=== PATIENT | female | born 1975 | race African-American/Black ===

== ENCOUNTER 2019-08-12 01:36 | Emergency (ER) | payer OTHER ==
[~2019-08-12] VITALS: Ht 180.3 cm; Wt 177.4 kg
--- OUTSIDE RECORDS SUMMARY | 2019-08-12 01:38 | XMS REPORT | Continuity of Care Document ---
Author Author [facility] Organization [facility] Address [address] [place] [address] Phone Unavailable Care Team Providers Care Lumber Tying Machine Operator Name Role Phone PHYSICIAN, NO PCP Unavailable Insurance Providers Guarantor ArturoBarbara Address [address] [place] [address] Email NONE Payer O Policy Number [id number] Subscriber's Name Barbara Morris Relationship Self / Same As Patient Group Number NA Group Name [facility] Advance Directives Directive Response Recorded Date/Time Advance Directive on File No 01/26/18 12:50am Name of Surrogate/Decision Maker N/A 01/26/18 1:03am Patient/Family Given Education Material R/T Directives? Y - SIGNED 01/26/18...AG 01/26/18 1:03am Chief Complaint and Reason for Visit Chief Complaint Abdominal/GI/Nausea/Vomiting Reason for Visit Hemorrhagic cystitis Problems Active ProblemsNo active problem information available. Past Problems Medical Problem Onset Date Status Hemorrhagic cystitis Unknown Acute Medications No medication information available. Social History Social History Problem Response Recorded Date/Time Onset Date Status Hx Physical Abuse No 01/26/2018 12:50am Not Applicable Not Applicable Smoking Status Start Date Stop Date Current every day smoker Hospital Discharge Instructions No hospital discharge instruction information available. Plan of Care Discharge Date 01/26/18 3:41am Instructions/Education Provided Hematuria, Adult Forms Provided Portal Welcome Letter Prescriptions See Medication Section Referrals NO PHYSICIAN Additional Instructions/Education Ciprofloxacin 500mg 1 tab. twice a day Tylenol #3 (generic) 1 tab. every 4 hours as needed for pain OFF FROM DUTY TODAY Functional Status No functional status information available. Allergies, Adverse Reactions, Alerts Allergen Type Severity Reaction Status Last Updated Aspirin ([id number]) Allergy Unknown HIVES Active 01/26/18 Metoclopramide (R9971279994) Allergy Unknown CHEST TIGHTNESS Active 01/26/18 Ceftriaxone ([id number]) Allergy Unknown HIVES Active 01/26/18 Ondansetron (O9390094804) Allergy Unknown HIVES Active 01/26/18 NSAIDs (U2892864093) Allergy Unknown HIVES Active 01/26/18 Ketorolac Tromethamine ([id number]) Allergy Unknown CHEST TIGHTNESS Active 01/26/18 Immunizations No immunization information available. Vital Signs Acute Vital Signs Vital Response Date/Time Blood Pressure 106/73 mm Hg 01/26/2018 3:41am Pulse Pulse Rate (adult) 71 beats per minute (60 - 100) 01/26/2018 3:41am Respiratory Rate 20 breaths per minute (10 - 24) 01/26/2018 3:41am Temperature Source Oral 01/26/2018 3:41am Height 5 ft 10.5 in 01/26/2018 12:50am Weight 386 lb 01/26/2018 12:50am Body Mass Index 54.6 kg/m^2 01/26/2018 12:50am Results Laboratory Results Test Name Result Units Flags Reference Collection Date/Time Result Date/Time Comments White Blood Count 8.8 K/ul 4.0-11.5 01/26/2018 2:01am 01/26/2018 2:14am Red Blood Count 4.73 M/ul 3.80-5.20 01/26/2018 2:01am 01/26/2018 2:14am Hemoglobin 14.0 g/dl 10.5-15.7 01/26/2018 2:01am 01/26/2018 2:14am Hematocrit 42.2 % 34.0-50.0 01/26/2018 2:01am 01/26/2018 2:14am Mean Corpuscular Volume 89.2 fl 78-98 01/26/2018 2:01am 01/26/2018 2:14am Mean Corpuscular Hemoglobin 29.5 pg 26.2-33.4 01/26/2018 2:01am 01/26/2018 2:14am Mean Corpuscular Hemoglobin Concent 33.1 g/dl 31.5-36.2 01/26/2018 2:01/26/2018 2:14am Red Cell Distribution Width 12.6 % 11.5-15.5 01/26/2018 2:0101/26/2018 2:14am Platelet Count 303 K/ul 137-338 01/26/2018 2:01/26/2018 2:14am Mean Platelet Volume 7.1 fl L 8.4-11.8 01/26/2018 2:0101/26/2018 2:14am Neutrophils (%) (Auto) 64.2 % 44.4-80.1 01/26/2018 2:01/26/2018 2:14am Lymphocytes (%) (Auto) 28.4 % 10.0-50.0 01/26/2018 2:01/26/2018 2:14am Monocytes (%) (Auto) 3.9 % 3.6-12.04 01/26/2018 2:01/26/2018 2:14am Eosinophils (%) (Auto) 2.2 % 0.0-5.41 01/26/2018 2:0101/26/2018 2:14am Basophils (%) (Auto) 1.2 % H 0.0-0.79 01/26/2018 2:0101/26/2018 2:14am Urine Color YELLOW 01/26/2018 12:50am 01/26/2018 1:34am Urine Appearance SL CLOUDY A CLEAR 01/26/2018 12:50am 01/26/2018 1:34am Urine Glucose NEGATIVE NEGATIVE 01/26/2018 12:50am 01/26/2018 1:34am Urine Bilirubin NEGATIVE NEGATIVE 01/26/2018 12:50am 01/26/2018 1:34am Urine Ketones NEGATIVE NEGATIVE 01/26/2018 12:50am 01/26/2018 1:34am Urine Specific [place] 1.020 1.003-1.030 01/26/2018 12:50am 01/26/2018 1:34am Urine Blood 3+ (LARGE) H NEGATIVE 01/26/2018 12:50am 01/26/2018 1:34am Urine pH 5.500 5-9 01/26/2018 12:50am 01/26/2018 1:34am Urine Protein TRACE NEGATIVE 01/26/2018 12:50am 01/26/2018 1:34am Urine Urobilinogen NORMAL mg/dL 0.2-1.0 01/26/2018 12:50am 01/26/2018 1:34am Urine Nitrate NEGATIVE NEGATIVE 01/26/2018 12:50am 01/26/2018 1:34am Urine Leukocyte Esterase NEGATIVE NEGATIVE 01/26/2018 12:50am 01/26/2018 1:34am Urine RBC >50 /hpf H 0-5 01/26/2018 12:50am 01/26/2018 1:34am Urine WBC 1-5 /hpf 0-5 01/26/2018 12:50am 01/26/2018 1:34am Urine Epithelial Cells 1-5 /hpf 0-5 01/26/2018 12:50am 01/26/2018 1:34am Urine Bacteria None Detected /hpf None Detect 01/26/2018 12:50am 01/26/2018 1:34am Urine Casts None Detected /lpf None Detect 01/26/2018 12:50am 01/26/2018 1:34am Urine Culture Reflexed NO 01/26/2018 12:50am 01/26/2018 1:34am Random Glucose 97 mg/dL 74-106 01/26/2018 2:01am 01/26/2018 2:30am Blood Urea Nitrogen 10 mg/dL -01/26/2018 2:01am 01/26/2018 2:30am Serum Osmolality 277 L 280-300 01/26/2018 2:01am 01/26/2018 2:30am Creatinine 0.7 mg/dL 0.50-0.90 01/26/2018 2:01am 01/26/2018 2:30am Glomerular Filtration Rate Calc > 60.00 01/26/2018 2:01am 01/26/2018 2:30am GFR RESULTS ARE REPORTED IN mL/min/1.73m2. Normal GFR: >60mL/min Moderately decreased GFR: 30-59 mL/min Severely decreased GFR: 15-29 mL/min Kidney Failure (or Dialysis): <15 mL/min The calculated eGFR is not valid for patients younger than 18 years or older than 75 years. BUN/Creatinine Ratio 14.3 12-01/26/2018 2:0101/26/2018 2:30am Sodium Level 139 mmol/L 135-145 01/26/2018 2:0101/26/2018 2:30am Potassium Level 4.0 mmol/L 3.5-5.2 01/26/2018 2:0101/26/2018 2:30am Chloride Level 104 mmol/L 98-108 01/26/2018 2:01/26/2018 2:30am Carbon Dioxide Level 23 mmol/L 21-32 01/26/2018 2:01/26/2018 2:30am Anion Gap 16.0 mEq/L 12-20 01/26/2018 2:01/26/2018 2:30am Calcium Level 9.4 mg/dL 8.6-10.0 01/26/2018 2:01/26/2018 2:30am Total Protein 7.5 g/dL 6.6-8.7 01/26/2018 2:01/26/2018 2:30am Albumin 3.7 g/dL 3.5-5.2 01/26/2018 2:01/26/2018 2:30am Globulin 3.8 gm/dL 01/26/2018 2:01/26/2018 2:30am Albumin/Globulin Ratio 1.0 >1.0 01/26/2018 2:01/26/2018 2:30am Total Bilirubin < 0.3 mg/dL 0.0-1.2 01/26/2018 2:0101/26/2018 2:30am Aspartate Amino Transf (AST/SGOT) 20 U/L 15-32 01/26/2018 2:01/26/2018 2:30am Alanine Aminotransferase (ALT/SGPT) 16 U/L 0-33 01/26/2018 2:0101/26/2018 2:30am Amylase Level 144 U/L H 28-100 01/26/2018 2:0101/26/2018 2:30am Lipase 21 U/L 13-60 01/26/2018 2:0101/26/2018 2:30am Total Alkaline Phosphatase 157 U/L H 35-105 01/26/2018 2:0101/26/2018 2:30am Procedures Procedure Status Date Provider(s) Computed tomography of abdomen and pelvis without contrast Completed 01/26/18 JAYME LANG MD Encounters Encounter Location Arrival/Admit Date Discharge/Depart Date Attending Provider Departed Emergency Room [facility] 01/26/18 12:43am 01/26/18 3:41am JAYME LANG MD Recent Diagnosis
--- OUTSIDE RECORDS SUMMARY | 2019-08-12 01:38 | XMS REPORT | Continuity of Care Document ---
Author Author [facility] Address [address] [place] [address] ;ext= Care Team Providers Care Mail Teller Name Role Phone JR FUENTES Admphys JR FUENTES Attphys Hospital Admission Diagnosis Code Admission Diagnosis Date Abdominal pain Social History Element Description Code Description Smoking Status Code System Start Date End Date Smoking Status 042238141 Current every day smoker SNOMED-CT Problems Code Code System Problem Name Start Date End Date Status 591978224 SNOMED-CT Viral gastroenteritis 12/17/2017 Active 336631796 SNOMED-CT Right lower quadrant pain 12/17/2017 Active Medications RxNorm Medication Dose Route Instructions Indications Start Date End Date Status 233863 Dicyclomine Hydrochloride 20 MG Oral Tablet 20 milligram Oral orally 4 times per day (7 days) Active 987226 Metoclopramide 5 MG Oral Tablet 5 milligram Oral orally 4 times per day (7 days) (administer 30 minutes before a meal or food) Active Allergies Code Code System Allergy Substance Type Reaction Severity Start Date End Date Status 3674938 RXNorm Cephalosporins Drug allergy Unknown Active 559201 RXNorm NSAIDS (Non-Steroidal Anti-Inflammatory Drug) Drug allergy Unknown Active 01186 RXNorm Toradol Drug allergy Unknown Active 33083 RXNorm Zofran Drug allergy Unknown Active Results Laboratory Results Order: UA URINALYSIS WITH MICROSCOPY LOINC Test Result Flag Range Unit Date 5778-6 1Color:Type:Pt:Urine:Nom YELLOW 12/17/2017 18:35 5767-9 1Appearance:Aper:Pt:Urine:Nom CLEAR 12/17/2017 18:35 2349-9 1Glucose:ACnc:Pt:Urine:Ord NEGATIVE NEGATIVE 12/17/2017 18:35 5770-3 1Bilirubin:ACnc:Pt:Urine:Ord:Test strip NEGATIVE NEGATIVE 12/17/2017 18:35 2514-8 1Ketones:ACnc:Pt:Urine:Ord:Test strip NEGATIVE NEGATIVE 12/17/2017 18:35 5811-5 1Specific gravity:Rden:Pt:Urine:Qn:Test strip 1.020 A 1.005-1.030 12/17/2017 18:35 5794-3 1Hemoglobin:ACnc:Pt:Urine:Ord:Test strip TRACE-LYSED A NEGATIVE 12/17/2017 18:35 5803-2 1pH:LsCnc:Pt:Urine:Qn:Test strip 6.0 A 4.5-8.0 12/17/2017 18:35 65862-8 1Protein:ACnc:Pt:Urine:Ord:Test strip NEGATIVE NEGATIVE 12/17/2017 18:35 5818-0 1Urobilinogen:ACnc:Pt:Urine:Ord:Test strip 4.0 A 0.2 12/17/2017 18:35 5802-4 1Nitrite:ACnc:Pt:Urine:Ord:Test strip NEGATIVE NEGATIVE 12/17/2017 18:35 5799-2 1Leukocyte esterase:ACnc:Pt:Urine:Ord:Test strip NEGATIVE NEGATIVE 12/17/2017 18:35 5821-4 1Leukocytes:Naric:Pt:Urine sed:Qn:Microscopy.light.HPF 0-1 A 0-5 12/17/2017 18:35 60327-6 1Erythrocytes:Naric:Pt:Urine sed:Qn:Microscopy.light.HPF 0-2 A 0-5 12/17/2017 18:35 60891-1 1Epithelial cells.squamous:Naric:Pt:Urine sed:Qn:Microscopy.light.HPF 0-5 A 0-10 12/17/2017 18:35 8247-9 1Mucus:ACnc:Pt:Urine sed:Ord:Microscopy.light Trace A None Seen 12/17/2017 18:35 5769-5 1Bacteria:Naric:Pt:Urine sed:Qn:Microscopy.light.HPF Trace None Seen,Trace 12/17/2017 18:35 * Performing Lab Footnotes:* [address] [place] [address] - [id number] - [address] - MD: DIRECTOR NATE GASPAR Order: CBC PLATELET AUTO DIFF LOINC Test Result Flag Range Unit Date 05326-7 1Leukocytes^^corrected for nucleated erythrocytes:NCnc:Pt:Bld:Qn:Automated count 8.66 4.80-10.80 10^3/ul 12/17/2017 18:04 789-8 1Erythrocytes:NCnc:Pt:Bld:Qn:Automated count 4.5 4.20-5.40 10^6/ul 12/17/2017 18:04 718-7 1Hemoglobin:MCnc:Pt:Bld:Qn 13 12.0-14.0 gm/dl 12/17/2017 18:04 4544-3 1Hematocrit:VFr:Pt:Bld:Qn:Automated count 39.9 37.0-47.0 % 12/17/2017 18:04 787-2 1Erythrocyte mean corpuscular volume:EntVol:Pt:RBC:Qn:Automated count 88.7 81.0-99.0 fL 12/17/2017 18:04 785-6 1Erythrocyte mean corpuscular hemoglobin:EntMass:Pt:RBC:Qn:Automated count 28.9 27.0-31.0 pg 12/17/2017 18:04 786-4 1Erythrocyte mean corpuscular hemoglobin concentration:MCnc:Pt:RBC:Qn:Automated count 32.6 L 33.0-37.0 gm/dl 12/17/2017 18:04 788-0 1Erythrocyte distribution width:Ratio:Pt:RBC:Qn:Automated count 13.2 11.5-14.5 % 12/17/2017 18:04 777-3 1Platelets:NCnc:Pt:Bld:Qn:Automated count 272 130-400 10^3/ul 12/17/2017 18:04 41731-7 1Platelet mean volume:EntVol:Pt:Bld:Qn:Automated count 9.8 A 7.4-10.4 fL 12/17/2017 18:04 770-8 1Neutrophils/100 leukocytes:NFr:Pt:Bld:Qn:Automated count 70.3 42.0-75.0 % 12/17/2017 18:04 736-9 1Lymphocytes/100 leukocytes:NFr:Pt:Bld:Qn:Automated count 21.5 13.0-42.0 % 12/17/2017 18:04 5905-5 1Monocytes/100 leukocytes:NFr:Pt:Bld:Qn:Automated count 5.7 4.0-14.0 % 12/17/2017 18:04 713-8 1Eosinophils/100 leukocytes:NFr:Pt:Bld:Qn:Automated count 1.4 1.0-5.0 % 12/17/2017 18:04 706-2 1Basophils/100 leukocytes:NFr:Pt:Bld:Qn:Automated count 0.6 0.0-3.0 % 12/17/2017 18:04 1IG% 0.5 H 0.0-0.4 % 12/17/2017 18:04 * Performing Lab Footnotes:* [address] [place] [address] - [id number] - [address] [place] [address] BLANCO Joya MD: DIRECTOR NATE GASPAR Order: CMP COMPREHENSIVE METABOLIC PANEL LOINC Test Result Flag Range Unit Date 1Glucose 101 75-110 mg/dl 12/17/2017 18:04 1BUN 8 6.0-17.0 mg/dl 12/17/2017 18:04 1Creatinine 0.9 0.4-1.2 mg/dl 12/17/2017 18:04 1Sodium 144 137-145 mmol/l 12/17/2017 18:04 1Potassium 4 3.5-5.0 mmol/l 12/17/2017 18:04 1Chloride 109 H 98-107 mmol/l 12/17/2017 18:04 1CO2 26 22-30 mmol/l 12/17/2017 18:04 1Calcium 8.6 8.4-10.2 mg/dl 12/17/2017 18:04 1T Protein 7.4 5.1-8.7 gm/dl 12/17/2017 18:04 1Albumin 3 L 3.5-4.6 gm/dl 12/17/2017 18:04 1A/G Ratio 0.7 L 1.1-2.2 % 12/17/2017 18:04 1AST (SGOT) 17 11-36 U/L 12/17/2017 18:04 1ALT (SGPT) 18 11-40 U/L 12/17/2017 18:04 1Alkaline Phos 147 H 47-114 U/L 12/17/2017 18:04 1Total Bilirubin 0.3 0.2-1.2 mg/dl 12/17/2017 18:04 1Globulin 4.4 H 2.3-3.5 gm/dl 12/17/2017 18:04 1Calcium, Corrected 9.4 8.4-10.2 mg/dl 12/17/2017 18:04 Note: Various formulas exist for corrected serum calcium results, each yielding different values. This corrected result was based on the formula: Corrected Calcium=SerumCalcium + [0.8 * ( 4 - SerumAlbumin)] 1EGFR if >60 mL/min/1.73m^2 12/17/2017 18:04 1EGFR if Non- >60 mL/min/1.73m^2 12/17/2017 18:04 Note: Estimated Glomerular Filtration Rate (eGFR) Reference Intervals Decision Points for 18 years and older and average body mass: >=60 Does not exclude kidney disease. 30 - 59 Suggests moderate chronic kidney disease and indicates the need for further investigation including assessment of proteinuria and cardiovascular factors. < 30 Usually indicates a need for referral for assessment and management of chronic kidney failure. * Performing Lab Footnotes:* [address] [place] [address] [id number] [place] [address] BLANCO Joya MD: DIRECTOR NATE GASPAR Order: LIPASE SERUM LOINC Test Result Flag Range Unit Date 1Lipase 90 8-223 U/L 12/17/2017 18:04 * Performing Lab Footnotes:* [address] [place] [address] [id number] [place] [address] BLANCO Joya MD: DIRECTOR NATE GASAPR Radiology Results Order: [id number] CT ABDOMEN/PELVIS W/O CONTRAST* Exam Completion Date:12/17/2017 18:08 EXAM: CT Abdomen and Pelvis WITHOUT contrast Ordering Provider: MARGARET GALVNI Clinical Indication: rlq painCOMPARISON: None.TECHNIQUE: Abdomen and pelvis wer e scanned utilizing a multidetector helicalscanner from the lung base to the pub ic symphysis without administration of IVcontrast. Absence of intravenous contra st decreases sensitivity for detection offocal lesions and vascular pathology. C oronal and sagittal reformations wereobtained. Routine protocol was performed. IV CONTRAST: None. ORAL CONTRAST: Water RADIATI ON DOSE: Total DLP: 1403 mGy*cm Estimated effective dose: (DLP x 0.0 15 x size factor) mSv COMPLICATIONS: NoneFINDINGS:LINES and TUBES: No ne.LOWER THORAX: Minimal ground glass nodular densities in the right middle lob eposterolaterally on image one series 3 is nonspecific, possibly inflammatory or infectious in etiology. No pleural effusion.HEPATOBILIARY: Heterogeneous fatty i nfiltration. No focal hepatic lesions. Nobiliary ductal dilation. GALLBLADDER: Surgically absent.SPLEEN: No splenomegaly. PANCREAS: No focal masses or ductal d ilatation. ADRENALS: No adrenal nodules KIDNEYS/URETERS: No hydronephrosis. No cystic or solid mass lesions. Nostones.GI TRACT: No abnormal distention, wa ll thickening, or evidence of bowelobstruction. Appendix is normal.PELVIC ORGANS/BLADDER: Status post hysterectomy.LYMPH NODES: No lymphadenopathy.VESSELS : Unremarkable.PERITONEUM / RETROPERITONEUM: No free air or fluid.BONES: Unremar kable.SOFT TISSUES: Unremarkable. IMPRESSION: 1. No acute abdominal pelvic abnormality.This final report was electronically signed by Dr Hermila Ramires i, MD 12/17/20176:34 PMDictated By: HERMILA SIMENTALDate: 12/17/2017 18:41 Vital Signs Vitals Value Date Body Temperature 98.4 F 12/17/2017 Respiratory Rate 20 12/17/2017 O2% BldC Oximetry 100 12/17/2017 BP Systolic 117 mmHg 12/17/2017 BP Diastolic 89 mmHg 12/17/2017 Height 70 in 12/17/2017 Weight Measured 392.42 lbs 12/17/2017 BSA (Body Surface Area) 2.32140 12/17/2017 BMI (Body Mass Index) 56.8 12/17/2017 Plan of Care * No data in the system Procedures Code Code System Procedure Name Target Site Date of Procedure CT ABDOMEN/PELVIS W/O CONTRAST 12/17/2017 18:41 Encounters Date Code Diagnosis Status (ICD10) - A084 VIRAL INTESTINAL INFECTION UNSPEC Active Immunizations * No data in the system Functional Status * No data in the system Hospital Discharge Instructions * Discharge Instructions 2* Discharge Diagnosis* Gastroenteritis; N/V * Important Information* Consult your physician or return to the Emergency Department immediately if worse, if not better as expected, or if any problems arise. * Please understand that you have received care only on an emergency basis. If your condition does not improve, you should call your personal physician for follow-up care. If you do not have a physician, you may call the referred physician listed. * If you have questions about your care or these discharge instructions, you may call the Emergency Department. Please take your discharge paperwork with you to any follow-up appointments. * Follow Up Care* Patient To Schedule * Follow-Up With:* Primary Care Physician * Activity Level* As tolerated, unrestricted * Diet* Regular * Prescriptions Given Via:* Printed and given to patient/caregiver. * Patient Teaching* Patient education provided
--- OUTSIDE RECORDS SUMMARY | 2019-08-12 01:38 | XMS REPORT | Continuity of Care Document ---
Author Author [facility] Address [address] [place] [address] ;ext= Care Team Providers Care Storage Center Manager Name Role Phone JR FUENTES Admphys JR FUENTES Attphys Hospital Admission Diagnosis * No data in the System Social History Element Description Code Description Smoking Status Code System Start Date End Date Smoking Status 148363553 Current every day smoker SNOMED-CT Problems Code Code System Problem Name Start Date End Date Status 695810023 SNOMED-CT Viral gastroenteritis 12/17/2017 Active 423559108 SNOMED-CT Right lower quadrant pain 12/17/2017 Active Medications RxNorm Medication Dose Route Instructions Indications Start Date End Date Status 301347 Dicyclomine Hydrochloride 20 MG Oral Tablet 20 milligram Oral orally 4 times per day (7 days) Active 285123 Metoclopramide 5 MG Oral Tablet 5 milligram Oral orally 4 times per day (7 days) (administer 30 minutes before a meal or food) Active Allergies Code Code System Allergy Substance Type Reaction Severity Start Date End Date Status 2536118 RXNorm Cephalosporins Drug allergy Unknown Active 083162 RXNorm NSAIDS (Non-Steroidal Anti-Inflammatory Drug) Drug allergy Unknown Active 81620 RXNorm Toradol Drug allergy Unknown Active 93794 RXNorm Zofran Drug allergy Unknown Active Results Laboratory Results Order: UA URINALYSIS WITH MICROSCOPY LOINC Test Result Flag Range Unit Date 5777-10 1Color:Type:Pt:Urine:Nom YELLOW 12/17/2017 18:35 5767-9 1Appearance:Aper:Pt:Urine:Nom CLEAR 12/17/2017 18:35 2349-9 1Glucose:ACnc:Pt:Urine:Ord NEGATIVE NEGATIVE 12/17/2017 18:35 5770-3 1Bilirubin:ACnc:Pt:Urine:Ord:Test strip NEGATIVE NEGATIVE 12/17/2017 18:35 2514-8 1Ketones:ACnc:Pt:Urine:Ord:Test strip NEGATIVE NEGATIVE 12/17/2017 18:35 5811-5 1Specific gravity:Rden:Pt:Urine:Qn:Test strip 1.020 A 1.005-1.030 12/17/2017 18:35 5794-3 1Hemoglobin:ACnc:Pt:Urine:Ord:Test strip TRACE-LYSED A NEGATIVE 12/17/2017 18:35 5803-2 1pH:LsCnc:Pt:Urine:Qn:Test strip 6.0 A 4.5-8.0 12/17/2017 18:35 95432-7 1Protein:ACnc:Pt:Urine:Ord:Test strip NEGATIVE NEGATIVE 12/17/2017 18:35 5818-0 1Urobilinogen:ACnc:Pt:Urine:Ord:Test strip 4.0 A 0.2 12/17/2017 18:35 5802-4 1Nitrite:ACnc:Pt:Urine:Ord:Test strip NEGATIVE NEGATIVE 12/17/2017 18:35 5799-2 1Leukocyte esterase:ACnc:Pt:Urine:Ord:Test strip NEGATIVE NEGATIVE 12/17/2017 18:35 5821-4 1Leukocytes:Naric:Pt:Urine sed:Qn:Microscopy.light.HPF 0-1 A 0-5 12/17/2017 18:35 40390-6 1Erythrocytes:Naric:Pt:Urine sed:Qn:Microscopy.light.HPF 0-2 A 0-5 12/17/2017 18:35 57472-5 1Epithelial cells.squamous:Naric:Pt:Urine sed:Qn:Microscopy.light.HPF 0-5 A 0-10 12/17/2017 18:35 8247-9 1Mucus:ACnc:Pt:Urine sed:Ord:Microscopy.light Trace A None Seen 12/17/2017 18:35 5769-5 1Bacteria:Naric:Pt:Urine sed:Qn:Microscopy.light.HPF Trace None Seen,Trace 12/17/2017 18:35 * Performing Lab Footnotes:* [address] [place] [address] - [id number] - [address] - MD: DIRECTOR NATE GASPAR Order: CBC PLATELET AUTO DIFF LOINC Test Result Flag Range Unit Date 41297-4 1Leukocytes^^corrected for nucleated erythrocytes:NCnc:Pt:Bld:Qn:Automated count 8.66 4.80-10.80 [...] 1Platelets:NCnc:Pt:Bld:Qn:Automated count 272 130-400 10^3/ul 12/17/2017 18:04 27424-2 1Platelet mean volume:EntVol:Pt:Bld:Qn:Automated count 9.8 A 7.4-10.4 [...] % 12/17/2017 18:04 * Performing Lab Footnotes:* [address] [place] [address] - [id number] [place] [address] BLANCO Joya MD: DIRECTOR NATE GASPAR Order: [...] chronic kidney failure. * Performing Lab Footnotes:* [address] [place] [address] [id number] [place] [address] BLANCO Joya MD: DIRECTOR NATE GASPAR Order: LIPASE SERUM LOINC Test Result Flag Range Unit Date 1Lipase 90 8-223 U/L 12/17/2017 18:04 * Performing Lab Footnotes:* [address] [place] [address] [id number] [place] [address] BLANCO Joya MD: DIRECTOR NATE GASPAR Radiology Results Order: [id number] CT ABDOMEN/PELVIS W/O CONTRAST* Exam Completion Date:12/17/2017 18:08 EXAM: CT Abdomen and Pelvis WITHOUT contrast Ordering Provider: MARGARET GALVIN Clinical Indication: rlq painCOMPARISON: None.TECHNIQUE: Abdomen and [...] 392.42 lbs 12/17/2017 BSA (Body Surface Area) 2.78543 12/17/2017 BMI (Body Mass Index) 56.8 12/17/2017 Plan of Care * No data in the system Procedures Code Code System Procedure Name Target Site Date of Procedure CT ABDOMEN/PELVIS W/O CONTRAST 12/17/2017 18:41 Encounters * No data in the system Immunizations * No data in the system [...]
--- OUTSIDE RECORDS SUMMARY | 2019-08-12 01:41 | XMS REPORT ---
[facility] Address Unknown Phone Unavailable Care Team Providers Care Sorter Operator Name Role Phone UNKNOWN, REFFERING PP Unavailable PROVIDER, TEMP ED Unavailable Unavailable LINK CHAVEZ Unavailable Unavailable DR Verna BARRIENTOS Unavailable Unavailable EDUARD ABREU Unavailable Unavailable Edward FUENTES Unavailable Unavailable DR ANIVAL MONTGOMERY Unavailable Unavailable BASIL LEGGETT Unavailable Unavailable JOEL CRAVEN Unavailable Unavailable PEPITO ESCAMILLA Unavailable Unavailable WENDIE BLANTON Unavailable Unavailable ABIGAIL POTTS Unavailable Unavailable SONALI ELLER Unavailable Unavailable KRUPA GORDON Unavailable Unavailable RON FULTON Unavailable Unavailable Payers Payer Name Policy Type Policy Number Effective Date Expiration Date Problems This patient has no known problems. Allergies, Adverse Reactions, Alerts Allergy Name Allergy Type Status Severity Reaction(s) Onset Date Inactive Date Treating Clinician Comments NSAIDS (Non-Steroidal Anti-Inflamma DA Active U 2018-09-18 00:00:00 prochlorperazine DA Active U 2018-09-18 00:00:00 aspirin DA Active U 2018-09-18 00:00:00 metoclopramide DA Active 2018-09-18 00:00:00 ondansetron DA Active U 2018-09-18 00:00:00 ketorolac DA Active U 2018-09-18 00:00:00 ceftriaxone DA Active U 2018-09-18 00:00:00 Cephalosporins DA Active U 2018-09-13 00:00:00 NSAIDS (Non-Steroidal Anti-Inflamma DA Active 2018-09-13 00:00:00 aspirin DA Active 2018-09-13 00:00:00 metoclopramide DA Active 2018-09-13 00:00:00 ondansetron DA Active 2018-09-13 00:00:00 NSAIDS (Non-Steroidal Anti-Inflamma DA Active U 2018-05-29 00:00:00 prochlorperazine DA Active U 2018-05-29 00:00:00 aspirin DA Active U 2018-05-29 00:00:00 metoclopramide DA Active 2018-05-29 00:00:00 ondansetron DA Active U 2018-05-29 00:00:00 ketorolac DA Active U 2018-05-29 00:00:00 ceftriaxone DA Active U 2018-05-29 00:00:00 NSAIDS (Non-Steroidal Anti-Inflamma DA Active AR 2018-03-06 00:00:00 aspirin DA Active AR 2018-03-06 00:00:00 metoclopramide DA Active U 2018-03-06 00:00:00 ondansetron DA Active AR 2018-03-06 00:00:00 ceftriaxone DA Active AR 2018-03-06 00:00:00 metoclopramide DA Active U 2017-12-16 00:00:00 NSAIDS (Non-Steroidal Anti-Inflamma DA Active AR 2016-12-28 00:00:00 prochlorperazine DA Active MO 2016-12-28 00:00:00 aspirin DA Active MO 2016-12-28 00:00:00 metoclopramide DA Active MO 2016-12-28 00:00:00 ondansetron DA Active MO 2016-12-28 00:00:00 ketorolac DA Active MO 2016-12-28 00:00:00 ceftriaxone DA Active MO 2016-12-28 00:00:00 NSAIDS (Non-Steroidal Anti-Inflamma DA Active U 2016-12-18 00:00:00 prochlorperazine DA Active U 2016-12-18 00:00:00 aspirin DA Active U 2016-12-18 00:00:00 metoclopramide DA Active SV 2016-12-18 00:00:00 ondansetron DA Active U 2016-12-18 00:00:00 ketorolac DA Active U 2016-12-18 00:00:00 ceftriaxone DA Active U 2016-12-18 00:00:00 morphine DA Active PR 2016-09-15 00:00:00 NSAIDS (Non-Steroidal Anti-Inflamma DA Active PR 2016-09-14 00:00:00 prochlorperazine DA Active SV 2016-09-14 00:00:00 aspirin DA Active PR 2016-09-14 00:00:00 ondansetron DA Active U 2016-09-14 00:00:00 ketorolac DA Active SV 2016-09-14 00:00:00 ceftriaxone DA Active PR 2016-09-14 00:00:00 Medications This patient has no known medications. Encounters Start Date/Time End Date/Time Encounter Type Admission Type Attending [facility] Care Department Encounter ID 2019-03-14 12:44:30 Outpatient MHSE SHASTA [id number] 2019-07-04 22:32:00 2019-07-04 22:32:00 Outpatient E MHNE MED [id number] 2019-02-14 22:42:00 2019-02-14 22:42:00 Emergency E MHKM MHKM [id number] 2019-01-03 15:43:00 2019-01-03 15:43:00 Emergency E MHCY MHCY [id number] 2018-12-28 05:16:00 2018-12-28 08:30:00 Emergency E ADEEL BARRIENTOS [facility] [id number] 2018-12-19 02:51:00 2018-12-19 02:51:00 Emergency E MHFB MHFB [id number] 2018-11-30 03:58:00 2018-11-30 03:58:00 Emergency E MHNW MHNW [id number] 2018-11-22 05:39:00 2018-11-22 05:39:00 Emergency E MHNE MHNE [id number] 2018-11-15 04:53:00 2018-11-15 04:53:00 Emergency E MHNE MHNE [id number] 2018-11-04 01:16:00 2018-11-04 01:16:00 Emergency E MHTW MHTW [id number] 2018-10-15 22:04:00 2018-10-15 22:04:00 Emergency E MHTW MHTW [id number] 2018-10-05 23:24:00 2018-10-05 23:24:00 [id number] 2018-09-15 21:47:00 2018-09-15 21:47:00 Emergency E MHNE MHNE 7545 2018-09-04 23:41:00 2018-09-04 23:41:00 Emergency E MHNE MHNE 7544 2018-08-27 03:08:00 2018-08-27 03:08:00 Emergency E MHNE MHNE 7543 2018-08-06 02:42:00 2018-08-06 02:42:00 Emergency E MHNE MHNE 7542 2018-08-01 03:34:00 2018-08-01 03:34:00 Outpatient MHNE MHNE [id number] 2018-07-07 23:03:00 2018-07-07 23:03:00 Emergency E MHNE MHNE 7540 2018-04-17 23:27:00 2018-04-17 23:27:00 Emergency E MHNE MHNE 7530 2018-03-27 21:49:00 2018-03-27 [facility]:49:00 [id number] 2018-03-22 00:55:00 2018-03-22 00:55:00 Emergency [facility] [id number] 2018-02-27 07:05:50 2018-02-27 07:05:50 Emergency [facility] [id number] 2018-02-27 02:28:34 2018-02-27 02:28:34 Emergency [facility] [id number] 2018-02-27 00:00:00 2018-02-27 00:00:00 Emergency [facility] [id number] 2018-02-27 00:00:00 2018-02-27 00:00:00 Emergency [facility] [id number] 2018-02-05 22:41:00 2018-02-05 22:41:00 Emergency E MHNW MHNW [id number] 2018-02-05 02:09:00 2018-02-05 02:09:00 Emergency E [facility] 7525 2017-11-15 05:04:00 2017-11-15 07:39:00 Emergency E JONAH MONTGOMERY [facility] [id number] 2017-08-22 22:46:37 2017-08-22 22:46:37 Emergency [facility] [id number] 2017-08-22 21:38:09 2017-08-22 21:38:09 Emergency [facility] [id number] 2017-08-15 22:43:00 2017-08-15 22:43:00 Emergency E STANLEY LEGGETTFara [facility] [id number] 2017-07-24 19:20:00 2017-07-24 19:20:00 Emergency E [facility] [id number] 2017-01-14 07:28:14 2017-01-14 07:28:14 Emergency [facility] [id number] 2017-01-14 00:45:08 2017-01-14 00:45:08 Emergency [facility] [id number] 2016-11-18 03:34:26 2016-11-18 03:34:26 Emergency [facility] [id number] 2016-11-16 22:14:00 2016-11-16 22:14:00 Emergency [facility] [id number] 2016-11-12 01:40:00 2016-11-12 01:40:00 Emergency E [facility] [id number] Results Test Description Test Time Test Comments Text Results Atomic Results Result Comments UA RFLX MICR CULT IF INDICATED 2019-05-10 03:37:00 UA COLOR (test code=COLU) YELLOW YEL/STRAW UA APPEARANCE (test code=APPU) SL CLOUDY CLEAR UA GLUCOSE DIPSTICK (test code=DGLUU) NEGATIVE NEGATIVE UA BILIRUBIN DIPSTICK (test code=BILU) NEGATIVE NEGATIVE UA KETONE DIPSTICK (test code=KETU) NEGATIVE NEGATIVE UA SPECIFIC GRAVITY (test code=SGU) 1.031 1.005-1.030 UA BLOOD DIPSTICK (test code=OSMEL) NEGATIVE NEGATIVE UA PH DIPSTICK (test code=LUPE) 5.0 5.0-7.0 UA PROTEIN DIPSTICK (test code=PROU) NEGATIVE NEGATIVE UA UROBILINIOGEN DIPSTICK (test code=URO) 2.0 mg/dL 0.2-1.0 UA NITRITE DIPSTICK (test code=PATRICIA) NEGATIVE NEGATIVE UA LEUKOCYTE ESTERASE DIPSTICK (test code=LEUU) NEGATIVE NEGATIVE UA WBC (test code=WBCU) 0-3 WBC/HPF 0-3 UA RBC (test code=RBCU) 0-3 RBC/HPF 0-3 UA WBC NO REFLEX (test code=WBCUCL) 0-3 WBC/HPF 0-3 UA BACTERIA (test code=BACU) TRACE /HPF NONE SEEN UA SQUAMOUS CELLS (test code=SQU) 11-25 /HPF NONE SEEN UA MUCUS (test code=MUCU) TRACE /LPF NONE SEEN Indication for culture: Dysuria/FrequencySpecimen Description: CLEAN CATCH- CT ABD PELVIS [id number] 23:33:00 FAX: Anibal Linares MD [place]: St: REG Name: LILIAN BOO [facility] : 5 Age/S: 43/F [address] [facility] Unit: [id number] Loc: E[facility] [place], [place]: [place] [id number] Acct: [id number] Dis Date: Status: REG ER PHONE #: [phone] Exam Date: 05/03/2019 2332 FAX #: [phone] Reason: RLQ PAIN hx of ovarian torsion EXAMS: CPT CODE: [id number] CT ABD PELVIS W/CONT 81440 LOCATION: T18 EXAM: CT ABDOMEN AND PELVIS WITH CONTRAST INDICATION: RLQ PAIN hx of ova jett torsion COMPARISON: Pelvic ultrasound May 03, [address] abdomen and pelvis April 16, 2019 TECHNIQUE: Multiple C T images of the abdomen and pelvis were obtained with reconstructions in t he coronal and sagittal planes. 100 ml of Isovue 300 was given intravenous ly. Up-to-date CT equipment and radiation dose reduction techniques were utilized. Automatic exposure control was utilized. FINDINGS : Lung bases are clear. Liver and spleen are normal in appearance. Adrenal glands and pancreas normal. Gallbladder removed. No biliary di stention. Portal vasculature is patent. Kidneys enhance sym metrically. No focal abnormality-doses. There is no hydroureter. Urinar y bladder is normal in appearance. Uterus is not seen. Appe ndix is normal. There is no evidence for acute appendicitis. No free air or free fluid is present. No bowel obstruction is seen. Abdominal aorta is normal in caliber. IVC is normal. Bones are intact. Peripheral soft tissues are intact as well. IMPRESSION: Normal appendix. No bowel obstruction. No acute abnormality. Gallbladder removed. Ut erus is absent. Electronically Signed by Ronna Bull on 2018 at 2333 Reported and signed by: Thiago Bull M.D. CC: Anibal Linares MD Technologist: TRAE POMPA Trnscrd Dt/Tm: 05/03/2019 ( 1713) [email or web address] Orig Print D/T: S: 05/03/2019 (2683 PAGE 1 Signed Report - US PELVIS [id number] 23:20:00 FAX: Anibal Linares MD [place]: EM St: REG Name: LILIAN GARCIA [facility] : [birth year] Age/S: 43/F [address] [facility] [address] Unit #: [id number] Loc: E.ERS2 [place], [place]: [place] [id number] Acct: [id number] Dis Date: Status: REG ER PHONE #: [phone] Exam Date: 05/03/2019 2255 FAX #: [phone] Reason: Pelvic pain EXAMS: CPT CODE: [id number] US PELVIS COMPLETE 61780 Pelvic ultrasound with limited Dop pler. History: Pain. Technique: Transabdominal and t ransvaginal ultrasound of pelvic region was performed with lemon scale, col or, and limited pulsed Doppler interrogation. Findings: Exam findings are limited secondary to patient habitus, specifically the bilateral ovaries could not be seen Comparison made to pr ior CT of April 16, 2019. The patient is status post partial hys terectomy. The bilateral ovaries are not visualized There is no free fluid in the pelvis. Impression: Exam findings are extremely limited secondary to patient habitus, s pecifically the bilateral ovaries could not be seen Electron ically Signed by Ronna Esteban on 019 at 2320 Reported and signed by: Charlene Martinez M.D. CC: Anibal Linares MD Technologist: DEJA GUADARRAMA Trniard Date/Time/By: 05/03/2019 (5920) : By: [email or web address] PAGE 1 Signed Report FAX: Anibal Sommer MD [place]: St: REG Name: LILIAN DEL ROSARIO [facility] : 1975 Age/S: 43/F [address] Unit #: [id number] Loc: E.ERS2 [place], [place]: [place] [address] Acct: [id number] Dis Date: Status: REG ER PHONE #: [phone] Exam Date: 05/03/20192254 FAX #: [phone] Reason: Pelvic p ain EXAMS: CPT CODE: [id number] US PELVIS COMPLETE 87104 <Continued> Orig Print D/T: S: 05/03/2019 (5155) PAGE 2 Signed Report - US TRANSVAGINAL NON OB 2019-05-03 23:20:00 FAX: Anibal Linares MD [place]: St: REG Name: LILIAN GARCIA [facility] : [birth year] 74 Age/S: 43/F [address] [facility] Unit #: [id number] Loc: [address] Phys: [place] [address] Acct: [id number] Dis Date: Status: REG ER PHONE #: [phone] Exam Date: 05/03/20192255 FAX #: [phone] Reason: Pelvic pain EXAMS: CPT CODE: [id number] [place] [address] Pelvic ultrasound with limited Dop pler. History: Pain. Technique: Transabdominal and t ransvaginal ultrasound of pelvic region was performed with lemon scale, col or, and limited pulsed Doppler interrogation. Findings: Exam findings are limited secondary to patient habitus, specifically the bilateral ovaries could not be seen Comparison made to pr ior CT of April 16, 2019. The patient is status post partial hys terectomy. The bilateral ovaries are not visualized There is no free fluid in the pelvis. Impression: Exam findings are extremely limited secondary to patient habitus, s pecifically the bilateral ovaries could not be seen Electron ically Signed by Ronna Esteban on 019 at 2320 Reported and signed by: Charlene Martinez M.D. CC: Anibal Linares MD Technologist: [id number] Rm 1; DEJA GUADARRAMA Trnscrd Date/Time/By: 05/03/2019 (4355) : By: [email or web address] PAGE 1 Signed Report FAX: Anibal Sommer MD [place]: St: REG Name: LILIAN DEL ROSARIO [facility] : 1975 Age/S: 43/F [address] [facility] #: [id number] Loc: [address] [place]: [place] [address] Acct: [id number] Dis Date: Status: REG ER PHONE #: [phone] Exam Date: 05/03/2019 2256 FAX #: [phone] Reason: Pelvic p ain EXAMS: CPT CODE: [id number] [place] [address] <Continued> Orig Print D/T: S: 05/03/2019 (0506) PAGE 2 Signed Report BASIC METABOLIC [id number] 22:31:00* Test Item Value Reference Range Comments SODIUM (test code=NA) 132 mmol/l 134.0-147.0 POTASSIUM (test code=K) 4.9 mmol/L 3.6-5.2 1+ HEMOLYSIS CHLORIDE (test code=CL) 104 mmol/l 98.0-107.0 CARBON DIOXIDE (test code=CO2) 26.9 mmol/l 21.0-33.0 ANION GAP (test code=GAP) 6.0 0-20 GLUCOSE (test code=GLU) 102 mg/dl 70.0-110.0 BLOOD UREA NITROGEN (test code=BUN) 13 mg/dl 7.0-18.0 CREATININE (test code=CREAT) 0.71 mg/dL 0.60-1.30 GFR NON BLACK (test code=GFRNONBLACK) 95 mL/min 95-105 GFR BLACK (test code=GFRBLACK) 114 mL/min 115-127 CALCIUM (test code=CA) 8.5 mg/dl 8.0-10.5 HEPATIC FUNCTION PANEL [id number] 22:31:00* Test Item Value Reference Range Comments TOTAL PROTEIN (test code=PROT) 7.1 gm/dL 6.4-8.2 ALBUMIN (test code=ALB) 3.0 gm/dl 3.2-4.7 BILIRUBIN TOTAL (test code=BILT) 0.3 mg/dl 0.0-1.0 BILIRUBIN DIRECT (test code=BILD) <0.1 mg/dl 0.0-0.3 SGOT/AST (test code=AST) 33 Units/L 15.0-37.0 SGPT/ALT (test code=ALT) 24 Units/L 12.0-78.0 ALKALINE PHOSPHATASE TOTAL (test code=ALKP) 142 Units/L 50.0-136.0 [id number] 22:31:00* Test Item Value Reference Range Comments LIPASE (test code=LIP) 97 Units/L 65.0-230.0 DRUGS OF ABUSE SCREEN [id number] 22:31:00* Test Item Value Reference Range Comments URN COCAINE (test code=COCAURN) NEGATIVE NEGATIVE Cocaine cut-off concentration: 300 ng/mL URN CANNABINOIDS (test code=CANNABURN) NEGATIVE NEGATIVE Cannabinoids cut-off concentration: 50 ng/mL URN AMPHETAMINE (test code=AMPHETURN) NEGATIVE NEGATIVE Amphetamine cut-off concentration: 1000 ng/mL URN BARBITURATE (test code=BARBITURN) NEGATIVE NEGATIVE Barbiturate cut-off concentration: 200 ng/mL URN BENZODIAZEPINE (test code=BENZOURN) NEGATIVE NEGATIVE Benzodiazepine cut- off concentration: 200 ng/mL URN OPIATES (test code=OPIATURN) NEGATIVE NEGATIVE Opiates cut-off concentration: 200 ng/mL URN PHENCYCLIDINE (PCP) (test code=PHENCURN) NEGATIVE NEGATIVE Phencyclidine(PCP) cut-off concentration: 25 ng/ml URN METHADONE (test code=METHAURN) NEGATIVE NEGATIVE Methadone cut-off concentration: 300 ng/mL ADD ONBASIC METABOLIC [id number] 22:24:00* Test Item Value Reference Range Comments SODIUM (test code=NA) 132 mmol/l 134.0-147.0 POTASSIUM (test code=K) 4.9 mmol/L 3.6-5.2 1+ HEMOLYSIS CHLORIDE (test code=CL) 104 mmol/l 98.0-107.0 CARBON DIOXIDE (test code=CO2) 26.9 mmol/l 21.0-33.0 ANION GAP (test code=GAP) 6.0 0-20 GLUCOSE (test code=GLU) mg/dl 70.0-110.0 BLOOD UREA NITROGEN (test code=BUN) mg/dl 7.0-18.0 CREATININE (test code=CREAT) mg/dL 0.60-1.30 GFR NON BLACK (test code=GFRNONBLACK) mL/min 95-105 GFR BLACK (test code=GFRBLACK) mL/min 115-127 CALCIUM (test code=CA) mg/dl 8.0-10.5 HEPATIC FUNCTION PANEL [id number] 22:24:00* Test Item Value Reference Range Comments TOTAL PROTEIN (test code=PROT) gm/dL 6.4-8.2 ALBUMIN (test code=ALB) gm/dl 3.2-4.7 BILIRUBIN TOTAL (test code=BILT) mg/dl 0.0-1.0 BILIRUBIN DIRECT (test code=BILD) mg/dl 0.0-0.3 SGOT/AST (test code=AST) Units/L 15.0-37.0 SGPT/ALT (test code=ALT) Units/L 12.0-78.0 ALKALINE PHOSPHATASE TOTAL (test code=ALKP) Units/L 50.0-136.0 [id number] 22:24:00* Test Item Value Reference Range Comments LIPASE (test code=LIP) Units/L 65.0-230.0 CBC W/AUTO [id number] 22:16:00* Test Item Value Reference Range Comments WHITE BLOOD CELL (test code=WBC) 8.2 K/mm3 4.5-11.0 RED BLOOD CELL (test code=RBC) 4.41 M/mm3 3.80-5.20 HEMOGLOBIN (test code=HGB) 13.0 gm/dL 12.0-16.0 HEMATOCRIT (test code=HCT) 40.7 % 36.0-48.0 MEAN CELL VOLUME (test code=MCV) 92.3 UM3 82.0-99.0 MEAN CELL HGB (test code=MCH) 29.5 UUG 25.5-32.5 MEAN CELL HGB CONCETRATION (test code=MCHC) 31.9 gm/dL 29.0-35.5 RED CELL DISTRIBUTION WIDTH (test code=RDW) 13.8 % 11.5-15.0 RED CELL DISTRIBUTION WIDTH SD (test code=RDW-SD) 46.4 fL 34.8-50.2 PLATELET COUNT (test code=PLT) 278 K/mm3 150-400 MEAN PLATELET VOLUME (test code=MPV) 10.0 fl 7.4-10.4 NEUTROPHIL % (test code=NT%) 66.9 % 49.0-76.0 IMMATURE GRANULOCYTE % (test code=IG%) 0.5 % 0.0-0.4 LYMPHOCYTE % (test code=LY%) 23.4 % 23.0-38.0 MONOCYTE % (test code=MO%) 5.0 % 1.0-10.0 EOSINOPHIL % (test code=EO%) 3.3 % 1.0-5.0 BASOPHIL % (test code=BA%) 0.9 % 0.0-1.0 NEUTROPHIL # (test code=NT#) 5.5 K/mm3 2.4-6.3 IMMATURE GRANULOCYTE # (test code=IG#) 0.04 x10 3/uL 0.00-0.07 LYMPHOCYTE # (test code=LY#) 1.9 K/mm3 1.2-4.0 MONOCYTE # (test code=MO#) 0.4 K/mm3 0.0-0.6 EOSINOPHIL # (test code=EO#) 0.3 K/MM3 0.0-0.7 BASOPHIL # (test code=BA#) 0.1 K/mm3 0.0-0.2 URINALYSIS [id number] 21:44:00* Test Item Value Reference Range Comments UA COLOR (test code=COLU) YELLOW UA APPEARANCE (test code=APPU) CLDY UA GLUCOSE DIPSTICK (test code=DGLUU) NORMAL mg/dl NORMAL UA BILIRUBIN DIPSTICK (test code=BILU) NEGATIVE mg/dL NEGATIVE UA KETONE DIPSTICK (test code=KETU) 5 mg/dl mg/dl NEGATIVE UA SPECIFIC GRAVITY (test code=SGU) 1.025 1.000-1.030 UA BLOOD DIPSTICK (test code=OSMEL) 250 Sunny/micL Sunny/micL NEGATIVE UA PH DIPSTICK (test code=LUPE) 5.0 5.0-9.0 UA PROTEIN DIPSTICK (test code=PROU) 30 mg/dl NEGATIVE UA UROBILINIOGEN DIPSTICK (test code=URO) 4.0 mg/dl mg/dl NORMAL UA NITRITE DIPSTICK (test code=PATRICIA) NEGATIVE NEGATIVE UA LEUKOCYTE ESTERASE DIPSTICK (test code=LEUU) 25 Olamide/micL Olamide/micL NEGATIVE UA WBC (test code=WBCU) 10-20 WBC/HPF NONE UA RBC (test code=RBCU) TNTC RBC/HPF 0-3 UA EPITHELIAL CELLS (test code=EPIU) 5-10 EPI/HPF 0-3 UA BACTERIA (test code=BACU) MANY NONE Specimen comments: Clean CatchUR HCG [id number] 21:44:00* Test Item Value Reference Range Comments UR HCG QUAL (test code=HCGQLU) NEGATIVE NEGATIVE Specimen comments: Clean CatchURINALYSIS [id number] 21:40:00* Test Item Value Reference Range Comments UA COLOR (test code=COLU) YELLOW UA APPEARANCE (test code=APPU) CLDY UA GLUCOSE DIPSTICK (test code=DGLUU) NORMAL mg/dl NORMAL UA BILIRUBIN DIPSTICK (test code=BILU) NEGATIVE mg/dL NEGATIVE UA KETONE DIPSTICK (test code=KETU) 5 mg/dl mg/dl NEGATIVE UA SPECIFIC GRAVITY (test code=SGU) 1.025 1.000-1.030 UA BLOOD DIPSTICK (test code=OSMEL) 250 Sunny/micL Sunny/micL NEGATIVE UA PH DIPSTICK (test code=LUPE) 5.0 5.0-9.0 UA PROTEIN DIPSTICK (test code=PROU) 30 mg/dl NEGATIVE UA UROBILINIOGEN DIPSTICK (test code=URO) 4.0 mg/dl mg/dl NORMAL UA NITRITE DIPSTICK (test code=PATRICIA) NEGATIVE NEGATIVE UA LEUKOCYTE ESTERASE DIPSTICK (test code=LEUU) 25 Olamide/micL Olamide/micL NEGATIVE UA WBC (test code=WBCU) WBC/HPF NONE UA RBC (test code=RBCU) RBC/HPF 0-3 UA EPITHELIAL CELLS (test code=EPIU) EPI/HPF 0-3 UA BACTERIA (test code=BACU) NONE Specimen comments: Clean CatchUR HCG [id number] 21:40:00* Test Item Value Reference Range Comments UR HCG QUAL (test code=HCGQLU) NEGATIVE NEGATIVE Specimen comments: Clean CatchURINALYSIS [id number] 21:39:00* Test Item Value Reference Range Comments UA COLOR (test code=COLU) YELLOW UA APPEARANCE (test code=APPU) CLDY UA GLUCOSE DIPSTICK (test code=DGLUU) NORMAL mg/dl NORMAL UA BILIRUBIN DIPSTICK (test code=BILU) NEGATIVE mg/dL NEGATIVE UA KETONE DIPSTICK (test code=KETU) 5 mg/dl mg/dl NEGATIVE UA SPECIFIC GRAVITY (test code=SGU) 1.025 1.000-1.030 UA BLOOD DIPSTICK (test code=OSMEL) 250 Sunny/micL Sunny/micL NEGATIVE UA PH DIPSTICK (test code=LUPE) 5.0 5.0-9.0 UA PROTEIN DIPSTICK (test code=PROU) 30 mg/dl NEGATIVE UA UROBILINIOGEN DIPSTICK (test code=URO) 4.0 mg/dl mg/dl NORMAL UA NITRITE DIPSTICK (test code=PATRICIA) NEGATIVE NEGATIVE UA LEUKOCYTE ESTERASE DIPSTICK (test code=LEUU) 25 Olamide/micL Olamide/micL NEGATIVE UA WBC (test code=WBCU) WBC/HPF NONE UA RBC (test code=RBCU) RBC/HPF 0-3 UA EPITHELIAL CELLS (test code=EPIU) EPI/HPF 0-3 UA BACTERIA (test code=BACU) NONE Specimen comments: Clean CatchUR HCG [id number] 21:39:00* Test Item Value Reference Range Comments UR HCG QUAL (test code=HCGQLU) NEGATIVE Specimen comments: Clean CatchBASIC METABOLIC [id number] 04:46:00* Test Item Value Reference Range Comments SODIUM (test code=NA) 142 mmol/L 136-145 POTASSIUM (test code=K) 4.4 mmol/L 3.5-5.1 CHLORIDE (test code=CL) 110.0 mmol/L 98-107 CARBON DIOXIDE (test code=CO2) 23.0 mmol/L 21-32 ANION GAP (test code=GAP) 13.4 10-20 GLUCOSE (test code=GLU) 96 mg/dL 74-106 BLOOD UREA NITROGEN (test code=BUN) 12 mg/dL 7-18 GLOMERULAR FILTRATION RATE (test code=GFR) > 60 mL/min >=60 Estimated GFR by using Modified MDRD formula.Chronic kidney disease is defined as either kidney damageor GFR <60 mL/min/1.73 m2 for >3 months. CREATININE (test code=CREAT) 0.90 mg/dL 0.55-1.02 Note change in reference range due to change in reagent. BUN/CREATININE RATIO (test code=BUN/CREA) 14.0 10-20 CALCIUM (test code=CA) 8.9 mg/dL 8.5-10.1 HEPATIC FUNCTION [id number] 04:46:00* Test Item Value Reference Range Comments TOTAL PROTEIN (test code=PROT) 7.3 gram/dL 6.4-8.2 ALBUMIN (test code=ALB) 3.2 g/dL 3.4-5.0 GLOBULIN (test code=GLOB) 4.1 gram/dL 2.7-4.2 ALBUMIN/GLOBULIN RATIO (test code=A/G) 0.8 0.75-1.50 BILIRUBIN TOTAL (test code=BILT) 0.20 mg/dL 0.0-1.0 BILIRUBIN DIRECT (test code=BILD) 0.07 mg/dL 0.0-0.20 SGOT/AST (test code=AST) 20 IUnit/L 15-37 SGPT/ALT (test code=ALT) 24 IUnit/L 12-78 ALKALINE PHOSPHATASE TOTAL (test code=ALKP) 159 IUnit/L 45-117 Note change in reference range due to change in reagent. [id number] 04:46:00* Test Item Value Reference Range Comments LIPASE (test code=LIP) 109 U/L 73.0-393.0 URINALYSIS [id number] 04:34:00* Test Item Value Reference Range Comments UA COLOR (test code=COLU) YELLOW YELLOW UA APPEARANCE (test code=APPU) Cloudy CLEAR UA GLUCOSE DIPSTICK (test code=DGLUU) NEGATIVE mg/dL NEGATIVE UA BILIRUBIN DIPSTICK (test code=BILU) NEGATIVE mg/dL NEGATIVE UA KETONE DIPSTICK (test code=KETU) NEGATIVE mg/dL NEGATIVE UA SPECIFIC GRAVITY (test code=SGU) 1.017 1.001-1.035 UA BLOOD DIPSTICK (test code=OSMEL) >1.0 mg/dL NEGATIVE UA PH DIPSTICK (test code=LUPE) 5.5 5.0-8.0 UA PROTEIN DIPSTICK (test code=PROU) 10 (Trace) mg/dL NEGATIVE UA UROBILINIOGEN DIPSTICK (test code=URO) 2.0 (1+) mg/dL NEGATIVE UA NITRITE DIPSTICK (test code=PATRICIA) NEGATIVE NEGATIVE UA LEUKOCYTE ESTERASE W REFLEX (test code=LEUUR) NEGATIVE Olamide/uL NEGATIVE UA WBC (test code=WBCU) 0-5 per HPF 0-5 UA RBC (test code=RBCU) >200 #/HPF 0-5 UA EPITHELIAL CELLS (test code=EPIU) FEW per HPF FEW UA BACTERIA (test code=BACU) FEW #/HPF NONE UA MUCUS (test code=MUCU) FEW #/LPF FEW Urine Source? Clean CatchURINALYSIS [id number] 04:32:00* Test Item Value Reference Range Comments UA COLOR (test code=COLU) YELLOW YELLOW UA APPEARANCE (test code=APPU) Cloudy CLEAR UA GLUCOSE DIPSTICK (test code=DGLUU) NEGATIVE mg/dL NEGATIVE UA BILIRUBIN DIPSTICK (test code=BILU) NEGATIVE mg/dL NEGATIVE UA KETONE DIPSTICK (test code=KETU) NEGATIVE mg/dL NEGATIVE UA SPECIFIC GRAVITY (test code=SGU) 1.017 1.001-1.035 UA BLOOD DIPSTICK (test code=OSMEL) >1.0 mg/dL NEGATIVE UA PH DIPSTICK (test code=LUPE) 5.5 5.0-8.0 UA PROTEIN DIPSTICK (test code=PROU) 10 (Trace) mg/dL NEGATIVE UA UROBILINIOGEN DIPSTICK (test code=URO) 2.0 (1+) mg/dL NEGATIVE UA NITRITE DIPSTICK (test code=PATRICIA) NEGATIVE NEGATIVE UA LEUKOCYTE ESTERASE W REFLEX (test code=LEUUR) NEGATIVE Olamide/uL NEGATIVE UA WBC (test code=WBCU) per HPF 0-5 UA RBC (test code=RBCU) per HPF 0-5 UA EPITHELIAL CELLS (test code=EPIU) per HPF Few UA BACTERIA (test code=BACU) per HPF NONE Urine Source? Clean CatchCBC W/O [id number] 04:24:00* Test Item Value Reference Range Comments WHITE BLOOD CELL (test code=WBC) K/mm3 4.5-12.5 RED BLOOD CELL (test code=RBC) mill/mm3 3.7-5.2 HEMOGLOBIN (test code=HGB) 13.4 gram/dL 11.5-15.5 HEMATOCRIT (test code=HCT) 42.4 % 36.0-46.0 MEAN CELL VOLUME (test code=MCV) fL 80-98 MEAN CELL HGB (test code=MCH) picogram 27.0-33.0 MEAN CELL HGB CONCETRATION (test code=MCHC) gram/dL 33.0-36.0 RED CELL DISTRIBUTION WIDTH (test code=RDW) % 11.6-16.2 PLATELET COUNT (test code=PLT) K/mm3 150-450 MEAN PLATELET VOLUME (test code=MPV) fL 6.7-11.0 CBC W/O [id number] 04:24:00* Test Item Value Reference Range Comments WHITE BLOOD CELL (test code=WBC) 8.8 K/mm3 4.5-12.5 RED BLOOD CELL (test code=RBC) 4.61 mill/mm3 3.7-5.2 HEMOGLOBIN (test code=HGB) 13.4 gram/dL 11.5-15.5 HEMATOCRIT (test code=HCT) 42.4 % 36.0-46.0 MEAN CELL VOLUME (test code=MCV) 92.0 fL 80-98 MEAN CELL HGB (test code=MCH) 29.1 picogram 27.0-33.0 MEAN CELL HGB CONCETRATION (test code=MCHC) 31.6 gram/dL 33.0-36.0 RED CELL DISTRIBUTION WIDTH (test code=RDW) 13.3 % 11.6-16.2 PLATELET COUNT (test code=PLT) 355 K/mm3 150-450 MEAN PLATELET VOLUME (test code=MPV) 9.9 fL 6.7-11.0 - CT ABD PELVIS W/O [id number] 03:40:00 Name[facility] 1975 Age/S: 43 / F [address] Unit #: [id number] Loc: VALARIE Jeter [address] Phys: Delvis Murillon [employer]ILD[employer] Acct: [id number] Dis Date: Status: REG ER PHONE #: [phone] Exam Date: 04/16/2019 0320 FAX #: [phone] Reason: KIDNEY STONE EXAMS: CPT CODE: [id number] CT ABD PELVIS W/O CONT 09628 EXAM: - CT ABD PELVIS W/O CONT HISTORY: KIDNEY STONE Location code:C3 TECHNIQUE: Contrast - No IV contrast was given. No oral contrast was given Noncontrast phase - abdomen and pelvis including all of kidneys Reconstructions - coronal and sagittal planes Automated exposure reduction (Auto mA/Smart mA) was utilized in compliance with ACR [employer] with DLP of 641 mGy-cm. COMPARISON: 11/27/2018 FINDINGS: Statements: Exam is limited due to patient's body habitus. Lack of intravenous contrast compromises evaluation of abdominopelvic organs and vasculature. Lack of oral contrast compromises evaluation of bowel. Thoracic: Included images of the lower chest demonstrate no abnormalities. Hepatobiliary: The liver is normal without focal lesion. Gallbladder is absent. No biliary dilation. Edward creas: Normal. Spleen: Normal. Adrenals: Normal. Genitourinary: The kidneys are normal. There is no evidence of hydronephrosis of either kidney. There is no evidence of renal calculus. Evaluation of the bladder is limited, but no obvious bladder abnormality is present. Gastrointestinal: Bowel is poorly assessed due to yovanny mistry's body habitus no bowel obstruction is seen. Noise artifact limits the evaluation for perienteric inflammation. The appendix is normal. Vascular: The aorta is grossly normal in appearance. PAGE 1 Signed Report (CONTINUED) Name: [facility] : [birth year] Age/S: 43 / F [address] Unit #: [id number] Loc: VALARIE Jeter [address] Phys: MurilloDelvisn [employer]ILD[employer]TER Acct: [id number] Dis Date: Status: REG ER PHONE #: [phone] Exam Date: 04/16/2019 0320 FAX #: [phone] R jose: KIDNEY STONE EXAMS: CPT CODE: [id number] CT ABD PELVIS W/O CONT 00362 <Continued> Lymphatics: No enlarged lymph nodes by CT size criteria. Bones/Soft Tissues: No acute osseous findings. No ventral hernias. Peritoneum/Other: No extraluminal air. No extraluminal fluid. IMPRESSION: 1. No acute abnormality is seen however exam is limited due to patient's body habitus. at 0340 Reported and signed by: Dedrick Reeder M.D. CC: Arline Murillo NP Technologist:JABIER COLLADO CTDI: DLP: Trnscb Date/Time: 04/16/2019 (0340) Yvette.CB5 PAGE 2 Signed Report Chemistry 2019-03-14 03:11:00* Test Item Value Reference Range Comments Chemistry (test code=NA-T) 137 mmol/L 136-145 Chemistry (test code=K-T) 4.3 mmol/L 3.5-5.1 Chemistry (test code=CL) 104 mmol/L 98-107 Chemistry (test code=CO2) 21 mmol/L 22-29 Chemistry (test code=ANGP) 16 mmol/L 10-20 Chemistry (test code=BUN) 12 mg/dL 7.0-18.7 Chemistry (test code=CREATT) 0.91 mg/dL 0.6-1.1 Chemistry (test code=EGFRMDRD) 67 Reference Range for Estimated GFR: Greater than 90 mL/min/1.73 m2NOTE:The MDRD equation has not been validated for use with theelderly (over 70 years of age), women, patien tswith serious comorbid condition or persons with extremes ofbody size, muscle mass, or nutritional status. Chemistry (test code=GLU-T) 96 mg/dL 70-105 Chemistry (test code=CA) 9.4 mg/dL 7.8-10.44 Chemistry (test code=TBILI-T) 0.3 mg/dL 0.2-1.2 Chemistry (test code=TP) 7.8 g/dL 6.0-8.3 Chemistry (test code=ALB) 3.8 g/dL 3.5-5.0 Chemistry (test code=GLOB) 4.0 g/dL 2.4-3.5 Chemistry (test code=AG) 1.0 g/dL 1.2-2.2 Chemistry (test code=ALP) 150 U/L 40-110 NEW REFERENCE RANGES ESTABLISHED Effective January 30, 2019, new reference ranges have beenestablished based on age and sex. Chemistry (test code=AST) 24 U/L 5-34 Chemistry (test code=ALT) 14 U/L 8-55 [id number] 02:56:00* Test Item Value Reference Range Comments Hematology (test code=WBCT) 10.0 thou/uL 4.8-10.8 Hematology (test code=RBCT) 4.59 mill/uL 4.20-5.40 Hematology (test code=HGBT) 14.4 g/dL 12.0-16.0 Hematology (test code=HCTT) 41.7 % 36.0-47.0 Hematology (test code=MCV) 90.8 fL 78.0-98.0 Hematology (test code=MCH) 31.3 pg 27.0-31.0 Hematology (test code=MCHC) 34.5 g/dL 32.0-36.0 Hematology (test code=RDW) 12.6 % 11.5-14.5 Hematology (test code=PLTT) 295 thou/uL 130-400 Hematology (test code=MPV) 8.0 fL 7.4-10.4 Hematology (test code=NE) 61 % 42-75 Hematology (test code=LY) 28 % 21-51 Hematology (test code=MO) 7 % 0-10 Hematology (test code=EO) 4 % 0-10 Hematology (test code=PCOMMENT) Appears Adequate - US TRANSVAGINAL NON [id number] 01:24:00Patient Name: LILIAN DEL ROSARIO Unit No: [id number] EXAMS: CPT: [id number] [place] [address] Pelvic sonogram, 03/12/2019. Clinical: Pain. Comment: Endovaginal examination was performed. By history, the uterus has been removed. The ovaries are not profiled. No pelvic masses or fluid collections are detected. IMPRESSION: Limited examination. No abnormalities detected. at 0124 Reported and signed by: Kevin Moreland MD CC: Gisela Hernandez Technologist: Stanley Green Probe: [id number] Trscr Dt/Tm: 03/12/2019 (0124) by:[email or web address] Orig Print D/T: S: 03/12/2019 (0127) BATCH NO: N/A Name: LILIAN DEL ROSARIO [facility] Phys: BAILEE EllisMack Ankit [address] [place] [address] : 1975 Age: 43 Sex: F An Paul Loc: T.ERS Exam Date: 03/12/2019 Status: REG ER PH: FAX: PAGE 1 Signed Report UR HCG QUAL 2019-03-12 01:21:00* Test Item Value Reference Range Comments UR HCG QUAL (test code=HCGQLU) NEGATIVE NEGATIVE URINALYSIS [id number] 01:21:00* Test Item Value Reference Range Comments UA COLOR (test code=COLU) YELLOW YELLOW UA APPEARANCE (test code=APPU) CLEAR CLEAR UA GLUCOSE DIPSTICK (test code=DGLUU) NEGATIVE MG/AL NEGATIVE UA BILIRUBIN DIPSTICK (test code=BILU) NEGATIVE NEGATIVE UA KETONE DIPSTICK (test code=KETU) NEGATIVE MG/DL NEGATIVE UA SPECIFIC GRAVITY (test code=SGU) 1.020 1.000-1.030 UA BLOOD DIPSTICK (test code=OSMEL) NEGATIVE NEGATIVE UA PH DIPSTICK (test code=LUPE) 5.5 4.5-8.5 UA PROTEIN DIPSTICK (test code=PROU) NEGATIVE NEGATIVE UA UROBILINOGEN DIPSTICK (test code=URO) 1.0 EU/dL <=1.0 UA NITRITE DIPSTICK (test code=PATRICIA) NEGATIVE NEGATIVE UA LEUKOCYTE ESTERASE DIPSTICK (test code=LEUU) NEGATIVE NEGATIVE UA WBC (test code=WBCU) 0-3 /HPF 0-3 [id number] UA RBC (test code=RBCU) 3.4 /HPF 0-3 UA EPITHELIAL CELLS (test code=EPIU) FEW /LPF NONE-FEW UA BACTERIA (test code=BACU) NEGATIVE /HPF NEGATIVE URINALYSIS [id number] 01:20:00* Test Item Value Reference Range Comments UA COLOR (test code=COLU) YELLOW YELLOW UA APPEARANCE (test code=APPU) CLEAR CLEAR UA GLUCOSE DIPSTICK (test code=DGLUU) NEGATIVE MG/AL NEGATIVE UA BILIRUBIN DIPSTICK (test code=BILU) NEGATIVE NEGATIVE UA KETONE DIPSTICK (test code=KETU) NEGATIVE MG/DL NEGATIVE UA SPECIFIC GRAVITY (test code=SGU) 1.020 1.000-1.030 UA BLOOD DIPSTICK (test code=OSMEL) NEGATIVE NEGATIVE UA PH DIPSTICK (test code=LUPE) 5.5 4.5-8.5 UA PROTEIN DIPSTICK (test code=PROU) NEGATIVE NEGATIVE UA UROBILINOGEN DIPSTICK (test code=URO) 1.0 EU/dL <=1.0 UA NITRITE DIPSTICK (test code=PATRICIA) NEGATIVE NEGATIVE UA LEUKOCYTE ESTERASE DIPSTICK (test code=LEUU) NEGATIVE NEGATIVE UA WBC (test code=WBCU) /HPF 0-3 UA RBC (test code=RBCU) /HPF 0-3 UA EPITHELIAL CELLS (test code=EPIU) /LPF NONE-FEW UA BACTERIA (test code=BACU) /HPF NEGATIVE LIVER FUNCTION [id number] 00:43:00* Test Item Value Reference Range Comments TOTAL PROTEIN (test code=PROT) 7.1 g/dL 6.0-8.3 ALBUMIN (test code=ALB) 3.5 g/dL 3.2-5.5 BILIRUBIN TOTAL (test code=BILT) 0.3 mg/dL 0.2-1.0 F-lumdie-d-benzoquinone imine (NAPQI), a metabolite ofacetaminophen (paracetamol), may generate erroneously lowresults in samples for patients that have taken toxic dosesof acetaminophen (paracetamol). BILIRUBIN DIRECT (test code=BILD) 0.1 mg/dL 0.0-0.2 M-plpsgx-w-benzoquinone imine (NAPQI), a metabolite ofacetaminophen (paracetamol), may generate erroneously lowresults in samples for patients that have taken toxic dosesof acetaminophen (paracetamol). BILIRUBIN INDIRECT (test code=BILIND) 0.2 mg/dL SGOT/AST (test code=AST) 21 UNITS/L 10-42 SGPT/ALT (test code=ALT) 15 UNITS/L 10-40 ALKALINE PHOSPHATASE (test code=ALKP) 124 UNITS/L 34-104 [id number] 00:43:00* Test Item Value Reference Range Comments LIPASE (test code=LIP) 23 UNITS/L 22-151 CBC W/AUTO [id number] 00:34:00* Test Item Value Reference Range Comments WHITE BLOOD CELL (test code=WBC) 8.84 K/mm3 5.0-12.0 RED BLOOD CELL (test code=RBC) 4.45 M/mm3 4.20-5.40 HEMOGLOBIN (test code=HGB) 12.9 G/DL 12.0-16.0 HEMATOCRIT (test code=HCT) 40.2 % 36.0-46.0 MEAN CELL VOLUME (test code=MCV) 90 fL 81-99 MEAN CELL HGB (test code=MCH) 29.0 PGM 27-31 MEAN CELL HGB CONCENTRATION (test code=MCHC) 32.1 G/DL 33-37 RED CELL DISTRIBUTION WIDTH (test code=RDW) 13.2 % 11.6-16.2 PLATELET COUNT (test code=PLT) 275 K/mm3 130-400 MEAN PLATELET VOLUME (test code=MPV) 10.1 fl 7.4-10.4 NEUTROPHIL % (test code=NT%) 63.0 % 43-65 IMMATURE GRANULOCYTE % (test code=IG%) 0.7 % 0.0-2.0 LYMPHOCYTE % (test code=LY%) 28.2 % 20.5-45.5 MONOCYTE % (test code=MO%) 4.8 % 5.5-11.7 EOSINOPHIL % (test code=EO%) 2.6 % 0.9-2.9 BASOPHIL % (test code=BA%) 0.7 % 0.2-1.0 NUCLEATED RBC % (test code=NRBC%) 0.0 % 0-1.0 NEUTROPHIL # (test code=NT#) 5.58 K/mm3 2.2-4.8 LYMPHOCYTE # (test code=LY#) 2.49 K/mm3 1.3-2.9 MONOCYTE # (test code=MO#) 0.42 K/mm3 0.3-0.8 EOSINOPHIL # (test code=EO#) 0.23 K/MM3 0.0-0.2 BASOPHIL # (test code=BA#) 0.06 K/mm3 0.0-0.1 CHEMISTRY 8 [id number] 00:16:00* Test Item Value Reference Range Comments SODIUM POC (test code=NAP) mmol/L 138-146 POTASSIUM POC (test code=KP) mmol/L 3.5-4.9 CHLORIDE POC (test code=CLP) mmol/L 98-109 CO2 POC (test code=CO2P) mmol/L 24-29 IONIZED CALCIUM POC (test code=CAIP) mmol/L 1.10-1.32 GLUCOSE POC (test code=GLUP) MG/DL 70-105 BUN POC (test code=BUNP) mg/dL 8-26 CREATININE POC (test code=CREATP) mg/dL 0.6-1.3 GLOMERULAR FILTRATION RATE POC (test code=GFRP) 82 58-135 CHEMISTRY 8 [id number] 00:16:00* Test Item Value Reference Range Comments SODIUM POC (test code=NAP) 139 mmol/L 138-146 POTASSIUM POC (test code=KP) 3.9 mmol/L 3.5-4.9 CHLORIDE POC (test code=CLP) 109 mmol/L 98-109 CO2 POC (test code=CO2P) 25 mmol/L 24-29 IONIZED CALCIUM POC (test code=CAIP) 1.12 mmol/L 1.10-1.32 GLUCOSE POC (test code=GLUP) 99 MG/DL 70-105 BUN POC (test code=BUNP) 10 mg/dL 8-26 CREATININE POC (test code=CREATP) 0.9 mg/dL 0.6-1.3 GLOMERULAR FILTRATION RATE POC (test code=GFRP) 82 58-135 URINALYSIS W/ REFLEX URINE [id number] 03:49:00* Test Item Value Reference Range Comments COLOR (BEAKER) (test scgm=275) Yellow CLARITY (BEAKER) (test suzh=801) Cloudy SPECIFIC GRAVITY UA (BEAKER) (test glpo=501) >= 1.001-1.035 PH UA (BEAKER) (test aisw=312) 5.0 5.0-8.0 PROTEIN UA (BEAKER) (test mwjh=617) Negative Negative GLUCOSE UA (BEAKER) (test zzit=579) Negative Negative KETONES UA (BEAKER) (test dhia=127) Negative Negative BILIRUBIN UA (BEAKER) (test occe=655) Positive Negative BLOOD UA (BEAKER) (test abaa=749) Negative Negative NITRITE UA (BEAKER) (test jjej=304) Negative Negative LEUKOCYTE ESTERASE UA (BEAKER) (test teri=569) Negative Negative UROBILINOGEN UA (BEAKER) (test icur=977) 0.2 mg/dL 0.2-1.0 BACTERIA (BEAKER) (test ahxs=073) None Seen AMORPHOUS CRYSTALS (BEAKER) (test itpu=1833) Many RBC UA-MANUAL (BEAKER) (test qvoi=5068) <5 /HPF WBC UA-MANUAL (BEAKER) (test vjvg=4813) <5 /HPF SQUAMOUS EPITHELIAL MANUAL (BEAKER) (test twwc=4431) <5 /HPF SOURCE(BEAKER) (test ycxd=8908) SCREEN, [id number] 03:45:00* Test Item Value Reference Range Comments TEST URINE (BEAKER) (test aamq=089) Negative BASIC METABOLIC [id number] 03:32:00* Test Item Value Reference Range Comments SODIUM (BEAKER) (test yymr=083) 139 meq/L 135-148 POTASSIUM (BEAKER) (test binf=947) 4.4 meq/L 3.6-5.5 Specimen slightly hemolyzed CHLORIDE (BEAKER) (test zomp=007) 106 meq/L 98-106 CO2 (BEAKER) (test jybl=333) 22 meq/L 20-29 BLOOD UREA NITROGEN (BEAKER) (test rnkk=407) 12 mg/dL 10-26 CREATININE (BEAKER) (test fiif=353) 0.81 mg/dL 0.50-1.20 Specimen slightly hemolyzed GLUCOSE RANDOM (BEAKER) (test pgoj=396) 104 mg/dL 70-110 CALCIUM (BEAKER) (test cpni=618) 9.6 mg/dL 8.5-10.5 EGFR (BEAKER) (test wgdz=7059) 93 mL/min/1.73 sq m ESTIMATED GFR IS NOT ACCURATE CREATININE CLEARANCE IN PREDICTING GLOMERULAR FILTRATION RATE. ESTIMATED GFR IS NOT APPLICABLE FOR DIALYSIS PATIENTS. [id number] 03:19:00* Test Item Value Reference Range Comments LIPASE (BEAKER) (test ixig=546) 20 U/L 6-51 HEPATIC FUNCTION [id number] 03:18:00* Test Item Value Reference Range Comments TOTAL PROTEIN (BEAKER) (test sksa=646) 7.7 gm/dL 6.0-8.5 Specimen slightly hemolyzed ALBUMIN (BEAKER) (test numh=3268) 3.9 g/dL 3.5-5.0 Specimen slightly hemolyzed BILIRUBIN TOTAL (BEAKER) (test uslc=130) 0.4 mg/dL 0.1-1.2 Specimen slightly hemolyzed BILIRUBIN DIRECT (BEAKER) (test tjzz=236) 0.2 mg/dL 0.0-0.4 Specimen slightly hemolyzed ALKALINE PHOSPHATASE (BEAKER) (test ilws=440) 133 U/L 30-115 AST (SGOT) (BEAKER) (test vzbd=507) 20 U/L 5-40 Specimen slightly hemolyzed ALT (SGPT) (BEAKER) (test mjaj=816) 19 U/L 5-50 Specimen slightly hemolyzed [id number] 03:18:00* Test Item Value Reference Range Comments MAGNESIUM (BEAKER) (test blhs=502) 2.0 mg/dL 1.5-3.0 Specimen slightly hemolyzed LACTIC ACID, [id number] 03:11:00* Test Item Value Reference Range Comments LACTATE BLOOD VENOUS (2) (BEAKER) (test orpj=9009) 1.2 mmol/L 0.5-2.0 Specimen slightly hemolyzed CBC W/PLT COUNT & AUTO [id number] 02:57:00* Test Item Value Reference Range Comments WHITE BLOOD CELL COUNT (BEAKER) (test ttkf=252) 9.1 K/ L 4.0-10.0 RED BLOOD CELL COUNT (BEAKER) (test mokx=766) 4.75 M/ L 4.00-5.00 HEMOGLOBIN (BEAKER) (test yabf=675) 14.0 GM/DL 12.0-15.5 HEMATOCRIT (BEAKER) (test nspk=844) 43.9 % 36.0-46.0 MEAN CORPUSCULAR VOLUME (BEAKER) (test fvqx=653) 92.4 fL 82.0-99.0 MEAN CORPUSCULAR HEMOGLOBIN (BEAKER) (test ewcd=618) 29.5 pg 27.0-33.0 MEAN CORPUSCULAR HEMOGLOBIN CONC (BEAKER) (test kazn=645) 31.9 GM/DL 32.0-36.0 RED CELL DISTRIBUTION WIDTH (BEAKER) (test ikqy=219) 13.5 % 12.0-15.0 PLATELET COUNT (BEAKER) (test dexd=864) 329 K/CU MM 150-430 MEAN PLATELET VOLUME (BEAKER) (test ereb=334) 10.2 fL 6.0-11.5 NUCLEATED RED BLOOD CELLS (BEAKER) (test reyv=819) 0 /100 WBC 0-0 NEUTROPHILS RELATIVE PERCENT (BEAKER) (test hzgv=002) 61 % LYMPHOCYTES RELATIVE PERCENT (BEAKER) (test yirv=662) 30 % MONOCYTES RELATIVE PERCENT (BEAKER) (test ceqz=669) 5 % EOSINOPHILS RELATIVE PERCENT (BEAKER) (test chdq=341) 3 % BASOPHILS RELATIVE PERCENT (BEAKER) (test wjsk=010) 1 % NEUTROPHILS ABSOLUTE COUNT (BEAKER) (test axei=249) 5.54 K/ L 1.80-8.00 LYMPHOCYTES ABSOLUTE COUNT (BEAKER) (test umdq=339) 2.74 K/ L 1.48-4.50 MONOCYTES ABSOLUTE COUNT (BEAKER) (test ynfp=928) 0.41 K/ L 0.00-1.30 EOSINOPHILS ABSOLUTE COUNT (BEAKER) (test wxut=097) 0.27 K/ L 0.00-0.50 BASOPHILS ABSOLUTE COUNT (BEAKER) (test cega=488) 0.08 K/ L 0.00-0.20 IMMATURE GRANULOCYTES-RELATIVE PERCENT (BEAKER) (test abur=1040) 1 % 0-0 RAD, ABDOMEN/KUB 1 VIEW [id number] 02:42:00Evaluate stool burdenReason for exam:->ABDOMINAL PAINReason for exam:->BACK PAINFINAL REPORT CLINICAL HISTORY: Abdominal pain COMPARISON: None. FINDINGS: 3 upright views of the abdomen are submitted. The examination is limited by patient body habitus. The abdominal bowel gas pattern is unobstructed. There is no focus of dilated large or small bowel. There is no free air under the diaphragm. There is no evidence of organomegaly or significant ascites. No abnormal calcification is noted. Surgical clips overlie the right upper quadrant. There is no acute bony abnormality. Signed: Bernardo De Oliveira MDReport Verified Date/Time: 02/24/2019 02:42:59 - CT ABD PELVIS W/O [id number] 03:45:00Patient Name: LILIAN DEL ROSARIO Unit No: [id number] EXAMS: CPT: [id number] CT ABD PELVIS W/O CONT 83518 CT ABDOMEN AND PELVIS WITHOUT CONTRAST/STONE SURVEY: CLINICAL HISTORY: Hematuria and flank pain COMPARISON: 12/21/2018. TECHNIQUE: Axial imaging of the abdomen and pelvis was performed without IV or oral contrast. This study is tailored for evaluation of urinary tract stones only. COMMENT: Given absence of oral, rectal, and IV contrast, evaluation of the abdominal viscera, vascular structures, and gastrointestinal tract is limited. If there is any concern for clinical pathology in these locations and/or if patient has persistent unexplained symptoms, contrast CT is recommended for further evaluation. FINDINGS: No renal or ure teral calculi are seen. There is no hydronephrosis or perinephric strandin g. The liver, spleen, pancreas, and adrenal glands appear normal . Bowel loops are normal in caliber. The gallbladder is surgical ly absent. No free fluid or inflammatory process is seen. Th e appendix appears normal. The abdominal aorta is normal in caliber. The lung bases are clear. No osseous abnor malities are seen. IMPRESSION: No renal or ureteral calculi. N o acute abnormality. DLP: 7.31 mGy-cm CT dose optimization is achieved for this examination by the use of a CT pr otocol in accordance with ACR practice standards and adherence to [facility] cturer's recommendations with automated exposure control. Electronic ally Signed by Tommie Porter MD on 02/05/2019 at 0345 Re ported and signed by: Tommie Porter MD CC: Gisela Hernandez; Serjio moody MD Technologist: Jeffrey Delgadillo CTDI: 33.72 DLP: 2036.31Trscr Dt/Tm: 02/05/2019 (0345) by :[email or web address] Orig Print D/T: S: 02/05/2019 (0348) BATCH NO: N/A Name: LILIAN DEL ROSARIO [facility] Phys: Serjio Bray MD [address] : 1975 Ag e: 43 Sex: [place] [address] Lo c: N.ERS Exam Date: 02/05/2019 Status: REG ER PH: FAX: PAGE 1 Signed Report COMPREHENSIVE METABOLIC [id number] 02:41:00* Test Item Value Reference Range Comments SODIUM (test code=NA) 138 mmol/L 135-145 POTASSIUM (test code=K) 4.0 mmol/L 3.6-5.0 CHLORIDE (test code=CL) 108 mmol/L 101-111 CARBON DIOXIDE (test code=CO2) 24 mmol/L 21-31 GLUCOSE (test code=GLU) 102 mg/dl 70-100 BLOOD UREA NITROGEN (test code=BUN) 13 mg/dl 6-20 GLOMERULAR FILTRATION RATE (test code=GFR) >=60 max estimate >60 The estimated glomerular filtration rate is computed usingpatient race, age (>18), sex, and serum creatinine. If anyof the needed data elements are missing the Laboratory cannot compute an estimation of the glomerular filtration rate. CREATININE (test code=CREAT) 0.89 mg/dL 0.44-1.03 TOTAL PROTEIN (test code=PROT) 7.2 g/dL 6.7-8.2 ALBUMIN (test code=ALB) 3.6 g/dL 3.2-5.5 CALCIUM (test code=CA) 8.8 mg/dL 8.5-10.5 BILIRUBIN TOTAL (test code=BILT) 0.60 mg/dL 0.2-1.3 SGOT/AST (test code=AST) 21 U/L 10-42 SGPT/ALT (test code=ALT) 20 U/L 10-60 ALKALINE PHOSPHATASE (test code=ALKP) 110 U/L 42-121 COMPREHENSIVE METABOLIC [id number] 02:36:00* Test Item Value Reference Range Comments SODIUM (test code=NA) 138 mmol/L 135-145 POTASSIUM (test code=K) 4.0 mmol/L 3.6-5.0 CHLORIDE (test code=CL) 108 mmol/L 101-111 CARBON DIOXIDE (test code=CO2) 24 mmol/L 21-31 GLUCOSE (test code=GLU) 102 mg/dl 70-100 BLOOD UREA NITROGEN (test code=BUN) 13 mg/dl 6-20 GLOMERULAR FILTRATION RATE (test code=GFR) >=60 max estimate >60 The estimated glomerular filtration rate is computed usingpatient race, age (>18), sex, and serum creatinine. If anyof the needed data elements are missing the Laboratory cannot compute an estimation of the glomerular filtration rate. CREATININE (test code=CREAT) 0.89 mg/dL 0.44-1.03 TOTAL PROTEIN (test code=PROT) 7.2 g/dL 6.7-8.2 ALBUMIN (test code=ALB) 3.6 g/dL 3.2-5.5 CALCIUM (test code=CA) 8.8 mg/dL 8.5-10.5 BILIRUBIN TOTAL (test code=BILT) mg/dL 0.2-1.3 SGOT/AST (test code=AST) U/L 10-42 SGPT/ALT (test code=ALT) U/L 10-60 ALKALINE PHOSPHATASE (test code=ALKP) U/L 42-121 CBC W/AUTO [id number] 02:25:00* Test Item Value Reference Range Comments WHITE BLOOD CELL (test code=WBC) 8.5 x10 3/uL 3.2-11.5 RED BLOOD CELL (test code=RBC) 4.61 x10(6)/m 3.70-5.10 HEMOGLOBIN (test code=HGB) 14.1 g/dL 12.0-15.0 HEMATOCRIT (test code=HCT) 41.5 % 35.7-44.8 MEAN CELL VOLUME (test code=MCV) 90 fL 80-100 MEAN CELL HGB (test code=MCH) 30.5 pg 26.2-33.8 MEAN CELL HGB CONCENTRATION (test code=MCHC) 33.9 g/dL 30.0-34.0 RED CELL DISTRIBUTION WIDTH (test code=RDW) 14.2 % 11.3-14.5 PLATELET COUNT (test code=PLT) 270 x10 3/uL 130-408 MEAN PLATELET VOLUME (test code=MPV) 8.3 fl 6.4-10.5 NEUTROPHIL % (test code=NT%) 63.2 % 40.0-70.0 LYMPHOCYTE % (test code=LY%) 28.4 % 20-40 MONOCYTE % (test code=MO%) 4.5 % 1-10 EOSINOPHIL % (test code=EO%) 2.5 % 1.0-5.0 BASOPHIL % (test code=BA%) 1.4 % 0.0-1.0 NEUTROPHIL # (test code=NT#) 5.4 x10 3/uL 1.6-7.2 LYMPHOCYTE # (test code=LY#) 2.40 x10 3/uL 1.1-2.7 MONOCYTE # (test code=MO#) 0.4 x10 3/uL 0.3-0.8 EOSINOPHIL # (test code=EO#) 0.2 x10 3/uL 0.0-0.5 BASOPHIL # (test code=BA#) 0.1 x10 3/uL 0.0-0.1 URINALYSIS [id number] 01:35:00* Test Item Value Reference Range Comments UA COLOR (test code=COLU) YELLOW YELLOW UA APPEARANCE (test code=APPU) Cloudy CLEAR UA GLUCOSE DIPSTICK (test code=DGLUU) NEGATIVE NEGATIVE UA BILIRUBIN DIPSTICK (test code=BILU) NEGATIVE NEGATIVE UA KETONE DIPSTICK (test code=KETU) NEGATIVE NEGATIVE UA SPECIFIC GRAVITY (test code=SGU) 1.028 1.001-1.030 UA BLOOD DIPSTICK (test code=OSMEL) 3+ NEGATIVE UA PH DIPSTICK (test code=LUPE) 5.0 5.0-9.0 UA PROTEIN DIPSTICK (test code=PROU) 1+ NEGATIVE UA UROBILINOGEN DIPSTICK (test code=URO) 4.0 <=1.0 UA NITRITE DIPSTICK (test code=PATRICIA) NEGATIVE NEGATIVE UA ASCORBIC ACID DIPSTICK (test code=AAU) NEGATIVE UA LEUKOCYTE ESTERASE DIPSTICK (test code=LEUU) NEGATIVE NEGATIVE UA WBC (test code=WBCU) 0-5 /HPF 0-5 UA RBC (test code=RBCU) TNTC /HPF 0-5 UA EPITHELIAL CELLS (test code=EPIU) OCC /LPF NONE-FEW UA BACTERIA (test code=BACU) 1+ /HPF NONE SEEN UA MUCUS (test code=MUCU) 1+ /LPF NONE SEEN UR HCG [id number] 01:17:00* Test Item Value Reference Range Comments UR HCG QUAL (test code=HCGQLU) NEGATIVE NEGATIVE CT STONE PROTOCOL [id number] 07:43:13EXAM: CT abdomen and pelvis without contrastDictation location: L12 INDICATION: Right flank painCOMPARISON: CT abdomen and pelvis on 11/15/17TECHNIQUE: Axial images of the abdomen and pelvis were obtained withoutcontrast. Coronal and sagittal reformatted images were performed. DISCUSSION:Lower thorax: A small hiatal hernia is noted.Hepatobiliary: Unremarkable. No biliary ductal dilatation.Gallbladder: Surgically absent.Spleen: Unremarkable.Pancreas: Unremarkable.Kidneys: Minimal right renal pelviectasis is noted, without hydronephrosis orevidence of urinary tract calculus. No gross evidence of solid renal mass isseen.Adrenals: Unremarkable.Lymph nodes: No lymphadenopathy.Peritoneum/retroperitoneum: No intr aabdominal free air or free fluid.Vessels: No atherosclerotic calcification or a bdominal aortic aneurysm.Pelvic organs/bladder: The uterus is surgically absent . No adnexalabnormalities are seen. The bladder is unremarkable.Bowel: The appen blanca is normal. No abnormal bowel wall thickening or bowelobstruction is seen.Bon es/soft tissues: No fracture or evidence of bony neoplastic process.IMPRESSION:1 . Nonspecific mild right renal pelviectasis. No hydronephrosis, urinary tractcal culus, or evidence of urinary tract mass is seen.2. Additional findings includin g normal appendix, a small hiatal hernia, andprior cholecystectomy and hysterect anthony.One or more of the following dose reduction techniques were used: Automatede xposure control, adjustment of the mA and/or kV according to patient size,and/or utilization of iterative reconstruction technique.DLP: 1739 mGy-cm CTDI 49 mGy LIVER PROFILE WW2018-12-28 06:51:00* Test Item Value Reference Range Comments BILI TOTAL (test code=11A) 0.2 mg/dL 0.2-1.0 BILI DIRCT (test code=12A) <0.1 mg/dL 0.0-0.2 PROTEIN (test code=07D) 7.4 g/dL 6.4-8.2 ALBUMIN (test code=08D) 3.2 g/dL 3.5-4.8 GLOBULIN (test code=GLB) 4.2 g/dL 1.5-3.8 ALB/GLOB (test code=AGRR) 0.8 1.0-2.6 ALK PHOS (test code=35A) 144 IU/L 42-121 AST (test code=30A) 14 IU/L <=42 ALT (test code=31A) 14 IU/L <=78 AMYLASE AND LIPASE *WW*2018-12-28 06:41:00* Test Item Value Reference Range Comments AMYLASE (test code=10A) 92 U/L 28-100 LIPASE (test code=60A) 86 IU/L 73-393 BASIC METABOLIC PANEL *WW*2018-12-28 06:30:00* Test Item Value Reference Range Comments GLUCOSE (test code=06D) 95 mg/dL 75-100 SODIUM (test code=01A) 142 mmol/L 136-145 POTASSIUM (test code=01B) 3.8 mmol/L 3.6-5.1 CHLORIDE (test code=04A) 109 mmol/L 98-107 CO2 (test code=02A) 25 mmol/L 22-32 ANION GAP (test code=ANG) 11.8 mmol/L BUN (test code=05D) 10 mg/dL 7-18 CREATININE (test code=03E) 0.8 mg/dL 0.4-1.1 BUN/CREA (test code=BCR) 12 12-20 CALCIUM (test code=09D) 8.9 mg/dL 8.3-9.5 SERUM MONOCLONAL *WW*2018-12-28 06:27:00* Test Item Value Reference Range Comments PREG SRM (test code=PGS) NEGATIVE NEGATIVE URINALYSIS WITH MICRO *WW*2018-12-28 06:27:00* Test Item Value Reference Range Comments COLOR (test code=COLU) YELLOW YELLOW CLARITY (test code=CLA) SLT HAZY CLEAR GLUCOSE UR (test code=UA GLUCOSE) NEGATIVE NEGATIVE BILI UR (test code=BILE) NEGATIVE NEGATIVE KETONES UR (test code=FREDO) NEGATIVE NEGATIVE SP GRAVITY (test code=SPGR) >=1.030 1.005-1.030 PH UR (test code=PH) 5.5 4.5-8.0 PROTEIN UR (test code=PU) NEGATIVE NEGATIVE UROBIL UR (test code=UROQ) 0.2 EU/dL 0.2-1.0 NITRITE UR (test code=NITRITE) NEGATIVE NEGATIVE BLOOD UR (test code=UA BLOOD) 3+ NEGATIVE LEUK ES UR (test code=LEUK) NEGATIVE NEGATIVE WBC UR (test code=UWBC) 2 /HPF 0-5 RBC UR (test code=URBC) 100 /HPF 0-2 EPITH UR (test code=UEPC) NONE /LPF FEW BACTERIA UR (test code=UBACT) NONE /HPF NONE CAST UR (test code=CAST) /LPF NONE CRYSTAL UR (test code=CRYU) / LPF NONE MUCUS UR (test code=MUC) / HPF NONE AMORPH UR (test code=RUBY) / HPF NONE TRICH UR (test code=UTRICH) /HPF NONE YEAST UR (test code=UY) /HPF NONE SPERM UR (test code=USPERM) /HPF NONE CBC (INCLUDES AUTOMATED DIFFERENTIAL)*[id number] 06:21:00* Test Item Value Reference Range Comments WBC (test code=WBC) 8.9 10\S\3/uL 4.5-11.0 RBC (test code=RBC) 4.27 10\S\6/uL 4.30-5.70 HGB (test code=HBG) 12.8 g/dL 12.0-15.5 HCT (test code=HCT) 38.8 % 35.0-44.0 MCV (test code=MCV) 90.9 fL 81.0-99.0 MCH (test code=MCH) 30.0 pg 27.0-31.0 MCHC (test code=MCHC) 33.0 g/dL 32.0-36.0 RDW (test code=RDW) 13.5 % 11.5-14.5 PLT (test code=PLT) 300 10\S\3/uL 130-400 MPV (test code=MPV) 9.9 fL 9.4-12.4 NEUTROP # (test code=NE#) 5.6 10\S\3/uL 1.6-8.0 LYMPH # (test code=LY#) 2.5 10\S\3/uL 1.1-3.5 MONOCYTE # (test code=MO#) 0.5 10\S\3/uL 0.0-1.1 EOSINOPH # (test code=EO#) 0.2 10\S\3/uL 0.0-0.7 BASOPHIL # (test code=BA#) 0.1 10\S\3/uL 0.0-0.3 IG # (test code=IG#) 0.03 10\S\3/uL 0.00-0.06 NRBC # (test code=NRBC#) 0.00 10\S\3/uL 0.00-0.01 NEUTROPH % (test code=NE%) 63.3 % 35.0-73.0 LYMPH % (test code=LY%) 28.6 % 20.0-55.0 MONO % (test code=MO%) 5.2 % 2.5-10.0 EOSINOPH % (test code=EO%) 1.8 % 0.0-5.0 BASOPHIL % (test code=BA%) 0.8 % 0.0-2.0 IG % (test code=IG%) 0.3 % 0.0-0.8 NRBC% (test code=NRBC%) 0.0 % 0.0-0.2 MANDIFF (test code=WMDIFF) NO NO RBC MORPH (test code=WRBCMOR) NORMAL CBC W/AUTO [id number] 11:48:00* Test Item Value Reference Range Comments WHITE BLOOD CELL (test code=WBC) 6.44 K/mm3 5.0-12.0 RED BLOOD CELL (test code=RBC) 4.34 M/mm3 4.20-5.40 HEMOGLOBIN (test code=HGB) 13.0 G/DL 12.0-16.0 HEMATOCRIT (test code=HCT) 40.7 % 36.0-46.0 MEAN CELL VOLUME (test code=MCV) 94 fL 81-99 MEAN CELL HGB (test code=MCH) 30.0 PGM 27-31 MEAN CELL HGB CONCENTRATION (test code=MCHC) 31.9 G/DL 33-37 RED CELL DISTRIBUTION WIDTH (test code=RDW) 13.3 % 11.6-16.2 PLATELET COUNT (test code=PLT) 223 K/mm3 130-400 NO PLATELET CLUMPS SEEN. MEAN PLATELET VOLUME (test code=MPV) 10.1 fl 7.4-10.4 NEUTROPHIL % (test code=NT%) 61.0 % 43-65 IMMATURE GRANULOCYTE % (test code=IG%) 0.5 % 0.0-2.0 LYMPHOCYTE % (test code=LY%) 30.4 % 20.5-45.5 MONOCYTE % (test code=MO%) 5.3 % 5.5-11.7 EOSINOPHIL % (test code=EO%) 2.0 % 0.9-2.9 BASOPHIL % (test code=BA%) 0.8 % 0.2-1.0 NUCLEATED RBC % (test code=NRBC%) 0.0 % 0-1.0 NEUTROPHIL # (test code=NT#) 3.93 K/mm3 2.2-4.8 LYMPHOCYTE # (test code=LY#) 1.96 K/mm3 1.3-2.9 MONOCYTE # (test code=MO#) 0.34 K/mm3 0.3-0.8 EOSINOPHIL # (test code=EO#) 0.13 K/MM3 0.0-0.2 BASOPHIL # (test code=BA#) 0.05 K/mm3 0.0-0.1 CHEMISTRY 8 [id number] 08:30:00* Test Item Value Reference Range Comments SODIUM POC (test code=NAP) mmol/L 138-146 POTASSIUM POC (test code=KP) mmol/L 3.5-4.9 CHLORIDE POC (test code=CLP) mmol/L 98-109 CO2 POC (test code=CO2P) mmol/L 24-29 IONIZED CALCIUM POC (test code=CAIP) mmol/L 1.10-1.32 GLUCOSE POC (test code=GLUP) MG/DL 70-105 BUN POC (test code=BUNP) mg/dL 8-26 CREATININE POC (test code=CREATP) mg/dL 0.6-1.3 GLOMERULAR FILTRATION RATE POC (test code=GFRP) 94 58-135 CHEMISTRY 8 [id number] 08:30:00* Test Item Value Reference Range Comments SODIUM POC (test code=NAP) 141 mmol/L 138-146 POTASSIUM POC (test code=KP) 4.0 mmol/L 3.5-4.9 CHLORIDE POC (test code=CLP) 105 mmol/L 98-109 CO2 POC (test code=CO2P) 24 mmol/L 24-29 IONIZED CALCIUM POC (test code=CAIP) 1.23 mmol/L 1.10-1.32 GLUCOSE POC (test code=GLUP) 99 MG/DL 70-105 BUN POC (test code=BUNP) 11 mg/dL 8-26 CREATININE POC (test code=CREATP) 0.8 mg/dL 0.6-1.3 GLOMERULAR FILTRATION RATE POC (test code=GFRP) 94 58-135 BASIC METABOLIC [id number] 07:11:00* Test Item Value Reference Range Comments SODIUM (test code=NA) 138 mmol/L 136-145 POTASSIUM (test code=K) 3.4 MMOL/L 3.6-5.2 CHLORIDE (test code=CL) 102 MMOL/L 98-110 CARBON DIOXIDE (test code=CO2) 25 mEq/L 24-32 GLUCOSE (test code=GLU) 94 mg/dL 70-110 BLOOD UREA NITROGEN (test code=BUN) 13 mg/dL 7-18 GLOMERULAR FILTRATION RATE (test code=GFR) >=60 max estimate >60 The estimated glomerular filtration rate is computed usingpatient race, age (>18), sex, and serum creatinine. If anyof the needed data elements are missing the Laboratory cannot compute an estimation of the glomerular filtration rate. CREATININE (test code=CREAT) 0.90 mg/dL 0.60-1.30 CALCIUM (test code=CA) 9.1 mg/dL 8.6-10.4 BASIC METABOLIC [id number] 07:08:00* Test Item Value Reference Range Comments SODIUM (test code=NA) 138 mmol/L 136-145 POTASSIUM (test code=K) 3.4 MMOL/L 3.6-5.2 CHLORIDE (test code=CL) 102 MMOL/L 98-110 CARBON DIOXIDE (test code=CO2) 25 mEq/L 24-32 GLUCOSE (test code=GLU) 94 mg/dL 70-110 BLOOD UREA NITROGEN (test code=BUN) mg/dL 7-18 GLOMERULAR FILTRATION RATE (test code=GFR) >60 CREATININE (test code=CREAT) mg/dL 0.60-1.30 CALCIUM (test code=CA) 9.1 mg/dL 8.6-10.4 - CT ABD PELVIS W/O [id number] 06:41:00Patient Name: LILIAN DEL ROSARIO Unit No: [id number] EXAMS: CPT: [id number] CT ABD PELVIS W/O CONT 05544 CT abdomen and pelvis without contrast, 12/21/2018. Clinical: Possible mass. Comment: Noncontrast transaxial plus sagittal/coronal reformatted images were obtained. Image quality is limited secondary to body habitus. The lung bases are free of active disease. The liver, spleen, adrenal glands, kidneys, aorta and IVC are grossly normal. The gallbladder has been removed. There is no biliary duct dilatation, ascites or significant retroperitoneal lymphadenopathy. There is no gastric distention, small bowel obstruction or right lower quadrant inflammatory changes. There are no gross abnormalities involving the urinary bladder. The regional skeleton is intact. All CT scans at this facility are performed using dose optimization techniques including the following: Automated exposure control. IMPRESSION: Limited examination. No gross abnormalities detected. at 0641 Reported and signed by: Kevin Moreland MD CC: Gisela Hernandez; Robin Mckeon MD Technologist: Bing Kruse CTDI: 17 DLP: 959 Trscr Dt/Tm: 12/21/2018 (0641) by:[email or web address] Orig Print D/T: S: 12/21/2018 (0644) BATCH NO: N/A Name: LILIAN DEL ROSARIO [facility] [place] Phys: Robin Willis MD [address] [facility] : 1975 Age: 43 [place] Loc: T.ERS Exam Date: 12/21/2018 Status: REG ER PH: FAX: PAGE 1 Signed Report CBC W/AUTO [id number] 06:33:00 * Test Item Value Reference Range Comments WHITE BLOOD CELL (test code=WBC) 6.44 K/mm3 5.0-12.0 RED BLOOD CELL (test code=RBC) 4.34 M/mm3 4.20-5.40 HEMOGLOBIN (test code=HGB) 13.0 G/DL 12.0-16.0 HEMATOCRIT (test code=HCT) 40.7 % 36.0-46.0 MEAN CELL VOLUME (test code=MCV) 94 fL 81-99 MEAN CELL HGB (test code=MCH) 30.0 PGM 27-31 MEAN CELL HGB CONCENTRATION (test code=MCHC) 31.9 G/DL 33-37 RED CELL DISTRIBUTION WIDTH (test code=RDW) 13.3 % 11.6-16.2 PLATELET COUNT (test code=PLT) K/mm3 130-400 MEAN PLATELET VOLUME (test code=MPV) 10.1 fl 7.4-10.4 NEUTROPHIL % (test code=NT%) 61.0 % 43-65 IMMATURE GRANULOCYTE % (test code=IG%) 0.5 % 0.0-2.0 LYMPHOCYTE % (test code=LY%) 30.4 % 20.5-45.5 MONOCYTE % (test code=MO%) 5.3 % 5.5-11.7 EOSINOPHIL % (test code=EO%) 2.0 % 0.9-2.9 BASOPHIL % (test code=BA%) 0.8 % 0.2-1.0 NUCLEATED RBC % (test code=NRBC%) 0.0 % 0-1.0 NEUTROPHIL # (test code=NT#) 3.93 K/mm3 2.2-4.8 LYMPHOCYTE # (test code=LY#) 1.96 K/mm3 1.3-2.9 MONOCYTE # (test code=MO#) 0.34 K/mm3 0.3-0.8 EOSINOPHIL # (test code=EO#) 0.13 K/MM3 0.0-0.2 BASOPHIL # (test code=BA#) 0.05 K/mm3 0.0-0.1 PROTHROMBIN [id number] 06:31:00* Test Item Value Reference Range Comments PROTHROMBIN TIME PATIENT (test code=PTP) 11.7 SECONDS 9.5-12.9 INTERNATIONAL NORMAL RATIO (test code=INR) 1.1 0.85-1.15 The INR is to be used only for monitoring ORAL ANTICOAGULANTTHERAPY. Indication INR Value1. Prophylaxis/treatment of: Venous Thrombosis, Pulmonary Embolism 2.0 - 3.02. Prevention of systemic embolism from: Tissue heart valves 2.0 - 3.0 Acute myocardial infarction (to present systemic embolism)* 2.0 - 3.0 Valvular heart disease 2.0 - 3.0 Atrial fibrillation 2.0 - 3.03. Mechanical prosthetic valves (high risk) 2.5 - 3.5 * If oral anticoagulant therapy is elected to preventrecurrent myocardial infarction, an INR of 2.5-3.5 isrecommended, consistent with Food and Drug Administrationrecommendations. THROMBOPLASTIN TIME [id number] 06:31:00* Test Item Value Reference Range Comments THROMBOPLASTIN TIME PARTIAL (test code=PTT) 24 SECONDS 25.1-36.5 CHEMISTRY 8 [id number] 06:23:00* Test Item Value Reference Range Comments SODIUM POC (test code=NAP) mmol/L 138-146 POTASSIUM POC (test code=KP) mmol/L 3.5-4.9 CHLORIDE POC (test code=CLP) mmol/L 98-109 CO2 POC (test code=CO2P) mmol/L 24-29 IONIZED CALCIUM POC (test code=CAIP) mmol/L 1.10-1.32 GLUCOSE POC (test code=GLUP) MG/DL 70-105 BUN POC (test code=BUNP) mg/dL 8-26 CREATININE POC (test code=CREATP) mg/dL 0.6-1.3 GLOMERULAR FILTRATION RATE POC (test code=GFRP) 94 58-135 CHEMISTRY 8 [id number] 06:23:00* Test Item Value Reference Range Comments SODIUM POC (test code=NAP) 141 mmol/L 138-146 POTASSIUM POC (test code=KP) 4.0 mmol/L 3.5-4.9 CHLORIDE POC (test code=CLP) 105 mmol/L 98-109 CO2 POC (test code=CO2P) 24 mmol/L 24-29 IONIZED CALCIUM POC (test code=CAIP) 1.23 mmol/L 1.10-1.32 GLUCOSE POC (test code=GLUP) 99 MG/DL 70-105 BUN POC (test code=BUNP) 11 mg/dL 8-26 CREATININE POC (test code=CREATP) 0.8 mg/dL 0.6-1.3 GLOMERULAR FILTRATION RATE POC (test code=GFRP) 94 58-135 URINALYSIS [id number] 05:56:00* Test Item Value Reference Range Comments UA COLOR (test code=COLU) DARK YELLOW YELLOW UA APPEARANCE (test code=APPU) HAZY CLEAR UA GLUCOSE DIPSTICK (test code=DGLUU) NEGATIVE MG/AL NEGATIVE UA BILIRUBIN DIPSTICK (test code=BILU) 1+ NEGATIVE UA KETONE DIPSTICK (test code=KETU) NEGATIVE MG/DL NEGATIVE UA SPECIFIC GRAVITY (test code=SGU) >=1.030 1.000-1.030 UA BLOOD DIPSTICK (test code=OSMEL) NEGATIVE NEGATIVE UA PH DIPSTICK (test code=LUPE) 5.5 4.5-8.5 UA PROTEIN DIPSTICK (test code=PROU) NEGATIVE NEGATIVE UA UROBILINOGEN DIPSTICK (test code=URO) 2.0 EU/dL <=1.0 UA NITRITE DIPSTICK (test code=PATRICIA) NEGATIVE NEGATIVE UA LEUKOCYTE ESTERASE DIPSTICK (test code=LEUU) NEGATIVE NEGATIVE UA WBC (test code=WBCU) /HPF 0-3 UA RBC (test code=RBCU) /HPF 0-3 UA EPITHELIAL CELLS (test code=EPIU) /LPF NONE-FEW UA BACTERIA (test code=BACU) /HPF NEGATIVE URINALYSIS [id number] 05:56:00* Test Item Value Reference Range Comments UA COLOR (test code=COLU) DARK YELLOW YELLOW UA APPEARANCE (test code=APPU) HAZY CLEAR UA GLUCOSE DIPSTICK (test code=DGLUU) NEGATIVE MG/AL NEGATIVE UA BILIRUBIN DIPSTICK (test code=BILU) 1+ NEGATIVE UA KETONE DIPSTICK (test code=KETU) NEGATIVE MG/DL NEGATIVE UA SPECIFIC GRAVITY (test code=SGU) >=1.030 1.000-1.030 UA BLOOD DIPSTICK (test code=OSMEL) NEGATIVE NEGATIVE UA PH DIPSTICK (test code=LUPE) 5.5 4.5-8.5 UA PROTEIN DIPSTICK (test code=PROU) NEGATIVE NEGATIVE UA UROBILINOGEN DIPSTICK (test code=URO) 2.0 EU/dL <=1.0 UA NITRITE DIPSTICK (test code=PATRICIA) NEGATIVE NEGATIVE UA LEUKOCYTE ESTERASE DIPSTICK (test code=LEUU) NEGATIVE NEGATIVE UA WBC (test code=WBCU) 5-10 /HPF 0-3 UA RBC (test code=RBCU) 3-5 /HPF 0-3 UA EPITHELIAL CELLS (test code=EPIU) 3+ /LPF NONE-FEW UA BACTERIA (test code=BACU) 4+ /HPF NEGATIVE - CT ABD PELVIS W/O [id number] 02:27:00Patient Name: LILIAN DEL ROSARIO Unit No: [id number] EXAMS: CPT: [id number] CT ABD PELVIS W/O CONT [id number] CT ABDOMEN AND PELVIS WITHOUT CONTRAST/STONE SURVEY: CLINICAL HISTORY: Left flank pain COMPARISON: None. TECHNIQUE: Axial imaging of the abdomen and pelvis was performed without IV or oral contrast. This study is tailored for evaluation of urinary tract stones only. COMMENT: Given absence of oral, rectal, and IV contrast, evaluation of the abdominal viscera, vascular structures, and gastrointestinal tract is limited. If there is any concern for clinical pathology in these locations and/or if patient has persistent unexplained symptoms, contrast CT is recommended for further evaluation. FINDINGS: There is mottle artifact due to large patient size degrading image quality. No renal or ureteral calculi are seen. There is no hydronephrosis or perinephric stranding. The liver, spleen, pancreas, and adrenal glands appear normal. The gallbladder is surgically absent. Bowel loops are normal in caliber. No free fluid or inflammatory process is seen. The appendix appears normal. The abdominal aorta is normal in caliber. The lung bases are clear. No osseous ab normalities are seen. IMPRESSION: No renal or ureteral calculi. No acute abnormality. DLP: 1688.26 mGy-cm CT dose optimization is achieved for this examination by the use of a CT protocol in accordance with ACR practice standards and adherence to man ufacturer's recommendations with automated exposure control. Electro nically Signed by Tommie Porter MD on 12/13/2018 at 0227 Reported and signed by: Tommie Porter MD Name: [facility] [place] Phys: Mack Godinez [address] [place] [address] : 1975 Age: 43 Sex: F [place] Loc: T.ERS Exam Date: 12/13/2018 Status: DEP ER PH: FAX: PAGE 1 Signed Report (CONTINUED) Patient Name: LILIAN DEL ROSARIO Unit No: [id number] EXAMS: CPT: [id number] CT ABD PELVIS W/O CONT 22657 < Continued> CC: Doc No Technologist: Nate Burt CTDI: 26.56 DLP: 1688.26Trscr Dt/Tm: 12/13/2018 (0227) by:[email or web address] Orig Print D/T: S: 12/13/2018 (0230) BATCH NO: N/A Name: LILIAN DEL ROSARIO [facility] [place] Phys: Mack Godinez [address] [facility] : 1975 Age: 43 Sex: F [place] Loc: T.ERS Exam Date: 12/13/2018 Status: DEP ER PH: FAX: PAGE 2 Signed Report - CT ABD PELVIS W/O [id number] 02:27:00Patient Name: LILIAN DEL ROSARIO Unit No: [id number] EXAMS: CPT: [id number] CT ABD PELVIS W/O CONT 48974 CT ABDOMEN AND PELVIS WITHOUT CONTRAST/STONE SURVEY: CLINICAL HISTORY: Left flank pain COMPARISON: None. TECHNIQUE: Axial imaging of the abdomen and pelvis was performed without IV or oral contrast. This study is tailored for evaluation of urinary tract stones only. COMMENT: Given absence of oral, rectal, and IV contrast, evaluation of the abdominal viscera, vascular structures, and gastrointestinal tract is limited. If there is any concern for clinical pathology in these locations and/or if patient has persistent unexplained symptoms, contrast CT is recommended for further evaluation. FINDINGS: There is mottle artifact due to large patient size degrading image quality. No renal or ureteral calculi are seen. There is no hydronephrosis or perinephric stranding. The liver, spleen, pancreas, and adrenal glands appear normal. The gallbladder is surgically absent. Bowel loops are normal in caliber. No free fluid or inflammatory process is seen. The appendix appears normal. The abdominal aorta is normal in caliber. The lung bases are clear. No osseous abnormalities are seen. IMPRESSION: No renal or ureteral calculi. No acute abnormality. DLP: 1688.26 mGy-cm CT dose optimization is achieved for this examination by the use of a CT protocol in accordance with ACR practice standards and adherence to press clipper's recommendations with automated exposure control. at 0227 Reported and signed by: Tommie Porter MD Name: LILIAN DEL ROSARIO [facility] [place] Phys: Mack Godinez [address] [facility] : 1975 Age: 43 [facility]: F [facility] [place] [id number] Loc: T.ERS Exam Date: 12/13/2018 Status: REG ER PH: FAX: PAGE 1 Signed Report (CONTINUED) Patient Name: LILIAN DEL ROSARIO Unit No: [id number] EXAMS: CPT: [id number] CT ABD PELVIS W/O CONT [id number] < Continued> CC: Doc No Technologist: Nate Burt CTDI: 26.56 DLP: 1688.26Trscr Dt/Tm: 12/13/2018 (0227) by:[email or web address] Orig Print D/T: S: 12/13/2018 (0230) BATCH NO: N/A Name: LILIAN DEL ROSARIO [facility] [place] Phys: Mack Godinez [address] [facility] : 1975 Age: 43 Sex: F [place] Loc: T.ERS Exam Date: 12/13/2018 Status: REG ER PH: FAX: PAGE 2 Signed Report LIVER FUNCTION PANEL 2018-12-13 02:22:00* Test Item Value Reference Range Comments TOTAL PROTEIN (test code=PROT) 7.5 g/dL 6.0-8.3 ALBUMIN (test code=ALB) 3.5 g/dL 3.2-5.5 BILIRUBIN TOTAL (test code=BILT) 0.6 mg/dL 0.2-1.0 BILIRUBIN DIRECT (test code=BILD) 0.1 mg/dL 0.0-0.2 BILIRUBIN INDIRECT (test code=BILIND) 0.5 mg/dL SGOT/AST (test code=AST) 25 UNITS/L 10-42 SGPT/ALT (test code=ALT) 20 UNITS/L 10-40 ALKALINE PHOSPHATASE (test code=ALKP) 126 UNITS/L 34-104 [id number] 02:22:00* Test Item Value Reference Range Comments LIPASE (test code=LIP) 28 UNITS/L 22-151 UR HCG [id number] 01:54:00* Test Item Value Reference Range Comments UR HCG QUAL (test code=HCGQLU) NEGATIVE NEGATIVE URINALYSIS [id number] 01:53:00* Test Item Value Reference Range Comments UA COLOR (test code=COLU) DARK YELLOW YELLOW UA APPEARANCE (test code=APPU) CLOUDY CLEAR UA GLUCOSE DIPSTICK (test code=DGLUU) NEGATIVE MG/AL NEGATIVE UA BILIRUBIN DIPSTICK (test code=BILU) 1+ NEGATIVE UA KETONE DIPSTICK (test code=KETU) TRACE MG/DL NEGATIVE UA SPECIFIC GRAVITY (test code=SGU) 1.033 1.000-1.030 UA BLOOD DIPSTICK (test code=OSMEL) 3+ NEGATIVE UA PH DIPSTICK (test code=LUPE) 5.5 4.5-8.5 UA PROTEIN DIPSTICK (test code=PROU) NEGATIVE NEGATIVE UA UROBILINOGEN DIPSTICK (test code=URO) 1.0 EU/dL <=1.0 UA NITRITE DIPSTICK (test code=PATRICIA) NEGATIVE NEGATIVE UA LEUKOCYTE ESTERASE DIPSTICK (test code=LEUU) NEGATIVE NEGATIVE UA WBC (test code=WBCU) 3-5 /HPF 0-3 UA RBC (test code=RBCU) TNTC /HPF 0-3 UA EPITHELIAL CELLS (test code=EPIU) MODERATE /LPF NONE-FEW UA BACTERIA (test code=BACU) NEGATIVE /HPF NEGATIVE CBC W/AUTO [id number] 01:51:00* Test Item Value Reference Range Comments WHITE BLOOD CELL (test code=WBC) 8.15 K/mm3 5.0-12.0 RED BLOOD CELL (test code=RBC) 4.48 M/mm3 4.20-5.40 HEMOGLOBIN (test code=HGB) 13.4 G/DL 12.0-16.0 HEMATOCRIT (test code=HCT) 40.9 % 36.0-46.0 MEAN CELL VOLUME (test code=MCV) 91 fL 81-99 MEAN CELL HGB (test code=MCH) 29.9 PGM 27-31 MEAN CELL HGB CONCENTRATION (test code=MCHC) 32.8 G/DL 33-37 RED CELL DISTRIBUTION WIDTH (test code=RDW) 13.6 % 11.6-16.2 PLATELET COUNT (test code=PLT) 291 K/mm3 130-400 MEAN PLATELET VOLUME (test code=MPV) 9.9 fl 7.4-10.4 NEUTROPHIL % (test code=NT%) 61.8 % 43-65 IMMATURE GRANULOCYTE % (test code=IG%) 0.2 % 0.0-2.0 LYMPHOCYTE % (test code=LY%) 30.1 % 20.5-45.5 MONOCYTE % (test code=MO%) 5.3 % 5.5-11.7 EOSINOPHIL % (test code=EO%) 2.1 % 0.9-2.9 BASOPHIL % (test code=BA%) 0.5 % 0.2-1.0 NUCLEATED RBC % (test code=NRBC%) 0.0 % 0-1.0 NEUTROPHIL # (test code=NT#) 5.04 K/mm3 2.2-4.8 LYMPHOCYTE # (test code=LY#) 2.45 K/mm3 1.3-2.9 MONOCYTE # (test code=MO#) 0.43 K/mm3 0.3-0.8 EOSINOPHIL # (test code=EO#) 0.17 K/MM3 0.0-0.2 BASOPHIL # (test code=BA#) 0.04 K/mm3 0.0-0.1 CHEMISTRY 8 [id number] 01:50:00* Test Item Value Reference Range Comments SODIUM POC (test code=NAP) mmol/L 138-146 POTASSIUM POC (test code=KP) mmol/L 3.5-4.9 CHLORIDE POC (test code=CLP) mmol/L 98-109 CO2 POC (test code=CO2P) mmol/L 24-29 IONIZED CALCIUM POC (test code=CAIP) mmol/L 1.10-1.32 GLUCOSE POC (test code=GLUP) MG/DL 70-105 BUN POC (test code=BUNP) mg/dL 8-26 CREATININE POC (test code=CREATP) mg/dL 0.6-1.3 GLOMERULAR FILTRATION RATE POC (test code=GFRP) 78 58-135 CHEMISTRY 8 [id number] 01:50:00* Test Item Value Reference Range Comments SODIUM POC (test code=NAP) 140 mmol/L 138-146 POTASSIUM POC (test code=KP) 3.8 mmol/L 3.5-4.9 CHLORIDE POC (test code=CLP) 104 mmol/L 98-109 CO2 POC (test code=CO2P) 23 mmol/L 24-29 IONIZED CALCIUM POC (test code=CAIP) 1.16 mmol/L 1.10-1.32 GLUCOSE POC (test code=GLUP) 106 MG/DL 70-105 BUN POC (test code=BUNP) 11 mg/dL 8-26 CREATININE POC (test code=CREATP) 0.8 mg/dL 0.6-1.3 GLOMERULAR FILTRATION RATE POC (test code=GFRP) 78 58-135 URINALYSIS [id number] 01:40:00* Test Item Value Reference Range Comments UA COLOR (test code=COLU) DARK YELLOW YELLOW UA APPEARANCE (test code=APPU) CLOUDY CLEAR UA GLUCOSE DIPSTICK (test code=DGLUU) NEGATIVE MG/AL NEGATIVE UA BILIRUBIN DIPSTICK (test code=BILU) 1+ NEGATIVE UA KETONE DIPSTICK (test code=KETU) TRACE MG/DL NEGATIVE UA SPECIFIC GRAVITY (test code=SGU) 1.033 1.000-1.030 UA BLOOD DIPSTICK (test code=OSMEL) 3+ NEGATIVE UA PH DIPSTICK (test code=LUPE) 5.5 4.5-8.5 UA PROTEIN DIPSTICK (test code=PROU) NEGATIVE NEGATIVE UA UROBILINOGEN DIPSTICK (test code=URO) 1.0 EU/dL <=1.0 UA NITRITE DIPSTICK (test code=PATRICIA) NEGATIVE NEGATIVE UA LEUKOCYTE ESTERASE DIPSTICK (test code=LEUU) NEGATIVE NEGATIVE UA WBC (test code=WBCU) /HPF 0-3 UA RBC (test code=RBCU) /HPF 0-3 UA EPITHELIAL CELLS (test code=EPIU) /LPF NONE-FEW UA BACTERIA (test code=BACU) /HPF NEGATIVE DRUGS OF ABUSE [id number] 08:52:00* Test Item Value Reference Range Comments UR COCAINE (test code=COCAU) NEGATIVE NEGATIVE DETECTION CUT OFF: 150 ng/mL UR CANNABINOIDS (test code=CANU) NEGATIVE NEGATIVE DETECTION CUT OFF: 50 ng/mL UR AMPHETAMINE (test code=AMPHU) NEGATIVE NEGATIVE DETECTION CUT OFF: 500 ng/mL UR BARBITURATE QUAL (test code=BARBQLU) NEGATIVE NEGATIVE DETECTION CUT OFF: 200 ng/mL UR BENZODIAZEPINE (test code=BENZU) NEGATIVE NEGATIVE DETECTION CUT OFF: 150 ng/mL UR OPIATES QUAL (test code=OPIAQLU) POSITIVE NEGATIVE RESULTS CALLED TO NIKOLAI BACK & CONFIRMED? YES.BY ROBYNTTT 11/27/18 0851. DETECTION CUT OFF: 100 ng/mL UR PHENCYCLIDINE (PCP) (test code=PHENCU) NEGATIVE NEGATIVE DETECTION CUT OFF: 25 ng/mL UA RFLX MICR CULT IF [id number] 08:51:00* Test Item Value Reference Range Comments UA COLOR (test code=COLU) BLOODY YELLOW UA APPEARANCE (test code=APPU) HAZY CLEAR UA GLUCOSE DIPSTICK (test code=DGLUU) NEGATIVE NEGATIVE UA BILIRUBIN DIPSTICK (test code=BILU) 1+ NEGATIVE UA KETONE DIPSTICK (test code=KETU) TRACE NEGATIVE UA SPECIFIC GRAVITY (test code=SGU) >=1.030 1.001-1.035 UA BLOOD DIPSTICK (test code=OSMEL) 3+ NEGATIVE UA PH DIPSTICK (test code=LUPE) 5.5 5-9 UA PROTEIN DIPSTICK (test code=PROU) 1+ NEGATIVE UA UROBILINIOGEN DIPSTICK (test code=URO) 1.0 EU/dL <=1.0 UA NITRITE DIPSTICK (test code=PATRICIA) POSITIVE NEGATIVE UA LEUKOCYTE ESTERASE DIPSTICK (test code=LEUU) NEG NEGATIVE UA WBC (test code=WBCU) 3-5 #/hpf NONE SEEN UA RBC (test code=RBCU) TOO NUMEROUS TO CNT #/hpf NONE SEEN UA EPITHELIAL CELLS (test code=EPIU) FEW #/HPF RARE-FEW UA BACTERIA (test code=BACU) FEW #/hpf NONE SEEN Indication for culture: Suprapubic PainUA RFLX MICR CULT IF INDICATED 2018-11-27 08:42:00* Test Item Value Reference Range Comments UA COLOR (test code=COLU) BLOODY YELLOW UA APPEARANCE (test code=APPU) HAZY CLEAR UA GLUCOSE DIPSTICK (test code=DGLUU) NEGATIVE NEGATIVE UA BILIRUBIN DIPSTICK (test code=BILU) 1+ NEGATIVE UA KETONE DIPSTICK (test code=KETU) TRACE NEGATIVE UA SPECIFIC GRAVITY (test code=SGU) >=1.030 1.001-1.035 UA BLOOD DIPSTICK (test code=OSMEL) 3+ NEGATIVE UA PH DIPSTICK (test code=LUPE) 5.5 5-9 UA PROTEIN DIPSTICK (test code=PROU) 1+ NEGATIVE UA UROBILINIOGEN DIPSTICK (test code=URO) 1.0 EU/dL <=1.0 UA NITRITE DIPSTICK (test code=PATRICIA) POSITIVE NEGATIVE UA LEUKOCYTE ESTERASE DIPSTICK (test code=LEUU) NEG NEGATIVE UA WBC (test code=WBCU) #/hpf NONE SEEN UA EPITHELIAL CELLS (test code=EPIU) #/HPF RARE-FEW Indication for culture: Suprapubic PainCOMPREHENSIVE METABOLIC PANEL 2018-11-27 08:26:00* Test Item Value Reference Range Comments SODIUM (test code=NA) 140 mEq/L 135-145 POTASSIUM (test code=K) 4.2 mEq/L 3.5-5.0 CHLORIDE (test code=CL) 105 mEq/L 100-115 CARBON DIOXIDE (test code=CO2) 26 mEq/L 22-31 ANION GAP (test code=GAP) 12.90 10-20 GLUCOSE (test code=GLU) 100 mg/dL 65-110 BLOOD UREA NITROGEN (test code=BUN) 12 mg/dL 7-18 GLOMERULAR FILTRATION RATE (test code=GFR) 76 ml/min >60 CREATININE (test code=CREAT) 0.9 mg/dL 0.5-1.0 TOTAL PROTEIN (test code=PROT) 7.2 gm/dL 6.3-8.2 ALBUMIN (test code=ALB) 3.1 gm/dL 3.4-4.8 CALCIUM (test code=CA) 8.6 mg/dL 8.4-10.2 BILIRUBIN TOTAL (test code=BILT) 0.3 mg/dL 0.2-1.0 SGOT/AST (test code=AST) 17 units/L 15-37 SGPT/ALT (test code=ALT) 18 units/L 12-78 ALKALINE PHOSPHATASE TOTAL (test code=ALKP) 142 units/L 46-116 - CT ABD PELVIS W/O [id number] 08:23:00 Patient Name: LILIAN DEL ROSARIO Unit No: [id number] EXAMS: CPT CODE: [id number] CT ABD PELVIS W/O CONT 47087 CLINICAL HISTORY: Possible kidney stone. Flank pain. Stone protocol. Computed tomography of abdomen and pelvis was performed without any contrast administration. Comparison was made to previous examination performed on August 01, 2016 and December 28, 2016. One or more of the following dose techniques were utilized; automated exposure control, adjustment of the mA and/or kV according to patient size, and/or utilization of iterative reconstruction technique. DLP: 1414.84 mGy-cm. Higher images demonstrate the lung bases to be normal. Gallbladder has been surgically removed. No biliary ductal dilatation is noted. Liver, spleen, adrenal glands, pancreas, and both kidneys have normal CT appearance. No evidence of nephrolithiasis is seen. There is no evidence of hydronephrosis on either side . No perinephric fluid or stranding of perinephric fat is noted. There is no evidence of retroperitoneal adenopathy or abnormal fluid collection in upper abdomen. There are several calcific foci anterior to psoas muscle on the right side as well as a small calcific focus in the pelvis on the left side. These are seen on previous examination and most likely represent phleboliths. Appen blanca is visualized and appears normal. There is no evidence of appendicitis or diverticulitis. Fecal residue is seen in the colon. Uterus has been surgic ally removed. There is no evidence of adnexal mass, pelvic adenopathy or other significant abnormality in the pelvis. IMPRESSION: 1. Status post hy sterectomy and cholecystectomy. 2. No evidence of nephrolithiasis or obstruc tive uropathy. 3. Phleboliths present in lower abdomen and pelvis. 4. No abnormal mass, abscess or other significant abnormality. Electronic ally Signed by Dread Montejo MD on 11/27/2018 at 0823 Reported and signed by: Dread Montejo MD [facility] NA ME: LILIAN DEL ROSARIO Radiology Department PHYS: Saman Grant [address] : 9[birth year] AGE: 43 SEX: F [place], [place] [address] LOC: EDSON PHONE #: [phone] EXAM DATE: 11/27/2018 STATUS: DEP ER FAX #: [phone] RAD NO: Page 1 Signed Report 1 Patient Name: LILIAN DEL ROSARIO Unit No: [id number] EXAMS: CPT CODE: [id number] CT ABD PELVIS W/O CONT 29063 <Continued> CC: Saman Lockett MD Technologist: José Zamora, RT, CT CTDI: 24.73 DLP: 1414.84 Trnscrbd D/ (0823) [facility] NAME: LILIAN DEL ROSARIO Radiology Department PHYS: Saman Boo [address] : 1975 AGE: 43 SEX: F [place] [address] LOC: UshaERS PHONE #: [phone] EXAM DATE: 11/27/2018 STATUS: [facility] ER FAX #: [phone] RAD NO: Page 2 Signed Report 1 Patient Name: LILIAN DEL ROSARIO Unit No: [id number] EXAMS: CPT CODE: [id number] CT ABD PELVIS W/O CONT 83043 <Continued> Orig Print D/T: S: 11/27/2018 (0826) [facility] NAME: LILIAN DEL ROSARIO Radiology Department PHYS: Saman Boo [address] : 1975 AGE: 43 SEX: F [place] [address] [facility] #: [phone] EXAM DATE: 11/27/2018 STATUS: DEP ER FAX #: [phone] RAD NO: Page 3 Signed Report 1 - CT ABD PELVIS W/O [id number] 08:23:00 Patient Name: LILIAN DEL ROSARIO Unit No: [id number] EXAMS: CPT CODE: [id number] CT ABD PELVIS W/O CONT 07220 CLINICAL HISTORY: Possible kidney stone. Flank pain. Stone protocol. Computed tomography of abdomen and pelvis was performed without any contrast administration. Comparison was made to previous examination performed on August 01, 2016 and December 28, 2016. One or more of the following dose techniques were utilized; automated exposure control, adjustment of the mA and/or kV according to patient size, and/or utilization of iterative reconstruction technique. DLP: 1414.84 mGy-cm. Higher images demonstrate the lung bases to be normal. Gallbladder has been surgically removed. No biliary ductal dilatation is noted. Liver, spleen, adrenal glands, pancreas, and both kidneys have normal CT appearance. No evidence of nephrolithiasis is seen. There is no evidence of hydronephrosis on either side . No perinephric fluid or stranding of perinephric fat is noted. There is no evidence of retroperitoneal adenopathy or abnormal fluid collection in upper abdomen. There are several calcific foci anterior to psoas muscle on the right side as well as a small calcific focus in the pelvis on the left side. These are seen on previous examination and most likely represent phleboliths. Appen blanca is visualized and appears normal. There is no evidence of appendicitis or diverticulitis. Fecal residue is seen in the colon. Uterus has been surgic ally removed. There is no evidence of adnexal mass, pelvic adenopathy or other significant abnormality in the pelvis. IMPRESSION: 1. Status post hy sterectomy and cholecystectomy. 2. No evidence of nephrolithiasis or obstruc tive uropathy. 3. Phleboliths present in lower abdomen and pelvis. 4. No abnormal mass, abscess or other significant abnormality. Electronic ally Signed by Dread Montejo MD on 11/27/2018 at 0823 Reported and signed by: Dread Montejo MD [facility] NA ME: LILIAN DEL ROSARIO Radiology Department PHYS: Saman Grant [address] : 9[birth year] AGE: 43 SEX: F [place], [place] [address] 434 LOC: Sakshi.ERS PHONE #: [phone] EXAM DATE: 11/27/2018 STATUS: [facility] ER FAX #: [phone] RAD NO: Page 1 Signed Report 1 Patient Name: LILIAN DEL ROSARIO Unit No: [id number] EXAMS: CPT CODE: [id number] CT ABD PELVIS W/O CONT 16781 <Continued> CC: Saman Lockett MD Technologist: José Zamora, RT, CT CTDI: 24.73 DLP: 1414.84 Trnscrbd D/ (822) [facility] NAME: LILIAN DEL ROSARIO Radiology Department PHYS: Saman Boo [address] : 1975 AGE: 43 SEX: F [place] [address] LOC: UshaERS PHONE #: [phone] EXAM DATE: 11/27/2018 STATUS: [facility] ER FAX #: [phone] RAD NO: Page 2 Signed Report 1 Patient Name: LILIAN DEL ROSARIO Unit No: [id number] EXAMS: CPT CODE: [id number] CT ABD PELVIS W/O CONT 66391 <Continued> Orig Print D/T: S: 11/27/2018 (825) [facility] NAME: LILIAN DEL ROSARIO Radiology Department PHYS: Saman Boo [address] : 1975 AGE: 43 SEX: F [place] [address] [facility] PHONE #: [phone] EXAM DATE: 11/27/2018 STATUS: [facility] ER FAX #: [phone] RAD NO: Page 3 Signed Report 1 - CT ABD PELVIS W/O [id number] 08:23:00 Patient Name: LILIAN DEL ROSARIO Unit No: [id number] EXAMS: CPT CODE: [id number] CT ABD PELVIS W/O CONT 61479 CLINICAL HISTORY: Possible kidney stone. Flank pain. Stone protocol. Computed tomography of abdomen and pelvis was performed without any contrast administration. Comparison was made to previous examination performed on August 01, 2016 and December 28, 2016. One or more of the following dose techniques were utilized; automated exposure control, adjustment of the mA and/or kV according to patient size, and/or utilization of iterative reconstruction technique. DLP: 1414.84 mGy-cm. Higher images demonstrate the lung bases to be normal. Gallbladder has been surgically removed. No biliary ductal dilatation is noted. Liver, spleen, adrenal glands, pancreas, and both kidneys have normal CT appearance. No evidence of nephrolithiasis is seen. There is no evidence of hydronephrosis on either side . No perinephric fluid or stranding of perinephric fat is noted. There is no evidence of retroperitoneal adenopathy or abnormal fluid collection in upper abdomen. There are several calcific foci anterior to psoas muscle on the right side as well as a small calcific focus in the pelvis on the left side. These are seen on previous examination and most likely represent phleboliths. Appen blanca is visualized and appears normal. There is no evidence of appendicitis or diverticulitis. Fecal residue is seen in the colon. Uterus has been surgic ally removed. There is no evidence of adnexal mass, pelvic adenopathy or other significant abnormality in the pelvis. IMPRESSION: 1. Status post hy sterectomy and cholecystectomy. 2. No evidence of nephrolithiasis or obstruc tive uropathy. 3. Phleboliths present in lower abdomen and pelvis. 4. No abnormal mass, abscess or other significant abnormality. Electronic ally Signed by Dread Montejo MD on 11/27/2018 at 0823 Reported and signed by: Dread Montejo MD [facility] NA ME: LILIAN DEL ROSARIO Radiology Department PHYS: Saman Grant [address] : [birth year] AGE: 43 SEX: F [place] [address] 434 LOC: EDSON PHONE #: [phone] EXAM DATE: 11/27/2018 STATUS: REG ER FAX #: [phone] RAD NO: Page 1 Signed Report 1 Patient Name: MIGUEL ÁNGELLILIAN Unit No: [id number] EXAMS: CPT CODE: [id number] CT ABD PELVIS W/O CONT 11381 <Continued> CC: Saman Lockett MD Technologist: José Zamora, RT, CT CTDI: 24.73 DLP: 1414.84 Trnscrbd D/ (0823) [facility] NAME: LILIAN DEL ROSARIO Radiology Department PHYS: Saman Boo [address] : 1975 AGE: 43 SEX: F [place] [address] LOC: EDSON PHONE #: [phone] EXAM DATE: 11/27/2018 STATUS: REG ER FAX #: [phone] RAD NO: Page 2 Signed Report 1 Patient Name: LILIAN DEL ROSARIO Unit No: [id number] EXAMS: CPT CODE: [id number] CT ABD PELVIS W/O CONT 33754 <Continued> Orig Print D/T: S: 11/27/2018 (0826) [facility] NAME: LILIAN DEL ROSARIO Radiology Department PHYS: ANNE Saman Lockett [address] : 1975 AGE: 43 SEX: F [place], [place] [address] LOC: EDSON PHONE #: [phone] EXAM DATE: 11/27/2018 STATUS: REG ER FAX #: [phone] RAD NO: Page 3 Signed Report 1 CBC W/AUTO [id number] 08:06:00* Test Item Value Reference Range Comments WHITE BLOOD CELL (test code=WBC) 8.9 K/mm3 6.6-12.1 RED BLOOD CELL (test code=RBC) 4.42 M/mm3 3.45-5.01 HEMOGLOBIN (test code=HGB) 13.1 g/dL 10.7-13.9 HEMATOCRIT (test code=HCT) 41.2 % 32.1-42.1 MEAN CELL VOLUME (test code=MCV) 93 fL 84.1-94.8 MEAN CELL HGB (test code=MCH) 29.6 pg 27-35 MEAN CELL HGB CONCETRATION (test code=MCHC) 31.8 gm/dL 32.2-34.1 RED CELL DISTRIBUTION WIDTH (test code=RDW) 13.9 % 12.4-16.5 PLATELET COUNT (test code=PLT) 291 K/mm3 133-385 IMMATURE PLATELET FRACTION (test code=IPF) 0.0 % 0.0-10.8 MEAN PLATELET VOLUME (test code=MPV) 10.3 fl 9.1-12.7 NEUTROPHIL % (test code=NT%) 63.7 % 56.5-79.4 LYMPHOCYTE % (test code=LY%) 27.5 % 14.3-34.3 MONOCYTE % (test code=MO%) 5.2 % 5.1-10.4 EOSINOPHIL % (test code=EO%) 2.0 % 0.1-3.0 BASOPHIL % (test code=BA%) 1.0 % 0.1-1.0 NEUTROPHIL # (test code=NT#) 5.7 K/mm3 LYMPHOCYTE # (test code=LY#) 2.5 K/mm3 MONOCYTE # (test code=MO#) 0.5 K/mm3 EOSINOPHIL # (test code=EO#) 0.18 K/mm3 BASOPHIL # (test code=BA#) 0.1 K/mm3 RBC MORPHOLOGY REQUIRED (test code=RBCM) NORMAL NORMAL PLATELET MORPHOLOGY REQUIRED (test code=PLTMR) NORMAL NORMAL UA RFLX MICR CULT IF [id number] 06:06:00* Test Item Value Reference Range Comments UA COLOR (test code=COLU) YELLOW discript YEL/STRAW UA APPEARANCE (test code=APPU) HAZY discript CLEAR UA GLUCOSE DIPSTICK (test code=DGLUU) NEGATIVE mg/dL NEG UA BILIRUBIN DIPSTICK (test code=BILU) 1+ mg/dL NEG UA KETONE DIPSTICK (test code=KETU) TRACE mg/dL NEG UA SPECIFIC GRAVITY (test code=SGU) 1.025 SG 1.005-1.030 UA BLOOD DIPSTICK (test code=OSMEL) 3+ mg/DL NEG UA PH DIPSTICK (test code=LUPE) 6.0 pH UNITS 5.0-7.0 UA PROTEIN DIPSTICK (test code=PROU) TRACE mg/dL NEG UA UROBILINIOGEN DIPSTICK (test code=URO) >=8.0 mg/dL <2.0 UA NITRITE DIPSTICK (test code=PATRICIA) NEGATIVE SCREEN NEG UA LEUKOCYTE ESTERASE DIPSTICK (test code=LEUU) NEGATIVE Leuk/mcL NEGATIVE UA WBC (test code=WBCU) 0-1 #WBC/HPF 0-3 UA RBC (test code=RBCU) 10-20 #RBC/HPF 0-3 UA BACTERIA (test code=BACU) TRACE /HPF NONE-TRACE UA CULTURE NEEDED? (test code=UACULT) NO, WBC<10 Criteria Culture CHK SOURCE OF URINE: CLEAN CATCHIndication for culture: Dysuria/FrequencyUA RFLX MICR CULT IF [id number] 05:59:00* Test Item Value Reference Range Comments UA COLOR (test code=COLU) YELLOW discript YEL/STRAW UA APPEARANCE (test code=APPU) HAZY discript CLEAR UA GLUCOSE DIPSTICK (test code=DGLUU) NEGATIVE mg/dL NEG UA BILIRUBIN DIPSTICK (test code=BILU) 1+ mg/dL NEG UA KETONE DIPSTICK (test code=KETU) TRACE mg/dL NEG UA SPECIFIC GRAVITY (test code=SGU) 1.025 SG 1.005-1.030 UA BLOOD DIPSTICK (test code=OSMEL) 3+ mg/DL NEG UA PH DIPSTICK (test code=LUPE) 6.0 pH UNITS 5.0-7.0 UA PROTEIN DIPSTICK (test code=PROU) TRACE mg/dL NEG UA UROBILINIOGEN DIPSTICK (test code=URO) >=8.0 mg/dL <2.0 UA NITRITE DIPSTICK (test code=PATRICIA) NEGATIVE SCREEN NEG UA LEUKOCYTE ESTERASE DIPSTICK (test code=LEUU) NEGATIVE Leuk/mcL NEGATIVE UA CULTURE NEEDED? (test code=UACULT) Criteria Culture CHK SOURCE OF URINE: CLEAN CATCHIndication for culture: Dysuria/Frequency URINALYSIS [id number] 23:50:00* Test Item Value Reference Range Comments UA COLOR (test code=COLU) YELLOW DESCRIPT YELLOW UA APPEARANCE (test code=APPU) HAZY DESCRIPT CLEAR UA GLUCOSE DIPSTICK (test code=DGLUU) NEGATIVE (0) mg/dL (NEG) 0 UA BILIRUBIN DIPSTICK (test code=BILU) NEGATIVE (0) mg/dL (NEG) 0 UA KETONE DIPSTICK (test code=KETU) 0 (NEG) mg/dL (NEG) 0 UA SPECIFIC GRAVITY (test code=SGU) 1.025 SG 1.001-1.035 UA BLOOD DIPSTICK (test code=OSMEL) 3+ mg/DL (NEG) 0 UA PH DIPSTICK (test code=LUPE) 5.0 pH UNITS 4.6-8.0 UA PROTEIN DIPSTICK (test code=PROU) NEGATIVE (0) mg/dL <30 (1+) UA UROBILINIOGEN DIPSTICK (test code=URO) 4 mg/dL <2.0 (1+) UA NITRITE DIPSTICK (test code=PATRICIA) NEGATIVE (0) SCREEN NEG UA LEUKOCYTE ESTERASE DIPSTICK (test code=LEUU) NEGATIVE (0) Leuk/mcL (NEG) 0 UA WBC (test code=WBCU) 0-3 #WBC/HPF 0-3 UA RBC (test code=RBCU) >100 #RBC/HPF 0-3 UA BACTERIA (test code=BACU) FEW >1 /HPF NONE-FEW UA MUCUS (test code=MUCU) RARE /LPF NONE - CT ABD PELVIS [id number] 23:50:00 Patient Name: LILIAN DEL ROSARIO Unit No: [id number] EXAMS: CPT CODE: [id number] CT ABD PELVIS W/CONT 80303 EXAM: - CT ABD PELVIS W/CONT HISTORY: Lower abdominal pain. TECHNIQUE: Axial tomograms through the abdomen and pelvis were obtained after intravenous contrast. Coronal and sagittal reformatted images are provided. This exam was performed according to our departmental dose-optimization program, which includes automated exposure control, adjustment of the mA and/or kV according to patient size and/or use of iterative reconstruction technique. COMPARISON: October 04, 2018. FINDINGS: The visualized lung bases are clear. Large body habitus. Status post cholecystectomy. Mild fatty infiltration of the liver. The spleen, pancreas, adrenal glands and kidneys demonstrate no significant abnormalities. There is no free air or free fluid. The bowel is unremarkable. Status post hysterectomy. There is no definite acute osseous abnormality. Excessive artifacts and pelvis limiting evaluation. IMPRESSION: No significant abnormalities demonstrated. at 2350 Reported and signed by: Redd Mcleod MD CC: Baljeet Lemus MD Dictated Date/Time: 10/29/2018 (2350) Technologist: Radha Thurman - Eduin CTDI: 12.51 DLP: 773.80 Trnscrpt: 10/29/2018 (2350) [facility] NAME: LILIAN DEL ROSARIO [address] [place] [address] Blvd PHYS: Baljeet Auguste MD [place], [place] [address] : 1975 AGE: 43 SEX: F LOC: AnneERS PHONE #: [phone] EXAM DATE: 10/29/2018 STATUS: DEP ER FAX #: [phone] RAD #: D/C DT PAGE 1 Si gned Report Patient Name: LILIAN DEL ROSARIO Unit No: [id number] EXAMS: CPT CODE: [id number] CT ABD PELVIS W/CONT 7 4177 <Continued> Orig Print D/T: S: 10/29/2018 (1435) [facility] NAME: LILIAN DEL ROSARIO [address] [place] [address] PHYS: Baljeet [place], [place] [address] : 1975 AGE: 43 SEX: F LOC: AnneERS PHONE #: [phone] EXAM DATE: 10/29/2018 STATUS: [facility] ER FAX #: [phone] RAD #: D/C DT PAGE 2 Signed Report - CT ABD PELVIS [id number] 23:50:00 Patient Name: LILIAN DEL ROSARIO Unit No: [id number] EXAMS: CPT CODE: [id number] CT ABD PELVIS W/CONT 54767 EXAM: - CT ABD PELVIS W/CONT HISTORY: Lower abdominal pain. TECHNIQUE: Axial tomograms through the abdomen and pelvis were obtained after intravenous contrast. Coronal and sagittal reformatted images are provided. This exam was performed according to our departmental dose-optimization program, which includes automated exposure control, adjustment of the mA and/or kV according to patient size and/or use of iterative reconstruction technique. COMPARISON: October 04, 2018. FINDINGS: The visualized lung bases are clear. Large body habitus. Status post cholecystectomy. Mild fatty infiltration of the liver. The spleen, pancreas, adrenal glands and kidneys demonstrate no significant abnormalities. There is no free air or free fluid. The bowel is unremarkable. Status post hysterectomy. There is no definite acute osseous abnormality. Excessive artifacts and pelvis limiting evaluation. IMPRESSION: No significant abnormalities demonstrated. at 2350 Reported and signed by: Redd Mcleod MD CC: Baljeet Lemus MD Dictated Date/Time: 10/29/2018 (2349) Technologist: Radha Thurman - Eduin CTDI: 12.51 DLP: 773.80 Trnscrpt: 10/29/2018 (2349) [facility] [place] NAME: LILIAN DEL ROSARIO [facility] [place]: [place] [address] : 1975 AGE: 43 SEX: F LOC: Fabiola.ERS PHONE #: [phone] EXAM DATE: 10/29/2018 STATUS: DEP ER FAX #: [phone] RAD #: D/C DT PAGE 1 Si gned Report Patient Name: LILIAN DEL ROSARIO Unit No: [id number] EXAMS: CPT CODE: [id number] CT ABD PELVIS W/CONT 7 4177 <Continued> Orig Print D/T: S: 10/29/2018 (8236) [facility] [place] NAME: LILIAN DEL ROSARIO [address] [place] [address] PHYS: [place] [address] : 1975 AGE: 43 SEX: F LOC: B.ERS PHONE #: [phone] EXAM DATE: 10/29/2018 STATUS: [facility] ER FAX #: [phone] RAD #: D/C DT PAGE 2 Signed Report - CT ABD PELVIS [id number] 23:50:00 Patient Name: LILIAN DEL ROSARIO Unit No: [id number] EXAMS: CPT CODE: [id number] CT ABD PELVIS W/CONT 34623 EXAM: - CT ABD PELVIS W/CONT HISTORY: Lower abdominal pain. TECHNIQUE: Axial tomograms through the abdomen and pelvis were obtained after intravenous contrast. Coronal and sagittal reformatted images are provided. This exam was performed according to our departmental dose-optimization program, which includes automated exposure control, adjustment of the mA and/or kV according to patient size and/or use of iterative reconstruction technique. COMPARISON: October 04, 2018. FINDINGS: The visualized lung bases are clear. Large body habitus. Status post cholecystectomy. Mild fatty infiltration of the liver. The spleen, pancreas, adrenal glands and kidneys demonstrate no significant abnormalities. There is no free air or free fluid. The bowel is unremarkable. Status post hysterectomy. There is no definite acute osseous abnormality. Excessive artifacts and pelvis limiting evaluation. IMPRESSION: No significant abnormalities demonstrated. at 2350 Reported and signed by: Redd cMleod MD CC: Baljeet Lemus MD Dictated Date/Time: 10/29/2018 (012) Technologist: Radha Thurman - Eduin CTDI: 12.51 DLP: 773.80 Trnscrpt: 10/29/2018 (9180) [email or web address] NAME: LILIAN DEL ROSARIO [address] [place] [address] PHYS: Bal[place] [address] : 1975 AGE: 43 SEX: F LOC: SMS [employer] PHONE #: [phone] EXAM DATE: 10/29/2018 STATUS: [facility] ER FAX #: [phone] RAD #: D/C DT PAGE 1 Si gned Report Patient Name: LILIAN DEL ROSARIO Unit No: [id number] EXAMS: CPT CODE: [id number] CT ABD PELVIS W/CONT 7 4177 <Continued> Orig Print D/T: S: 10/29/2018 (1315) [facility]: LILIAN DEL ROSARIO [address] [place] [address] PHYS: Baljeet [place] [address] : 1975 AGE: 43 SEX: F LOC: B.[place] PHONE #: [phone] EXAM DATE: 10/29/2018 STATUS: [facility] ER FAX #: [phone] RAD #: D/C DT PAGE 2 Signed Report - CT ABD PELVIS [id number] 23:50:00 Patient Name: LILIAN DEL ROSARIO Unit No: [id number] EXAMS: CPT CODE: [id number] CT ABD PELVIS W/CONT 92807 EXAM: - CT ABD PELVIS W/CONT HISTORY: Lower abdominal pain. TECHNIQUE: Axial tomograms through the abdomen and pelvis were obtained after intravenous contrast. Coronal and sagittal reformatted images are provided. This exam was performed according to our departmental dose-optimization program, which includes automated exposure control, adjustment of the mA and/or kV according to patient size and/or use of iterative reconstruction technique. COMPARISON: October 04, 2018. FINDINGS: The visualized lung bases are clear. Large body habitus. Status post cholecystectomy. Mild fatty infiltration of the liver. The spleen, pancreas, adrenal glands and kidneys demonstrate no significant abnormalities. There is no free air or free fluid. The bowel is unremarkable. Status post hysterectomy. There is no definite acute osseous abnormality. Excessive artifacts and pelvis limiting evaluation. IMPRESSION: No significant abnormalities demonstrated. at 2350 Reported and signed by: Redd Mcleod MD CC: Baljeet Lemus MD Dictated Date/Time: 10/29/2018 (6749) Technologist: Radha Thurman - Eduin CTDI: 12.51 DLP: 773.80 Trnscrpt: 10/29/2018 (1023) [email or web address] ATIF [place] NAME: LILIAN DEL ROSARIO [address] [place] [address] Bl PHYS: Baljeet Auguste MD [place] [address] : 1975 AGE: 43 SEX: F LOC: B.[place] PHONE #: [phone] EXAM DATE: 10/29/2018 STATUS: REG ER FAX #: [phone] RAD #: D/C DT PAGE 1 Si gned Report Patient Name: LILIAN DEL ROSARIO Unit No: [id number] EXAMS: CPT CODE: [id number] CT ABD PELVIS W/CONT 7 4177 <Continued> Orig Print D/T: S: 10/29/2018 (9590) ATIF [place] NAME: LILIAN DEL ROSARIO [address] [place] [address] Blvd PHYS: Baljeet Auguste MD [place] [address] : 1975 AGE: 43 SEX: F LOC: B.ERS PHONE #: [phone] EXAM DATE: 10/29/2018 STATUS: REG ER FAX #: [phone] RAD #: D/C DT PAGE 2 Signed Report COMPREHENSIVE METABOLIC [id number] 23:24:00* Test Item Value Reference Range Comments SODIUM (test code=NA) 138.0 mmol/L 133-144 POTASSIUM (test code=K) 3.7 mmol/L 3.5-5.1 CHLORIDE (test code=CL) 107 mmol/L 95-105 CARBON DIOXIDE (test code=CO2) 27 mmol/L 21-32 ANION GAP (test code=GAP) 4.0 GAP calc 4.0-15.0 GLUCOSE (test code=GLU) 93 MG/DL 70-110 BLOOD UREA NITROGEN (test code=BUN) 12 MG/DL 7-18 GLOMERULAR FILTRATION RATE (test code=GFR) 77 estGFR >60 The estimated glomerular filtration rate is computed usingpatient race, age, sex, and serum creatinine. If any of theneeded data elements are missing the Laboratory can notcompute an estimation of the glomerular filtration rate.The GFR value units=ml/min/1.73 meter squared. EstimatedGFR values above 60 should be interpreted as >60, not anexact number.--- DRUG DOSAGE ALERT --- Drug dosage adjustments utilize different calculationparameters. CREATININE (test code=CREAT) 0.96 MG/DL 0.55-1.30 Results may be depressed if patient is takingN-Acetylcysteine (NAC) and Metamizole (Dipyrone). TOTAL PROTEIN (test code=PROT) 8.0 G/DL 6.4-8.2 ALBUMIN (test code=ALB) 3.4 G/DL 3.4-5.0 ALBUMIN/GLOBULIN RATIO (test code=A/G) 0.7 RATIO 1.2-2.2 CALCIUM (test code=CA) 9.0 MG/DL 8.5-10.1 BILIRUBIN TOTAL (test code=BILT) 0.30 MG/DL 0.00-1.00 BILIRUBIN DIRECT (test code=BILD) < 0.10 MG/DL 0.00-0.30 BILIRUBIN INDIRECT (test code=BILIND) 0.30 MG/DL 0.2-1.3 SGOT/AST (test code=AST) 19 Unit/L 15-37 SGPT/ALT (test code=ALT) 27 Unit/L 12-78 ALKALINE PHOSPHATASE TOTAL (test code=ALKP) 153 Unit/L 45-117 INDEX HEMOLYSIS (test code=HEMINDEX) 2 TRACE 10-25 MG Index/DL 1 NORMAL INDEX ICTERIC (test code=ICTINDEX) 1 NORMAL <2 MG Index/DL 1 NORMAL INDEX LIPEMIA (test code=LIPINDEX) 1 NORMAL <50 MG Index/DL 1 NORMAL COMPREHENSIVE METABOLIC [id number] 23:22:00* Test Item Value Reference Range Comments SODIUM (test code=NA) 138.0 mmol/L 133-144 POTASSIUM (test code=K) 3.7 mmol/L 3.5-5.1 CHLORIDE (test code=CL) 107 mmol/L 95-105 CARBON DIOXIDE (test code=CO2) 27 mmol/L 21-32 ANION GAP (test code=GAP) 4.0 GAP calc 4.0-15.0 GLUCOSE (test code=GLU) 93 MG/DL 70-110 BLOOD UREA NITROGEN (test code=BUN) 12 MG/DL 7-18 GLOMERULAR FILTRATION RATE (test code=GFR) 77 estGFR >60 The estimated glomerular filtration rate is computed usingpatient race, age, sex, and serum creatinine. If any of theneeded data elements are missing the Laboratory can notcompute an estimation of the glomerular filtration rate.The GFR value units=ml/min/1.73 meter squared. EstimatedGFR values above 60 should be interpreted as >60, not anexact number.--- DRUG DOSAGE ALERT --- Drug dosage adjustments utilize different calculationparameters. CREATININE (test code=CREAT) 0.96 MG/DL 0.55-1.30 Results may be depressed if patient is takingN-Acetylcysteine (NAC) and Metamizole (Dipyrone). TOTAL PROTEIN (test code=PROT) G/DL 6.4-8.2 ALBUMIN (test code=ALB) 3.4 G/DL 3.4-5.0 ALBUMIN/GLOBULIN RATIO (test code=A/G) RATIO 1.2-2.2 CALCIUM (test code=CA) 9.0 MG/DL 8.5-10.1 BILIRUBIN TOTAL (test code=BILT) MG/DL 0.00-1.00 BILIRUBIN DIRECT (test code=BILD) < 0.10 MG/DL 0.00-0.30 BILIRUBIN INDIRECT (test code=BILIND) MG/DL 0.2-1.3 SGOT/AST (test code=AST) 19 Unit/L 15-37 SGPT/ALT (test code=ALT) 27 Unit/L 12-78 ALKALINE PHOSPHATASE TOTAL (test code=ALKP) Unit/L 45-117 INDEX HEMOLYSIS (test code=HEMINDEX) 2 TRACE 10-25 MG Index/DL 1 NORMAL INDEX ICTERIC (test code=ICTINDEX) 1 NORMAL <2 MG Index/DL 1 NORMAL INDEX LIPEMIA (test code=LIPINDEX) 1 NORMAL <50 MG Index/DL 1 NORMAL HCG SERUM [id number] 23:21:00* Test Item Value Reference Range Comments HCG SERUM QUAL (test code=HCGQL) NEG SCREEN NEG - US TRANSVAGINAL NON [id number] 23:20:00 Patient Name: LILIAN DEL ROSARIO Unit No: [id number] EXAMS: CPT CODE: [id number] [place] [address] EXAM: - US TRANSVAGINAL NON OB HISTORY: Pain. COMPARISON: None TECHNIQUE: Transvaginal scan was performed. FINDINGS: The uterus is surgically absent. There is no fluid collection. The ovaries are not visualized. Limited exam. IMPRESSION: Status post hysterectomy. at 2320 Reported and signed by: Redd Mcleod MD CC: Baljeet Lemus MD Technologist: Roya Barrios RDMS Trnscrbd D/ (2320) [email or web address] Probe: [id number] Orig Print D/T: S: 10/29/2018 (2323) Probe: ATIF [place] NAME: LILIAN DEL ROSARIO [address] [place] [address] PHYS: Baljeet Auguste MD, [place] [address] : 1975 AGE: 43 SEX: F LOC: B.ERS PHONE #: [phone] EXAM DATE: 10/29/2018 STATUS: DEP ER FAX #: [phone] RAD NO: Page 1 Signed Report - US TRANSVAGINAL NON [id number] 23:20:00 Patient Name: LILIAN DEL ROSARIO Unit No: [id number] EXAMS: CPT CODE: [id number] [place] [address] EXAM: - US TRANSVAGINAL NON OB HISTORY: Pain. COMPARISON: None TECHNIQUE: Transvaginal scan was performed. FINDINGS: The uterus is surgically absent. There is no fluid collection. The ovaries are not visualized. Limited exam. IMPRESSION: Status post hysterectomy. at 2320 Reported and signed by: Redd Mcleod MD CC: Baljeet Lemus MD Technologist: Roya Barrios RDMS Trnscrbd D/ (2320) [email or web address] Probe: [id number] Orig Print D/T: S: 10/29/2018 (9103) Probe: ATIF [place] NAME: LILIAN DEL ROSARIO [address] [place] [address] PHYS: Baljeet Auguste [place] [address] : 1975 AGE: 43 SEX: F LOC: PATIENCE PHONE #: [phone] EXAM DATE: 10/29/2018 STATUS: DEP ER FAX #: [phone] RAD NO: Page 1 Signed Report - US TRANSVAGINAL NON [id number] 23:20:00 Patient Name: LILIAN DEL ROSARIO Unit No: [id number] EXAMS: CPT CODE: [id number] [place] [address] EXAM: - US TRANSVAGINAL NON OB HISTORY: Pain. COMPARISON: None TECHNIQUE: Transvaginal scan was performed. FINDINGS: The uterus is surgically absent. There is no fluid collection. The ovaries are not visualized. Limited exam. IMPRESSION: Status post hysterectomy. at 2320 Reported and signed by: Redd Mcleod MD CC: Baljeet Lemus MD Technologist: Roya Barrios RDMS Trnscrbd D/ (2320) [email or web address] Probe: [id number] Orig Print D/T: S: 10/29/2018 (232) Probe: ATIF [place] NAME: LILIAN DEL ROSARIO [address] [place] [address] PHYS: Baljeet [place]e [place] [id number] : 1975 AGE: 43 SEX: F LOC: B.ERS PHONE #: [phone] EXAM DATE: 10/29/2018 STATUS: DEP ER FAX #: [phone] RAD NO: Page 1 Signed Report - US TRANSVAGINAL NON [id number] 23:20:00 Patient Name: LILIAN DEL ROSARIO Unit No: [id number] EXAMS: CPT CODE: [id number] [place] [address] EXAM: - US TRANSV AGINAL NON OB HISTORY: Pain. COMPARISON: None TECHNIQUE: Transvaginal scan was performed. FINDINGS: The uterus is surgically absent. There is no fluid collection. The ovar ies are not visualized. Limited exam. IMPRESSION: Status post hysterectomy. at 2320 Reported and signed by: Redd Mcleod MD CC: Baljeet Lemus MD Technologist: Roya Barrios RDMS Trnscrbd D/ (2320) [email or web address] Probe: [id number] Orig Print D/T: S: 10/29/2018 (2323) Probe: ATIF [place] NAME: LILIAN DEL ROSARIO [address] [place] [address] PHYS: [place] [address] : 1975 AGE: 43 SEX: F LOC: B.ERS PHONE #: [phone] EXAM DATE: 10/29/2018 STATUS: REG ER FAX #: [phone] RAD NO: Page 1 Signed Report CBC W/AUTO [id number] 23:01:00* Test Item Value Reference Range Comments WHITE BLOOD CELL (test code=WBC) 9.2 K/mm3 4.1-12.1 RED BLOOD CELL (test code=RBC) 4.86 M/mm3 3.8-5.5 HEMOGLOBIN (test code=HGB) 14.4 G/DL 10.6-15.8 HEMATOCRIT (test code=HCT) 43.6 % 31.8-47.4 MEAN CELL VOLUME (test code=MCV) 89.7 fL 80.1-101.1 MEAN CELL HGB (test code=MCH) 29.6 pg 25.3-35.3 MEAN CELL HGB CONCETRATION (test code=MCHC) 33.0 G/DL 32.7-35.1 RED CELL DISTRIBUTION WIDTH (test code=RDW) 13.2 % 12.2-16.4 RED CELL DISTRIBUTION WIDTH (test code=RDW-SD) 43.0 fL 36.4-46.3 PLATELET COUNT (test code=PLT) 367 K/mm3 155-337 MEAN PLATELET VOLUME (test code=MPV) 9.8 fL 6.8-11.2 GRANULOCYTE % (test code=GR%) 61.5 % 37.8-82.6 IMMATURE GRANULOCYTE % (test code=IG%) 0.2 % 0.0-2.0 LYMPHOCYTE % (test code=LY%) 29.3 % 14.1-45.4 MONOCYTE % (test code=MO%) 6.4 % 2.5-11.7 EOSINOPHIL % (test code=EO%) 1.7 % 0.0-6.2 BASOPHIL % (test code=BA%) 0.9 % 0.0-2.1 NUCLEATED RBC % (test code=NRBC%) 0.0 /100WBC% 0.0-1.0 GRANULOCYTE # (test code=GR#) 5.63 k/mm3 2.0-13.7 IMMATURE GRANULOCYTE # (test code=IG#) 0.02 K/mm3 0.00-0.03 LYMPHOCYTE # (test code=LY#) 2.68 K/mm3 0.6-3.8 MONOCYTE # (test code=MO#) 0.59 K/mm3 0.11-0.59 EOSINOPHIL # (test code=EO#) 0.16 K/mm3 0.0-0.4 BASOPHIL # (test code=BA#) 0.08 K/mm3 0.0-0.1 NUCLEATED RBC # (test code=NRBC#) 0.00 K/mm3 0.0-0.05 COMPREHENSIVE METABOLIC [id number] 01:58:00* Test Item Value Reference Range Comments SODIUM (test code=NA) 139 mmol/L 137-145 POTASSIUM (test code=K) 3.8 mmol/L 3.4-5.0 CHLORIDE (test code=CL) 106 mmol/L 98-107 CARBON DIOXIDE (test code=CO2) 28 mmol/L 22-30 GLUCOSE (test code=GLU) 100 mg/dL 74-106 BLOOD UREA NITROGEN (test code=BUN) 13 mg/dL 7-17 GLOMERULAR FILTRATION RATE (test code=GFR) 100 >60 The estimated glomerular filtration rate is computed usingpatient race, age (>18), sex, and serum creatinine. If anyof the needed data elements are missing the Laboratory cannot compute an estimation of the glomerular filtration rate. CREATININE (test code=CREAT) 0.8 mg/dL 0.5-1.0 TOTAL PROTEIN (test code=PROT) 7.4 g/dL 6.3-8.2 ALBUMIN (test code=ALB) 3.8 g/dL 3.5-5.0 CALCIUM (test code=CA) 9.4 mg/dL 8.4-10.2 BILIRUBIN TOTAL (test code=BILT) 0.3 mg/dL 0.2-1.3 BILIRUBIN CONJUGATED (test code=BILCON) 0 mg/dL 0-0.3 ~~~~~~~~~~~~~~~~~~~~~~~~~~~~~~~~~~~~~~~~~~~~~~~~~~~~~~~~~~~~CONJUGATED BILIRUBIN IS THE REPLACEMENT ASSAY FOR DIRECTBILIRUBIN.~~~~~~~~~~~~~~~~~~~~~~~~~~~~~~~~~~~~~~~~~~~~~~~~~~~~~~~~~~~~ BILIRUBIN UNCONJUGATED (test code=BILUNC) 0 mg/dL 0-1.1 SGOT/AST (test code=AST) 20 U/L 15-46 SGPT/ALT (test code=ALT) 17 U/L 13-69 ALKALINE PHOSPHATASE (test code=ALKP) 127 U/L 38-126 [id number] 01:58:00* Test Item Value Reference Range Comments LIPASE (test code=LIP) 64 U/L 23-300 [id number] 01:58:00* Test Item Value Reference Range Comments MAGNESIUM (test code=MAG) 1.9 mg/dL 1.6-2.3 PROTHROMBIN [id number] 01:55:00* Test Item Value Reference Range Comments PROTHROMBIN TIME PATIENT (test code=PTP) 14.3 SECONDS 9.2-12.1 INTERNATIONAL NORMAL RATIO (test code=INR) 1.3 The INR is to be used only for monitoring ORAL ANTICOAGULANTTHERAPY. Indication INR Value1. Prophylaxis/treatment of: Venous Thrombosis, Pulmonary Embolism 2.0 - 3.02. Prevention of systemic embolism from: Tissue heart valves 2.0 - 3.0 Acute myocardial infarction (to present systemic embolism)* 2.0 - 3.0 Valvular heart disease 2.0 - 3.0 Atrial fibrillation 2.0 - 3.03. Mechanical prosthetic valves (high risk) 2.5 - 3.5 * If oral anticoagulant therapy is elected to preventrecurrent myocardial infarction, an INR of 2.5-3.5 isrecommended, consistent with Food and Drug Administrationrecommendations. UA RFLX MICR CULT IF [id number] 01:52:00* Test Item Value Reference Range Comments UA COLOR (test code=COLU) Yellow Yellow UA APPEARANCE (test code=APPU) Cloudy Clear UA GLUCOSE DIPSTICK (test code=DGLUU) Negative Negative UA BILIRUBIN DIPSTICK (test code=BILU) Negative Negative UA KETONE DIPSTICK (test code=KETU) Negative mg/dL Negative UA SPECIFIC GRAVITY (test code=SGU) 1.026 <1.030 UA BLOOD DIPSTICK (test code=OSMEL) 3+ Negative UA PH DIPSTICK (test code=LUPE) 5.0 5.0-8.0 UA PROTEIN DIPSTICK (test code=PROU) NEGATIVE mg/dL Negative UA UROBILINOGEN DIPSTICK (test code=URO) 2.0 mg/dL Negative UA NITRITE DIPSTICK (test code=PATRICIA) Negative Negative UA LEUKOCYTE ESTERASE DIPSTICK (test code=LEUU) NEGATIVE Negative UA WBC (test code=WBCUR) 0-3 /HPF <4-5 <10 WBC/HPF=PYURIA ABSENT URINE CULTURE NOT INDICATED UA RBC (test code=RBCU) >100 /HPF <4-5 UA SQUAMOUS CELLS (test code=SQU) 0-5 (RARE) /HPF 0-5 (RARE) UA MUCUS (test code=MUCU) 1+ /LPF <Rare SOURCE OF URINE: CLEAN CATCHless than 18 yrs old, neutropenic, or urological shasta bela? NOPrimary Indication for Culture: OtherOther Indication: painUR HCG QUAL 2018-10-04 01:52:00* Test Item Value Reference Range Comments UR HCG QUAL (test code=HCGQLU) NEGATIVE NEGATIVE SOURCE OF URINE: CLEAN CATCHless than 18 yrs old, neutropenic, or urological shasta bela? NOPrimary Indication for Culture: OtherOther Indication: painUA RFLX MICR CULT IF [id number] 01:49:00* Test Item Value Reference Range Comments UA COLOR (test code=COLU) YELLOW UA APPEARANCE (test code=APPU) CLEAR UA GLUCOSE DIPSTICK (test code=DGLUU) MG/DL NEGATIVE UA BILIRUBIN DIPSTICK (test code=BILU) NEGATIVE UA KETONE DIPSTICK (test code=KETU) MG/DL NEGATIVE UA SPECIFIC GRAVITY (test code=SGU) 1.000-1.030 UA BLOOD DIPSTICK (test code=OSMEL) NEGATIVE UA PH DIPSTICK (test code=LUPE) 4.5-8.5 UA PROTEIN DIPSTICK (test code=PROU) MG/DL NEGATIVE UA UROBILINOGEN DIPSTICK (test code=URO) EU/dL <=1.0 UA NITRITE DIPSTICK (test code=PATRICIA) NEGATIVE UA LEUKOCYTE ESTERASE DIPSTICK (test code=LEUU) NEGATIVE UA WBC (test code=WBCUR) /HPF 0-3 UA RBC (test code=RBCU) /HPF 0-3 UA BACTERIA (test code=BACU) /HPF NEGATIVE SOURCE OF URINE: CLEAN CATCHless than 18 yrs old, neutropenic, or urological shasta bela? NOPrimary Indication for Culture: OtherOther Indication: painUR HCG QUAL 2018-10-04 01:49:00* Test Item Value Reference Range Comments UR HCG QUAL (test code=HCGQLU) NEGATIVE NEGATIVE SOURCE OF URINE: CLEAN CATCHless than 18 yrs old, neutropenic, or urological shasta bela? NOPrimary Indication for Culture: OtherOther Indication: painCBC W/AUTO [id number] 01:47:00* Test Item Value Reference Range Comments WHITE BLOOD CELL (test code=WBC) 10.5 x10 3/uL 5.0-12.0 RED BLOOD CELL (test code=RBC) 4.50 x10 6/uL 4.20-5.40 HEMOGLOBIN (test code=HGB) 13.1 g/dL 12.0-16.0 HEMATOCRIT (test code=HCT) 40.1 % 36.0-46.0 MEAN CELL VOLUME (test code=MCV) 89 fL 81-99 MEAN CELL HGB (test code=MCH) 29.1 pg 27-31 MEAN CELL HGB CONCENTRATION (test code=MCHC) 32.7 g/dL 33-37 RED CELL DISTRIBUTION WIDTH (test code=RDW) 13.5 % 11.5-15.5 PLATELET COUNT (test code=PLT) 303 x10 3/uL 130-400 MEAN PLATELET VOLUME (test code=MPV) 10.1 fL 9.4-16.4 NEUTROPHIL % (test code=NT%) 68.3 % 43-65 IMMATURE GRANULOCYTE % (test code=IG%) 0.5 % 0.0-2.0 LYMPHOCYTE % (test code=LY%) 25.0 % 20.5-45.5 MONOCYTE % (test code=MO%) 4.5 % 5.5-11.7 EOSINOPHIL % (test code=EO%) 1.2 % 0.9-2.9 BASOPHIL % (test code=BA%) 0.5 % 0.2-1.0 NUCLEATED RBC % (test code=NRBC%) 0.0 % 0-1.0 NEUTROPHIL # (test code=NT#) 7.18 x10 3/uL 2.2-4.8 IMMATURE GRANULOCYTE # (test code=IG#) 0.05 x10 3/uL 0-0.03 LYMPHOCYTE # (test code=LY#) 2.62 x10 3/uL 1.3-2.9 MONOCYTE # (test code=MO#) 0.47 x10 3/uL 0.3-0.8 EOSINOPHIL # (test code=EO#) 0.13 x10 3/uL 0.0-0.2 BASOPHIL # (test code=BA#) 0.05 x10 3/uL 0.0-0.1 - CT ABD PELVIS W/O [id number] 00:30:00 [place]: St: DEP Name: LILIAN BOO [facility] : 5 Age/S: 43/F [address] Unit: [id number] Loc: [place] [address] Phys: Raymon Hay Acct: [id number] Dis Date: Status: [facility] ER PHONE #: [phone] Exam Date: 10/04/2018 0020 FAX #: [phone] Reason: right flank pain, h/o stones EXAMS: CPT CODE: [id number] CT ABD PELVIS W/O CONT 81019 EXAM: - CT ABD PELVIS W/O CONT HISTORY: Pain, evaluate for calculus. TECHNIQUE: Axial tomograms through the abdomen and pelvis were obtained without intravenous or enteric contrast. Coronal and sagittal reformatted images are provid ed. This exam was performed according to our departmental dose-optim ization program, which includes automated exposure control, adjustment of the mA and/or kV according to patient size and/or use of iterative reconst ruction technique. COMPARISON: September 19, 2018. FINDING S: The visualized lung bases are clear. The kidneys are symm etric in size and appearance bilaterally. No renal or ureteral calculi are demonstrated. There is no obstructive change. The unenhanced visu alized liver, spleen, pancreas, and bilateral adrenals demonstrate no sign ificant abnormalities. The gallbladder is surgically absent. There is no fluid collection or pelvic adenopathy. The uterus is surgical ly absent. The unopacified bowel is unremarkable. Limited exam for detailed evaluation due to lack of contrast and body habi tus causing artifacts. There is no significant change compared to previous exam. IMPRESSION: No acute ab normality with other findings as above. at 0030 Reported and signed by: Redd Mcleod MD PAGE 1 Signed Report (CONTINUED) [place]: St: DEP Name: LILIAN DEL ROSARIO [facility] : 1975 Age/S: 43/F [address] Unit: [id number] Loc: [place] [address] P hys: Raymon Hay Acct: [id number] Dis Date: Status: DEP ER PHONE #: [phone] Exam Date: 10/04/2018 0020 FAX #: [phone] Reason: right flank pain, h/o stones EXAMS: CPT CODE: [id number] CT ABD PELVIS W/O CONT 86630 <Continued> CC: Technologist: Lalitha Lakerd Dt/Tm: 10/04/2018 (0030) [email or web address] Orig Print D/T: S: 10/04/2018 (0033 PAGE 2 Signed Report - CT ABD PELVIS W/O CONT 2018-10-04 00:30:00 [place]: St: DEP Name: LILIAN OBO [facility] : 5 Age/S: 43/F [address] Unit: [id number] Loc: [place] [address] Phys: Raymon Hay Acct: [id number] Dis Date: Status: DEP ER PHONE #: [phone] Exam Date: 10/04/2018 0020 FAX #: [phone] Reason: right flank pain, h/o stones EXAMS: CPT CODE: [id number] CT ABD PELVIS W/O CONT 36525 EXAM: - CT ABD PELVIS W/O CONT HISTORY: Pain, evaluate for calculus. TECHNIQUE: Axial tomograms through the abdomen and pelvis were obtained without intravenous or enteric contrast. Coronal and sagittal reformatted images are provid ed. This exam was performed according to our departmental dose-optim ization program, which includes automated exposure control, adjustment of the mA and/or kV according to patient size and/or use of iterative reconst ruction technique. COMPARISON: September 19, 2018. FINDING S: The visualized lung bases are clear. The kidneys are symm etric in size and appearance bilaterally. No renal or ureteral calculi are demonstrated. There is no obstructive change. The unenhanced visu alized liver, spleen, pancreas, and bilateral adrenals demonstrate no sign ificant abnormalities. The gallbladder is surgically absent. There is no fluid collection or pelvic adenopathy. The uterus is surgical ly absent. The unopacified bowel is unremarkable. Limited exam for detailed evaluation due to lack of contrast and body habi tus causing artifacts. There is no significant change compared to previous exam. IMPRESSION: No acute ab normality with other findings as above. at 0030 Reported and signed by: Redd Mcleod MD PAGE 1 Signed Report (CONTINUED) [place] : [place] St: DEP Name: [facility] [place] : 1975 Age/S: 43/F [address] Unit: [id number] Loc: [place] [address] P hys: Raymon Hay Acct: [id number] Dis Date: Status: [facility] ER PHONE #: [phone] Exam Date: 10/04/20180 FAX #: [phone] Reason: right flank pain, h/o stones EXAMS: CPT CODE: [id number] CT ABD PELVIS W/O CONT 17345 <Continued> CC: Technologist: Lalitha Cano Trnbaironrd Dt/Tm: 10/04/2018 (0030) [email or web address] Orig Print D/T: S: 10/04/2018 (0033 PAGE 2 Signed Report - CT ABD PELVIS W/O CONT 2018-10-04 00:30:00 [place]: St: DEP Name: LILIAN BOO [facility] : 5 Age/S: 43/F [address] Unit: [id number] Loc: [place] [address] Phys: Raymon Hay Acct: [id number] Dis Date: Status: [facility] ER PHONE #: [phone] Exam Date: 10/04/201819 FAX #: [phone] Reason: right flank pain, h/o stones EXAMS: CPT CODE: [id number] CT ABD PELVIS W/O CONT 00939 EXAM: - CT ABD PELVIS W/O CONT HISTORY: Pain, evaluate for calculus. TECHNIQUE: Axial tomograms through the abdomen and pelvis were obtained without intravenous or enteric contrast. Coronal and sagittal reformatted images are provid ed. This exam was performed according to our departmental dose-optim ization program, which includes automated exposure control, adjustment of the mA and/or kV according to patient size and/or use of iterative reconst ruction technique. COMPARISON: September 19, 2018. FINDING S: The visualized lung bases are clear. The kidneys are symm etric in size and appearance bilaterally. No renal or ureteral calculi are demonstrated. There is no obstructive change. The unenhanced visu alized liver, spleen, pancreas, and bilateral adrenals demonstrate no sign ificant abnormalities. The gallbladder is surgically absent. There is no fluid collection or pelvic adenopathy. The uterus is surgical ly absent. The unopacified bowel is unremarkable. Limited exam for detailed evaluation due to lack of contrast and body habi tus causing artifacts. There is no significant change compared to previous exam. IMPRESSION: No acute ab normality with other findings as above. at 0030 Reported and signed by: Redd Mcleod MD PAGE 1 Signed Report (CONTINUED) [place] us: St: DEP Name: LILIAN DEL ROSARIO [facility] : 1975 Age/S: 43/F [address] Unit: [id number] Loc: [place] [address] P hys: Raymon Hay Acct: [id number] Dis Date: Status: DEP ER PHONE #: [phone] Exam Date: 10/04/2018 0020 FAX #: [phone] Reason: right flank pain, h/o stones EXAMS: CPT CODE: [id number] CT ABD PELVIS W/O CONT 91742 <Continued> CC: Technologist: Lalitha Cano Trnscrd Dt/Tm: 10/04/2018 (003) [email or web address] Orig Print D/T: S: 10/04/2018 (0033 PAGE 2 Signed Report - CT ABD PELVIS W/O CONT 2018-10-04 00:30:00 [place]: St: REG Name: LILIAN BOO : 5 Age/S: 43/F [address] Unit: [id number] Loc: [place] [address] Phys: Raymon Hay Acct: [id number] Dis Date: Status: REG ER PHONE #: [phone] Exam Date: 10/04/2018 0020 FAX #: [phone] Reason: right flank pain, h/o stones EXAMS: CPT CODE: [id number] CT ABD PELVIS W/O CONT 29613 EXAM: - CT ABD PELVIS W/O CONT HISTORY: Pain, evaluate for calculus. TECHNIQUE: Axial tomograms through the abdomen and pelvis were obtained without intravenous or enteric contrast. Coronal and sagittal reformatted images are provid ed. This exam was performed according to our departmental dose-optim ization program, which includes automated exposure control, adjustment of the mA and/or kV according to patient size and/or use of iterative reconst ruction technique. COMPARISON: September 19, 2018. FINDING S: The visualized lung bases are clear. The kidneys are symm etric in size and appearance bilaterally. No renal or ureteral calculi are demonstrated. There is no obstructive change. The unenhanced visu alized liver, spleen, pancreas, and bilateral adrenals demonstrate no sign ificant abnormalities. The gallbladder is surgically absent. There is no fluid collection or pelvic adenopathy. The uterus is surgical ly absent. The unopacified bowel is unremarkable. Limited exam for detailed evaluation due to lack of contrast and body habi tus causing artifacts. There is no significant change compared to previous exam. IMPRESSION: No acute ab normality with other findings as above. at 0030 Reported and signed by: Redd Mcleod MD PAGE 1 Signed Report (CONTINUED) [facility]: St: REG Name: LILIAN [facility] Jase : 1975 Age/S: 43/F [address] Unit: [id number] Loc: [place] [address] P hys: Raymon Hay Acct: [id number] Dis Date: Status: REG ER PHONE #: [phone] Exam Date: 10/04/2018 0020 FAX #: [phone] Reason: right flank pain, h/o stones EXAMS: CPT CODE: [id number] CT ABD PELVIS W/O CONT 83627 <Continued> CC: Technologist: Lalitha Cano Trnscrd Dt/Tm: 10/04/2018 (0030) [email or web address] Orig Print D/T: S: 10/04/2018 (0033 PAGE 2 Signed Report - CT ABD PELVIS W/O CONT 2018-09-19 02:26:00 Patient Name: LILIAN DEL ROSARIO Unit No: [id number] EXAMS: CPT CODE: [id number] CT ABD PELVIS W/O CONT 01648 EXAM: - CT ABD PELVIS W/O CONT HISTORY: Abdominal pain. Vomiting. Diarrhea. TECHNIQUE: Axial tomograms through the abdomen and pelvis were obtained without intravenous contrast. Coronal and sagittal reformatted images are provided. This exam was performed according to our departmental dose-optimization program, which includes automated exposure control, adjustment of the mA and/or kV according to patient size and/or use of iterative reconstruction technique. COMPARISON: September 08, 2018. FINDINGS: The visualized lung bases are clear. Status post cholecystectomy. The unenhanced liver, spleen, pancreas, adrenal glands and kidneys demonstrate no significant abnormalities. The appendix is not visualized. The bowel is unremarkable. There is no adenopathy or free fluid. Limited exam without contrast materials. There is a degenerating of the images in pelvis due to large body habitus causing artifact. There is no acute osseous abnormality. There is no significant change compared to previous exam. IMPRESSION: No significant abnormalities demonstrated. at 0226 Reported and signed by: Redd Mcleod MD CC: Baljeet Lemus MD Dictated Date/Time: 09/19/2018 (225) Technologist: Radha Thurman - Eduin CTDI: 12.51 DLP: 742.45 Trnscrpt: 09/19/2018 (225) [email or web address] [facility] [place] NAME: LILIAN DEL ROSARIO [address] [place] [address] PHYS: [place] [address] : 1975 AGE: 43 SEX: F LOC: UNK PHONE #: [phone] EXAM DATE: 09/19/2018 STATUS: DEP ER FAX #: [phone] RAD #: D/C DT PAGE 1 Signed Report Patient Name: LILIAN DEL ROSARIO Unit No: [id number] EXAMS: CPT COD E: [id number] CT ABD PELVIS W/O CONT 30802 <Continued> Orig Print D/T: S: 09/19/2018 (228) [facility] [place] NAME: LILIAN DEL ROSARIO [address] PHYS: Bal[place] [address] : 1975 AGE: 43 SEX: F LOC: UNK PHONE #: [phone] EXAM DATE: 09/19/2018 STATUS: DEP ER FAX #: [phone] RAD #: D/C DT PAGE 2 Signed Report - CT ABD PELVIS W/O [id number] 02:26:00 Patient Name: LILIAN DEL ROSARIO Unit No: [id number] EXAMS: CPT CODE: [id number] CT ABD PELVIS W/O CONT 88805 EXAM: - CT ABD PELVIS W/O CONT HISTORY: Abdominal pain. Vomiting. Diarrhea. TECHNIQUE: Axial tomograms through the abdomen and pelvis were obtained without intravenous contrast. Coronal and sagittal reformatted images are provided. This exam was performed according to our departmental dose-optimization program, which includes automated exposure control, ad justment of the mA and/or kV according to patient size and/or use of itera tive reconstruction technique. COMPARISON: September 08, 2018. FINDINGS: The visualized lung bases are clear. S tatus post cholecystectomy. The unenhanced liver, spleen, pancreas , adrenal glands and kidneys demonstrate no significant abnormalities. The appendix is not visualized. The bowel is unremarkable. There is no adenopathy or free fluid. Limited exam without co ntrast materials. There is a degenerating of the images in pelvis due to l arge body habitus causing artifact. There is no acute osseous abno rmality. There is no significant change compared to previous exam. IMPRESSION: No significant abnormalities dem onstrated. at 0226 Reported and signed by: Redd Mcleod MD CC: Baljeet Lemus MD Dictated Date/Time: 09/19/2018 (225) Technologist: Radha Thurman - Eduin CTDI: 12.51 DLP: 742.45 Trnscrpt: 09/19/2018 (225) [email or web address] [facility] [place] NAME: LILIAN DEL ROSARIO [address] [place] [address] PHYS: [place] [address] : 1975 AGE: 43 SEX: F LOC: [employer] PHONE #: [phone] EXAM DATE: 09/19/2018 STATUS: DEP ER FAX #: [phone] RAD #: D/C DT PAGE 1 Signed Report Patient Name: LILIAN DEL ROSARIO Unit No: [id number] EXAMS: CPT COD E: [id number] CT ABD PELVIS W/O CONT 35401 <Continued> Orig Print D/T: S: 09/19/2018 (228) [facility] [place] NAME: LILIAN DEL ROSARIO [address] [place] [address] PHYS: Baljeet Auguste [place], [place] [address] : 1975 AGE: 43 SEX: F LOC: [employer] PHONE #: [phone] EXAM DATE: 09/19/2018 STATUS: DEP ER FAX #: [phone] RAD #: D/C DT PAGE 2 Signed Report - CT ABD PELVIS W/O [id number] 02:26:00 Patient Name: LILIAN DEL ROSARIO Unit No: [id number] EXAMS: CPT CODE: [id number] CT ABD PELVIS W/O CONT 91209 EXAM: - CT ABD PELVIS W/O CONT HISTORY: Abdominal pain. Vomiting. Diarrhea. TECHNIQUE: Axial tomograms through the abdomen and pelvis were obtained without intravenous contrast. Coronal and sagittal reformatted images are provided. This exam was performed according to our departmental dose-optimization program, which includes automated exposure control, ad justment of the mA and/or kV according to patient size and/or use of itera tive reconstruction technique. COMPARISON: September 08, 2018. FINDINGS: The visualized lung bases are clear. S tatus post cholecystectomy. The unenhanced liver, spleen, pancreas , adrenal glands and kidneys demonstrate no significant abnormalities. The appendix is not visualized. The bowel is unremarkable. There is no adenopathy or free fluid. Limited exam without co ntrast materials. There is a degenerating of the images in pelvis due to l arge body habitus causing artifact. There is no acute osseous abno rmality. There is no significant change compared to previous exam. IMPRESSION: No significant abnormalities dem onstrated. at 0226 Reported and signed by: Redd Mcleod MD CC: Baljeet Lemus MD Dictated Date/Time: 09/19/2018 (225) Technologist: Radha Thurman - Agency CTDI: 12.51 DLP: 742.45 Trnscrpt: 09/19/2018 (022) [email or web address] [facility] NAME: LILIAN DEL ROSARIO [address] [place] [address] PHYS: Baljeet Auguste MD [place], [place] [address] : 1975 AGE: 43 SEX: F LOC: UNK PHONE #: [phone] EXAM DATE: 09/19/2018 STATUS: [facility] ER FAX #: [phone] RAD #: D/C DT PAGE 1 Signed Report Patient Name: LILIAN DEL ROSARIO Unit No: [id number] EXAMS: CPT COD E: [id number] CT ABD PELVIS W/O CONT 26759 <Continued> Orig Print D/T: S: 09/19/2018 (228) [facility] [place] NAME: LILIAN DEL ROSARIO [address] [place] [address] PHYS: Baljeet [place]e [place], [place] [address] : 1975 AGE: 43 SEX: F LOC: UNK PHONE #: [phone] EXAM DATE: 09/19/2018 STATUS: DEP ER FAX #: [phone] RAD #: D/C DT PAGE 2 Signed Report - CT ABD PELVIS W/O [id number] 02:26:00 Patient Name: LILIAN DEL ROSARIO Unit No: [id number] EXAMS: CPT CODE: [id number] CT ABD PELVIS W/O CONT 88297 EXAM: - CT ABD PELVIS W/O CONT HISTORY: Abdominal pain. Vomiting. Diarrhea. TECHNIQUE: Axial tomograms through the abdomen and pelvis were obtained without intravenous contrast. Coronal and sagittal reformatted images are provided. This exam was performed according to our departmental dose-optimization program, which includes automated exposure control, ad justment of the mA and/or kV according to patient size and/or use of itera tive reconstruction technique. COMPARISON: September 08, 2018. FINDINGS: The visualized lung bases are clear. S tatus post cholecystectomy. The unenhanced liver, spleen, pancreas , adrenal glands and kidneys demonstrate no significant abnormalities. The appendix is not visualized. The bowel is unremarkable. There is no adenopathy or free fluid. Limited exam without co ntrast materials. There is a degenerating of the images in pelvis due to l arge body habitus causing artifact. There is no acute osseous abno rmality. There is no significant change compared to previous exam. IMPRESSION: No significant abnormalities dem onstrated. at 0226 Reported and signed by: Redd Mcleod MD CC: Baljeet Lemus MD Dictated Date/Time: 09/19/2018 (225) Technologist: Radha Thurman - Eduin CTDI: 12.51 DLP: 742.45 Trnscrpt: 09/19/2018 (0226) [email or web address] [facility] [place] NAME: LILIAN DEL ROSARIO [address] [place] [address] PHYS: [place] [address] : 1975 AGE: 43 SEX: F LOC: [facility] PHONE #: [phone] EXAM DATE: 09/19/2018 STATUS: REG ER FAX #: [phone] RAD #: D/C DT PAGE 1 Signed Report Patient Name: LILIAN DEL ROSARIO Unit No: [id number] EXAMS: CPT COD E: [id number] CT ABD PELVIS W/O CONT 65384 <Continued> Orig Print D/T: S: 09/19/2018 (0229) [facility] [place] NAME: LILIAN DEL ROSARIO [address] [place] [address] PHYS: Bal[place] [address] : 1975 AGE: 43 SEX: F LOC: [facility] PHONE #: [phone] EXAM DATE: 09/19/2018 STATUS: REG ER FAX #: [phone] RAD #: D/C DT PAGE 2 Signed Report HEPATIC FUNCTION [id number] 02:19:00* Test Item Value Reference Range Comments TOTAL PROTEIN (test code=PROT) 7.8 G/DL 6.4-8.2 ALBUMIN (test code=ALB) 3.2 G/DL 3.4-5.0 BILIRUBIN TOTAL (test code=BILT) 0.29 MG/DL 0.00-1.00 BILIRUBIN DIRECT (test code=BILD) < 0.10 MG/DL 0.00-0.30 BILIRUBIN INDIRECT (test code=BILIND) 0.29 MG/DL 0.2-1.3 SGOT/AST (test code=AST) 17 Unit/L 15-37 SGPT/ALT (test code=ALT) 20 Unit/L 12-78 ALKALINE PHOSPHATASE TOTAL (test code=ALKP) 156 Unit/L 45-117 INDEX HEMOLYSIS (test code=HEMINDEX) 1 NORMAL <10 MG Index/DL 1 NORMAL INDEX ICTERIC (test code=ICTINDEX) 1 NORMAL <2 MG Index/DL 1 NORMAL INDEX LIPEMIA (test code=LIPINDEX) 1 NORMAL <50 MG Index/DL 1 NORMAL [id number] 02:19:00* Test Item Value Reference Range Comments LIPASE (test code=LIP) 104 Unit/L 114-286 LACTIC ACID [id number] 01:48:00* Test Item Value Reference Range Comments LACTIC ACID POC (test code=LACTP) 1.42 MMOL/L i 0.40-2.00 CHEMISTRY 7 [id number] 01:47:00* Test Item Value Reference Range Comments IONIZED CALCIUM (test code=CAIABG) mmol/L 1.13-1.32 ISTAT-TCO2 VENOUS (test code=TCO2VP) MMOL/L 21-32 ISTAT-SODIUM (test code=NAP) MMOL/L 135-148 ISTAT-POTASSIUM (test code=KP) MMOL/L 3.5-5.9 ISTAT-CHLORIDE (test code=CLP) MMOL/L 98-106 ISTAT-ANION GAP (test code=GAPP) MEQ/L 10-20 ISTAT-GLUCOSE (test code=GLUP) MG/DL 70-119 ISTAT-BUN (test code=BUNP) MG/DL 8-28 BEDSIDE CREATININE (test code=CREATBED) MG/DL 0.6-1.2 GLOMERULAR FILTRATION RATE POC (test code=GFRBED) 94 58-135 CHEMISTRY 7 [id number] 01:47:00* Test Item Value Reference Range Comments IONIZED CALCIUM (test code=CAIABG) 0.95 mmol/L 1.13-1.32 ISTAT-TCO2 VENOUS (test code=TCO2VP) 18 MMOL/L 21-32 ISTAT-SAMPLE SOURCE (test code=SRCIST) UNKNOWN SPEC TYPE Descript Specimen ISTAT-SODIUM (test code=NAP) 137 MMOL/L 135-148 ISTAT-POTASSIUM (test code=KP) 4.1 MMOL/L 3.5-5.9 ISTAT-CHLORIDE (test code=CLP) 108 MMOL/L 98-106 ISTAT-ANION GAP (test code=GAPP) 16.0 MEQ/L 10-20 ISTAT-GLUCOSE (test code=GLUP) 108 MG/DL 70-119 ISTAT-BUN (test code=BUNP) 16 MG/DL 8-28 BEDSIDE CREATININE (test code=CREATBED) 0.8 MG/DL 0.6-1.2 GLOMERULAR FILTRATION RATE POC (test code=GFRBED) 94 58-135 CBC W/AUTO [id number] 01:45:00* Test Item Value Reference Range Comments WHITE BLOOD CELL (test code=WBC) 9.6 K/mm3 4.1-12.1 RED BLOOD CELL (test code=RBC) 4.66 M/mm3 3.8-5.5 HEMOGLOBIN (test code=HGB) 13.8 G/DL 10.6-15.8 HEMATOCRIT (test code=HCT) 42.5 % 31.8-47.4 MEAN CELL VOLUME (test code=MCV) 91.2 fL 80.1-101.1 MEAN CELL HGB (test code=MCH) 29.6 pg 25.3-35.3 MEAN CELL HGB CONCETRATION (test code=MCHC) 32.5 G/DL 32.7-35.1 RED CELL DISTRIBUTION WIDTH (test code=RDW) 13.7 % 12.2-16.4 RED CELL DISTRIBUTION WIDTH (test code=RDW-SD) 46.1 fL 36.4-46.3 PLATELET COUNT (test code=PLT) 330 K/mm3 155-337 MEAN PLATELET VOLUME (test code=MPV) 9.8 fL 6.8-11.2 GRANULOCYTE % (test code=GR%) 65.6 % 37.8-82.6 IMMATURE GRANULOCYTE % (test code=IG%) 0.6 % 0.0-2.0 LYMPHOCYTE % (test code=LY%) 26.5 % 14.1-45.4 MONOCYTE % (test code=MO%) 4.6 % 2.5-11.7 EOSINOPHIL % (test code=EO%) 1.9 % 0.0-6.2 BASOPHIL % (test code=BA%) 0.8 % 0.0-2.1 NUCLEATED RBC % (test code=NRBC%) 0.0 /100WBC% 0.0-1.0 GRANULOCYTE # (test code=GR#) 6.27 k/mm3 2.0-13.7 IMMATURE GRANULOCYTE # (test code=IG#) 0.06 K/mm3 0.00-0.03 LYMPHOCYTE # (test code=LY#) 2.53 K/mm3 0.6-3.8 MONOCYTE # (test code=MO#) 0.44 K/mm3 0.11-0.59 EOSINOPHIL # (test code=EO#) 0.18 K/mm3 0.0-0.4 BASOPHIL # (test code=BA#) 0.08 K/mm3 0.0-0.1 NUCLEATED RBC # (test code=NRBC#) 0.00 K/mm3 0.0-0.05 - CT ABD PELVIS W/O [id number] 01:34:00Patient Name: LILIAN DEL ROSARIO Unit No: [id number] EXAMS: CPT: [id number] CT ABD PELVIS W/O CONT 28244 CT abdomen and pelvis without contrast, 09/14/2018. COMPARISON: 05/07/2018. Clinical: Flank pain. Comment: Noncontrast examination was obtained. The lung bases are free of active disease. The liver, spleen, adrenal glands, pancreas, kidneys, aorta and IVC appear grossly normal. The gallbladder has been removed. There is no biliary duct dilatation, ascites or significant retroperitoneal lymphadenopathy. There is no gastric distention, small bowel obstruction or right lower quadrant inflammatory changes. There are no intrinsic lesions involving the urinary bladder. The regional skeleton is intact. All CT scans at this facility are performed using dose optimization techniques including the following: Automated exposure control. IMPRESSION: No evidence to suggest acute abnormalities. at 0134 Reported and signed by: Kevin Moreland MD CC: Technologist: Bert Delgadillo CTDI: 17.76 DLP: 1041.83Trscr Dt/Tm: 09/14/2018 (013) by:[email or web address] Orig Print D/T: S: 0 09/14/2018 (013) BAT NO: N/A Name: LILIAN DEL ROSARIO [facility] Phys: NARAS - Matilde,Benny DO [address] [place] : 1975 Age: 43 Sex: [place] [address] Loc: UNK Exam D ate: 09/14/2018 Status: DEP ER PH: FAX: PAGE 1 Signed Report - CT ABD PELVIS W/O [id number] 01:16:00 Patient Name: LILIAN DEL ROSARIO Unit No: [id number] EXAMS: CPT CODE: [id number] CT ABD PELVIS W/O CONT 03596 EXAM: - CT ABD PELVIS W/O CONT LOCATION: C3 HISTORY: 43 years -old Female with flank pain TECHNIQUE: Contrast - No IV contrast was given. No oral contrast was given Noncontrast phase - abdomen and pelvis including all of kidneys Reconstructions - coronal and sagittal planes This exam was performed according to our departmental dose-optimization program, which includes automated exposure control, adjustment of the mA and/or kV according to patient size and/or use of iterative reconstruction technique COMPARISON: None FINDINGS: Statements: Lack of intravenous contrast compromises evaluation of abdominopelvic organs and vasculature. Lack of oral contrast compromises evaluation of bowel. Thoracic: Included images of the lower chest demonstrate no abnormalities. Hepatobiliary: The liver is normal without focal lesion. Status post cholecystectomy. No biliary dilation. Pancreas: Normal. Spleen: Normal. Adrenals: Normal. Genitourinary: The kidneys are normal. There is no evidence of hydronephrosis of either kidney. There is no evidence of renal calculus. Evaluation of the bladder is limited, but no obvious bladder abnormality is present. Gastrointestinal: No bowel obstruction or perienteric inflammation. The appendix is not visualized. Vascular: The aorta is grossly normal in appearance. Lymphatics: No enlarged lymph nodes by CT size criteria. Bones/Soft Tissues: No acute osseous findings. No ventral hernias. Peritoneum/Other: No extraluminal air. No extraluminal fluid. IMPRESSION: No acute findings. Specifically, no hydronephrosis. [facility] NAME: LILIAN DEL ROSARIO [address] [address] PHYS: [place] [address] : 1975 AGE: 43 SEX: F LOC: [employer] PHONE #: [phone] EXAM DATE: 09/08/2018 STATUS: DEP ER FAX #: [phone] RAD #: D/C DT PAGE 1 Signed Report (CONTINUED) Patient Name: LILIAN DEL ROSARIO Unit No: [id number] EXAMS: CPT CODE: [id number] CT ABD PELVIS W/O CONT 32610 <Continued> at 0116 Reported and signed by: Mando Vo MD CC: Mack Qureshi MD Technologist: Giles Fajardo, RT(R)(CT) CTDI: DLP: Trnscrpt: 09/08/2018 (0116) [email or web address] [facility] NAME: LILIAN DEL ROSARIO[address] PHYS: [place] [address] : 1975 AGE: 43 SEX: F LOC: [employer] PHONE #: [phone] EXAM DATE: 09/08/2018 STATUS: DEP ER FAX #: [phone] RAD #: D/C DT PAGE 2 Signed Report Patient Name: LILIAN DEL ROSARIO Unit No: [id number] EXAMS: CPT CODE: [id number] CT ABD PELVIS W/O CONT 64226 <Continued> Orig Print D/T: S: 09/08/2018 (0119) [facility] NAME: LILIAN DEL ROSARIO [id number] [address] PHYS: TRAMI. [place] [address] : 1975 AGE: 43 SEX: F LOC: [employer] PHONE #: [phone] EXAM DATE: 09/08/2018 STATUS: DEP ER FAX #: [phone] RAD #: D/C DT PAGE 3 Signed Report - CT ABD PELVIS W/O [id number] 01:16:00 Patient Name: LILIAN DEL ROSARIO Unit No: [id number] EXAMS: CPT CODE: [id number] CT ABD PELVIS W/O CONT 54462 EXAM: - CT ABD PELVIS W/O CONT LOCATION: C3 HISTORY: 43 years -old Female with flank pain TECHNIQUE: Contrast - No IV contrast was given. No oral contrast was given Noncontrast phase - abdomen and pelvis including all of kidneys Reconstructions - coronal and sagittal planes This exam was performed according to our departmental dose-optimization program, which includes automated exposure control, adjustment of the mA and/or kV according to patient size and/or use of iterative reconstruction technique COMPARISON: None FINDINGS: Statements: Lack of intravenous contrast compromises evaluation of abdominopelvic organs and vasculature. Lack of oral contrast compromises evaluation of bowel. Thoracic: Included images of the lower chest demonstrate no abnormalities. Hepatobiliary: The liver is normal without focal lesion. Status post cholecystectomy. No biliary dilation. Pancreas: Normal. Spleen: Normal. Adrenals: Normal. Genitourinary: The kidneys are normal. There is no evidence of hydronephrosis of either kidney. There is no evidence of renal calculus. Evaluation of the bladder is limited, but no obvious bladder abnormality is present. Gastrointestinal: No bowel obstruction or perienteric inflammation. The appendix is not visualized. Vascular: The aorta is grossly normal in appearance. Lymphatics: No enlarged lymph nodes by CT size criteria. Bones/Soft Tissues: No acute osseous findings. No ventral hernias. Peritoneum/Other: No extraluminal air. No extraluminal fluid. IMPRESSION: No acute findings. Specifically, no hydronephrosis. [facility] NAME: LILIAN DEL ROSARIO [id number] [address] PHYS: Mack Blanc MD [place] [id number] : 1975 AGE: 43 SEX: F LOC: [employer] PHONE #: [phone] EXAM DATE: 09/08/2018 STATUS: [facility] ER FAX #: [phone] RAD #: D/C DT PAGE 1 Signed Report (CONTINUED) Patient Name: LILIAN DEL ROSARIO Unit No: [id number] EXAMS: CPT CODE: [id number] CT ABD PELVIS W/O CONT 61671 <Continued> at 0116 Reported and signed by: Mando Vo MD CC: Mack Qureshi MD Technologist: Giles Fajardo, RT(R)(CT) CTDI: DLP: Trnscrpt: 09/08/2018 (0116) t.[email or web address] [facility] NAME: MIGUEL ÁNGELLILIAN [id number] [address] PHYS: Mack Blanc MD [place] [id number] : 1975 AGE: 43 SEX: F LOC: [employer] PHONE #: [phone] EXAM DATE: 09/08/2018 STATUS: DEP ER FAX #: [phone] RAD #: D/C DT PAGE 2 Signed Report Patient Name: LILIAN DEL ROSARIO Unit No: [id number] EXAMS: CPT CODE: [id number] CT ABD PELVIS W/O CONT 50027 <Continued> Orig Print D/T: S: 09/08/2018 (0119) [facility] NAME: LILIAN DEL ROSARIO [address] [address] PHYS: [email or web address] - [place]ures[place] [address] : 1975 AGE: 43 SEX: F LOC: [employer] PHONE #: [phone] EXAM DATE: 09/08/2018 STATUS: [facility] ER FAX #: [phone] RAD #: D/C DT PAGE 3 Signed Report - CT ABD PELVIS W/O [id number] 01:16:00 Patient Name: LILIAN DEL ROSARIO Unit No: [id number] EXAMS: CPT CODE: [id number] CT ABD PELVIS W/O CONT 29060 EXAM: - CT ABD PELVIS W/O CONT LOCATION: C3 HISTORY: 43 years -old Female with flank pain TECHNIQUE: Contrast - No IV contrast was given. No oral contrast was given Noncontrast phase - abdomen and pelvis including all of kidneys Reconstructions - coronal and sagittal planes This exam was performed according to our departmental dose-optimization program, which includes automated exposure control, adjustment of the mA and/or kV according to patient size and/or use of iterative reconstruction technique COMPARISON: None FINDINGS: Statements: Lack of intravenous contrast compromises evaluation of abdominopelvic organs and vasculature. Lack of oral contrast compromises evaluation of bowel. Thoracic: Included images of the lower chest demonstrate no abnormalities. Hepatobiliary: The liver is normal without focal lesion. Status post cholecystectomy. No biliary dilation. Pancreas: Normal. Spleen: Normal. Adrenals: Normal. Genitourinary: The kidneys are normal. There is no evidence of hydronephrosis of either kidney. There is no evidence of renal calculus. Evaluation of the bladder is limited, but no obvious bladder abnormality is present. Gastrointestinal: No bowel obstruction or perienteric inflammation. The appendix is not visualized. Vascular: The aorta is grossly normal in appearance. Lymphatics: No enlarged lymph nodes by CT size criteria. Bones/Soft Tissues: No acute osseous findings. No ventral hernias. Peritoneum/Other: No extraluminal air. No extraluminal fluid. IMPRESSION: No acute findings. Specifically, no hydronephrosis. [facility] NAME: LILIAN DEL ROSARIO[address] PHYS: [place] [address] : 1975 AGE: 43 SEX: F LOC: [employer] PHONE #: [phone] EXAM DATE: 09/08/2018 STATUS: DEP ER FAX #: [phone] RAD #: D/C DT PAGE 1 Signed Report (CONTINUED) Patient Name: LILIAN DEL ROSARIO Unit No: [id number] EXAMS: CPT CODE: [id number] CT ABD PELVIS W/O CONT 90127 <Continued> at 0116 Reported and signed by: Mando Vo MD CC: Mack Qureshi MD Technologist: Giles Fajardo, RT(R)(CT) CTDI: DLP: Trnscrpt: 09/08/2018 (0116) t.[email or web address] [facility] NAME: LILIAN DEL ROSARIO Vo PHYS: Mack Blanc MD [place] [id number] : 1975 AGE: 43 SEX: F LOC: [employer] PHONE #: [phone] EXAM DATE: 09/08/2018 STATUS: DEP ER FAX #: [phone] RAD #: D/C DT PAGE 2 Signed Report Patient Name: LILIAN DEL ROSARIO Unit No: [id number] EXAMS: CPT CODE: [id number] CT ABD PELVIS W/O CONT 82776 <Continued> Orig Print D/T: S: 09/08/2018 (0119) [facility] NAME: LILIAN DEL ROSARIO [id number] [address] PHYS: [place] [address] : 1975 AGE: 43 SEX: F LOC: UNK PHONE #: [phone] EXAM DATE: 09/08/2018 STATUS: DEP ER FAX #: [phone] RAD #: D/C DT PAGE 3 Signed Report - CT ABD PELVIS W/O [id number] 01:16:00 Patient Name: LILIAN DEL ROSARIO Unit No: [id number] EXAMS: CPT CODE: [id number] CT ABD PELVIS W/O CONT 57347 EXAM: - CT ABD PELVIS W/O CONT LOCATION: C3 HISTORY: 43 years -old Female with flank pain TECHNIQUE: Contrast - No IV contrast was given. No oral contrast was given Noncontrast phase - abdomen and pelvis including all of kidneys Reconstructions - coronal and sagittal planes This exam was performed according to our departmental dose-optimization program, which includes automated exposure control, adjustment of the mA and/or kV according to patient size and/or use of iterative reconstruction technique COMPARISON: None FINDINGS: Statements: Lack of intravenous contrast compromises evaluation of abdominopelvic organs and vasculature. Lack of oral contrast compromises evaluation of bowel. Thoracic: Included images of the lower chest demonstrate no abnormalities. Hepatobiliary: The liver is normal without focal lesion. Status post cholecystectomy. No biliary dilation. Pancreas: Normal. Spleen: Normal. Adrenals: Normal. Genitourinary: The kidneys are normal. There is no evidence of hydronephrosis of either kidney. There is no evidence of renal calculus. Evaluation of the bladder is limited, but no obvious bladder abnormality is present. Gastrointestinal: No bowel obstruction or perienteric inflammation. The appendix is not visualized. Vascular: The aorta is grossly normal in appearance. Lymphatics: No enlarged lymph nodes by CT size criteria. Bones/Soft Tissues: No acute osseous findings. No ventral hernias. Peritoneum/Other: No extraluminal air. No extraluminal fluid. IMPRESSION: No acute findings. Specifically, no hydronephrosis. [facility] NAME: LILIAN DEL ROSARIO [id number] PHYS: [place] [address] : 1975 AGE: 43 SEX: F LOC: ZMiladysERS PHONE #: [phone] EXAM DATE: 09/08/2018 STATUS: REG ER FAX #: [phone] RAD #: D/C DT PAGE 1 Signed Report (CONTINUED) Patient Name: LILIAN DEL ROSARIO Unit No: [id number] EXAMS: CPT CODE: [id number] CT ABD PELVIS W/O CONT 81379 <Continued> at 0116 Reported and signed by: Mando Vo MD CC: Mcak Qureshi MD Technologist: Giles Fajardo, RT(R)(CT) CTDI: DLP: Trnscrpt: 09/08/2018 (0116) t.SDR.HV2 [facility] NAME: LILIAN DEL ROSARIO PHYS: [place] [address] : 1975 AGE: 43 SEX: F LOC: [employer] PHONE #: [phone] EXAM DATE: 09/08/2018 STATUS: REG ER FAX #: [phone] RAD #: D/C DT PAGE 2 Signed Report Patient Name: LILIAN DEL ROSARIO Unit No: [id number] EXAMS: CPT CODE: [id number] CT ABD PELVIS W/O CONT 63222 <Continued> Orig Print D/T: S: 09/08/2018 (0119) [facility] NAME: LILIAN DEL ROSARIO PHYS: [place] [address] : 1975 AGE: 43 SEX: F LOC: [employer] PHONE #: [phone] EXAM DATE: 09/08/2018 STATUS: REG ER FAX #: [phone] RAD #: D/C DT PAGE 3 Signed Report COMPREHENSIVE METABOLIC [id number] 00:05:00* Test Item Value Reference Range Comments SODIUM (test code=NA) 142 MMOL/L 137-145 POTASSIUM (test code=K) 4.6 MMOL/L 3.5-5.1 CHLORIDE (test code=CL) 107 MMOL/L 98-107 CARBON DIOXIDE (test code=CO2) 27 MMOL/L 22-30 ANION GAP (test code=GAP) 13 MMOL/L 14-24 GLUCOSE (test code=GLU) 102 MG/DL 74-106 BLOOD UREA NITROGEN (test code=BUN) 12 MG/DL 7-17 GLOMERULAR FILTRATION RATE (test code=GFR) > 60 Reporting units: ml/min/1.73 m2 (Modified MDRD Formula)Reference Range: > or=60 ml/min/1.73 m2 CREATININE (test code=CREAT) 0.80 MG/DL 0.52-1.04 TOTAL PROTEIN (test code=PROT) 8.7 G/DL 6.3-8.2 ALBUMIN (test code=ALB) 4.4 G/DL 3.5-5.0 CALCIUM (test code=CA) 9.5 MG/DL 8.4-10.2 BILIRUBIN TOTAL (test code=BILT) 0.8 MG/DL 0.2-1.3 SGOT/AST (test code=AST) 37 UNITS/L 14-36 SGPT/ALT (test code=ALT) 8 UNITS/L 9-52 ALKALINE PHOSPHATASE (test code=ALKP) 116 UNITS/L 38-126 HCG SERUM [id number] 00:05:00* Test Item Value Reference Range Comments HCG SERUM QUAL (test code=HCGQL) NEGATIVE NEGATIVE COMPREHENSIVE METABOLIC [id number] 23:59:00* Test Item Value Reference Range Comments SODIUM (test code=NA) 142 MMOL/L 137-145 POTASSIUM (test code=K) 4.6 MMOL/L 3.5-5.1 CHLORIDE (test code=CL) 107 MMOL/L 98-107 CARBON DIOXIDE (test code=CO2) 27 MMOL/L 22-30 ANION GAP (test code=GAP) 13 MMOL/L 14-24 GLUCOSE (test code=GLU) 102 MG/DL 74-106 BLOOD UREA NITROGEN (test code=BUN) 12 MG/DL 7-17 GLOMERULAR FILTRATION RATE (test code=GFR) > 60 Reporting units: ml/min/1.73 m2 (Modified MDRD Formula)Reference Range: > or=60 ml/min/1.73 m2 CREATININE (test code=CREAT) 0.80 MG/DL 0.52-1.04 TOTAL PROTEIN (test code=PROT) 8.7 G/DL 6.3-8.2 ALBUMIN (test code=ALB) 4.4 G/DL 3.5-5.0 CALCIUM (test code=CA) 9.5 MG/DL 8.4-10.2 BILIRUBIN TOTAL (test code=BILT) 0.8 MG/DL 0.2-1.3 SGOT/AST (test code=AST) 37 UNITS/L 14-36 SGPT/ALT (test code=ALT) 8 UNITS/L 9-52 ALKALINE PHOSPHATASE (test code=ALKP) 116 UNITS/L 38-126 HCG SERUM [id number] 23:59:00* Test Item Value Reference Range Comments HCG SERUM QUAL (test code=HCGQL) NEGATIVE CBC W/AUTO [id number] 23:52:00* Test Item Value Reference Range Comments WHITE BLOOD CELL (test code=WBC) 10.2 K/MM3 3.8-9.8 RED BLOOD CELL (test code=RBC) 4.49 M/MM3 3.58-4.97 HEMOGLOBIN (test code=HGB) 13.5 G/DL 11.2-14.9 HEMATOCRIT (test code=HCT) 40.1 % 33.2-43.5 MEAN CELL VOLUME (test code=MCV) 89 fL 80.7-99.1 MEAN CELL HGB (test code=MCH) 30.1 pg 27.0-34.1 MEAN CELL HGB CONCETRATION (test code=MCHC) 33.7 % 32.2-35.7 RED CELL DISTRIBUTION WIDTH (test code=RDW) 13.8 % 12.1-15.2 PLATELET COUNT (test code=PLT) 306 K/MM3 129-368 MEAN PLATELET VOLUME (test code=MPV) 10.2 fl 7.4-10.4 NEUTROPHIL % (test code=NT%) 69.3 % 43-75 IMMATURE GRANULOCYTE % (test code=IG%) 0.4 % 0.0-2.0 LYMPHOCYTE % (test code=LY%) 23.0 % 14-44 MONOCYTE % (test code=MO%) 4.5 % 4-13 EOSINOPHIL % (test code=EO%) 2.0 % 0-6 BASOPHIL % (test code=BA%) 0.8 % 0-2 NUCLEATED RBC % (test code=NRBC%) 0.0 % 0-1.0 NEUTROPHIL # (test code=NT#) 7.04 K/mm3 2.0-7.6 IMMATURE GRANULOCYTE # (test code=IG#) 0.04 x10 3/uL 0-0.03 LYMPHOCYTE # (test code=LY#) 2.34 K/mm3 1.0-3.8 MONOCYTE # (test code=MO#) 0.46 K/mm3 0.1-0.8 EOSINOPHIL # (test code=EO#) 0.20 K/mm3 0.0-0.2 BASOPHIL # (test code=BA#) 0.08 K/mm3 0.0-0.2 NUCLEATED RBC # (test code=NRBC#) 0.00 K/mm3 0.0-0.1 URINALYSIS [id number] 23:45:00* Test Item Value Reference Range Comments UA COLOR (test code=COLU) RED YELLOW UA APPEARANCE (test code=APPU) SLIGHT CLOUDY CLEAR UA GLUCOSE DIPSTICK (test code=DGLUU) NORMAL MG/DL NORMAL UA BILIRUBIN DIPSTICK (test code=BILU) 1 MG/DL NEGATIVE UA KETONE DIPSTICK (test code=KETU) 5 MG/DL NEGATIVE UA SPECIFIC GRAVITY (test code=SGU) 1.025 1.003-1.030 UA BLOOD DIPSTICK (test code=OSMEL) 250 Sunny/mm3 NEGATIVE UA PH DIPSTICK (test code=LUPE) 5.0 5.0-9.0 UA PROTEIN DIPSTICK (test code=PROU) 30 MG/DL NEGATIVE UA UROBILINIOGEN DIPSTICK (test code=URO) 4 MG/DL NORMAL UA NITRITE DIPSTICK (test code=PATRICIA) NEGATIVE NEGATIVE UA LEUKOCYTE ESTERASE DIPSTICK (test code=LEUU) 100 /mm3 NEGATIVE UA CULTURE NEEDED? (test code=UACULT) YES,WBC>10 & EPI<25 Criteria Culture Chk UA ICTOTEST FOR [id number] 23:45:00* Test Item Value Reference Range Comments UA ICTOTEST FOR BILIRUBIN (test code=ICTOU) NEGATIVE NEGATIVE UA [id number] 23:45:00* Test Item Value Reference Range Comments UA RBC (test code=RBCU) >100 RBC/HPF 0-3 UA WBC (test code=XWBCU) 10-20 WBC/HPF 0-5 UA EPITHELIAL CELLS (test code=EPIU) FEW EPI/HPF FEW UA BACTERIA (test code=XBACU) FEW NONE URINALYSIS [id number] 23:09:00* Test Item Value Reference Range Comments UA COLOR (test code=COLU) RED YELLOW UA APPEARANCE (test code=APPU) SLIGHT CLOUDY CLEAR UA GLUCOSE DIPSTICK (test code=DGLUU) NORMAL MG/DL NORMAL UA BILIRUBIN DIPSTICK (test code=BILU) 1 MG/DL NEGATIVE UA KETONE DIPSTICK (test code=KETU) 5 MG/DL NEGATIVE UA SPECIFIC GRAVITY (test code=SGU) 1.025 1.003-1.030 UA BLOOD DIPSTICK (test code=OSMEL) 250 Sunny/mm3 NEGATIVE UA PH DIPSTICK (test code=LUPE) 5.0 5.0-9.0 UA PROTEIN DIPSTICK (test code=PROU) 30 MG/DL NEGATIVE UA UROBILINIOGEN DIPSTICK (test code=URO) 4 MG/DL NORMAL UA NITRITE DIPSTICK (test code=PATRICIA) NEGATIVE NEGATIVE UA LEUKOCYTE ESTERASE DIPSTICK (test code=LEUU) 100 /mm3 NEGATIVE UA CULTURE NEEDED? (test code=UACULT) Criteria Culture Chk UA ICTOTEST FOR [id number] 23:09:00* Test Item Value Reference Range Comments UA ICTOTEST FOR BILIRUBIN (test code=ICTOU) NEGATIVE UA [id number] 23:09:00* Test Item Value Reference Range Comments UA RBC (test code=RBCU) RBC/HPF 0-3 UA WBC (test code=XWBCU) WBC/HPF 0-5 UA EPITHELIAL CELLS (test code=EPIU) EPI/HPF FEW UA BACTERIA (test code=XBACU) NONE URINALYSIS [id number] 23:09:00* Test Item Value Reference Range Comments UA COLOR (test code=COLU) RED YELLOW UA APPEARANCE (test code=APPU) SLIGHT CLOUDY CLEAR UA GLUCOSE DIPSTICK (test code=DGLUU) NORMAL MG/DL NORMAL UA BILIRUBIN DIPSTICK (test code=BILU) 1 MG/DL NEGATIVE UA KETONE DIPSTICK (test code=KETU) 5 MG/DL NEGATIVE UA SPECIFIC GRAVITY (test code=SGU) 1.025 1.003-1.030 UA BLOOD DIPSTICK (test code=OSMEL) 250 Sunny/mm3 NEGATIVE UA PH DIPSTICK (test code=LUPE) 5.0 5.0-9.0 UA PROTEIN DIPSTICK (test code=PROU) 30 MG/DL NEGATIVE UA UROBILINIOGEN DIPSTICK (test code=URO) 4 MG/DL NORMAL UA NITRITE DIPSTICK (test code=PATRICIA) NEGATIVE NEGATIVE UA LEUKOCYTE ESTERASE DIPSTICK (test code=LEUU) 100 /mm3 NEGATIVE UA CULTURE NEEDED? (test code=UACULT) Criteria Culture Chk UA ICTOTEST FOR [id number] 23:09:00* Test Item Value Reference Range Comments UA ICTOTEST FOR BILIRUBIN (test code=ICTOU) NEGATIVE UA [id number] 23:09:00* Test Item Value Reference Range Comments UA RBC (test code=RBCU) RBC/HPF 0-3 UA WBC (test code=XWBCU) WBC/HPF 0-5 UA EPITHELIAL CELLS (test code=EPIU) EPI/HPF FEW UA BACTERIA (test code=XBACU) NONE COMPREHENSIVE METABOLIC [id number] 03:21:00* Test Item Value Reference Range Comments SODIUM (test code=NA) 139 MMOL/L 137-145 POTASSIUM (test code=K) 4.0 MMOL/L 3.5-5.1 CHLORIDE (test code=CL) 103 MMOL/L 98-107 CARBON DIOXIDE (test code=CO2) 25 MMOL/L 22-30 GLUCOSE (test code=GLU) 103 MG/DL 74-106 BLOOD UREA NITROGEN (test code=BUN) 17 MG/DL 7-17 GLOMERULAR FILTRATION RATE (test code=GFR) > 60 Reporting units: ml/min/1.73 m2 (Modified MDRD Formula)Reference Range: > or=60 ml/min/1.73 m2 CREATININE (test code=CREAT) 0.90 MG/DL 0.52-1.04 TOTAL PROTEIN (test code=PROT) 9.9 G/DL 6.3-8.2 ALBUMIN (test code=ALB) 5.2 G/DL 3.5-5.0 CALCIUM (test code=CA) 10.3 MG/DL 8.4-10.2 BILIRUBIN TOTAL (test code=BILT) 0.3 MG/DL 0.2-1.3 SGOT/AST (test code=AST) 43 UNITS/L 14-36 SGPT/ALT (test code=ALT) 38 UNITS/L 9-52 ALKALINE PHOSPHATASE (test code=ALKP) 155 UNITS/L 38-126 [id number] 03:21:00* Test Item Value Reference Range Comments LIPASE (test code=LIP) 84 UNITS/L 23-300 CBC W/AUTO [id number] 03:14:00* Test Item Value Reference Range Comments WHITE BLOOD CELL (test code=WBC) 9.9 K/MM3 3.8-9.8 RED BLOOD CELL (test code=RBC) 5.44 M/MM3 3.58-4.97 HEMOGLOBIN (test code=HGB) 15.8 G/DL 11.2-14.9 HEMATOCRIT (test code=HCT) 48.7 % 33.2-43.5 MEAN CELL VOLUME (test code=MCV) 90 fL 80.7-99.1 MEAN CELL HGB (test code=MCH) 29.0 pg 27.0-34.1 MEAN CELL HGB CONCETRATION (test code=MCHC) 32.4 % 32.2-35.7 RED CELL DISTRIBUTION WIDTH (test code=RDW) 14.3 % 12.1-15.2 PLATELET COUNT (test code=PLT) 361 K/MM3 129-368 MEAN PLATELET VOLUME (test code=MPV) 10.0 fl 7.4-10.4 NEUTROPHIL % (test code=NT%) 64.3 % 43-75 IMMATURE GRANULOCYTE % (test code=IG%) 0.4 % 0.0-2.0 LYMPHOCYTE % (test code=LY%) 28.4 % 14-44 MONOCYTE % (test code=MO%) 4.2 % 4-13 EOSINOPHIL % (test code=EO%) 1.6 % 0-6 BASOPHIL % (test code=BA%) 1.1 % 0-2 NUCLEATED RBC % (test code=NRBC%) 0.0 % 0-1.0 NEUTROPHIL # (test code=NT#) 6.38 K/mm3 2.0-7.6 IMMATURE GRANULOCYTE # (test code=IG#) 0.04 x10 3/uL 0-0.03 LYMPHOCYTE # (test code=LY#) 2.82 K/mm3 1.0-3.8 MONOCYTE # (test code=MO#) 0.42 K/mm3 0.1-0.8 EOSINOPHIL # (test code=EO#) 0.16 K/mm3 0.0-0.2 BASOPHIL # (test code=BA#) 0.11 K/mm3 0.0-0.2 NUCLEATED RBC # (test code=NRBC#) 0.00 K/mm3 0.0-0.1 POC VENOUS BLOOD [id number] 03:01:00* Test Item Value Reference Range Comments POC LACTIC ACID (test code=POCLAC) 1.43 MMOL/L 0.4-2.0 POC VENOUS BLOOD GAS PH (test code=POCPHV) 7.383 7.35-7.45 POC VENOUS BLOOD GAS PCO2 (test code=KSXYJT9M) 44.7 mmHg 35.0-45.0 POC VENOUS BLOOD GAS PO2 (test code=FEGNF7C) 20.0 mmHG 0-40 POC HCO3 VENOUS (test code=GMSWNJ0I) 26.6 MMOL/L 20-26 POC BASE EXCESS VENOUS (test code=POCBEV) 2 MMOL/L -3.0-3.0 POC O2 SATURATION VENOUS (test code=VHSR0TS) 31 % 72-77 UA RFLX MICR CULT IF [id number] 02:57:00* Test Item Value Reference Range Comments UA COLOR (test code=COLU) YELLOW YELLOW UA APPEARANCE (test code=APPU) SLIGHT CLOUDY CLEAR UA GLUCOSE DIPSTICK (test code=DGLUU) NORMAL MG/DL NORMAL UA BILIRUBIN DIPSTICK (test code=BILU) NEGATIVE MG/DL NEGATIVE UA KETONE DIPSTICK (test code=KETU) NEGATIVE MG/DL NEGATIVE UA SPECIFIC GRAVITY (test code=SGU) 1.025 1.003-1.030 UA BLOOD DIPSTICK (test code=OSMEL) 250 Sunny/mm3 NEGATIVE UA PH DIPSTICK (test code=LUPE) 5.0 5.0-9.0 UA PROTEIN DIPSTICK (test code=PROU) 30 MG/DL NEGATIVE UA UROBILINIOGEN DIPSTICK (test code=URO) 1 MG/DL NORMAL UA NITRITE DIPSTICK (test code=PATRICIA) NEGATIVE NEGATIVE UA LEUKOCYTE ESTERASE DIPSTICK (test code=LEUU) TRACE /mm3 NEGATIVE UA CULTURE NEEDED? (test code=UACULT) NO, WBC<10 Criteria Culture Chk UA [id number] 02:57:00* Test Item Value Reference Range Comments UA RBC (test code=RBCU) >100 RBC/HPF 0-3 UA WBC (test code=XWBCU) 0-3 WBC/HPF 0-5 UA EPITHELIAL CELLS (test code=EPIU) RARE EPI/HPF FEW UA BACTERIA (test code=XBACU) RARE NONE UA RFLX MICR CULT IF [id number] 02:49:00* Test Item Value Reference Range Comments UA COLOR (test code=COLU) YELLOW YELLOW UA APPEARANCE (test code=APPU) SLIGHT CLOUDY CLEAR UA GLUCOSE DIPSTICK (test code=DGLUU) NORMAL MG/DL NORMAL UA BILIRUBIN DIPSTICK (test code=BILU) NEGATIVE MG/DL NEGATIVE UA KETONE DIPSTICK (test code=KETU) NEGATIVE MG/DL NEGATIVE UA SPECIFIC GRAVITY (test code=SGU) 1.025 1.003-1.030 UA BLOOD DIPSTICK (test code=OSMEL) 250 Sunny/mm3 NEGATIVE UA PH DIPSTICK (test code=LUPE) 5.0 5.0-9.0 UA PROTEIN DIPSTICK (test code=PROU) 30 MG/DL NEGATIVE UA UROBILINIOGEN DIPSTICK (test code=URO) 1 MG/DL NORMAL UA NITRITE DIPSTICK (test code=PATRICIA) NEGATIVE NEGATIVE UA LEUKOCYTE ESTERASE DIPSTICK (test code=LEUU) TRACE /mm3 NEGATIVE UA CULTURE NEEDED? (test code=UACULT) Criteria Culture Chk UA [id number] 02:49:00* Test Item Value Reference Range Comments UA RBC (test code=RBCU) RBC/HPF 0-3 UA WBC (test code=XWBCU) WBC/HPF 0-5 UA EPITHELIAL CELLS (test code=EPIU) EPI/HPF FEW UA BACTERIA (test code=XBACU) NONE UA RFLX MICR CULT IF [id number] 02:49:00* Test Item Value Reference Range Comments UA COLOR (test code=COLU) YELLOW YELLOW UA APPEARANCE (test code=APPU) SLIGHT CLOUDY CLEAR UA GLUCOSE DIPSTICK (test code=DGLUU) NORMAL MG/DL NORMAL UA BILIRUBIN DIPSTICK (test code=BILU) NEGATIVE MG/DL NEGATIVE UA KETONE DIPSTICK (test code=KETU) NEGATIVE MG/DL NEGATIVE UA SPECIFIC GRAVITY (test code=SGU) 1.025 1.003-1.030 UA BLOOD DIPSTICK (test code=OSMEL) 250 Sunny/mm3 NEGATIVE UA PH DIPSTICK (test code=LUPE) 5.0 5.0-9.0 UA PROTEIN DIPSTICK (test code=PROU) 30 MG/DL NEGATIVE UA UROBILINIOGEN DIPSTICK (test code=URO) 1 MG/DL NORMAL UA NITRITE DIPSTICK (test code=PATRICIA) NEGATIVE NEGATIVE UA LEUKOCYTE ESTERASE DIPSTICK (test code=LEUU) TRACE /mm3 NEGATIVE UA CULTURE NEEDED? (test code=UACULT) Criteria Culture Chk UA [id number] 02:49:00* Test Item Value Reference Range Comments UA RBC (test code=RBCU) RBC/HPF 0-3 UA WBC (test code=XWBCU) WBC/HPF 0-5 UA EPITHELIAL CELLS (test code=EPIU) EPI/HPF FEW UA BACTERIA (test code=XBACU) NONE CT, [id number] 22:24:00FINAL REPORT EXAM: CT of the abdomen and pelvis, without contrast CLINICAL HISTORY: Flank pain, stone disease suspected TECHNIQUE: CT of the abdomen and pelvis was performed without the intravenous administration of contrast. This exam was performed according to our departmental dose optimization program which includes automated exposure control, adjustment of the mA and/or kV according to patient's size and/or use of iterative reconstructive technique. COMPARISON: CT abdomen and pelvis 05/17/2018. FINDINGS: Please note study is limited due to lack of intravenous contrast. LOWER CHEST: Calcified left lower lobe granuloma. Small hiatal hernia.LIVER: Within normal limits.BILE DUCTS: Within normal limits.GALL BLADDER: Status post cholecystectomy.PANCREAS: Within normal limits.SPLEEN: Within normal limits.ADRENALS: Within normal limits.KIDNEYS/URETERS: Within normal limits. URINARY BLADDER: Collapsed.REPRODUCTIVE ORGANS: Within normal limits. BOWEL/MESENTERY: No bowel obstruction or abnormal wall thickening. Normal appendix.PERITONEUM/RETROPERITONEUM: No free air, free fluid or fluid collection. VESSELS: Within normal limits. LYMPH NODES: No abdominal or pelvic lymphadenopathy.SOFT TISSUES: Within normal limits.BONES: Within normal limits. IMPRESSION: No urolithiasis or evidence of urinary tract obstruction. Signed: Edward Price MDReport Verified Date/Time: 07/17/2018 22:24:47 Reading Location: [facility] C013Y CT Body Reading Room W/AUTO [id number] 00:51:00* Test Item Value Reference Range Comments WHITE BLOOD CELL (test code=WBC) 8.7 K/mm3 4.1-12.1 RED BLOOD CELL (test code=RBC) 4.59 M/mm3 3.8-5.5 HEMOGLOBIN (test code=HGB) 13.4 G/DL 10.6-15.8 HEMATOCRIT (test code=HCT) 41.7 % 31.8-47.4 MEAN CELL VOLUME (test code=MCV) 90.8 fL 80.1-101.1 MEAN CELL HGB (test code=MCH) 29.2 pg 25.3-35.3 MEAN CELL HGB CONCETRATION (test code=MCHC) 32.1 G/DL 32.7-35.1 RED CELL DISTRIBUTION WIDTH (test code=RDW) 13.8 % 12.2-16.4 RED CELL DISTRIBUTION WIDTH (test code=RDW-SD) 45.1 fL 36.4-46.3 PLATELET COUNT (test code=PLT) 272 K/mm3 155-337 MEAN PLATELET VOLUME (test code=MPV) 10.2 fL 6.8-11.2 GRANULOCYTE % (test code=GR%) 74.8 % 37.8-82.6 IMMATURE GRANULOCYTE % (test code=IG%) 0.6 % 0.0-2.0 LYMPHOCYTE % (test code=LY%) 18.1 % 14.1-45.4 MONOCYTE % (test code=MO%) 4.6 % 2.5-11.7 EOSINOPHIL % (test code=EO%) 1.6 % 0.0-6.2 BASOPHIL % (test code=BA%) 0.3 % 0.0-2.1 NUCLEATED RBC % (test code=NRBC%) 0.0 /100WBC% 0.0-1.0 GRANULOCYTE # (test code=GR#) 6.50 k/mm3 2.0-13.7 IMMATURE GRANULOCYTE # (test code=IG#) 0.05 K/mm3 0.00-0.03 LYMPHOCYTE # (test code=LY#) 1.57 K/mm3 0.6-3.8 MONOCYTE # (test code=MO#) 0.40 K/mm3 0.11-0.59 EOSINOPHIL # (test code=EO#) 0.14 K/mm3 0.0-0.4 BASOPHIL # (test code=BA#) 0.03 K/mm3 0.0-0.1 NUCLEATED RBC # (test code=NRBC#) 0.00 K/mm3 0.0-0.05 COMPREHENSIVE METABOLIC [id number] 00:49:00* Test Item Value Reference Range Comments SODIUM (test code=NA) 136.0 mmol/L 133-144 POTASSIUM (test code=K) 3.7 mmol/L 3.5-5.1 CHLORIDE (test code=CL) 104 mmol/L 95-105 CARBON DIOXIDE (test code=CO2) 26 mmol/L 21-32 ANION GAP (test code=GAP) 6.0 GAP calc 4.0-15.0 GLUCOSE (test code=GLU) 94 MG/DL 70-110 BLOOD UREA NITROGEN (test code=BUN) 12 MG/DL 7-18 GLOMERULAR FILTRATION RATE (test code=GFR) 86 estGFR >60 The estimated glomerular filtration rate is computed usingpatient race, age, sex, and serum creatinine. If any of theneeded data elements are missing the Laboratory can notcompute an estimation of the glomerular filtration rate.The GFR value units=ml/min/1.73 meter squared. EstimatedGFR values above 60 should be interpreted as >60, not anexact number.--- DRUG DOSAGE ALERT --- Drug dosage adjustments utilize different calculationparameters. CREATININE (test code=CREAT) 0.74 MG/DL 0.55-1.30 Results may be depressed if patient is takingN-Acetylcysteine (NAC) and Metamizole (Dipyrone). TOTAL PROTEIN (test code=PROT) 7.8 G/DL 6.4-8.2 ALBUMIN (test code=ALB) 3.2 G/DL 3.4-5.0 ALBUMIN/GLOBULIN RATIO (test code=A/G) 0.7 RATIO 1.2-2.2 CALCIUM (test code=CA) 8.6 MG/DL 8.5-10.1 BILIRUBIN TOTAL (test code=BILT) 0.52 MG/DL 0.00-1.00 BILIRUBIN DIRECT (test code=BILD) 0.15 MG/DL 0.00-0.30 BILIRUBIN INDIRECT (test code=BILIND) 0.37 MG/DL 0.2-1.3 SGOT/AST (test code=AST) 36 Unit/L 15-37 SGPT/ALT (test code=ALT) 43 Unit/L 12-78 ALKALINE PHOSPHATASE TOTAL (test code=ALKP) 157 Unit/L 45-117 INDEX HEMOLYSIS (test code=HEMINDEX) 1 NORMAL <10 MG Index/DL 1 NORMAL INDEX ICTERIC (test code=ICTINDEX) 1 NORMAL <2 MG Index/DL 1 NORMAL INDEX LIPEMIA (test code=LIPINDEX) 1 NORMAL <50 MG Index/DL 1 NORMAL [id number] 00:49:00* Test Item Value Reference Range Comments LIPASE (test code=LIP) 99 Unit/L 114-286 HCG [id number] 00:49:00* Test Item Value Reference Range Comments HCG SERUM (test code=HCG) 2 mi-IU/ML 0-3 INTERPRET B-HCG LEVELS LESS THAN OR EQUAL TO 3 MIU/ML NEG - CT ABD PELVIS [id number] 05:07:00 Patient Name: LILIAN DEL ROSARIO Unit No: [id number] EXAMS: CPT CODE: [id number] CT ABD PELVIS W/CONT 48074 EXAM: - CT ABD PELVIS W/CONT INDICATION: 42 years -old Female with ABD PAIN TECHNIQUE: Contrast - IV contrast was given. No oral contrast was given Portal venous phase - abdomen and pelvis No delayed phase images were obtained. Reconstructions - coronal and sagittal planes Automated exposure reduction (Auto mA/Smart mA) was utilized in compliance with ACR [employer] COMPARISON: 11/04/2017 FINDINGS: Statements: Artifact limits evaluation. Within the lower abdomen and pelvis. Patient's body habitus. Thoracic: Included images of the lower chest demonstrate no abnormalities. Hepatobiliary: The liver is normal without focal lesion. Cholecystectomy clips are present. No biliary dilation. Pancreas: Normal. Spleen: Normal. Adrenals: Normal. Genitourinary: The k idneys are normal. No evidence of hydronephrosis. Evaluation of the blad saroj is limited, but no obvious bladder abnormality is present. Gastrointestinal: No bowel obstruction or perienteric inflammation. The appendix is well-seen given artifact from the pelvis. No definite eviden ce of appendicitis. Vascular: No evidence of aneurysm or dissectio n. Bones/Soft Tissues: No acute osseous findings. No ventral hernias. Peritoneum/Other: No extraluminal air. No ext raluminal fluid. IMPRESSION: 1. Limited exam secondary to significant artifact from the pelvis given patient's body h abitus. No evidence of bowel obstruction. No other acute abnormalities . JULES [facility]celia NAME: LILINA DEL ROSARIO [address] [place] [address] [place]: [place] [id number] : 1975 AGE: 42 SEX: F LOC: UNK PHONE #: [phone] EXAM DATE: 05/29/2018 STATUS: [facility] ER FAX #: [phone] RAD #: D/C DT PAGE 1 Signed Report (CONTINUED) Patient Name: LILIAN ZHU Unit No: [id number] EXAMS: CPT CODE: [id number] CT ABD PELVIS W/CONT 82591 <Continued> at 0507 Reported and signed by: Tommie Trent M.D. CC: Kay Henderson MD Dictated Date/Time: 05/29/2018 (0507) Technologist: Mandy Hay CTDI: 12.52 DLP: 768.01 Trnscrpt: 05/29/2018 (0507) [email or web address] [facility] NAME: LILIAN DEL ROSARIO [address] [place] [address] PHYS: [place] [id number] : 1975 AGE: 42 SEX: F LOC: UNK PHONE #: [phone] EXAM DATE: 05/29/2018 STATUS: [facility] ER FAX #: [phone] RAD #: D/C DT PAGE 2 Signed Report Patient Name: LILIAN DEL ROSARIO Unit No: [id number] EXAMS: CPT CODE: [id number] CT ABD PELVIS W/CONT 29946 <Continued> Orig Print D/T: S: 05/29/2018 (0510) [facility] NAME: LILIAN DEL ROSARIO [address] [place] [address] PHYS: [place]. - [place] [id number] : 1975 AGE: 42 SEX: F LOC: UNK PHONE #: [phone] EXAM DATE: 05/29/2018 STATUS: [facility] ER FAX #: [phone] RAD #: D/C DT PAGE 3 Signed Report - CT ABD PELVIS [id number] 05:07:00 Patient Name: LILIAN DEL ROSARIO Unit No: [id number] EXAMS: CPT CODE: [id number] CT ABD PELVIS W/CONT 90061 EXAM: - CT ABD PELVIS W/CONT INDICATION: 42 years -old Female with ABD PAIN TECHNIQUE: Contrast - IV contrast was given. No oral contrast was given Portal venous phase - abdomen and pelvis No delayed phase images were obtained. Reconstructions - coronal and sagittal planes Automated exposure reduction (Auto mA/Smart mA) was utilized in compliance with ACR Image [employer] COMPARISON: 11/04/2017 FINDINGS: Statements: Artifact limits evaluation. Within the lower abdomen and pelvis. Patient's body habitus. Thoracic: Included images of the lower chest demonstrate no abnormalities. Hepatobiliary: The liver is normal without focal lesion. Cholecystectomy clips are present. No biliary dilation. Pancreas: Normal. Spleen: Normal. Adrenals: Normal. Genitourinary: The kidneys are normal. No evidence of hydronephrosis. Evaluation of the bladder is limited, but no obvious bladder abnormality is present. Gastrointestinal: No bowel obstruction or perienteric inflammation. The appendix is well-seen given artifact from the pelvis. No definite evidence of appendicitis. Vascular: No evidence of aneurysm or dissection. Bones/Soft Tissues: No acute osseous findings. No ventral hernias. Peritoneum/Other: No extraluminal air. No extraluminal fluid. IMPRESSION: 1. Limited exam secondary to significant artifact from the pelvis given patient's body habitus. No evidence of bowel obstruction. No other acute abnormalities. [facility] NAME: LILIAN DEL ROSARIO [address] [place] [address] PHYS: [place]. - [place] [address] : 1975 AGE: 42 SEX: F LOC: UNK PHONE #: [phone] EXAM DATE: 05/29/2018 STATUS: [facility] ER FAX #: [phone] RAD #: D/C DT PAGE 1 Signed Report (CONTINUED) Patient Name: LILIAN DEL ROSARIO Unit No: [id number] EXAMS: CPT CODE: [id number] CT ABD PELVIS W/CONT 65521 <Continued> at 0507 Reported and signed by: Tommie Trent M.D. CC: Kay Henderson MD Dictated Date/Time: 05/29/2018 (0507) Technologist: Mandy Hay CTDI: 12.52 DLP: 768.01 Trnscrpt: 05/29/2018 (0507) Yvette.[email or web address] [facility] NAME: LILIAN DEL ROSARIO [address] [place] [address] PHYS: Kay Lang MD [place] [address] : 1975 AGE: 42 SEX: F LOC: UNK PHONE #: [phone] EXAM DATE: 05/29/2018 STATUS: DEP ER FAX #: [phone] RAD #: D/C DT PAGE 2 Signed Report Patient Name: LILIAN DEL ROSARIO Unit No: [id number] EXAMS: CPT CODE: [id number] CT ABD PELVIS W/CONT 08477 <Continued> Orig Print D/T: S: 05/29/2018 (0510) JULES [facility] NAME: LILIAN DEL ROSARIO [address] [place] [address] PHYS: Kay Lang MD [place] [address] : 1975 AGE: 42 SEX: F LOC: UNK PHONE #: [phone] EXAM DATE: 05/29/2018 STATUS: DEP ER FAX #: [phone] RAD #: D/C DT PAGE 3 Signed Report - CT ABD PELVIS W/[id number] 05:07:00 Patient Name: LILIAN DEL ROSARIO Unit No: [id number] EXAMS: CPT CODE: [id number] CT ABD PELVIS W/CONT 38798 EXAM: - CT ABD PELVIS W/CONT INDICATION: 42 years -old Female with ABD PAIN TECHNIQUE: Contrast - IV contrast was given. No oral contrast was given Portal venous phase - abdomen and pelvis No delayed phase images were obtained. Reconstructions - coronal and sagittal planes Automated exposure reduction (Auto mA/Smart mA) was utilized in compliance with ACR Image Wisely COMPARISON: 11/04/2017 FI NDINGS: Statements: Artifact limits evaluation. Within the lower abdomen and pelvis. Patient's body habitus. Thoracic: Included imag es of the lower chest demonstrate no abnormalities. Hepatobi liary: The liver is normal without focal lesion. Cholecystectomy clips are present. No biliary dilation. Pancreas: Normal. Spl een: Normal. Adrenals: Normal. Genitourinary: The k idneys are normal. No evidence of hydronephrosis. Evaluation of the blad saroj is limited, but no obvious bladder abnormality is present. Gastrointestinal: No bowel obstruction or perienteric inflammation. The appendix is well-seen given artifact from the pelvis. No definite eviden ce of appendicitis. Vascular: No evidence of aneurysm or dissectio n. Bones/Soft Tissues: No acute osseous findings. No ventral hernias. Peritoneum/Other: No extraluminal air. No ext raluminal fluid. IMPRESSION: 1. Limited exam secondary to significant artifact from the pelvis given patient's body h abitus. No evidence of bowel obstruction. No other acute abnormalities . [facility] NAME: LILIAN DEL ROSARIO [address] [place] [address] PHYS: Kay [place] [address] : 1975 AGE: 42 SEX: F LOC: UNSpacebar PHONE #: [phone] EXAM DATE: 05/29/2018 STATUS: [facility] ER FAX #: RAD #: D/C DT PAGE 1 Signed Report (CONTINUED) Patient Name: LILIAN ZHU Unit No: [id number] EXAMS: CPT CODE: [id number] CT ABD PELVIS W/CONT 27910 <Continued> at 0507 Reported and signed by: Tommie Trent M.D. CC: Kay Henderson MD Dictated Date/Time: 05/29/2018 (0507) Technologist: Mandy Hay CTDI: 12.52 DLP: 768.01 Trnscrpt: 05/29/2018 (0507) [email or web address] [facility] NAME: MIGUEL ÁNGEL[address] PHYS: Kay Lang MD [place] [address] : 1975 AGE: 42 SEX: F LOC: UNK PHONE #: [phone] EXAM DATE: 05/29/2018 STATUS: DEP ER FAX #: [phone] RAD #: D/C DT PAGE 2 Signed Report Patient Name: LILIAN DEL ROSARIO Unit No: [id number] EXAMS: CPT CODE: [id number] CT ABD PELVIS W/CONT 90435 <Continued> Orig Print D/T: S: 05/29/2018 (0510) [facility] NAME: MIGUEL ÁNGEL[address] PHYS: ROKay Candelaria MD [place] [address] : 1975 AGE: 42 SEX: F LOC: UNK PHONE #: [phone] EXAM DATE: 05/29/2018 STATUS: [facility] ER FAX #: [phone] RAD #: D/C DT PAGE 3 Signed Report - CT ABD PELVIS W/[id number] 05:07:00 Patient Name: LILIAN DEL ROSARIO Unit No: [id number] EXAMS: CPT CODE: [id number] CT ABD PELVIS W/CONT 27816 EXAM: - CT ABD PELVIS W/CONT INDICATION: 42 years -old Female with ABD PAIN TECHNIQUE: Contrast - IV contrast was given. No oral contrast was given Portal venous phase - abdomen and pelvis No delayed phase images were obtained. Reconstructions - coronal and sagittal planes Automated exposure reduction (Auto mA/Smart mA) was utilized in compliance with ACR Image Wisely COMPARISON: 11/04/2017 FINDINGS: Statements: Artifact limits evaluation. Within the lower abdomen and pelvis. Patient's body habitus. Thoracic: Included images of the lower chest demonstrate no abnormalities. Hepatobiliary: The liver is normal without focal lesion. Cholecystectomy clips are present. No biliary dilation. Pancreas: Normal. Spleen: Normal. Adrenals: Normal. Genitourinary: The kidneys are normal. No evidence of hydronephrosis. Evaluation of the bladder is limited, but no obvious bladder abnormality is present. Gastrointestinal: No bowel obstruction or perienteric inflammation. The appendix is well-seen given artifact from the pelvis. No definite evidence of appendicitis. Vascular: No evidence of aneurysm or dissection. Bones/Soft Tissues: No acute osseous findings. No ventral hernias. Peritoneum/Other: No extraluminal air. No extraluminal fluid. IMPRESSION: 1. Limited exam secondary to significant artifact from the pelvis given patient's body habitus. No evidence of bowel obstruction. No other acute abnormalities. [facility] NAME: [address] PHYS: [place] [address] : 1975 AGE: 42 SEX: F LOC: B.ERS PHONE #: [phone] EXAM DATE: 05/29/2018 STATUS: REG ER FAX #: [phone] RAD #: D/C DT PAGE 1 Signed Report (CONTINUED) Patient Name: LILIAN DEL ROSARIO Unit No: [id number] EXAMS: CPT CODE: [id number] CT ABD PELVIS W/CONT 73031 <Continued> at 0507 Reported and signed by: Tommie Trent M.D. CC: Kay Henderson MD Dictated Date/Time: 05/29/2018 (050) Technologist: Mandy Hay CTDI: 12.52 DLP: 768.01 Trnscrpt: 05/29/2018 (050) [email or web address] [facility] NAME: [address] PHYS: Kay Lang MD [place] [address] : 1975 AGE: 42 SEX: F LOC: Fabiola.ERS PHONE #: [phone] EXAM DATE: 05/29/2018 STATUS: REG ER FAX #: [phone] RAD #: D/C DT PAGE 2 Signed Report Patient Name: LILIAN DEL ROSARIO Unit No: [id number] EXAMS: CPT CODE: [id number] CT ABD PELVIS W/CONT 62336 <Continued> Orig Print D/T: S: 05/29/2018 (0510) JULSE Pani[facility] NAME: LILIAN DEL ROSARIO [address] [place] [address] Bl PHYS: BAYRON.Kay Powell [place] [address] : 1975 AGE: 42 SEX: F LOC: AnneERS PHONE #: [phone] EXAM DATE: 05/29/2018 STATUS: REG ER FAX #: [phone] RAD #: D/C DT PAGE 3 Signed Report BASIC METABOLIC [id number] 04:11:00* Test Item Value Reference Range Comments SODIUM (test code=NA) 138.0 mmol/L 133-144 POTASSIUM (test code=K) 3.8 mmol/L 3.5-5.1 CHLORIDE (test code=CL) 107 mmol/L 95-105 CARBON DIOXIDE (test code=CO2) 24 mmol/L 21-32 ANION GAP (test code=GAP) 7.0 GAP calc 4.0-15.0 GLUCOSE (test code=GLU) 95 MG/DL 70-110 BLOOD UREA NITROGEN (test code=BUN) 12 MG/DL 7-18 CREATININE (test code=CREAT) 0.82 MG/DL 0.55-1.30 Results may be depressed if patient is takingN-Acetylcysteine (NAC) and Metamizole (Dipyrone). CALCIUM (test code=CA) 8.3 MG/DL 8.5-10.1 INDEX HEMOLYSIS (test code=HEMINDEX) 1 NORMAL <10 MG Index/DL 1 NORMAL INDEX ICTERIC (test code=ICTINDEX) 1 NORMAL <2 MG Index/DL 1 NORMAL INDEX LIPEMIA (test code=LIPINDEX) 1 NORMAL <50 MG Index/DL 1 NORMAL HEPATIC FUNCTION [id number] 04:11:00* Test Item Value Reference Range Comments TOTAL PROTEIN (test code=PROT) 7.5 G/DL 6.4-8.2 ALBUMIN (test code=ALB) 3.1 G/DL 3.4-5.0 BILIRUBIN TOTAL (test code=BILT) 0.27 MG/DL 0.00-1.00 BILIRUBIN DIRECT (test code=BILD) < 0.10 MG/DL 0.00-0.30 BILIRUBIN INDIRECT (test code=BILIND) 0.27 MG/DL 0.2-1.3 SGOT/AST (test code=AST) 15 Unit/L 15-37 SGPT/ALT (test code=ALT) 24 Unit/L 12-78 ALKALINE PHOSPHATASE TOTAL (test code=ALKP) 157 Unit/L 45-117 [id number] 04:11:00* Test Item Value Reference Range Comments LIPASE (test code=LIP) 146 Unit/L 114-286 URINALYSIS [id number] 03:56:00* Test Item Value Reference Range Comments UA COLOR (test code=COLU) YELLOW DESCRIPT YELLOW UA APPEARANCE (test code=APPU) HAZY DESCRIPT CLEAR UA GLUCOSE DIPSTICK (test code=DGLUU) NEGATIVE (0) mg/dL (NEG) 0 UA BILIRUBIN DIPSTICK (test code=BILU) NEGATIVE (0) mg/dL (NEG) 0 UA KETONE DIPSTICK (test code=KETU) 0 (NEG) mg/dL (NEG) 0 UA SPECIFIC GRAVITY (test code=SGU) 1.023 SG 1.001-1.035 UA BLOOD DIPSTICK (test code=OSMEL) 3+ mg/DL (NEG) 0 UA PH DIPSTICK (test code=LUPE) 5.0 pH UNITS 4.6-8.0 UA PROTEIN DIPSTICK (test code=PROU) 30 (1+) mg/dL <30 (1+) UA UROBILINIOGEN DIPSTICK (test code=URO) 4 mg/Dl <2.0 (1+) UA NITRITE DIPSTICK (test code=PATRICIA) NEGATIVE (0) SCREEN NEG UA LEUKOCYTE ESTERASE DIPSTICK (test code=LEUU) NEGATIVE (0) Leuk/mcL (NEG) 0 UA WBC (test code=WBCU) 10-20 #WBC/HPF 0-3 UA RBC (test code=RBCU) >100 #RBC/HPF 0-3 UA SQUAMOUS CELLS (test code=SQU) RARE >0 /HPF NONE-SQepi UA MUCUS (test code=MUCU) RARE /LPF NONE UR HCG [id number] 03:56:00* Test Item Value Reference Range Comments UR HCG QUAL (test code=HCGQLU) NEGATIVE NEG Very dilute urines with a low specific gravity may notcontain assisted sales representative levels of hCG. URINALYSIS [id number] 03:55:00* Test Item Value Reference Range Comments UA COLOR (test code=COLU) DESCRIPT YELLOW UA APPEARANCE (test code=APPU) DESCRIPT CLEAR UA GLUCOSE DIPSTICK (test code=DGLUU) mg/dL (NEG) 0 UA BILIRUBIN DIPSTICK (test code=BILU) mg/dL (NEG) 0 UA KETONE DIPSTICK (test code=KETU) mg/dL (NEG) 0 UA SPECIFIC GRAVITY (test code=SGU) SG 1.001-1.035 UA BLOOD DIPSTICK (test code=OSMEL) mg/DL (NEG) 0 UA PH DIPSTICK (test code=LUPE) pH UNITS 4.6-8.0 UA PROTEIN DIPSTICK (test code=PROU) mg/dL <30 (1+) UA UROBILINIOGEN DIPSTICK (test code=URO) mg/Dl <2.0 (1+) UA NITRITE DIPSTICK (test code=PATRICIA) SCREEN NEG UA LEUKOCYTE ESTERASE DIPSTICK (test code=LEUU) Leuk/mcL (NEG) 0 UA RBC (test code=RBCU) #RBC/HPF 0-3 UR HCG [id number] 03:55:00* Test Item Value Reference Range Comments UR HCG QUAL (test code=HCGQLU) NEGATIVE NEG Very dilute urines with a low specific gravity may notcontain assisted sales representative levels of hCG. CBC W/O [id number] 03:42:00* Test Item Value Reference Range Comments WHITE BLOOD CELL (test code=WBC) 10.1 K/mm3 4.1-12.1 RED BLOOD CELL (test code=RBC) 4.44 M/mm3 3.8-5.5 HEMOGLOBIN (test code=HGB) 13.0 G/DL 10.6-15.8 HEMATOCRIT (test code=HCT) 41.0 % 31.8-47.4 MEAN CELL VOLUME (test code=MCV) 92.3 fL 80.1-101.1 MEAN CELL HGB (test code=MCH) 29.3 pg 25.3-35.3 MEAN CELL HGB CONCETRATION (test code=MCHC) 31.7 G/DL 32.7-35.1 RED CELL DISTRIBUTION WIDTH (test code=RDW) 13.7 % 12.2-16.4 PLATELET COUNT (test code=PLT) 292 K/mm3 155-337 MEAN PLATELET VOLUME (test code=MPV) 9.9 fL 6.8-11.2 - XR CHEST 1 [id number] 03:42:00 FAX: Kay Larsen MD [phone] [place]: St: DEP Patient Na me: LILIAN DEL ROSARIO Unit No: [id number] EXAMS: CPT CODE: [id number] XR CHEST 1 V 94839 AFTER HOURS SERVICE ON: 05/29/2018 3:41 AM AP Portable Chest Location Code M12 HISTORY: Abdominal pain FINDINGS: There are no infiltrates. There are no pleural effusions. There is no pneumothorax. Cardiac silhouette and mediastinum appear within normal limits. IMPRESSION: No active intrathoracic findings. at 0342 R eported and signed by: Marichuy Stark M.D. CC: Kay Henderson MD Dictated Date/Time: 05/29/2018 (034)Technologist: More Crews nscribed Date/Time: 05/29/2018 (034) By: [email or web address] Orig Print D/T: S : 05/29/2018 (0345) [facility] NAME: LILIAN DEL ROSARIO [address] [place] [address] S: BAYRON.Kay Powell MD[place] [id number] : 07/1975 AGE: 42 SEX: F [phone] LOC: UNK PHONE #: [phone] EXAM DATE: 05/29/2018 STATUS: DEP ER FAX #: [phone] RAD NO: DC Dt: PAGE 1 Signed Report - XR CHEST 1 [id number] 03:42:00 FAX: Kay Larsen MD [phone] [place]: St: DEP Patient Na me: LILIAN DEL ROSARIO Unit No: [id number] EXAMS: CPT CODE: [id number] XR CHEST 1 V 59852 AFTER HOURS SERVICE ON: 05/29/2018 3:41 AM AP Portable Chest Location Code M12 HISTORY: Abdominal pain FINDINGS: There are no infiltrates. There are no pleural effusions. There is no pneumothorax. Cardiac silhouette and mediastinum appear within normal limits. IMPRESSION: No active intrathoracic findings. at 0342 R eported and signed by: Marichuy Stark M.D. CC: Kay Henderson MD Dictated Date/Time: 05/29/2018 (034)Technologist: More Crews nscribed Date/Time: 05/29/2018 (034) By: [email or web address] Orig Print D/T: S : 05/29/2018 (0345) ATIF Pani[facility] NAME: LILIAN DEL ROSARIO [address] [place] [address] S: BAYRONKay Rubi [place] [address] : 07/1975 AGE: 42 SEX: F [phone] LOC: UNK PHONE #: [phone] EXAM DATE: 05/29/2018 STATUS: DEP ER FAX #: [phone] RAD NO: DC Dt: PAGE 1 Signed Report - XR CHEST 1 [id number] 03:42:00 FAX: Kay Larsen MD [phone] [place]: E St: DEP Patient Na me: LILIAN DEL ROSARIO Unit No: [id number] EXAMS: CPT CODE: [id number] XR CHEST 1 V 05099 AFTER HOURS SERVICE ON: 05/29/2018 3:41 AM AP Portable Chest Location Code M12 HISTORY: Abdominal pain FINDINGS: There are no infiltrates. There are no pleural effusions. There is no pneumothorax. Cardiac silhouette and mediastinum appear within normal limits. IMPRESSION: No active intrathoracic findings. at 0342 R eported and signed by: Marichuy Stark M.D. CC: Kay Henderson MD Dictated Date/Time: 05/29/2018 (034)Technologist: More Crews nscribed Date/Time: 05/29/2018 (034) By: [email or web address] Orig Print D/T: S : 05/29/2018 (0345) [facility] NAME: LILIAN DEL ROSARIO [address] [place], [place] [address] PHY S: Kay Lang MD, [place] [address] : 07/1975 AGE: 42 SEX: F [phone] LOC: UNK PHONE #: [phone] EXAM DATE: 05/29/2018 STATUS: DEP ER FAX #: [phone] RAD NO: DC Dt: PAGE 1 Signed Report - XR CHEST 1 [id number] 03:42:00 FAX: Kay Larsen MD [phone] [place]: St: REG Patient Na me: LILIAN DEL ROSARIO Unit No: [id number] EXAMS: CPT CODE: [id number] XR CHEST 1 V 35398 AFTER HOURS SERVICE ON: 05/29/2018 3:41 AM AP Portable Chest Location Code M12 HISTORY: Abdominal pain FINDINGS: There are no infiltrates. There are no pleural effusions. There is no pneumothorax. Cardiac silhouette and mediastinum appear within normal limits. IMPRESSION: No active intrathoracic findings. at 0342 R eported and signed by: Marichuy Stark M.D. CC: Kay Henderson MD Dictated Date/Time: 05/29/2018 (034)Technologist: More Crews nscribed Date/Time: 05/29/2018 (034) By: [email or web address] Orig Print D/T: S : 05/29/2018 (0345) [facility] NAME: LILIAN DEL ROSARIO [address] [place], [place] [address] PHY S: BAYRON. - Kay Henderson MD [place], [place] [address] : 07/1975 AGE: 42 SEX: F [phone] LOC: PATIENCE PHONE #: [phone] EXAM DATE: 05/29/2018 STATUS: REG ER FAX #: [phone] RAD NO: DC Dt: PAGE 1 Signed Report URINALYSIS W/ REFLEX URINE [id number] 03:14:00* Test Item Value Reference Range Comments COLOR (BEAKER) (test xuiy=216) Red CLARITY (BEAKER) (test xlfi=478) Cloudy SPECIFIC GRAVITY UA (BEAKER) (test skum=938) >= 1.001-1.035 PH UA (BEAKER) (test nmhx=153) 5.0 5.0-8.0 PROTEIN UA (BEAKER) (test twrh=903) 30 mg/dL Negative GLUCOSE UA (BEAKER) (test alnf=477) Negative Negative KETONES UA (BEAKER) (test hcoq=877) Negative Negative BILIRUBIN UA (BEAKER) (test dixx=062) Negative Negative BLOOD UA (BEAKER) (test tsow=794) Large Negative NITRITE UA (BEAKER) (test ybsc=970) Negative Negative LEUKOCYTE ESTERASE UA (BEAKER) (test obom=157) Negative Negative UROBILINOGEN UA (BEAKER) (test hyyn=436) 2.0 mg/dL 0.2-1.0 BACTERIA (BEAKER) (test qmmj=263) Moderate RBC UA-MANUAL (BEAKER) (test wogk=9716) >100 /HPF WBC UA-MANUAL (BEAKER) (test padj=8856) <5 /HPF SQUAMOUS EPITHELIAL MANUAL (BEAKER) (test zyfr=1367) <5 /HPF SOURCE(BEAKER) (test yxml=3112) Spec Supernatant used. CT, [id number] 03:05:00Reason for exam:->right sided abd pain and flank painWhat is the patient's sedation requirement?->No SedationIs the patient ?->NoFINAL REPORT CLINICAL HISTORY: Right-sided abdominal pain FINDINGS: Multiple axial images of the abdomen and pelvis were performed without intravenous contrast. Oral contrast was not given. The examination is limited by patient body habitus. This exam was performed according to our departmental dose-optimization program, which includes automated exposure control, adjustment of the mA and/or kV according to patient size and/or use of the iterative reconstruction technique. Comparison: 04/10/2017 Lower chest: Punctate calcified granuloma in the left lower lobe. No pleural effusion or pneumothorax. Visualized cardiac contours normal. Liver: No significant findings. Gallbladder and biliary tree: Previous cholecystectomy Spleen: No significant findings. Adrenal Glands: No significant findings. Kidneys and ureters: No significant findings. Stomach and Duodenum: No significant findings. Pancreas: No significant findings. Bowel: No significant findings. Appendix: Normal. Bladder: No significant findings. Major vascular structures: No significant findings. Reproductive organs: Previous hysterectomy Other: No free air, fluid or adenopathy Skeleton: No acute bony abnormality. IMPRESSION: No acute abnormality. Signed: Bernardo De Oliveiraeport Verified Date/Time: 05/17/2018 03:05:35 Reading Location: [address] 03: 05 AM COMPREHENSIVE METABOLIC [id number] 02:21:00* Test Item Value Reference Range Comments TOTAL PROTEIN (BEAKER) (test dged=259) 7.0 gm/dL 6.0-8.5 ALBUMIN (BEAKER) (test htor=2047) 3.6 g/dL 3.5-5.0 ALKALINE PHOSPHATASE (BEAKER) (test flvl=295) 134 U/L 30-115 BILIRUBIN TOTAL (BEAKER) (test alsw=673) 0.3 mg/dL 0.1-1.2 SODIUM (BEAKER) (test oahm=005) 138 meq/L 135-148 POTASSIUM (BEAKER) (test rfxh=636) 3.9 meq/L 3.6-5.5 CHLORIDE (BEAKER) (test kcvt=055) 108 meq/L 98-106 CO2 (BEAKER) (test bylx=793) 21 meq/L 20-29 BLOOD UREA NITROGEN (BEAKER) (test rhhe=784) 11 mg/dL 10-26 CREATININE (BEAKER) (test fgpr=828) 0.78 mg/dL 0.50-1.20 GLUCOSE RANDOM (BEAKER) (test dnbr=421) 103 mg/dL 70-110 CALCIUM (BEAKER) (test gnal=457) 9.3 mg/dL 8.5-10.5 AST (SGOT) (BEAKER) (test ugrm=362) 23 U/L 5-40 ALT (SGPT) (BEAKER) (test ygqp=972) 20 U/L 5-50 EGFR (BEAKER) (test xbth=7938) 98 mL/min/1.73 sq m ESTIMATED GFR IS NOT ACCURATE CREATININE CLEARANCE IN PREDICTING GLOMERULAR FILTRATION RATE. ESTIMATED GFR IS NOT APPLICABLE FOR DIALYSIS PATIENTS. CBC W/PLT COUNT & AUTO [id number] 02:00:00* Test Item Value Reference Range Comments WHITE BLOOD CELL COUNT (BEAKER) (test ftbw=946) 8.1 K/ L 4.0-10.0 RED BLOOD CELL COUNT (BEAKER) (test sslh=522) 4.53 M/ L 4.00-5.00 HEMOGLOBIN (BEAKER) (test jmoi=902) 13.1 GM/DL 12.0-15.5 HEMATOCRIT (BEAKER) (test xgrm=003) 41.1 % 36.0-46.0 MEAN CORPUSCULAR VOLUME (BEAKER) (test dbna=500) 90.7 fL 82.0-99.0 MEAN CORPUSCULAR HEMOGLOBIN (BEAKER) (test hmbn=540) 28.9 pg 27.0-33.0 MEAN CORPUSCULAR HEMOGLOBIN CONC (BEAKER) (test qztc=121) 31.9 GM/DL 32.0-36.0 RED CELL DISTRIBUTION WIDTH (BEAKER) (test urwr=848) 13.8 % 12.0-15.0 PLATELET COUNT (BEAKER) (test nvaq=104) 322 K/CU MM 150-430 MEAN PLATELET VOLUME (BEAKER) (test zlza=503) 10.0 fL 6.0-11.5 NUCLEATED RED BLOOD CELLS (BEAKER) (test vegk=281) 0 /100 WBC 0-0 NEUTROPHILS RELATIVE PERCENT (BEAKER) (test zkag=227) 65 % LYMPHOCYTES RELATIVE PERCENT (BEAKER) (test tslw=229) 25 % MONOCYTES RELATIVE PERCENT (BEAKER) (test wvyh=568) 6 % EOSINOPHILS RELATIVE PERCENT (BEAKER) (test bgzl=910) 3 % BASOPHILS RELATIVE PERCENT (BEAKER) (test ggyk=942) 1 % NEUTROPHILS ABSOLUTE COUNT (BEAKER) (test tkfi=680) 5.25 K/ L 1.80-8.00 LYMPHOCYTES ABSOLUTE COUNT (BEAKER) (test kdrs=670) 2.04 K/ L 1.48-4.50 MONOCYTES ABSOLUTE COUNT (BEAKER) (test oorc=845) 0.46 K/ L 0.00-1.30 EOSINOPHILS ABSOLUTE COUNT (BEAKER) (test dnbo=552) 0.23 K/ L 0.00-0.50 BASOPHILS ABSOLUTE COUNT (BEAKER) (test uedt=613) 0.06 K/ L 0.00-0.20 IMMATURE GRANULOCYTES-RELATIVE PERCENT (WILTON) (test yvqx=6049) 0 % 0-0 CT Abdomen and Pelvis w/o [id number] 01:58:15Patient: LILIAN DEL ROSARIO Date/Time05/03/2018 01:46 CSTReason for ExamAbdominal painReportCT Abdomen and Pelvis w/o ContrastLocation:M9Owluo hours services provided 05/03/2018 1:54 AM Indication: Abdominal painComparison:02/21/2018Technique: Axial CT images were a cquired through the abdomen and pelvis without contrast. All CT scans at this [facility] use dose modulation, iterative reconstruction, and/or weight-based dosing when appropriate to reduce radiation dose to as low as reasonably possible.Find ings:Lower thorax: Calcified right hilar lymph nodes are present. Nonspecific tr fredo regions of groundglass attenuation within the lungsHepatobiliary: The liver is normal in size and density. No intrahepatic biliary duct dilatation is seen. Status post cholecystectomy.Spleen, pancreas and adrenal glands: NormalUrogeni michael: The kidneys are normal in size and density with no evidence of stone or hyd ronephrosis. The ureters are normal in course and caliber. The urinary bladder a ppears normal. Status post hysterectomy.Gastrointestinal: The bowel is normal i n course and caliber. No free air or free fluid. The appendix is normal.Lymph no lukasz in retroperitoneum: No adenopathy or retroperitoneal mass.Bones and soft tis sues: Unremarkable. Fat-containing umbilical hernia with no evidence of complica tion.Impression:1. No acute intra-abdominal or pelvic abnormality.2. Additional findings as detailed above. Final Dictated by: MD Bustos Dennis PDictated DT/TM: 05/03/2018 1:54 amSigned by: MD Bustos Dennis PSigned (El ectronic Signature): 05/03/2018 1:58 amXR Chest 1 View [id number] 01:51:36Patient: LILIAN DEL ROSARIO Date/Time05/03/2018 01:26 CSTReason for ExamCoughReportXR Chest 1 View FrontalLocation:O5Rcxle hours services provided 05/03/2018 1:51 AMIndication:CoughComparison:None availableFindings:The lungs are equally and symmetrically inflated. The trachea is midline. The cardiac silhouette is normal in size. No acute bony abnormality. Right-sided PermCath tip projects at the upper SVC.Impression: No acute cardiopulmonary disease. Final Dictated by: MD Bustos Dennis PDictated DT/TM: 05/03/2018 1:51 amSigned by: MD Bustos Dennis PSigned (Electronic Signature): 05/03/2018 1:51 amCT Abdomen and Pelvis w/o [id number] 01:47:33Patient: LILIAN DEL ROSARIO Date/Time02/21/2018 01:27 CDTReason for Examr/o kidney stones;Flank painReportCT abdomen and pelvis without IV contrast.Indication: Flank pain, rule out kidney isComparison: December 22, 2017Location: E43Ostrgloed: CT images of the abdomen and pelvis were obtained from the diaphragm to the pubic symphysis without administration of IV contrast. Coronal and sagittal reformats are provided.Findings:Exam findings limited secondary to photon starvation and ring artifact in the setting of the patient's habitusLungs bases: UnremarkableUpper GI: Nonspecific gastric wall thickening may be artifactual but should be further evaluated with direct visualizationLiver: Noncontrast appearance is unremarkableGallbladder: Surgi tiffany absentPancreas: Noncontrast appearance is unremarkableSpleen: Noncontrast appearance is unremarkableAdrenal glands: Noncontrast appearance is unremarkable Kidneys: Noncontrast appearance is unremarkableBowel: No bowel obstruction. The appendix is unremarkable. Predominantly formed stool is seen throughout the colo n compatible clinical diagnosis of constipationPeritoneum: No ascites or free ai r.Skeletal: No acute fracture or aggressive osseous lesion.Impression:Exam findi ngs limited by absence of IV and oral contrast and by patient habitus1. Nonspeci fic gastric wall thickening may be artifactual but should be further evaluated w ith direct visualization2. Predominantly formed stool is seen throughout the col on compatible clinical diagnosis of constipation3. Additional findings as above* Final Dictated by: MD Carlito, SaniaDictated DT/TM: 8 1:39 amSigned by: MD Carlito, SaniaSigned (Electronic Signature): 02/06 1:47 amCT Abdomen and Pelvis w/ [id number] 08:38:26Patient: LILIAN DEL ROSARIO Date/Time12/22/2017 08:17 CDTReason for ExamRLQ pain, nausea/vomiting;Other (p lease specify)ReportCT OF THE ABDOMEN AND PELVIS WITH CONTRASTLocation R 16HIST ORY: Right lower quadrant painTECHNIQUE:5 millimeters contrast enhanced axial i mages of the abdomen and pelvis provided in venous delays. No PO contrast was a dministered. The images were reviewed in soft tissue, lung and bone windows. S agittal and coronal images were reformatted. One or more the following dose redu ction techniques is utilized: Use of iterative reconstruction, automated exposur e control, adjustment of the mAs and Kv for the patient's weight. DLP 1728.4 mGy -cm. Estimated dose savings 14%.COMPARISON: None.FINDINGS:Lung Bases: Small pa tchy groundglass infiltrates involving the right middle lobe, likely representin g nonspecific pneumonitis/aspiration. Correlate symptoms. Small hiatal hernia no genaro.Abdomen Findings:Liver: No significant abnormality.Gallbladder: Absent. No b iliary dilatation.Pancreas: No significant abnormality.Spleen: No significant ab normality.Kidneys: No significant abnormality.Adrenals: No significant abnormali ty.Bowel: No significant abnormality.Appendix: No appendiceal enlargement.Pelvis Findings:Bladder: No significant abnormality.Uterus: AbsentAdnexal regions: No significant abnormality.Bone Windows: No significant abnormality.Vascular:No sig nificant abnormality.Lymph Nodes:No significant abnormality.IMPRESSION:1. No foc al acute intra-abdominal findings. Specifically, no appendiceal enlargement, bow el obstruction, free air or free fluid.Exam Date/Time12/22/2017 08:17 CDTReport2. Small hiatal hernia.3. Minimal patchy hazy infiltrates within the right middle lobe. Main represent nonspecific transient pneumonitis versus low-dose aspiratio n. Correlate for symptoms. Final Dictated by: MD Jessica, Kaylee FDictated DT/TM: 12/22/2017 8:32 amSigned by: MD Jessica, Eloy choe FSigned (Electronic Signature): 12/22/2017 8:38 amURINALYSIS WITH MICROSCOPIC 2017-12-17 19:21:00* Test Item Value Reference Range Comments Color (test code=UCOLR) YELLOW Clarity (test code=UCLAR) CLEAR Glucose (test code=UGLUC) NEGATIVE NEGATIVE Bilirubin (test code=UBILI) NEGATIVE NEGATIVE Ketones (test code=UKET) NEGATIVE NEGATIVE Specific Williamson (test code=USPGR) 1.020 1.005-1.030 Blood (test code=UBLD) TRACE-LYSED NEGATIVE PH (test code=UPH) 6.0 4.5-8.0 Protein (test code=UPROT) NEGATIVE NEGATIVE Urobilinogen (test code=U UROB) 4.0 >0.2 Nitrite (test code=UNITR) NEGATIVE NEGATIVE Leukocyte Esterase (test code=ULEUK) NEGATIVE NEGATIVE WBC (test code=WBCUR) 0-1 0-5 RBC (test code=RBCUR) 0-2 0-5 Epithial Cells (test code=U EPI) 0-5 0-10 Mucous (test code=UMUC) Trace None Seen Bacteria (test code=UBACT) Trace None Seen,Trace CT ABDOMEN/PELVIS W/O [id number] 18:41:13NPO 4 hours. Do not withhold medsEXAM: CT Abdomen and Pelvis WITHOUT contrastOrdering Provider: MARGARET Alvaradoinical Indication: rlq painCOMPARISON: None.TECHNIQUE: Abdomen and pelvis were scanned utilizing a multidetector helicalscanner from the lung base to the pubic symphysis without administration of IVcontrast. Absence of intravenous contrast decreases sensitivity for detection offocal lesions and vascular pathology. Coronal and sagittal reformations wereobtained. Routine protocol was performed.IV CONTRAST: None.ORAL CONTRAST: WaterRADIATION DOSE: Total DLP: 1403 mGy*cmEstimated effective dose: (DLP x 0.015 x size factor) mSvCOMPLICATIONS: NoneFINDINGS:LINES and TUBES: None.LOWER THORAX: Minimal ground glass nodular densities in the right middle lobeposterolaterally on image one series 3 is nonspecific, possibly inflammatory orinfectious in etiology. No pleural effusion.HEPATOBILIARY: Heterogeneous fatty infiltration. No focal hepatic lesions. Nobiliary ductal dilation.GALLBLADDER: Surgically absent.SPLEEN: No splenomegaly.PANCREAS: No focal masses or ductal dilatation.ADRENALS: No adrenal nodulesKIDNEYS/URETERS: No hydronephrosis. No cystic or solid mass lesions. Nostones.GI TRACT: No abnormal distention, wall thickening, or evidence of bowelobstruction. Appendix is normal.PELVIC ORGANS/BLADDER: Status post hysterectomy.LYMPH NODES: No lymphadenopathy .VESSELS: Unremarkable.PERITONEUM / RETROPERITONEUM: No free air or fluid.BONES: Unremarkable.SOFT TISSUES: Unremarkable.IMPRESSION:1. No acute abdominal pelvic abnormality.This final report was electronically signed by Dr Kavin Wahl MD 12/17/20176:34 PMDictated By: KAVIN WAHLDate: 12/17/2017 18:[id number] 18:38:00* Test Item Value Reference Range Comments Glucose (test code=GLU) 101 mg/dl 75-110 BUN (test code=BUN) 8.0 mg/dl 6.0-17.0 Creatinine (test code=CREA) 0.9 mg/dl 0.4-1.2 Sodium (test code=NA) 144 mmol/l 137-145 Potassium (test code=K) 4.0 mmol/l 3.5-5.0 Chloride (test code=CL) 109 mmol/l 98-107 CO2 (test code=CO2) 26 mmol/l 22-30 Calcium (test code=CALC) 8.6 mg/dl 8.4-10.2 T Protein (test code=TP) 7.4 gm/dl 5.1-8.7 Albumin (test code=ALB) 3.0 gm/dl 3.5-4.6 A/G Ratio (test code=AGRAT) 0.7 % 1.1-2.2 AST (SGOT) (test code=AST) 17 U/L 11-36 ALT (SGPT) (test code=ALT) 18 U/L 11-40 Alkaline Phos (test code=ALKP) 147 U/L 47-114 Total Bilirubin (test code=TBIL) 0.3 mg/dl 0.2-1.2 Globulin (test code=GLOBU) 4.4 gm/dl 2.3-3.5 Calcium, Corrected (test code=CALCCORR) 9.4 mg/dl 8.4-10.2 Various formulas exist for corrected serum calcium results, each yielding different values. This corrected result was based on the formula: Corrected Calcium=SerumCalcium + [0.8 * ( 4 - SerumAlbumin)] EGFR if (test code=EGFRAA) >60 mL/min/1.73m\S\2 EGFR if Non- (test code=EGFRNA) >60 mL/min/1.73m\S\2 Estimated Glomerular Filtration Rate (eGFR) Reference Intervals Decision Points for 18 years and older and average body mass: >=60 Does not exclude kidney disease. 30 - 59 Suggests moderate chronic kidney disease and indicates the need for further investigation including assessment of proteinuria and cardiovascular factors. < 30 Usually indicates a need for referral for assessment and management of chronic kidney failure. LIPASE, [id number] 18:36:00* Test Item Value Reference Range Comments Lipase (test code=LIPA) 90 U/L 8-223 CBC WITH AUTO [id number] 18:13:00* Test Item Value Reference Range Comments WBC (test code=WBC) 8.66 10\S\3/ul 4.80-10.80 RBC (test code=RBC) 4.50 10\S\6/ul 4.20-5.40 Hemoglobin (test code=HGB) 13.0 gm/dl 12.0-14.0 Hematocrit (test code=HCT) 39.9 % 37.0-47.0 MCV (test code=MCV) 88.7 fL 81.0-99.0 MCH (test code=MCH) 28.9 pg 27.0-31.0 MCHC (test code=MCHC) 32.6 gm/dl 33.0-37.0 RDW (test code=RDWVC) 13.2 % 11.5-14.5 Platelet (test code=PLT) 272 10\S\3/ul 130-400 MPV (test code=MPV) 9.8 fL 7.4-10.4 NE% (test code=NE) 70.3 % 42.0-75.0 LY% (test code=LY) 21.5 % 13.0-42.0 MO% (test code=MO) 5.7 % 4.0-14.0 EO% (test code=EO) 1.4 % 1.0-5.0 BA% (test code=BA) 0.6 % 0.0-3.0 IG% (test code=IG%) 0.5 % 0.0-0.4 - CT ABD PELVIS [id number] 02:48:00 Patient Name: LILIAN DEL ROSARIO Unit No: [id number] EXAMS: CPT CODE: [id number] CT ABD PELVIS W/CONT 78082 EXAM: - CT ABD PELVIS W/CONT HISTORY: Abdominal pain. TECHNIQUE: Axial tomograms through the abdomen and pelvis were obtained after intravenous contrast. Coronal and sagittal reformatted images are provided. COMPARISON: August 06, 2017. FINDINGS: The visualized lung bases are clear. There is a small hiatal hernia. Status post cholecystectomy. The liver, spleen, pancreas, adrenal glands and kidneys demonstrate no significant abnormalities. The appendix is not identified. The bowel is unremarkable. There is no adenopathy or free fluid. No acute osseous abnormality. Large body habitus causing artifacts. There is no significant change compared to previous exam. IMPRESSION: No significant abnormalities demonstrated. at 0248 Reported and signed by: Redd Mcleod MD CC: Nate Saenz MD Technologist: Giles Fajardo, RT(R)(CT) CTDI: DLP: Trnscrpt: 12/16/2017 (0248) t.SDR.MKM4 [facility] NAME: LILIAN DEL ROSARIO [address] PHYS: ANDRES.[place] [address] : 1975 AGE: 42 SEX: F LOC: UNK PHONE #: [phone] EXAM DATE: 12/16/2017 STATUS: [facility] FAX #: [phone] RAD #: D/C DT PAGE 1 Signed Report Patient Name: LILIAN DEL ROSARIO Unit No: [id number] EXAMS: CPT CODE: [id number] CT ABD PELVIS W/CONT 01941 <Continued> Orig Print D/T: S: 12/16/2017 (0251) [facility] NAME: LILIAN DEL ROSARIO [address] PHYS: [place] [address] : 1975 AGE: 42 SEX: F LOC: UNK PHONE #: [phone] EXAM DATE: 12/16/2017 STATUS: DEP ER FAX #: [phone] RAD #: D/C DT PAGE 2 Signed Report - US TRANSVAGINAL W/[id number] 08:01:00 Patient Name: LILIAN DEL ROSARIO Unit No: [id number] EXAMS: CPT CODE: [id number] US TRANSVAGINAL W/PELVIS 88857 CLINICAL HISTORY: Pelvic pain. COMPARISON: Several CT examinations including the latest performed in October 2017 at [facility]. Real-time ultrasound examination of the pelvis was performed using transabdominal and endovaginal approach. Study was suboptimal because of patient size. The uterus is surgically absent. Normal-appearing ovary could not be identified on either side however, there is no evidence of adnexal mass or other significant abnormalities seen. IMPRESSION: Unremarkable post hysterectomy pelvic ultrasound. El ectronically Signed by Dread Montejo MD on 12/06/2017 at 0801 R eported and signed by: Dread Montejo MD CC: Rajinder Santana MD Technologist: Chata morales [facility] Probe: [id number] Trnscrbd D/ (0801) t.SDR. YOS Orig Print D/T: S: 12/06/2017 (0804) [facility] NAME: MIGUEL ÁNGELLILIAN Slade Radiology Department PHYS: Garret Nicholson MD [address] : 1975 AGE: 42 SEX: F [place], [place] [address] LOC: F.ERS PHONE #: [phone] EXAM DATE: 12/06/2017 STATUS: DEP ER FAX #: [phone] RAD NO: Page 1 Signed Report Patient Name: LILIAN DEL ROSARIO Unit No: [id number] EXAMS: CPT CODE: [id number] US TRANSVAGINAL W/PELVIS 43941 < Continued> [facility] [place] [facility] NAME: LILIAN DEL ROSARIO Radiology Department PHYS: Garret Nicholson MD [address] : 1975 AGE: 42 SEX: F [place] [address] LOC: F.ERS PHONE #: [phone] EXAM DATE: 12/06/2017 STATUS: DEP ER FAX #: [phone] RAD NO: Page 2 Signed Report - US PELVIS [id number] 08:01:00 Patient Name: LILIAN DEL ROSARIO Unit No: [id number] EXAMS: CPT CODE: [id number] US PELVIS COMPLETE 72721 CLINICAL HISTORY: Pelvic pain. COMPARISON: Several CT examinations including the latest performed in October 2017 at [facility]. Real-time ultrasound examination of the pelvis was performed using transabdominal and endovaginal approach. Study was suboptimal because of patient size. The uterus is surgically absent. Normal-appearing ovary could not be identified on either side however, there is no evidence of adnexal mass or other significant abnormalities seen. IMPRESSION: Unremarkable post hysterectomy pelvic ultrasound. at 0801 Reported and signed by: Dread Montejo MD CC: Garret Santana MD Technologist: Chata Adams RDMS Probe: Trnscrbd D/ (08) OdilonYOS [facility] Print D/T: S: 12/06/2017 (0804) [facility] [place] [facility] NAME: LILIAN DEL ROSARIO Radiology Department PHYS: Garret Nicholson MD [address] : 1975 AGE: 42 SEX: F [place] [address] LOC: Sakshi.ERS PHONE #: [phone] EXAM DATE: 12/06/2017 STATUS: DEP ER FAX #: [phone] RAD NO: Page 1 Signed Report Patient Name: LILIAN DEL ROSARIO Unit No: [id number] EXAMS: CPT CODE: [id number] US PELVIS COMPLETE 78835 <Continued> [facility] NAME: LILIAN DEL ROSARIO Radiology Department PHYS: Garret Nicholson MD [address] : 1975 AGE: 42 SEX: F [place], [place] [address] ACCT NO: [id number] LOC: F.ERS PHONE #: [phone] EXAM DATE: 11/08 STATUS: DEP ER FAX #: [phone] RAD NO: P age [address] ABDOMEN AND PELVIS W/O [id number] 06:02:38CT ABDOMEN AND PELVIS W/O CONTRASTLocation:C4Gbhen hours services are provided 11/15/2017 5:59 AMIndication:[id number]: Left flank [id number]: Blood in urineComparison: Not availableTechnique: Axial CT of the abdomen and pelvis. Sagittal and coronal reformattedimages are provided for interpretation. All CT scans at this facility use dosemodulation, iterative reconstruction, and or weight-based dosing whenappropriate to reduce radiation dose to as low as reasonably achievable .Findings:Lower thorax: The lung bases are clear.Hepatobiliary:The liver is norm al in size and density. No hepatic mass,intrahepatic biliary duct dilation or pe rihepatic fluid collection. Status postcholecystectomy.Spleen, pancreas and adre nal glands:Mild to moderate pancreatic atrophy isappreciated. The spleen and adr enal glands appear normal.Urogenital:The kidneys are normal in size and density with no focal mass,hydronephrosis or stone. The ureters are normal in course and caliber. Theurinary bladder is decompressed but otherwise unremarkable. The [place] ron issurgically absent.Gastrointestinal:The bowel is normal in course and calib er. No free air or freefluid. The appendix is normal.Lymph nodes and retroperito neum:No adenopathy or retroperitoneal mass.Vasculature:No acute abnormality.Bone s and soft tissues:No acute abnormality.Impression:No acute intra-abdominal or p elvic abnormality.PRO TIME AND [id number] 05:57:00* Test Item Value Reference Range Comments PT (test code=TT) 11.1 s 9.8-13.6 INR (test code=INR) 1.0 INRH (test code=INRH) SUGGESTED THERAPEUTIC RANGE FOR INR: 2.5 - 3.5 For Patients with Prosthetic Valves or Patients with recurrent Thromboembolic Events 2.0 - 3.0 For Most Other Applications PTT (test code=PTT) 29.5 s 20.2-38.0 PTTH (test code=PTTH) To monitor the effectiveness of heparin, we offer the Anti-Xa (Heparin Assay). It can be used for either unfractionated or LMW Heparin. Order Code is ANTI-XA URINALYSIS WITH [id number] 05:51:00* Test Item Value Reference Range Comments COLOR (test code=COLU) DK YELLOW YELLOW CLARITY (test code=CLA) CLOUDY CLEAR GLUCOSE UR (test code=UA GLUCOSE) NEGATIVE NEGATIVE BILI UR (test code=BILE) 1+ NEGATIVE KETONES UR (test code=FREDO) NEGATIVE NEGATIVE SP GRAVITY (test code=SPGR) 1.027 1.005-1.030 PH UR (test code=PH) 5.5 4.5-8.0 PROTEIN UR (test code=PU) TRACE NEGATIVE UROBIL UR (test code=UROQ) 1.0 EU/dL 0.2-1.0 NITRITE UR (test code=NITRITE) NEGATIVE NEGATIVE BLOOD UR (test code=UA BLOOD) 3+ NEGATIVE LEUK ES UR (test code=LEUK) NEGATIVE NEGATIVE WBC UR (test code=UWBC) 1 /HPF 0-5 RBC UR (test code=URBC) 45 /HPF 0-2 EPITH UR (test code=UEPC) FEW /LPF FEW BACTERIA UR (test code=UBACT) FEW /HPF NONE CAST UR (test code=CAST) /LPF NONE CRYSTAL UR (test code=CRYU) / LPF NONE MUCUS UR (test code=MUC) / HPF NONE AMORPH UR (test code=RUBY) / HPF NONE TRICH UR (test code=UTRICH) /HPF NONE YEAST UR (test code=UY) /HPF NONE SPERM UR (test code=USPERM) /HPF NONE CBC (INCLUDES AUTOMATED DIFFERENTIAL)2017-11-15 05:49:00* Test Item Value Reference Range Comments WBC (test code=WBC) 9.5 10\S\3/uL 4.5-11.0 RBC (test code=RBC) 4.72 10\S\6/uL 4.30-5.70 HGB (test code=HBG) 14.3 g/dL 12.0-15.5 HCT (test code=HCT) 41.9 % 35.0-44.0 MCV (test code=MCV) 88.8 fL 81.0-99.0 MCH (test code=MCH) 30.3 pg 27.0-31.0 MCHC (test code=MCHC) 34.1 g/dL 32.0-36.0 RDW (test code=RDW) 13.4 % 11.5-14.5 PLT (test code=PLT) 290 10\S\3/uL 130-400 MPV (test code=MPV) 10.3 fL 9.4-12.4 NEUTROP # (test code=NE#) 6.0 10\S\3/uL 1.6-8.0 LYMPH # (test code=LY#) 2.6 10\S\3/uL 1.1-3.5 MONOCYTE # (test code=MO#) 0.5 10\S\3/uL 0.0-1.1 EOSINOPH # (test code=EO#) 0.2 10\S\3/uL 0.0-0.7 BASOPHIL # (test code=BA#) 0.1 10\S\3/uL 0.0-0.3 IG # (test code=IG#) 0.04 10\S\3/uL 0.00-0.06 NRBC # (test code=NRBC#) 0.00 10\S\3/uL 0.00-0.01 NEUTROPH % (test code=NE%) 63.7 % 35.0-73.0 LYMPH % (test code=LY%) 27.8 % 20.0-55.0 MONO % (test code=MO%) 5.5 % 2.5-10.0 EOSINOPH % (test code=EO%) 1.9 % 0.0-5.0 BASOPHIL % (test code=BA%) 0.7 % 0.0-2.0 IG % (test code=IG%) 0.4 % 0.0-0.8 NRBC% (test code=NRBC%) 0.0 % 0.0-0.2 MANDIFF (test code=MDIFF) NO NO RBC MORPH (test code=RBCMOR) NORMAL - CT ABD PELVIS [id number] 08:12:00 Patient Name: LILIAN DEL ROSARIO Unit No: [id number] EXAMS: CPT CODE: [id number] CT ABD PELVIS W/CONT 99373 EXAM: - CT ABD PELVIS W/CONT LOCATION: C3 INDICATION: 42 years -old Female with ABD PAIN TECHNIQUE: Contrast - IV contrast was given. No oral contrast was given Portal venous phase - abdomen and pelvis No delayed phase images were obtained. Reconstructions - coronal and sagittal planes Automated exposure reduction (Auto mA/Smart mA) was utilized in compliance with ACR Image Wisely with DLP of 735.59 mGy-cm. COMPARISON: None FINDINGS: Statements: None. Thoracic: Included images of the lower chest demonstrate no abnormalities. Hepatobiliary: The liver is normal without focal lesion. Status post cholecystectomy. No biliary dilation. Pancreas: Normal. Spleen: Normal. Adrenals: Normal. Genitourinary: The kidneys are normal. No evidence of hydronephrosis. Evaluation of the bladder is limited, but no obvious bladder abnormality is present. Gastrointestinal: No bowel obstruction or perienteric inflammation. The appendix is not visualized. Vascular: No evidence of aneurysm or dissection. Lymphatics: No enlarged lymph nodes by CT size criteria. Bones/Soft Tissues: No acute osseous findings. No ventral hernias. Peritoneum/Other: No extraluminal air. No extraluminal fluid. IMPRESSION: 1. Limited evaluation of the pelvis given streak artifact from large body habitus. Appendix not visualized. 2. No acute fin dings in the abdomen. [facility] NAME: LILIAN DEL ROSARIO [address] [place] [address] Blvd PHYS: ALISA.01 - W Jabier del angel [place], [place] [address] : 1975 AGE: 42 SEX: F LOC: UNK PHONE #: [phone] EXAM DATE: 11/04/2017 STATUS: DEP ER FAX #: [phone] RAD #: D/C DT PAGE 1 Signed Report (CONTINUED) P atient Name: LILIAN DEL ROSARIO Unit No: [id number] EXAMS: CPT CODE: [id number] CT ABD PE LVIS W/CONT 48892 <Continued> at 0812 Reported and signed by: Mando oV MD CC: Jabier Mejia BUILDING DRAFTER Dictated Date/Time: 11/04/2017 (811) Technologist: Bernardino Pemberton CTDI: 12.40 DLP: 735.59 Trnscrpt: 11/04/2017 (811) BretR.HV2 [facility] NAME: LILIAN DEL ROSARIO [address] PHYS: ALISAMiladysJabier [place] [address] : 1975 AGE: 42 SEX: F LOC: [employer] PHONE #: EXAM DATE: 11/04/2017 STATUS: DEP ER FAX #: [phone] RAD #: D/C DT PAGE 2 Signed Report Patient Name: LILIAN DEL ROSARIO Unit No: [id number] EXAMS: CPT CODE: [id number] CT ABD PELVIS W/CONT 23285 <Continued> Orig Print D/T: S: 11/04/2017 (0815) [facility] [place] NAME: LILIAN DEL ROSARIO [address] PHYS: ALISAMiladysJabier Baldwin [place] [address] : 1975 AGE: 42 SEX: F LOC: UNK PHONE #: [phone] EXAM DATE: 11/04/2017 STATUS: DEP ER FAX #: [phone] RAD #: D/C DT PAGE 3 Signed Report - CT ABD PELVIS W/[id number] 08:12:00 Patient Name: LILIAN DEL ROSARIO Unit No: [id number] EXAMS: CPT CODE: [id number] CT ABD PELVIS W/CONT 51959 EXAM: - CT ABD PELVIS W/CONT LOCATION: C3 INDICATION: 42 years -old Female with ABD PAIN TECHNIQUE: Contrast - IV contrast was given. No oral contrast was given Portal venous phase - abdomen and pelvis No delayed phase images were obtained. Reconstructions - coronal and sagittal planes Automated exposure reduction (Auto mA/Smart mA) was utilized in compliance with ACR Image Wisely with DLP of 735.59 mGy-cm. COMPARISON: None FINDINGS: Statements: None. Thoracic: Included images of the lower chest demonstrate no abnormalities. Hepatobiliary: The liver is normal without focal le ruben. Status post cholecystectomy. No biliary dilation. Panc reas: Normal. Spleen: Normal. Adrenals: Normal. Genitourinary: The kidneys are normal. No evidence of hydronephr osis. Evaluation of the bladder is limited, but no obvious bladder abnormality is present. Gastrointestinal: No bowel obstruction or perienteric inflammation. The appendix is not visualized. Vascular: No evidence of aneurysm or dissection. Lymphatics: No enlarged lymph nodes by CT size criteria. Bones/Soft Tissues: No acute osseous findings. No ventral hernias. Peritoneum/Oth er: No extraluminal air. No extraluminal fluid. IMPRESSION: 1. Limited evaluation of the pelvis given streak artifact from large body habitus. Appendix not visualized. 2. No acute fin dings in the abdomen. [facility] NAME: LILIAN DEL ROSARIO [address] [place] [address] Blvd PHYS: ALISA.01 - W Jabier del angel NP [place], [place] [address] : 1975 AGE: 42 SEX: F LOC: [facility] PHONE #: [phone] EXAM DATE: 11/04/2017 STATUS: DEP ER FAX #: [phone] RAD #: D/C DT PAGE 1 Signed Report (CONTINUED) P atient Name: LILIAN DEL ROSARIO Unit No: [id number] EXAMS: CPT CODE: [id number] CT ABD PE LVIS W/CONT 08542 <Continued> at 0812 Reported and signed by: Mando Vo MD CC: Jabier Mejia NP Dictated Date/Time: 11/04/2017 (0812) Technologist: Bernardino Pemberton CTDI: 12.40 DLP: 735.59 Trnscrpt: 11/04/2017 (0812) t.SDR.HV2 [facility] [place] NAME: LILIAN DEL ROSARIO [address] [place] [address] PHYS: KRYSTAL Joya Jabier Mejia [place] [address] : 1975 AGE: 42 SEX: F LOC: UNK PHONE #: [phone] EXAM DATE: 11/04/2017 STATUS: DEP ER FAX #: [phone] RAD #: D/C DT PAGE 2 Signed Report Patient Name: LILIAN DEL ROSARIO Unit No: [id number] EXAMS: CPT CODE: [id number] CT ABD PELVIS W/CONT 12561 <Continued> Orig Print D/T: S: 11/04/2017 (0815) [facility] [place] NAME: LILIAN DEL ROSARIO [address] [place] [address] PHYS: KRYSTAL Joya Jabier [place] [address] : 1975 AGE: 42 SEX: F LOC: UNK PHONE #: [phone] EXAM DATE: 11/04/2017 STATUS: DEP ER FAX #: [phone] RAD #: D/C DT PAGE 3 Signed Report - CT ABD PELVIS W/[id number] 08:12:00 Patient Name: LILIAN DEL ROSARIO Unit No: [id number] EXAMS: CPT CODE: [id number] CT ABD PELVIS W/CONT 26559 EXAM: - CT ABD PELVIS W/CONT LOCATION: C3 INDICATION: 42 years -old Female with ABD PAIN TECHNIQUE: Contrast - IV contrast was given. No oral contrast was given Portal venous phase - abdomen and pelvis No delayed phase images were obtained. Reconstructions - coronal and sagittal planes Automated exposure reduction (Auto mA/Smart mA) was utilized in compliance with ACR Image Wisely with DLP of 735.59 mGy-cm. COMPARISON: None FINDINGS: Statements: None. Thoracic: Included images of the lower chest demonstrate no abnormalities. Hepatobiliary: The liver is normal without focal le ruben. Status post cholecystectomy. No biliary dilation. Panc reas: Normal. Spleen: Normal. Adrenals: Normal. Genitourinary: The kidneys are normal. No evidence of hydronephr osis. Evaluation of the bladder is limited, but no obvious bladder abnormality is present. Gastrointestinal: No bowel obstruction or perienteric inflammation. The appendix is not visualized. Vascular: No evidence of aneurysm or dissection. Lymphatics: No enlarged lymph nodes by CT size criteria. Bones/Soft Tissues: No acute osseous findings. No ventral hernias. Peritoneum/Oth er: No extraluminal air. No extraluminal fluid. IMPRESSION: 1. Limited evaluation of the pelvis given streak artifact from large body habitus. Appendix not visualized. 2. No acute fin dings in the abdomen. [facility] NAME: LILIAN DEL ROSARIO [address] [place] [address] PHYS: ALISA J[place]ier [place] [address] : 1975 AGE: 42 SEX: F LOC: [employer] PHONE #: [phone] EXAM DATE: 11/04/2017 STATUS: DEP ER FAX #: [phone] RAD #: D/C DT PAGE 1 Signed Report (CONTINUED) P atient Name: LILIAN DEL ROSARIO Unit No: [id number] EXAMS: CPT CODE: [id number] CT ABD PE LVIS W/CONT 90781 <Continued> at 0812 Reported and signed by: Mando Vo MD CC: Jabier Mejia NP Dictated Date/Time: 11/04/2017 (811) Technologist: Bernardino Pemberton CTDI: 12.40 DLP: 735.59 Trnscrpt: 11/04/2017 (811) t.SDR.HV2 [facility] NAME: LILIAN DEL ROSARIO [address] [place] [address] PHYS: Jabier Mejia [place] [id number] : 1975 AGE: 42 SEX: F LOC: [employer] PHONE #: EXAM DATE: 11/04/2017 STATUS: [facility] ER FAX #: [phone] RAD #: D/C DT PAGE 2 Signed Report Patient Name: LILIAN DEL ROSARIO Unit No: [id number] EXAMS: CPT CODE: [id number] CT ABD PELVIS W/CONT 73741 <Continued> Orig Print D/T: S: 11/04/2017 (0815) [facility] [place] NAME: LILIAN DEL ROSARIO [address] [place] [address] PHYS: ALISA.Megan - Jabier Mejia NP [place], [place] [address] : 1975 AGE: 42 SEX: F LOC: UNK PHONE #: [phone] EXAM DATE: 11/04/2017 STATUS: DEP ER FAX #: [phone] RAD #: D/C DT PAGE 3 Signed Report [id number] 05:54:00* Test Item Value Reference Range Comments Amphetamine (test code=AMPH) Negative Negative For diagnostic purposes only, positive results should always be assessedin conjunctionwith the patient's medical history,clinical examination and otherfindings.To fulfill legal requirements, a more specific alternate chemical methodmust be used inorder to obtain a Confirmed analytical result. GC/MS is the preferred confirmatory method. Barbiturates (test code=YOSSI) Negative Negative Benzodiazepine (test code=TEA) Negative Negative Cocaine (test code=COCA) Negative Negative Methadone (test code=MTHD) Negative Negative Opiates (test code=OPIA) Negative Negative PCP (test code=PCP) Negative Negative Propoxyphene (test code=PROPOX) Negative Negative THC (test code=THC) Negative Negative Alcohol, Urine (test code=ETOHU) <0.01 g/dL 0.00-0.01 01392& PELVIS W/O [id number] 05:05:16CT ABD & PELVIS W/O CONTRASTLocation:[id number] hours services provided 08/16/2017 5:05 AMIndication: Abd pain-Kidney stonesComparison:None availableTechnique: Axial CT images were acquired through the abdomen and pelviswithout contrast. All CT scans at this facility use dose modulation,iterative reconstruction, and/or weight-based dosing when appropriate toreduce radiation dose to as low as reasonably possib le.Findings:Lower thorax: Lung bases are clearHepatobiliary: The liver is normal in size and density. No intrahepaticbiliary duct dilatation is seen. Status p ost cholecystectomy.Spleen, pancreas and adrenal glands: NormalUrogenital: The k idneys are normal in size and density with no evidenceof stone or hydronephrosis . The ureters are normal in course andcaliber. The urinary bladder appears porfirio l. Status post hysterectomy.Gastrointestinal: The bowel is normal in course and caliber. No free airor free fluid. The appendix is normal.Lymph nodes in retrop eritoneum: No adenopathy or retroperitoneal mass.Bones and soft tissues: Unremar kable.Impression: 1. No evidence of obstructive uropathy.2. No acute intra-abdom inal or pelvic abnormality.Urinalysis [id number] 02:04:00* Test Item Value Reference Range Comments Color (test code=COLOR) Yellow Yellow,Straw,Pl yellow Clarity (test code=CLAR) Sl Cloudy Clear Specific Williamson (test code=SPGR) 1.025 1.001-1.035 pH (test code=PH) 6.5 5.0-9.0 Ketone (test code=KET) 5 mg/dL Negative Glucose (test code=GLUCUR) Negative mg/dL Negative Protein (test code=PROT) Negative mg/dL Negative Bilirubin (test code=BILI) Negative mg/dL Negative Occult Blood (test code=UDOB) Large Negative Urobilinogen (test code=UROB) 0.2 mg/dL 0.2-1.0 Nitrite (test code=NIT) Negative Negative Leuk Esterase (test code=LEUK) Negative Negative Micros Exam (test code=MEXAM) Indicated Epithelial Cells (test code=EPI) 3-5 /LPF 0-30 WBC, Urine (test code=UWBC) None seen /HPF 0-5 RBC, Urine (test code=URBC) 51-100 /HPF 0-5 Bacteria (test code=BACT) Few /HPF - CT ABD PELVIS W/O [id number] 01:56:00 Patient Name: LILIAN DEL ROSARIO Unit No: [id number] EXAMS: CPT CODE: [id number] CT ABD PELVIS W/O CONT 96675 CT OF THE ABDOMEN AND PELVIS WITHOUT CONTRAST LOCATION: C3 CLINICAL HISTORY: Abdominal pain. COMPARISON: No previous exam available. TECHNIQUE: 5 mm contiguous axial images were obtained from the diaphragmatic dome through the symphysis pubis. No contrast was administered. FINDINGS: A small hiatal hernia is present. Other visualized structures of the lower thorax are unremarkable. The bilateral kidneys and ureters show no urinary stone or obstruction. The liver, spleen, pancreas, and the adrenal glands are unremarkable. The gallbladder has been resected. The unopacified loops of bowel are within normal limits. No mesenteric or retroperitoneal lymphadenopathy is found. No free fluid is seen. Within the pelvis, no abnormal mass, free fluid, or free air is found. The appendix is not well seen. However, no pericecal inflammation is identified. The osseous structures are unremarkable. IMPRESSION: 1. No acute inflammation in the abdomen or pelvis. 2. No urinary stone or obstruction. 3. Small hiatal hernia. Electronically Signed by Cathy Reyes MD on 07/09 at 0156 Reported and signed by: Cathy Reyes MD CC: Nate Saenz MD Techn ologist: FABIAN GUZMÁN RT(R)(CT)(MR) CTDI: DLP: Trnscrpt: 07/09 (0156) t.SDR.JSL [facility] NAME: LILIAN DEL ROSARIO [id number] PHYS: [place] [address] D OB: 1975 AGE: 41 SEX: F LOC: [employer] PHONE #: [phone] EXAM DATE: 08/06/2017 STATUS: [employer] FAX #: [phone] RAD #: D/C DT PAGE 1 Signed Report Patient Name: LILIAN DEL ROSARIO Unit No: [id number] EXAMS: CPT CODE: [id number] CT ABD PELVIS W/O CONT 42640 < Continued> Orig Print D/T: S: 08/06/2017 (0159) [facility] NAME: LILIAN DEL ROSARIO [id number] PHYS: [place] [address] : 1975 AGE: 41 SEX: F LOC: [employer] PHONE #: [phone] EXAM DATE: 08/06/2017 STATUS: [employer] FAX #: [phone] RAD #: D/C DT PAGE 2 Signed Report COMPREHENSIVE METABOLIC [id number] 04:55:00* Test Item Value Reference Range Comments TOTAL PROTEIN (BEAKER) (test eylp=216) 7.1 gm/dL 6.0-8.5 ALBUMIN (BEAKER) (test sdrm=0678) 3.5 g/dL 3.5-5.0 ALKALINE PHOSPHATASE (BEAKER) (test wkzq=173) 116 U/L 30-115 BILIRUBIN TOTAL (BEAKER) (test rmiq=322) 0.6 mg/dL 0.1-1.2 SODIUM (BEAKER) (test skht=603) 140 meq/L 135-148 POTASSIUM (BEAKER) (test srxq=537) 3.6 meq/L 3.6-5.5 CHLORIDE (BEAKER) (test zrrx=163) 105 meq/L 98-106 CO2 (BEAKER) (test imcf=383) 24 meq/L 24-32 BLOOD UREA NITROGEN (BEAKER) (test korr=407) 16 mg/dL 10-26 CREATININE (BEAKER) (test mrpt=435) 0.80 mg/dL 0.50-1.20 GLUCOSE RANDOM (BEAKER) (test wdgc=269) 105 mg/dL 70-110 CALCIUM (BEAKER) (test qley=090) 8.8 mg/dL 8.5-10.5 AST (SGOT) (BEAKER) (test yfnw=182) 22 U/L 5-40 ALT (SGPT) (BEAKER) (test yczj=566) 37 U/L 5-50 EGFR (BEAKER) (test tsix=6857) 95 mL/min/1.73 sq m ESTIMATED GFR IS NOT ACCURATE CREATININE CLEARANCE IN PREDICTING GLOMERULAR FILTRATION RATE. ESTIMATED GFR IS NOT APPLICABLE FOR DIALYSIS PATIENTS. CBC W/PLT COUNT & AUTO [id number] 04:40:00* Test Item Value Reference Range Comments WHITE BLOOD CELL COUNT (BEAKER) (test zent=604) 6.7 K/ L 4.0-10.0 RED BLOOD CELL COUNT (BEAKER) (test rspu=967) 4.16 M/ L 4.00-5.00 HEMOGLOBIN (BEAKER) (test epcj=626) 12.2 GM/DL 12.0-15.0 HEMATOCRIT (BEAKER) (test ovnp=596) 36.2 % 36.0-45.0 MEAN CORPUSCULAR VOLUME (BEAKER) (test sfut=966) 87.0 fL 82.0-99.0 MEAN CORPUSCULAR HEMOGLOBIN (BEAKER) (test yelq=019) 29.3 pg 27.0-33.0 MEAN CORPUSCULAR HEMOGLOBIN CONC (BEAKER) (test pmpu=450) 33.7 GM/DL 32.0-36.0 RED CELL DISTRIBUTION WIDTH (BEAKER) (test ubyv=704) 13.2 % 12.0-15.0 PLATELET COUNT (BEAKER) (test ovic=223) 243 K/CU MM 150-430 MEAN PLATELET VOLUME (BEAKER) (test jnjh=575) 9.7 fL 6.5-11.5 NUCLEATED RED BLOOD CELLS (BEAKER) (test monp=099) 0 /100 WBC 0-0 NEUTROPHILS RELATIVE PERCENT (BEAKER) (test jfms=747) 68 % LYMPHOCYTES RELATIVE PERCENT (BEAKER) (test odkc=450) 21 % MONOCYTES RELATIVE PERCENT (BEAKER) (test afmo=302) 7 % EOSINOPHILS RELATIVE PERCENT (BEAKER) (test afma=403) 3 % BASOPHILS RELATIVE PERCENT (BEAKER) (test hblx=741) 0 % NEUTROPHILS ABSOLUTE COUNT (BEAKER) (test tchx=457) 4.59 K/ L 1.80-8.00 LYMPHOCYTES ABSOLUTE COUNT (BEAKER) (test bgnq=206) 1.40 K/ L 1.48-4.50 MONOCYTES ABSOLUTE COUNT (BEAKER) (test ahze=965) 0.45 K/ L 0.00-1.30 EOSINOPHILS ABSOLUTE COUNT (BEAKER) (test sbmi=086) 0.22 K/ L 0.00-0.50 BASOPHILS ABSOLUTE COUNT (BEAKER) (test ypnb=431) 0.03 K/ L 0.00-0.20 IMMATURE GRANULOCYTES-RELATIVE PERCENT (BEAKER) (test tlrk=2851) 0 % 0-0 URINALYSIS W/ REFLEX URINE [id number] 04:31:00* Test Item Value Reference Range Comments COLOR (BEAKER) (test ubxs=555) Yellow CLARITY (BEAKER) (test ktir=757) Clear SPECIFIC GRAVITY UA (BEAKER) (test rgyp=273) 1.020 1.001-1.035 PH UA (BEAKER) (test ovlq=931) 6.0 5.0-8.0 PROTEIN UA (BEAKER) (test donl=270) Negative Negative GLUCOSE UA (BEAKER) (test vrnr=510) Negative Negative KETONES UA (BEAKER) (test hzhj=888) Negative Negative BILIRUBIN UA (BEAKER) (test ziqb=548) Negative Negative BLOOD UA (BEAKER) (test gmiy=153) Trace Negative NITRITE UA (BEAKER) (test tkdf=744) Negative Negative LEUKOCYTE ESTERASE UA (BEAKER) (test xmur=068) Negative Negative UROBILINOGEN UA (BEAKER) (test msck=141) 1.0 mg/dL 0.2-1.0 BACTERIA (BEAKER) (test assj=496) Rare RBC UA-MANUAL (BEAKER) (test hrpn=9335) <5 /HPF WBC UA-MANUAL (BEAKER) (test spiv=5128) <5 /HPF SQUAMOUS EPITHELIAL MANUAL (BEAKER) (test fxed=1638) <5 /HPF SOURCE(BEAKER) (test tqid=8494) U/S, ENDOVAGINAL (EV)2017-04-10 08:41:00Reason for exam:->ABDOMINAL PAINFINAL REPORT ULTRASOUND PELVIS, ULTRASOUND TRANSVAGINAL, ULTRASOUND DUPLEX DOPPLER HISTORY: Abdominal and pelvic pain COMPARISON: CT abd omen and pelvis of 04/10/2007 TECHNIQUE: Real-time ultrasound of the pelvis was p erformed transabdominally and transvaginally. Examination included color and spe ctral Doppler evaluation of the adnexal regions. FINDINGS: The uterus is surgica lly absent. The ovaries could not be visualized transabdominally or transvaginal ly, in spite of multiple attempts. No adnexal abnormalities was visualized on CT abdomen and pelvis from earlier today. No pelvic mass lesion was identified . No significant pelvic free fluid. IMPRESSION: 1. Prior hysterectomy. 2. The ov daren could not be visualized with ultrasound. No adnexal mass lesion was visual ized. Signed: Nate Madsen MDReport Verified Date/Time: 04/10/2017 08:41:33 Suzie hernández Location: [facility] C0[facility] Ortho Consult Reading Room Electronically sign ed by: NATE MADSEN MD on 04/10/2017 08:41 AM U/S, PELVIS, WITH DOPPLER 2017-04-10 08:41:00Reason for exam:->ABDOMINAL PAINFINAL REPORT ULTRASOUND PELVIS, ULTRASOUND TRANSVAGINAL, ULTRASOUND DUPLEX DOPPLER HISTORY: Abdominal and pelvic pain COMPARISON: CT abdomen and pelvis of 04/10/2007 TECHNIQUE: Real-time ultrasound of the pelvis was performed transabdominally and transvaginally. Examination included color and spectral Doppler evaluation of the adnexal regions. FINDINGS: The uterus is surgically absent. The ovaries could not be visualized transabdominally or transvaginally, in spite of multiple attempts. No adnexal abnormalities was visualized on the CT abdomen and pelvis from earlier today. No pelvic mass lesion was identified. No significant pelvic free fluid. IMPRESSION: 1. Prior hysterectomy. 2. The ovaries could not be visualized with ultrasound. No adnexal mass lesion was visualized. Signed: Nate Madsen MDReport Verified Date/Time: 04/10/2017 08:41:33 Reading Location: [address] Consult Reading Room ALYSIS WITH MICROSCOPIC IF [id number] 04:31:00* Test Item Value Reference Range Comments COLOR (BEAKER) (test zaiu=549) Yellow CLARITY (BEAKER) (test qipp=646) Clear SPECIFIC GRAVITY UA (BEAKER) (test muqm=611) 1.015 1.001-1.035 PH UA (BEAKER) (test ywsx=949) 6.0 5.0-8.0 PROTEIN UA (BEAKER) (test alrl=972) Negative Negative GLUCOSE UA (BEAKER) (test hqlv=107) Negative Negative KETONES UA (BEAKER) (test norv=792) Negative Negative BILIRUBIN UA (BEAKER) (test ltlv=248) Negative Negative BLOOD UA (BEAKER) (test lhdy=192) Negative Negative NITRITE UA (BEAKER) (test bafz=377) Negative Negative LEUKOCYTE ESTERASE UA (BEAKER) (test ixrn=351) Negative Negative UROBILINOGEN UA (BEAKER) (test brif=332) 0.2 mg/dL 0.2-1.0 SOURCE(BEAKER) (test exud=9747) CT, [id number] 04:12:00Reason for exam:->ABDOMINAL PAINIs the patient ?->NoWhat is the patient's sedation requirement?->No SedationFINAL REPORT CLINICAL HISTORY: Acute abdominal pain, right lower quadrant pain FINDINGS: Multiple axial images of the abdomen and pelvis were performed without intravenous contrast. Oral contrast was not given. This exam was performed according to our departmental dose-optimization program, whic h includes automated exposure control, adjustment of the mA and/or kV according to patient size and/or use of the iterative reconstruction technique. The examin ation is limited by patient body habitus and gantry contact artifact. Comparison : 04/03/2017 Lower chest: Clear lungs. No pleural effusion or pneumothorax. Visu alized cardiac contours normal. Liver: No significant findings. Gallbladder and biliary tree: Previous cholecystectomy Spleen: No significant findings. Adrenal Glands: No significant findings. Kidneys and ureters: No significant findings. S tomach and Duodenum: Small hiatal hernia Pancreas: No significant findings. Renetta l: No significant findings. Appendix: Nonvisualized. No right lower quadrant inf lammatory changes. Bladder: No significant findings. Major vascular structures: No significant findings. Reproductive organs: Previous hysterectomy. Normal adne xa. Other: No free air, fluid or adenopathy Skeleton: No acute bony abnormality . IMPRESSION: No acute abnormality to explain the patient's pain. Small hiatal h ernia. Postsurgical changes, as described. Signed: Bernardo De Oliveira MDReport Verifi ed Date/Time: 04/10/2017 04:12:51 Reading Location: [address] 04:1 2 AM [id number] 03:36:00* Test Item Value Reference Range Comments LIPASE (BEAKER) (test tuml=175) 22 U/L 6-51 COMPREHENSIVE METABOLIC [id number] 03:36:00* Test Item Value Reference Range Comments TOTAL PROTEIN (BEAKER) (test mnkm=080) 7.3 gm/dL 6.0-8.5 ALBUMIN (BEAKER) (test ijxm=6717) 3.6 g/dL 3.5-5.0 ALKALINE PHOSPHATASE (BEAKER) (test zprp=848) 137 U/L 30-115 BILIRUBIN TOTAL (BEAKER) (test tpji=469) 0.5 mg/dL 0.1-1.2 SODIUM (BEAKER) (test yuqg=590) 139 meq/L 135-148 POTASSIUM (BEAKER) (test xxqk=762) 3.9 meq/L 3.6-5.5 CHLORIDE (BEAKER) (test nxve=044) 106 meq/L 98-106 CO2 (BEAKER) (test bjer=730) 24 meq/L 20-29 BLOOD UREA NITROGEN (BEAKER) (test viku=165) 13 mg/dL 10-26 CREATININE (BEAKER) (test tydc=645) 0.74 mg/dL 0.50-1.20 GLUCOSE RANDOM (BEAKER) (test twiw=032) 106 mg/dL 70-110 CALCIUM (BEAKER) (test whng=790) 9.4 mg/dL 8.5-10.5 AST (SGOT) (BEAKER) (test gsqj=486) 17 U/L 5-40 ALT (SGPT) (BEAKER) (test kfvj=509) 17 U/L 5-50 EGFR (BEAKER) (test nuar=3129) 104 mL/min/1.73 sq m ESTIMATED GFR IS NOT ACCURATE CREATININE CLEARANCE IN PREDICTING GLOMERULAR FILTRATION RATE. ESTIMATED GFR IS NOT APPLICABLE FOR DIALYSIS PATIENTS. LACTIC ACID, VENOUS, WHOLE [id number] 03:31:00* Test Item Value Reference Range Comments LACTATE BLOOD VENOUS (2) (BEAKER) (test vddi=8018) 1.0 mmol/L 0.5-2.2 Effective 09/10/2015: Units/Reference Range ChangeNew: 0.5-2.2 mmol/L Previous: 5 -18 mg/dLCBC W/PLT COUNT & AUTO [id number] 03:19:00* Test Item Value Reference Range Comments WHITE BLOOD CELL COUNT (BEAKER) (test xycr=377) 11.7 K/ L 4.0-10.0 RED BLOOD CELL COUNT (BEAKER) (test gdpl=943) 4.29 M/ L 4.00-5.00 HEMOGLOBIN (BEAKER) (test mtll=626) 12.8 GM/DL 12.0-15.0 HEMATOCRIT (BEAKER) (test euvb=937) 38.5 % 36.0-45.0 MEAN CORPUSCULAR VOLUME (BEAKER) (test bgoa=392) 89.7 fL 82.0-99.0 MEAN CORPUSCULAR HEMOGLOBIN (BEAKER) (test telk=804) 29.8 pg 27.0-33.0 MEAN CORPUSCULAR HEMOGLOBIN CONC (BEAKER) (test bcfz=668) 33.2 GM/DL 32.0-36.0 RED CELL DISTRIBUTION WIDTH (BEAKER) (test ropf=705) 13.5 % 10.3-14.2 PLATELET COUNT (BEAKER) (test qnsz=919) 289 K/CU MM 150-430 MEAN PLATELET VOLUME (BEAKER) (test zjmk=557) 9.9 fL 6.5-10.5 NUCLEATED RED BLOOD CELLS (BEAKER) (test unsx=223) 0 /100 WBC 0-0 NEUTROPHILS RELATIVE PERCENT (BEAKER) (test nvbd=440) 75 % LYMPHOCYTES RELATIVE PERCENT (BEAKER) (test pbwe=016) 19 % MONOCYTES RELATIVE PERCENT (BEAKER) (test gipl=819) 5 % EOSINOPHILS RELATIVE PERCENT (BEAKER) (test vheh=320) 2 % BASOPHILS RELATIVE PERCENT (BEAKER) (test evyz=692) 0 % NEUTROPHILS ABSOLUTE COUNT (BEAKER) (test fwfw=079) 8.77 K/ L 1.80-8.00 LYMPHOCYTES ABSOLUTE COUNT (BEAKER) (test cspz=797) 2.20 K/ L 1.48-4.50 MONOCYTES ABSOLUTE COUNT (BEAKER) (test hufd=911) 0.53 K/ L 0.00-1.30 EOSINOPHILS ABSOLUTE COUNT (BEAKER) (test lwmh=532) 0.17 K/ L 0.00-0.50 BASOPHILS ABSOLUTE COUNT (BEAKER) (test fxgp=638) 0.04 K/ L 0.00-0.20 CT, [id number] 01:25:00Reason for exam:->ABDOMINAL PAINIs the patient ?->UnknownWhat is the patient's sedation requirement?->No SedationFINAL REPORT CLINICAL HISTORY: Acute abdominal pain. FINDINGS: Multiple axial images of the abdomen and pelvis were performed after the uncomplicated administration of IV contrast. Oral contrast was not given. This exam was performed according to our departmental dose-optimization program, whic h includes automated exposure control, adjustment of the mA and/or kV according to patient size and/or use of the iterative reconstruction technique. The examin ation is limited by patient body habitus. Comparison: January 04, 2017 Lower ches t: Calcified granuloma in the left lower lobe. No pleural effusion or pneumothor ax. Visualized cardiac contours normal. Liver: No significant findings. Gallblad saroj and biliary tree: Previous cholecystectomy Spleen: No significant findings. Adrenal Glands: No significant findings. Kidneys and ureters: No significant fin dings. Stomach and Duodenum: Small hiatal hernia Pancreas: No significant findin gs. Bowel: No significant findings. Appendix: Nonvisualized. No right lower quad rant inflammatory changes. Bladder: No significant findings. Major vascular stru ctures: No significant findings. Reproductive organs: Previous hysterectomy Othe r: No free air, fluid or adenopathy Skeleton: No acute bony abnormality. IMPRES RUBEN: Small hiatal hernia. Postsurgical changes, as described. Signed: Bernardo De Oliveiraeport Verified Date/Time: 04/03/2017 01:25:21 Reading Location: [address] Reading Room [id number] 00:22:00* Test Item Value Reference Range Comments LIPASE (BEAKER) (test kokm=911) 21 U/L 6-51 COMPREHENSIVE METABOLIC [id number] 00:22:00* Test Item Value Reference Range Comments TOTAL PROTEIN (BEAKER) (test oshw=482) 7.4 gm/dL 6.0-8.5 ALBUMIN (BEAKER) (test jakb=1030) 3.7 g/dL 3.5-5.0 ALKALINE PHOSPHATASE (BEAKER) (test bwnc=899) 132 U/L 30-115 BILIRUBIN TOTAL (BEAKER) (test ldet=231) 0.3 mg/dL 0.1-1.2 SODIUM (BEAKER) (test uhat=193) 137 meq/L 135-148 POTASSIUM (BEAKER) (test ylst=459) 3.6 meq/L 3.6-5.5 CHLORIDE (BEAKER) (test styb=035) 106 meq/L 98-106 CO2 (BEAKER) (test xgfj=711) 22 meq/L 20-29 BLOOD UREA NITROGEN (BEAKER) (test gowz=676) 14 mg/dL 10-26 CREATININE (BEAKER) (test utqs=955) 0.77 mg/dL 0.50-1.20 GLUCOSE RANDOM (BEAKER) (test fnbs=770) 116 mg/dL 70-110 CALCIUM (BEAKER) (test blgc=468) 9.3 mg/dL 8.5-10.5 AST (SGOT) (BEAKER) (test yean=328) 14 U/L 5-40 ALT (SGPT) (BEAKER) (test sojz=634) 16 U/L 5-50 EGFR (BEAKER) (test mgfk=0189) 100 mL/min/1.73 sq m ESTIMATED GFR IS NOT ACCURATE CREATININE CLEARANCE IN PREDICTING GLOMERULAR FILTRATION RATE. ESTIMATED GFR IS NOT APPLICABLE FOR DIALYSIS PATIENTS. CBC W/PLT COUNT & AUTO [id number] 00:01:00* Test Item Value Reference Range Comments WHITE BLOOD CELL COUNT (BEAKER) (test qaqr=348) 9.9 K/ L 4.0-10.0 RED BLOOD CELL COUNT (BEAKER) (test zofc=318) 4.38 M/ L 4.00-5.00 HEMOGLOBIN (BEAKER) (test bpiy=521) 13.1 GM/DL 12.0-15.0 HEMATOCRIT (BEAKER) (test ywes=637) 39.8 % 36.0-45.0 MEAN CORPUSCULAR VOLUME (BEAKER) (test kvzr=395) 90.9 fL 82.0-99.0 MEAN CORPUSCULAR HEMOGLOBIN (BEAKER) (test eozz=030) 29.9 pg 27.0-33.0 MEAN CORPUSCULAR HEMOGLOBIN CONC (BEAKER) (test xwkv=894) 32.9 GM/DL 32.0-36.0 RED CELL DISTRIBUTION WIDTH (BEAKER) (test rzvi=046) 13.5 % 10.3-14.2 PLATELET COUNT (BEAKER) (test lcvi=354) 291 K/CU MM 150-430 MEAN PLATELET VOLUME (BEAKER) (test jwhv=479) 9.7 fL 6.5-10.5 NUCLEATED RED BLOOD CELLS (BEAKER) (test bltk=992) 0 /100 WBC 0-0 NEUTROPHILS RELATIVE PERCENT (BEAKER) (test ggtc=102) 70 % LYMPHOCYTES RELATIVE PERCENT (BEAKER) (test qfkl=812) 24 % MONOCYTES RELATIVE PERCENT (BEAKER) (test rvrd=301) 4 % EOSINOPHILS RELATIVE PERCENT (BEAKER) (test wxrr=101) 2 % BASOPHILS RELATIVE PERCENT (BEAKER) (test zpym=943) 1 % NEUTROPHILS ABSOLUTE COUNT (BEAKER) (test shpm=165) 6.85 K/ L 1.80-8.00 LYMPHOCYTES ABSOLUTE COUNT (BEAKER) (test tohd=752) 2.35 K/ L 1.48-4.50 MONOCYTES ABSOLUTE COUNT (BEAKER) (test izes=920) 0.43 K/ L 0.00-1.30 EOSINOPHILS ABSOLUTE COUNT (BEAKER) (test vlql=595) 0.17 K/ L 0.00-0.50 BASOPHILS ABSOLUTE COUNT (BEAKER) (test zdcv=370) 0.05 K/ L 0.00-0.20 URINALYSIS W/ REFLEX URINE [id number] 20:02:00* Test Item Value Reference Range Comments COLOR (BEAKER) (test dvsf=487) Yellow CLARITY (BEAKER) (test cpxx=960) Clear SPECIFIC GRAVITY UA (BEAKER) (test pyab=238) 1.020 1.001-1.035 PH UA (BEAKER) (test nokp=909) 7.5 5.0-8.0 PROTEIN UA (BEAKER) (test gsky=654) Negative Negative GLUCOSE UA (BEAKER) (test mslc=530) Negative Negative KETONES UA (BEAKER) (test gwxl=431) Negative Negative BILIRUBIN UA (BEAKER) (test mleu=941) Negative Negative BLOOD UA (BEAKER) (test oiex=021) Negative Negative NITRITE UA (BEAKER) (test evbe=135) Negative Negative LEUKOCYTE ESTERASE UA (BEAKER) (test jziv=522) Small Negative UROBILINOGEN UA (BEAKER) (test bgdr=169) 1.0 mg/dL 0.2-1.0 BACTERIA (BEAKER) (test yylt=812) Rare RBC UA-MANUAL (BEAKER) (test puth=1767) None Seen /HPF WBC UA-MANUAL (BEAKER) (test dgts=7837) <5 /HPF SQUAMOUS EPITHELIAL MANUAL (BEAKER) (test icfn=9903) <5 /HPF SOURCE(BEAKER) (test vzwt=0624) - CT ABD PELVIS W/O [id number] 20:50:00 Patient Name: LILIAN DEL ROSARIO Unit No: [id number] EXAMS: CPT CODE: [id number] CT ABD PELVIS W/O CONT 29283 CT SCAN OF THE ABDOMEN AND PELVIS WITHOUT IV CONTRAST Location: N13 CLINICAL HISTORY: Abdominal pain TECHNIQUE: Helical CT of the abdomen and pelvis was performed without IV or oral contrast without complication. Automatic exposure control and radiation dose reduction techniques were used. Coronal and sagittal reconstructions were obtained. CT scan performed without IV or oral contrast has limited sensitivity for mass or inflammation. DLP 1178 mGy*cm Comparison study normal CT scan November 23, 2016 FINDINGS: The visualized lung bases are clear. No evidence of pleural effusion. Liver is normal in size without intrahepatic biliary dilatation or focal mass. The gallbladder is surgically absent. The pancreas, spleen, and adrenal glands are normal. There is no evidence of hydronephrosis, solid mass or obstructing kidney stone. Visualized ureters are unremarkable. There is no evid ence of pancreatic mass, atrophy, calcification. There is no abdomina l free fluid or adenopathy. There is no bowel wall thickening or dilatatio n. There is no evidence of appendicitis, diverticulitis, colitis or bowel obstruction. There is obesity. No free air. No ventral hernia. The nor mal appendix is seen on axial image 270 measuring approximately 0.57 cm in diameter. Tiny 0.3 calcification likely appendicolith is again seen at i ts tip. No adjacent inflammatory change. In the pelvis, the re is beam hardening artifact from patient large body habitus. There is n o free fluid or adenopathy present. The bladder and visualized structu res are normal. The uterus may be surgically absent. No adnexal mass. The vascular, bony and muscular structures are unremarkable. IMPRESSION: 1. No acute findings demonstrated. 2. Obesity. Prior cholecystectomy. Probable prior hysterectomy. at 2049 Reported and signed by: Nuzhat Van M.D. CC: Antoinette sheppard NP Dictated Date/Time: 03/17/2017 (2049) Technologist: Grace Schmid CTDI: 20.03 DLP: 1178.77 Trnscrpt: 03/17/2017 (2049) [facility] NAME: LILIAN DEL ROSARIO [address] [place] [address] Blvd PHYS: [place], [place] [address] : 1975 AGE: 41 SEX: F LOC: UNK PHONE #: [phone] EXAM DATE: 03/17/2017 STATUS: UNK FAX #: [phone] RAD #: D/C DT PAGE 1 Signed Report Patient Name: LILIAN DEL ROSARIO Unit No: [id number] EXAMS: CPT COD E: [id number] CT ABD PELVIS W/O CONT 25307 <Continued> Orig Print D/T: S: 03/17/2017 (2052) [facility] NAME: LILIAN DEL ROSARIO [address] [place] [address] Blvd PHYS: Antoinette Ruano [place] [address] : 1975 AGE: 41 SEX: F LOC: UNK PHONE #: [phone] EXAM DATE: 03/17/2017 STATUS: UNK FAX #: [phone] RAD #: D/C DT PAGE 2 Signed Report - CT ABD PELVIS W/O [id number] 20:50:00 Patient Name: LILIAN DEL ROSARIO Unit No: [id number] EXAMS: CPT CODE: [id number] CT ABD PELVIS W/O CONT 31621 CT SCAN OF THE ABDOMEN AND PELVIS WITHOUT IV CONTRAST Location: N13 CLINICAL HISTORY: Abdominal pain TECHNIQUE: Helical CT of the abdomen and pelvis was performed without IV or oral contrast without complication. Automatic exposure control and radiation dose reduction techniques were used. Coronal and sagittal reconstructions were obtained. CT scan performed without IV or oral contrast has limited sensitivity for mass or inflamma tion. DLP 1178 mGy*cm Comparison study normal CT scan November 23, 2016 FINDINGS: The visualized lung bases are clear. No evidence of pleural effusion. Liver is normal in s ize without intrahepatic biliary dilatation or focal mass. The gallbladder is surgically absent. The pancreas, spleen, and adrenal glands are norm al. There is no evidence of hydronephrosis, solid mass or obstructing kidney stone. Visualized ureters are unremarkable. There is no evid ence of pancreatic mass, atrophy, calcification. There is no abdomina l free fluid or adenopathy. There is no bowel wall thickening or dilatatio n. There is no evidence of appendicitis, diverticulitis, colitis or bowel obstruction. There is obesity. No free air. No ventral hernia. The nor mal appendix is seen on axial image 270 measuring approximately 0.57 cm in diameter. Tiny 0.3 calcification likely appendicolith is again seen at i ts tip. No adjacent inflammatory change. In the pelvis, the re is beam hardening artifact from patient large body habitus. There is n o free fluid or adenopathy present. The bladder and visualized structu res are normal. The uterus may be surgically absent. No adnexal mass. The vascular, bony and muscular structures are unremarkable. IMPRESSION: 1. No acute findings demonstrated. 2. Obesity. Prior cholecystectomy. Probable prior hysterectomy. at 2049 Reported and signed by: Nuzhat Van M.D. CC: Antoinette sheppard BUILDING DRAFTER Dictated Date/Time: 03/17/2017 (2049) Technologist: Grace Schmid CTDI: 20.03 DLP: 1178.77 Trnscrpt: 03/17/2017 (2049) [facility] NAME: LILIAN DEL ROSARIO [address] [place] [address] PHYS: [place] [address] : 1975 AGE: 41 SEX: F LOC: [employer] PHONE #: [phone] EXAM DATE: 03/17/2017 STATUS: UNSpacebar FAX #: [phone] RAD #: D/C DT PAGE 1 Signed Report Patient Name: LILIAN DEL ROSARIO Unit No: [id number] EXAMS: CPT COD E: [id number] CT ABD PELVIS W/O CONT 74662 <Continued> Orig Print D/T: S: 03/17/2017 (2052) [facility] NAME: LILIAN DEL ROSARIO [address] [place] [address] PHYS: GRAHAM [place] [address] : 1975 AGE: 41 SEX: F LOC: [employer] PHONE #: [phone] EXAM DATE: 03/17/2017 STATUS: UNK FAX #: [phone] RAD #: D/C DT PAGE 2 Signed Report - CT ABD PELVIS W/O [id number] 20:50:00 Patient Name: LILIAN DEL ROSARIO Unit No: [id number] EXAMS: CPT CODE: [id number] CT ABD PELVIS W/O CONT 30077 CT SCAN OF THE ABDOMEN AND PELVIS WITHOUT IV CONTRAST Location: N13 CLINICAL HISTORY: Abdominal pain TECHNIQUE: Helical CT of the abdomen and pelvis was performed without IV or oral contrast without complication. Automatic exposure control and radiation dose reduction techniques were used. Coronal and sagittal reconstructions were obtained. CT scan performed without IV or oral contrast has limited sensitivity for mass or inflamma tion. DLP 1178 mGy*cm Comparison study normal CT scan November 23, 2016 FINDINGS: The visualized lung bases are clear. No evidence of pleural effusion. Liver is normal in s ize without intrahepatic biliary dilatation or focal mass. The gallbladder is surgically absent. The pancreas, spleen, and adrenal glands are norm al. There is no evidence of hydronephrosis, solid mass or obstructing kidney stone. Visualized ureters are unremarkable. There is no evid ence of pancreatic mass, atrophy, calcification. There is no abdomina l free fluid or adenopathy. There is no bowel wall thickening or dilatatio n. There is no evidence of appendicitis, diverticulitis, colitis or bowel obstruction. There is obesity. No free air. No ventral hernia. The nor mal appendix is seen on axial image 270 measuring approximately 0.57 cm in diameter. Tiny 0.3 calcification likely appendicolith is again seen at i ts tip. No adjacent inflammatory change. In the pelvis, the re is beam hardening artifact from patient large body habitus. There is n o free fluid or adenopathy present. The bladder and visualized structu res are normal. The uterus may be surgically absent. No adnexal mass. The vascular, bony and muscular structures are unremarkable. IMPRESSION: 1. No acute findings demonstrated. 2. Obesity. Prior cholecystectomy. Probable prior hysterectomy. at 2050 Reported and signed by: Nuzhat Van M.D. CC: Antoinette sheppard NP Dictated Date/Time: 03/17/2017 (2049) Technologist: Grace Schmid CTDI: 20.03 DLP: 1178.77 Trnscrpt: 03/17/2017 (2049) [facility] NAME: LILIAN DEL ROSARIO [address] [place] [address] PHYS: Antoinette Ruano [place] [address] : 1975 AGE: 41 SEX: F LOC: [employer] PHONE #: [phone] EXAM DATE: 03/17/2017 STATUS: UNK FAX #: [phone] RAD #: D/C DT PAGE 1 Signed Report Patient Name: LILIAN DEL ROSARIO Unit No: [id number] EXAMS: CPT COD E: [id number] CT ABD PELVIS W/O CONT 29362 <Continued> Orig Print D/T: S: 03/17/2017 (2052) [facility] NAME: LILIAN DEL ROSARIO [address] [place] [address] PHYS: Antoinette Ruano [place] [address] : 1975 AGE: 41 SEX: F LOC: [facility] PHONE #: [phone] EXAM DATE: 03/17/2017 STATUS: [employer] FAX #: [phone] RAD #: D/C DT PAGE [address], [id number] 02:40:00Reason for exam:->ABDOMINAL PAIN, diffuse, left flank painIs the patient ?->UnknownWhat is the patient's sedation requirement?->No SedationFINAL REPORT CT, ABDOMEN \T\ PELVIS, WITH IV CONTRAST INDICATION: ABDOMINAL PAIN, diffuse, left flank painABDOMINAL PAIN, diffuse, left flank pain COMPARISON: September 19, 2016 TECHNIQUE:Post contrast abdomen and pelvis CT. Coronal and sagittal reformatted images obtained. DOSE REDUCTION: Dose modulation, iterative reconstruction, and/or weight-based adjustment of the mA/kV was utilized to reduce the radiation dose to as low as reasonably achievable. FINDINGS: Lower thorax: Visible airspaces clear. No effusion. Liver: Diffuse fatty infiltration.Gallbladder and biliary tree: No ductal dilation following cholecystectomy.Pancreas: No acute findings.Spleen: No acute findingsAdrenal Glands: No acute findings.Kidneys and ureters: No hydronephrosis or nephrolithiasis.Bladder and reproductive organs: Unremarkable urinary bladder. Prior hysterectomy. Stomach and Duodenum: Small sliding hiatal hernia.Small and large intestine: Normal calibers.Appendix: The appendix is not identified. No pericecal inflammatory changes are present. Major vascular structures: Normal aortic caliber.Peritoneum and retroperitoneum: No free air, fluid or adenopathy. Skeleton: No acute bony a bnormality.Additional findings: None. IMPRESSION: No acute abnormality in the a bdomen or pelvis to explain abdominal pain. Signed: JR Lubin Robert MDR eport Verified Date/Time: 03/09/2017 02:40:09 Reading Location: [address] Reading Room Electronically signed by: TOMMIE LUBIN on 05/2016 02:40 AM [id number] 02:27:00* Test Item Value Reference Range Comments LIPASE (BEAKER) (test hlbf=026) 22 U/L 8-78 COMPREHENSIVE METABOLIC [id number] 02:27:00* Test Item Value Reference Range Comments TOTAL PROTEIN (BEAKER) (test nxtm=003) 7.3 gm/dL 6.0-8.5 ALBUMIN (BEAKER) (test moiz=0648) 3.6 g/dL 3.5-5.0 ALKALINE PHOSPHATASE (BEAKER) (test fgco=030) 126 U/L 30-115 BILIRUBIN TOTAL (BEAKER) (test tkag=767) 0.3 mg/dL 0.1-1.3 SODIUM (BEAKER) (test writ=208) 139 meq/L 135-148 POTASSIUM (BEAKER) (test dqxn=489) 3.7 meq/L 3.5-5.5 CHLORIDE (BEAKER) (test vppy=809) 106 meq/L 98-106 CO2 (BEAKER) (test kbsw=665) 25 meq/L 20-31 BLOOD UREA NITROGEN (BEAKER) (test lcgz=838) 14 mg/dL 10-26 CREATININE (BEAKER) (test vdsw=187) 0.80 mg/dL 0.50-1.20 GLUCOSE RANDOM (BEAKER) (test ndro=231) 93 mg/dL 70-110 CALCIUM (BEAKER) (test muly=509) 9.3 mg/dL 8.5-10.5 AST (SGOT) (BEAKER) (test jltq=371) 17 U/L 5-40 ALT (SGPT) (BEAKER) (test jsph=994) 23 U/L 6-50 EGFR (BEAKER) (test qtul=7449) 95 mL/min/1.73 sq m ESTIMATED GFR IS NOT ACCURATE CREATININE CLEARANCE IN PREDICTING GLOMERULAR FILTRATION RATE. ESTIMATED GFR IS NOT APPLICABLE FOR DIALYSIS PATIENTS. CBC W/PLT COUNT & AUTO [id number] 02:04:00* Test Item Value Reference Range Comments WHITE BLOOD CELL COUNT (BEAKER) (test sxlg=475) 8.0 K/ L 4.0-10.0 RED BLOOD CELL COUNT (BEAKER) (test mgsz=030) 4.24 M/ L 4.00-5.00 HEMOGLOBIN (BEAKER) (test uwtm=673) 12.2 GM/DL 12.0-15.0 HEMATOCRIT (BEAKER) (test hncd=023) 37.5 % 36.0-45.0 MEAN CORPUSCULAR VOLUME (BEAKER) (test zxsr=472) 88.6 fL 82.0-99.0 MEAN CORPUSCULAR HEMOGLOBIN (BEAKER) (test cexj=389) 28.9 pg 27.0-33.0 MEAN CORPUSCULAR HEMOGLOBIN CONC (BEAKER) (test waes=696) 32.6 GM/DL 32.0-36.0 RED CELL DISTRIBUTION WIDTH (BEAKER) (test zxqa=819) 14.2 % 12.0-15.0 PLATELET COUNT (BEAKER) (test dkpb=369) 332 K/CU MM 150-430 MEAN PLATELET VOLUME (BEAKER) (test qyld=218) 8.1 fL 6.5-10.5 NUCLEATED RED BLOOD CELLS (BEAKER) (test aesu=205) 0 /100 WBC 0-0 NEUTROPHILS RELATIVE PERCENT (BEAKER) (test mzsd=531) 62 % LYMPHOCYTES RELATIVE PERCENT (BEAKER) (test aabt=581) 31 % MONOCYTES RELATIVE PERCENT (BEAKER) (test qgdn=650) 4 % EOSINOPHILS RELATIVE PERCENT (BEAKER) (test nvgw=641) 2 % BASOPHILS RELATIVE PERCENT (BEAKER) (test hzpy=640) 1 % NEUTROPHILS ABSOLUTE COUNT (BEAKER) (test ranv=805) 5.00 K/ L 1.80-8.00 LYMPHOCYTES ABSOLUTE COUNT (BEAKER) (test xpxw=864) 2.40 K/ L 1.48-4.50 MONOCYTES ABSOLUTE COUNT (BEAKER) (test alxb=379) 0.30 K/ L 0.00-1.30 EOSINOPHILS ABSOLUTE COUNT (BEAKER) (test tmfe=508) 0.20 K/ L 0.00-0.50 BASOPHILS ABSOLUTE COUNT (BEAKER) (test tdvd=238) 0.10 K/ L 0.00-0.20 URINALYSIS W/ REFLEX URINE [id number] 00:52:00* Test Item Value Reference Range Comments COLOR (BEAKER) (test mhwl=596) Yellow CLARITY (BEAKER) (test rxic=000) Cloudy SPECIFIC GRAVITY UA (BEAKER) (test kvlh=561) 1.030 1.001-1.035 PH UA (BEAKER) (test kowk=574) 5.0 5.0-8.0 PROTEIN UA (BEAKER) (test dqgh=147) Negative Negative GLUCOSE UA (BEAKER) (test cwnf=018) Negative Negative KETONES UA (BEAKER) (test aztr=493) Negative Negative BILIRUBIN UA (BEAKER) (test mgzg=363) Negative Negative BLOOD UA (BEAKER) (test dxsj=250) Negative Negative NITRITE UA (BEAKER) (test xitf=727) Negative Negative LEUKOCYTE ESTERASE UA (BEAKER) (test yumb=373) Trace Negative UROBILINOGEN UA (BEAKER) (test zgsy=977) 2.0 mg/dL 0.2-1.0 RBC UA (BEAKER) (test cmqr=203) 1 /HPF WBC UA (BEAKER) (test mpec=566) 11 /HPF BACTERIA (BEAKER) (test kcvu=883) Rare MUCUS (BEAKER) (test ancq=2365) Many SQUAMOUS EPITHELIAL (BEAKER) (test ziyu=610) 11 /HPF SOURCE(BEAKER) (test raht=9814) SCREEN, [id number] 00:51:00* Test Item Value Reference Range Comments TEST URINE (BEAKER) (test mghg=262) Negative URINE [id number] 10:31:00* Test Item Value Reference Range Comments CULTURE (BEAKER) (test wlqz=3433) Amikacin (test code=1) Aztreonam (test code=32) Cefepime (test code=51) Cefoxitin (test code=68) Ceftazidime (test code=27) Ceftriaxone (test code=52) Ertapenem (test code=38) Gentamicin (test code=18) Levofloxacin (test code=22) Meropenem (test code=34) Nitrofurantoin (test code=23) Tobramycin (test code=25) Trimethoprim + Sulfamethoxazole (test code=47) CULTURE (BEAKER) (test mgwa=3535) >100,000 col/mL Citrobacter freundii CULTURE (BEAKER) (test ammm=5491) <10,000 col/mL Lactose fermenting gram negative rodsof a second typeThis is a corrected organism result. Previous result was Lactose fermenting gram negative rods on 03/02/2017 at 0938 CDT 20-29,000 col/mL skin floraRAD, CHEST, PA OR AP, 1 [id number] 05:27:00Reason for exam:->RECURRENT SKIN INFECTIONSFINAL REPORT INDICATION: RECURRENT SKIN INFECTIONS COMPARISON: None TECHNIQUE: Single frontal view of the chest. FINDINGS: Lungs and pleura: No focal consolidation. No effusion.Heart and mediastinum: Normal heart size. Unremarkable mediastinal contours.Osseous structures: No acute abnormality.Other: Port catheter terminates over the superior vena cava. The port has been accessed. IMPRESSION: No acute intrathoracic abnormality. Signed: JR Lubin Robert MDReport Verified Date/Time: 02/28/2017 05:27:28 Reading Location: [facility] B1 C013Y CT Body Reading Room , SOFT TISSUE NECK, [id number] 04:58:00FINAL REPORT CT, SOFT TISSUE NECK, CONTRAST INDICATION: RIGHT NECK EJ LINE, PAINFUL , R/O INFECTION, RIGHT SIDED NECK PAIN TECHNIQUE: Postcontrast CT images of the cervical soft tissues were obtained. Multiplanar reformatted images were generated. DOSE REDUCTION: Dose modulation, iterative reconstruction, and/or weight-based adjustment of the mA/kV was utilized to reduce the radiation dose to as low as reasonably achievable. COMPARISON: None FINDINGS: The oral cavity is normal. Oropharynx and nasopharynx are clear. Multiple dental kidneys and periapical lucencies are present. The larynx, hypopharynx are unremarkable. The thyroid gland is normal. There are no pathologically enlarged lymph nodes. The paranasal sinuses are clear. Orbital contents are unremarkable. The salivary glands, including the parotid glands and submandibular glands, are normal. There is no acute osseous abnormality. Lung apices reveal multifocal groundglass opacities bilaterally. There is normal intravascular enhancement. The inferior aspect of the frontal and temporal lobes, and posterior fossa are normal. A right IJ port catheter terminates over the superior vena cava. No soft tissue st randing is noted along its subcutaneous path. Has been accessed. Questionable mi ld inflammatory changes noted over the self. IMPRESSION: Questionable mild infl ammatory changes over the port access point. No discrete fluid collection. There are no inflammatory changes along the subcutaneous path of the catheter. The ca theter tip is appropriately positioned. Pulmonary findings suspicious for multif ocal pneumonia. Multifocal periodontal disease. Signed: JR Lubin Robert MDReport Verified Date/Time: 02/28/2017 04:58:29 Reading Location: [facility] B1 C013Y CT Body Reading Room Electronically signed by: TOMMIE LUBIN on 04:58 AM COMPREHENSIVE METABOLIC [id number] 03:42:00* Test Item Value Reference Range Comments TOTAL PROTEIN (BEAKER) (test tepr=370) 7.2 gm/dL 6.0-8.5 ALBUMIN (BEAKER) (test ejor=0691) 3.4 g/dL 3.5-5.0 ALKALINE PHOSPHATASE (BEAKER) (test omvx=458) 112 U/L 30-115 BILIRUBIN TOTAL (BEAKER) (test faeg=108) 0.3 mg/dL 0.1-1.3 SODIUM (BEAKER) (test tcev=510) 139 meq/L 135-148 POTASSIUM (BEAKER) (test zfjp=708) 3.8 meq/L 3.5-5.5 CHLORIDE (BEAKER) (test qnfn=311) 107 meq/L 98-106 CO2 (BEAKER) (test inri=467) 22 meq/L 20-31 BLOOD UREA NITROGEN (BEAKER) (test zruf=628) 12 mg/dL 10-26 CREATININE (BEAKER) (test dnen=302) 0.77 mg/dL 0.50-1.20 GLUCOSE RANDOM (BEAKER) (test jzrf=379) 91 mg/dL 70-110 CALCIUM (BEAKER) (test csqi=620) 9.3 mg/dL 8.5-10.5 AST (SGOT) (BEAKER) (test yhbc=692) 16 U/L 5-40 ALT (SGPT) (BEAKER) (test igow=774) 15 U/L 6-50 EGFR (BEAKER) (test sojh=4951) 100 mL/min/1.73 sq m ESTIMATED GFR IS NOT ACCURATE CREATININE CLEARANCE IN PREDICTING GLOMERULAR FILTRATION RATE. ESTIMATED GFR IS NOT APPLICABLE FOR DIALYSIS PATIENTS. CBC W/PLT COUNT & AUTO [id number] 03:19:00* Test Item Value Reference Range Comments WHITE BLOOD CELL COUNT (BEAKER) (test cxni=522) 8.7 K/ L 4.0-10.0 RED BLOOD CELL COUNT (BEAKER) (test bsyq=959) 4.01 M/ L 4.00-5.00 HEMOGLOBIN (BEAKER) (test pepo=337) 11.7 GM/DL 12.0-15.0 HEMATOCRIT (BEAKER) (test tdbv=194) 35.4 % 36.0-45.0 MEAN CORPUSCULAR VOLUME (BEAKER) (test zvfo=392) 88.3 fL 82.0-99.0 MEAN CORPUSCULAR HEMOGLOBIN (BEAKER) (test klch=418) 29.2 pg 27.0-33.0 MEAN CORPUSCULAR HEMOGLOBIN CONC (BEAKER) (test bxjm=300) 33.0 GM/DL 32.0-36.0 RED CELL DISTRIBUTION WIDTH (BEAKER) (test dsay=506) 14.0 % 12.0-15.0 PLATELET COUNT (BEAKER) (test xvmw=115) 294 K/CU MM 150-430 MEAN PLATELET VOLUME (BEAKER) (test favk=429) 8.0 fL 6.5-10.5 NUCLEATED RED BLOOD CELLS (BEAKER) (test ouxa=988) 0 /100 WBC 0-0 NEUTROPHILS RELATIVE PERCENT (BEAKER) (test cnuu=132) 67 % LYMPHOCYTES RELATIVE PERCENT (BEAKER) (test rzvh=418) 27 % MONOCYTES RELATIVE PERCENT (BEAKER) (test aaqd=606) 4 % EOSINOPHILS RELATIVE PERCENT (BEAKER) (test kdux=016) 2 % BASOPHILS RELATIVE PERCENT (BEAKER) (test uqvc=117) 1 % NEUTROPHILS ABSOLUTE COUNT (BEAKER) (test zrbb=948) 5.80 K/ L 1.80-8.00 LYMPHOCYTES ABSOLUTE COUNT (BEAKER) (test qubw=859) 2.30 K/ L 1.48-4.50 MONOCYTES ABSOLUTE COUNT (BEAKER) (test xkjg=910) 0.30 K/ L 0.00-1.30 EOSINOPHILS ABSOLUTE COUNT (BEAKER) (test xsja=310) 0.20 K/ L 0.00-0.50 BASOPHILS ABSOLUTE COUNT (BEAKER) (test tawx=936) 0.00 K/ L 0.00-0.20 URINALYSIS W/ REFLEX URINE [id number] 23:34:00* Test Item Value Reference Range Comments COLOR (BEAKER) (test tuuf=319) Yellow CLARITY (BEAKER) (test seue=883) Hazy SPECIFIC GRAVITY UA (BEAKER) (test oign=224) 1.026 1.001-1.035 PH UA (BEAKER) (test laly=333) 5.0 5.0-8.0 PROTEIN UA (BEAKER) (test zhjd=944) Negative Negative GLUCOSE UA (BEAKER) (test pzre=477) Negative Negative KETONES UA (BEAKER) (test ghtv=860) Negative Negative BILIRUBIN UA (BEAKER) (test jwif=575) Negative Negative BLOOD UA (BEAKER) (test uztr=126) Negative Negative NITRITE UA (BEAKER) (test gxak=049) Negative Negative LEUKOCYTE ESTERASE UA (BEAKER) (test vzsf=711) Negative Negative UROBILINOGEN UA (BEAKER) (test pokk=820) < mg/dL 0.2-1.0 RBC UA (BEAKER) (test ldwl=731) < /HPF WBC UA (BEAKER) (test ioxx=000) 2 /HPF BACTERIA (BEAKER) (test ccyq=298) Rare MUCUS (BEAKER) (test ixfb=4615) Rare SQUAMOUS EPITHELIAL (BEAKER) (test hrmu=510) 8 /HPF SOURCE(BEAKER) (test cyej=3020) SCREEN, [id number] 23:32:00* Test Item Value Reference Range Comments TEST URINE (BEAKER) (test gamd=520) Negative URINALYSIS W/ REFLEX URINE [id number] 02:05:00* Test Item Value Reference Range Comments COLOR (BEAKER) (test pktg=595) Yellow CLARITY (BEAKER) (test mjvw=358) Hazy SPECIFIC GRAVITY UA (BEAKER) (test bklf=777) 1.027 1.001-1.035 PH UA (BEAKER) (test smid=238) 5.0 5.0-8.0 PROTEIN UA (BEAKER) (test luhy=668) Negative Negative GLUCOSE UA (BEAKER) (test hmhd=670) Negative Negative KETONES UA (BEAKER) (test yumd=645) Negative Negative BILIRUBIN UA (BEAKER) (test mrty=014) Negative Negative BLOOD UA (BEAKER) (test mirc=826) Moderate Negative NITRITE UA (BEAKER) (test ojce=110) Negative Negative LEUKOCYTE ESTERASE UA (BEAKER) (test wrjq=804) Negative Negative UROBILINOGEN UA (BEAKER) (test mhzi=070) < mg/dL 0.2-1.0 RBC UA (BEAKER) (test zdae=247) 3 /HPF WBC UA (BEAKER) (test tspu=238) 9 /HPF BACTERIA (BEAKER) (test uyka=261) Rare MUCUS (BEAKER) (test aeae=1752) Rare SQUAMOUS EPITHELIAL (BEAKER) (test fcoj=387) 8 /HPF SOURCE(BEAKER) (test oloz=2999) [id number] 00:21:00* Test Item Value Reference Range Comments LIPASE (BEAKER) (test bhkl=663) 28 U/L 8-78 COMPREHENSIVE METABOLIC [id number] 00:21:00* Test Item Value Reference Range Comments TOTAL PROTEIN (BEAKER) (test bvcw=357) 7.7 gm/dL 6.0-8.5 Specimen slightly hemolyzed ALBUMIN (BEAKER) (test woss=9825) 3.6 g/dL 3.5-5.0 Specimen slightly hemolyzed ALKALINE PHOSPHATASE (BEAKER) (test rmzv=706) 119 U/L 30-115 BILIRUBIN TOTAL (BEAKER) (test shnb=798) 0.3 mg/dL 0.1-1.3 Specimen slightly hemolyzed SODIUM (BEAKER) (test jtor=167) 139 meq/L 135-148 POTASSIUM (BEAKER) (test egmu=956) 4.2 meq/L 3.5-5.5 Specimen slightly hemolyzed CHLORIDE (BEAKER) (test nxvf=702) 105 meq/L 98-106 CO2 (BEAKER) (test ooqz=128) 21 meq/L 20-31 BLOOD UREA NITROGEN (BEAKER) (test vcpo=198) 12 mg/dL 10-26 CREATININE (BEAKER) (test jefb=406) 0.89 mg/dL 0.50-1.20 Specimen slightly hemolyzed GLUCOSE RANDOM (BEAKER) (test ptws=874) 99 mg/dL 70-110 CALCIUM (BEAKER) (test sawd=335) 9.3 mg/dL 8.5-10.5 AST (SGOT) (BEAKER) (test hhlx=269) 27 U/L 5-40 Specimen slightly hemolyzed ALT (SGPT) (BEAKER) (test niao=003) 25 U/L 6-50 Specimen slightly hemolyzed EGFR (BEAKER) (test sbzc=3623) 84 mL/min/1.73 sq m ESTIMATED GFR IS NOT ACCURATE CREATININE CLEARANCE IN PREDICTING GLOMERULAR FILTRATION RATE. ESTIMATED GFR IS NOT APPLICABLE FOR DIALYSIS PATIENTS. CBC W/PLT COUNT & AUTO [id number] 23:56:00* Test Item Value Reference Range Comments WHITE BLOOD CELL COUNT (BEAKER) (test udlo=225) 8.0 K/ L 4.0-10.0 RED BLOOD CELL COUNT (BEAKER) (test qdly=932) 4.46 M/ L 4.00-5.00 HEMOGLOBIN (BEAKER) (test kgqa=525) 13.1 GM/DL 12.0-15.0 HEMATOCRIT (BEAKER) (test lzqv=607) 39.5 % 36.0-45.0 MEAN CORPUSCULAR VOLUME (BEAKER) (test myxu=853) 88.5 fL 82.0-99.0 MEAN CORPUSCULAR HEMOGLOBIN (BEAKER) (test jhjb=869) 29.3 pg 27.0-33.0 MEAN CORPUSCULAR HEMOGLOBIN CONC (BEAKER) (test uduh=249) 33.1 GM/DL 32.0-36.0 RED CELL DISTRIBUTION WIDTH (BEAKER) (test bhnm=438) 13.9 % 12.0-15.0 PLATELET COUNT (BEAKER) (test agjl=126) 389 K/CU MM 150-430 MEAN PLATELET VOLUME (BEAKER) (test tvnf=351) 7.5 fL 6.5-10.5 NUCLEATED RED BLOOD CELLS (BEAKER) (test vojh=509) 0 /100 WBC 0-0 NEUTROPHILS RELATIVE PERCENT (BEAKER) (test ghkv=711) 62 % LYMPHOCYTES RELATIVE PERCENT (BEAKER) (test uxtx=189) 29 % MONOCYTES RELATIVE PERCENT (BEAKER) (test voem=501) 5 % EOSINOPHILS RELATIVE PERCENT (BEAKER) (test umjb=605) 3 % BASOPHILS RELATIVE PERCENT (BEAKER) (test dmae=457) 1 % NEUTROPHILS ABSOLUTE COUNT (BEAKER) (test qvfg=400) 5.00 K/ L 1.80-8.00 LYMPHOCYTES ABSOLUTE COUNT (BEAKER) (test ybqg=603) 2.30 K/ L 1.48-4.50 MONOCYTES ABSOLUTE COUNT (BEAKER) (test htbe=884) 0.40 K/ L 0.00-1.30 EOSINOPHILS ABSOLUTE COUNT (BEAKER) (test zzty=912) 0.20 K/ L 0.00-0.50 BASOPHILS ABSOLUTE COUNT (BEAKER) (test qqgn=494) 0.10 K/ L 0.00-0.20 - CT ABD PELVIS W/O [id number] 21:27:00 Patient Name: LILIAN DEL ROSARIO Unit No: [id number] EXAMS: CPT CODE: [id number] CT ABD PELVIS W/O CONT 88472 Site ID: [id number] CLINICAL HISTORY: Flank pain, history of kidney stones TECHNIQUE: Axial images of the abdomen and pelvis were obtained from diaphragm to the pubic symphysis without oral or intravenous contrast. CT dose lowering technique utilized, with adjustment of MA/kV according to patient size and automated exposure control. COMPARISON: CT abdomen and pelvis August 01, 2016 DISCUSSION: The lung bases are clear. The heart size is normal. The liver is normal in size and contour, without focal abnormality. The gallbladder is absent. No biliary ductal dilatation. The spleen, pancreas and adrenal glands are unremarkable. Both kidneys are normal in size. No hydrone phrosis, nephrolithiasis or perinephric edema. Vascular stru ctures are normal in caliber and appearance. The small and large b owel are unremarkable. No abdominal, pelvic or retroperitoneal ad enopathy or free fluid. Pelvic organs and urinary bladder appear n ormal. No suspicious bony lesions. IMPRESSION: Negative noncontrast CT abdomen and pelvis Electron ically Signed by Ronna Redding on 12/28/2016 at 2126 R eported and signed by: Hayder Redding M.D. CC: Hi Telles MD Dictated Date/Time: 12/28/2016 (2126) Technolo gist: Ligia Garcia CTDI: 12.44 DLP: 750.59 Trnscrpt: 017 (2126) [email or web address] [facility] NAME: LILIAN DEL ROSARIO [address] PHYS: Hi Soni MD [place] [address] : 1975 AGE: 41 SEX: F ACCT NO: B [id number] LOC: [employer] PHONE #: [phone] EXAM DATE: STATUS: UNSpacebar FAX #: [phone] RAD #: D/C DT PAGE 1 Signed Report Patient Name: LILIAN DEL ROSARIO Unit No: [id number] EXAMS: CPT CODE: [id number] CT ABD PELVIS W/O CONT 44178 < Continued> Orig Print D/T: S: 12/28/2016 (2129) [facility] NAME: LILIAN DEL ROSARIO [address] PHYS: Hi Soni MD [place] [address] : 1975 AGE: 41 SEX: F LOC: [employer] PHONE #: [phone] EXAM DATE: 12/28/2016 STATUS: [employer] FAX #: [phone] RAD #: D/C DT PAGE 2 Signed Report - CT ABD PELVIS W/O [id number] 21:27:00 Patient Name: LILIAN DEL ROSARIO Unit No: [id number] EXAMS: CPT CODE: [id number] CT ABD PELVIS W/O CONT 47254 Site ID: [id number] CLINICAL HISTORY: Flank pain, history of kidney stones TECHNIQUE: Axial images of the abdomen and pelvis were obtained from diaphragm to the pubic symphysis without oral or intravenous contrast. CT dose lowering technique utilized, with adjustment of MA/kV according to patient size and automated exposure control. COMPARISON: CT abdomen and pelvis August 01, 2016 DISCUSSION: The lung bases are clear. The heart size is normal. The liver is normal in size and contour, without focal abnormality. The gallbladder is absent. No biliary ductal dilatation. The spleen, pancreas and adrenal glands are unremarkable. Both kidneys are normal in size. No hydrone phrosis, nephrolithiasis or perinephric edema. Vascular stru ctures are normal in caliber and appearance. The small and large b owel are unremarkable. No abdominal, pelvic or retroperitoneal ad enopathy or free fluid. Pelvic organs and urinary bladder appear n ormal. No suspicious bony lesions. IMPRESSION: Negative noncontrast CT abdomen and pelvis Electron ically Signed by Ronna Redding on 12/28/2016 at 2126 R eported and signed by: Hayder Redding M.D. CC: Hi Telles MD Dictated Date/Time: 12/28/2016 (2126) Technolo gist: Ligia Garcia CTDI: 12.44 DLP: 750.59 Trnscrpt: 017 (2126) [email or web address] [facility] NAME: LILIAN DEL ROSARIO [address] [place] [address] PHYS: Hi Soni MD [place], [place] [address] : 1975 AGE: 41 SEX: F ACCT NO: B [id number] LOC: [facility] PHONE #: [phone] EXAM DATE: STATUS: UNK FAX #: [phone] RAD #: D/C DT PAGE 1 Signed Report Patient Name: LILIAN DEL ROSARIO Unit No: [id number] EXAMS: CPT CODE: [id number] CT ABD PELVIS W/O CONT 06961 < Continued> Orig Print D/T: S: 12/28/2016 (2129) [facility] NAME: LILIAN DEL ROSARIO [address] [place] [address] [place]: [place] [address] : 1975 AGE: 41 SEX: F LOC: UNK PHONE #: [phone] EXAM DATE: 12/28/2016 STATUS: UNK FAX #: [phone] RAD #: D/C DT PAGE 2 Signed Report - XR ABDOMEN AP 1 [id number] 09:56:00 FAX: Fareed Pfeiffer [phone] [place]: St: [facility] FAX: Pepito Lui MD [phone] FAX: Kay Larsen MD [phone] Patient Name: LILIAN DEL ROSARIO Unit No: [id number] EXAMS: CPT CODE: [id number] XR ABDOMEN AP 1 V 56118 LOCATION: T18 KUB 2 images INDICATION: Colitis Bowel gas pattern nonspecific. No gross organomegaly or calcifications. Surgical clips, gallbladder fossa. IMPRESSION: No acute findings. No change from earlier today. at 0956 Reported and signed by: Owen Bey D.O. CC: Fareed Pfeiffer Dictated Date/Time: 12/18/2016 (0956)Technologist: Bernardino Horne - Eduin Transcribed Date/Time: 12/18/2016 (0956) By: Christiano Orig Print D/T: S: 12/18/2016 (0959) [facility] [place] NAME: LILIAN DEL ROSARIO [facility] PHYS: Fareed Browning [address] [facility] 1975 AGE: 41 SEX: F [place] [address] LOC: UNK PHONE #: [phone] EXAM DATE: 12/18/2016 STATUS: [facility] FAX #: [phone] RAD NO: DC Dt: PAGE 1 Signed Report - XR ABDOMEN AP 1 [id number] 09:56:00 FAX: aFreed Pfeiffer [phone] [place]: St: UNK FAX: Pepito Harrison MD [phone] FAX: Kay Larsen MD ------- Patient Name: ARON DEL ROSARIOELLE Unit No: [id number] EXAMS: CPT CODE: [id number] XR ABDOMEN AP 1 V 66648 LOCATION: T18 KUB 2 images INDICATION: Colitis Bowel gas pattern nonspecific. No gross organomegaly or calcifications. Surg ical clips, gallbladder fossa. IMPRESSION: No acute findings. N o change from earlier today. at 0956 Reported and signed by: Owen Bey D.O. CC: Fareed Pfeiffer Dictated Date/Time: 12/18/2016 (0956)Technologist: Bernardino Horne - Agency Transcribed Date/Time: 12/18/2016 (0956) By: Christiano Orig Print D/T: S: 12/18/2016 (0959) [facility] [place] NAME: LILIAN DEL ROSARIO [facility] PHYS: aFreed Browning [address] : 1975 AGE: 41 SEX: [place] [address] LOC: [facility] PHONE #: [phone] EXAM DATE: 12/18/2016 STATUS: UNK FAX #: [phone] RAD NO: DC Dt: PAGE 1 Signed Report - XR ABDOMEN AP 1 [id number] 09:56:00 FAX: Fareed Pfeiffer [phone] [place]: St: [facility] FAX: Pepito Harrison MD [phone] FAX: Kay Larsen MD ------- Patient Name: LILIAN DEL ROSARIO Unit No: [id number] EXAMS: CPT CODE: [id number] XR ABDOMEN AP 1 V 62096 LOCATION: T18 KUB 2 images INDICATION: Colitis Bowel gas pattern nonspecific. No gross organomegaly or calcifications. Surg ical clips, gallbladder fossa. IMPRESSION: No acute findings. N o change from earlier today. at 0956 Reported and signed by: Owen Bey D.O. CC: Fareed Pfeiffer Dictated Date/Time: 12/18/2016 (0956)Technologist: Bernardino Horne - Eduin Transcribed Date/Time: 12/18/2016 (0956) By: Christiano Orig Print D/T: S: 12/18/2016 (0959) [facility] [place] NAME: LILIAN DEL ROSARIO [facility] PHYS: Fareed Browning [address] : 1975 AGE: 41 SEX: AN [place] [id number] LOC: UNK PHONE #: [phone] EXAM DATE: 12/18/2016 STATUS: UNK FAX #: [phone] RAD NO: DC Dt: PAGE 1 Signed Report - XR ABD ACUTE [id number] 00:27:00 FAX: Kay Larsen MD [phone] [place]: St: UNK Patient Na me: LILIAN DEL ROSARIO Unit No: [id number] EXAMS: CPT CODE: [id number] XR ABD ACUTE W/CHEST [address] LOCATION: [address] STORY: 41-year-old female who presents with abdominal pain. COMME NT: After-hours service at 12:26 a.m. Supine and upright radiograp hs of the abdomen were examined. A frontal radiograph of the chest was als o submitted. Field 6 The bowel gas pattern is within normal limit s. There is no evidence for organomegaly or mass. There is no evidence for free air or free fluid. The skeletal anatomy is unremarkable. In the chest, the lungs are clear. The cardiac silhouette is within normal limits. The hilar and mediastinal anatomy is unremarkable. IMPRESSION: Unremarkable acute abdomen series. at 0027 Reported and signed by: Tommie Reno M.D. CC: Kay Henderson MD Dictated Date/Time: 12/18/2016 (002)Tech nologist: Anita Prieto Transcribed [place] e/Time: 12/18/2016 (002) By: [email or web address] Orig Print D/T: S: 12/18/2016 (0030) [facility] [place] NAME: LILIAN CHISHOLM [address] [place] [address] PHYS: Kay Laguerre MD, [place] [address] : 1975 AGE: 41 SEX: F LOC: U NK PHONE #: [phone] EXAM DATE: 12/18/2016 STATUS: UNK FAX #: [phone] RAD NO: DC Dt: PAGE 1 Signed Report - XR ABD ACUTE W/[id number] 00:27:00 FAX: Kay Larsen MD [phone] [place]: St: K Patient Na me: LILIAN DEL ROSARIO Unit No: [id number] EXAMS: CPT CODE: [id number] XR ABD ACUTE W/CHEST [address] LOCATION: [address] STORY: 41-year-old female who presents with abdominal pain. COMME NT: After-hours service at 12:26 a.m. Supine and upright radiograp hs of the abdomen were examined. A frontal radiograph of the chest was als o submitted. Field 6 The bowel gas pattern is within normal limit s. There is no evidence for organomegaly or mass. There is no evidence for free air or free fluid. The skeletal anatomy is unremarkable. In the chest, the lungs are clear. The cardiac silhouette is within normal limits. The hilar and mediastinal anatomy is unremarkable. IMPRESSION: Unremarkable acute abdomen series. at 0027 Reported and signed by: Tommie Reno M.D. CC: Kay Henderson MD Dictated Date/Time: 12/18/2016 (002)Tech nologist: Anita Prieto Transcribed [place] e/Time: 12/18/2016 (002) By: [email or web address] Orig Print D/T: S: 12/18/2016 (0030) [facility] [place] NAME: LILIAN CHISHOLM [address] [place] [address] PHYS: Kay Lang MD, [place] [address] : 1975 AGE: 41 SEX: F LOC: U NK PHONE #: [phone] EXAM DATE: 12/18/2016 STATUS: UNK FAX #: [phone] RAD NO: DC Dt: PAGE 1 Signed Report - XR ABD ACUTE W/[id number] 00:27:00 FAX: Kay Larsen MD [phone] [place]: St: UNK Patient Na me: LILIAN DEL ROSARIO Unit No: [id number] EXAMS: CPT CODE: [id number] XR ABD ACUTE W/CHEST [address] LOCATION: [address] STORY: 41-year-old female who presents with abdominal pain. COMME NT: After-hours service at 12:26 a.m. Supine and upright radiograp hs of the abdomen were examined. A frontal radiograph of the chest was als o submitted. Field 6 The bowel gas pattern is within normal limit s. There is no evidence for organomegaly or mass. There is no evidence for free air or free fluid. The skeletal anatomy is unremarkable. In the chest, the lungs are clear. The cardiac silhouette is within normal limits. The hilar and mediastinal anatomy is unremarkable. IMPRESSION: Unremarkable acute abdomen series. at 0027 Reported and signed by: Tommie Reno M.D. CC: Kay Henderson MD Dictated Date/Time: 12/18/2016 (0027)Tech nologist: Anita Prieto Transcribed [place] e/Time: 12/18/2016 (002) By: [email or web address] Orig Print D/T: S: 12/18/2016 (0030) [facility] [place] NAME: LILIAN CHISHOLM [address] [place] [address] PHYS: Kay Lang MD [place] [address] : 1975 AGE: 41 SEX: F LOC: [facility] PHONE #: [phone] EXAM DATE: 12/18/2016 STATUS: [facility] FAX #: [phone] RAD NO: DC Dt: PAGE 1 Signed Report - CT ABD PELVIS [id number] 02:17:00 Patient Name: LILIAN DEL ROSARIO Unit No: [id number] EXAMS: CPT CODE: [id number] CT ABD PELVIS W/CONT 58385 CT abdomen and pelvis with IV contrast. Indication: Right lower quadrant pain and flank pain Location: R16 Comparison: CT performed February 27, 2016 Technique: CT images of the abdomen and pelvis were obtained from the diaphragm to the pubic symphysis after the administration of intravenous contrast contrast. Coronal reformats are provided. Findings: Lungs bases: Unremarkable. Liver: Unremarkable. Gallbladder: Surgically absent. Pancreas: Unremarkable. Spleen: Unremarkable. Adrenal glands: Unremarkable. Kidneys: Unremarkable. Bowel: No bowel obstruction. The appendix is unremarkable. Peritoneum: No ascites. Pelvis: Small left pelvic fluid density structure, possibly representing an ovarian cyst is again noted Skeletal: No acute fracture.. Impression: No acute abnormality within the abdominal pelvis. Additional findings as above at 0217 Reported and signed by: Charlene Esteban M.D. CC: Esperanza Cuevas NP Dictated Date/Time: 11/23/2016 (216) Technologist: Rashel Pemberton CTDI: 17.61 DLP: 1106.51 Trnscrpt: 11/23/2016 (216) [email or web address] [facility] NAME: LILIAN DEL ROSARIO [address] [place] [address] PHYS: Esperanza Bro NP [place], [place] [address] : 1975 AGE: 41 SEX: F LOC: UNK PHONE #: [phone] EXAM DATE: 11/23/2016 STATUS: [employer] FAX #: [phone] RAD #: D/C DT PAGE 1 Signed Report Patient Name: LILIAN DEL ROSARIO Unit No: [id number] EXAMS: CPT C ODE: [id number] CT ABD PELVIS W/CONT 17394 <Continued> Orig Print D/T: S: 11/23/2016 (0220) [facility] NAME: LILIAN DEL ROSARIO [address] [place] [address] PHYS: Esperanza Bro [place] [place] [place] [id number] : 1975 AGE: 41 SEX: F LOC: UNK PHONE #: [phone] EXAM DATE: 11/23/2016 STATUS: UNK FAX #: [phone] RAD #: D/C DT PAGE 2 Signed Report - CT ABD PELVIS W/[id number] 02:17:00 Patient Name: LILIAN DEL ROSARIO Unit No: [id number] EXAMS: CPT CODE: [id number] CT ABD PELVIS W/CONT 73572 CT abdomen and pelvis with IV contrast. Indication: Right lower quadrant pain and flank pain Location: R16 Comparison: CT performed February 27, 2016 Technique: CT images of the abdomen and pelvis were obtained from the diaphragm to the pubic symphysis after the administration of intravenous contrast contrast. Coronal reformats are provided. Findings: Lungs bases: Unremarkable. Liver: Un remarkable. Gallbladder: Surgically absent. Pancreas: Unremarkable. Spleen: Unremarkable. Adrenal glands: Unremarkable. Kidneys: U nremarkable. Bowel: No bowel obstruction. The appendix is unremarkable. Peritoneum: No ascites. Pelvis: Small left pelvic fluid density stru cture, possibly representing an ovarian cyst is again noted Skeletal: No acute fracture.. Impression: No a cute abnormality within the abdominal pelvis. Additional findings as abo ve at 0217 Reported and signed by: Charlene Esteban M.D. CC: Esperanza Alejandra Dictated Date/Time: 11/23/2016 () Technologist: Rashel Pemberton CTDI: 17.61 DLP: 1106.51 Trnscr pt: 11/23/2016 (216) [email or web address] [facility] [place] NAME: LILIAN DEL ROSARIO [address] [place] [address] PHYS: Esperanza Bro [place] [address] : 1975 AGE: 41 SEX: F LOC: UNK PHONE #: [phone] EXAM DATE: 11/23/2016 STATUS: UNK FAX #: [phone] RAD #: D/C DT PAGE 1 Signed Report Patient Name: LILIAN DEL ROSARIO Unit No: [id number] EXAMS: CPT C ODE: [id number] CT ABD PELVIS W/CONT 50900 <Continued> Orig Print D/T: S: 11/23/2016 (0220) [facility] NAME: LILIAN DEL ROSARIO [address] [place] [address] PHYS: Esperanza Bro NP [place], [place] [address] : 1975 AGE: 41 SEX: F LOC: [employer] PHONE #: [phone] EXAM DATE: 11/23/2016 STATUS: [employer] FAX #: [phone] RAD #: D/C DT PAGE 2 Signed Report - CT ABD PELVIS W/[id number] 02:17:00 Patient Name: LILIAN DEL ROSARIO Unit No: [id number] EXAMS: CPT CODE: [id number] CT ABD PELVIS W/CONT 96796 CT abdomen and pelvis with IV contrast. Indication: Right lower quadrant pain and flank pain Location: R16 Comparison: CT performed February 27, 2016 Technique: CT images of the abdomen and pelvis were obtained from the diaphragm to the pubic symphysis after the administration of intravenous contrast contrast. Coronal reformats are provided. Findings: Lungs bases: Unremarkable. Liver: Un remarkable. Gallbladder: Surgically absent. Pancreas: Unremarkable. Spleen: Unremarkable. Adrenal glands: Unremarkable. Kidneys: U nremarkable. Bowel: No bowel obstruction. The appendix is unremarkable. Peritoneum: No ascites. Pelvis: Small left pelvic fluid density stru cture, possibly representing an ovarian cyst is again noted Skeletal: No acute fracture.. Impression: No a cute abnormality within the abdominal pelvis. Additional findings as abo ve at 0217 Reported and signed by: Charlene Esteban M.D. CC: Esperanza Barrett Date/Time: 11/23/2016 (021 7) Technologist: Rashel Pemberton CTDI: 17.61 DLP: 1106.51 Trnscr pt: 11/23/2016 (0217) [email or web address] [facility] [place] NAME: LILIAN DEL ROSARIO [address] [place] [address] PHYS: Esperanza Bro [place] [address] : 1975 AGE: 41 SEX: F LOC: [facility] PHONE #: [phone] EXAM DATE: 11/23/2016 STATUS: [employer] FAX #: [phone] RAD #: D/C DT PAGE 1 Signed Report Patient Name: LILIAN DEL ROSARIO Unit No: [id number] EXAMS: CPT C ODE: [id number] CT ABD PELVIS W/CONT 32806 <Continued> Orig Print D/T: S: 11/23/2016 (0220) [facility] [place] NAME: LILIAN DEL ROSARIO [address] [place] [address] PHYS: Esperanza Bro NP [place] [address] : 1975 AGE: 41 SEX: F LOC: [employer] PHONE #: [phone] EXAM DATE: 11/23/2016 STATUS: [employer] FAX #: [phone] RAD #: D/C DT PAGE 2 Signed Report 05583& PELVIS W/O [id number] 06:56:40CT ABDOMEN AND PELVIS WITHOUT CONTRAST (STONE PROTOCOL):CLINICAL INFORMATION: Hematuria, history of kidney stones. Nausea andvomiting, diarrhea.Multiple transverse images were obtained through the abdomen and pelviswithout oral or IV contrast material (stone protocol). The images werereformatted in the coronal and sagi ttal planes. The study is limitedwithout contrast and due to body habitus. Radi ation dose loweringtechniques were used with automated exposure control, adjusti ng the mAaccording to patient's size.There are no calcifications in the urinary tract. There is nohydronephrosis. There is no perinephric edema. There are noab normalities seen in the kidneys, ureters, or urinary bladder. No focalabnormalit ies are seen in the liver. The spleen has a normalappearance. The pancreas is unremarkable. The patient has had ahysterectomy. There are surgical clips in the right iliac fossa likelyfrom lymph node dissection. There is no evidence of rec urrent neoplasmalthough the exam is considerably limited without contrast. Is mi nimalleft basilar subsegmental atelectasis.IMPRESSION: 1. Limited study without evidence of radiopaque urinary calculus orurinary obstruction.The report was fa xed to Dr. Hennessy in the ER by Dr. Gorman on 11/12/2016 at04:28 AM.URINE CULTURE 2016-11-11 11:54:00* Test Item Value Reference Range Comments CULTURE (BEAKER) (test yqzp=9537) >100,000 col/mL skin francesco BASIC METABOLIC [id number] 00:52:00* Test Item Value Reference Range Comments SODIUM (BEAKER) (test wywm=180) 140 meq/L 135-148 POTASSIUM (BEAKER) (test bqfg=267) 3.8 meq/L 3.6-5.5 CHLORIDE (BEAKER) (test trcu=946) 107 meq/L 98-106 CO2 (BEAKER) (test dchi=292) 24 meq/L 24-32 BLOOD UREA NITROGEN (BEAKER) (test ywbq=594) 9 mg/dL 10-26 CREATININE (BEAKER) (test myrj=640) 0.71 mg/dL 0.50-1.20 GLUCOSE RANDOM (BEAKER) (test xvmo=134) 98 mg/dL 70-110 CALCIUM (BEAKER) (test pnkf=419) 8.6 mg/dL 8.5-10.5 EGFR (BEAKER) (test ktfp=8398) 109 mL/min/1.73 sq m ESTIMATED GFR IS NOT ACCURATE CREATININE CLEARANCE IN PREDICTING GLOMERULAR FILTRATION RATE. ESTIMATED GFR IS NOT APPLICABLE FOR DIALYSIS PATIENTS. CBC W/PLT COUNT & AUTO [id number] 00:45:00* Test Item Value Reference Range Comments WHITE BLOOD CELL COUNT (BEAKER) (test furu=530) 6.9 K/ L 4.0-10.0 RED BLOOD CELL COUNT (BEAKER) (test ylui=457) 4.15 M/ L 4.00-5.00 HEMOGLOBIN (BEAKER) (test rwgx=156) 12.3 GM/DL 12.0-15.0 HEMATOCRIT (BEAKER) (test xzrn=151) 35.7 % 36.0-45.0 MEAN CORPUSCULAR VOLUME (BEAKER) (test lkbu=545) 86.0 fL 82.0-99.0 MEAN CORPUSCULAR HEMOGLOBIN (BEAKER) (test luad=283) 29.6 pg 27.0-33.0 MEAN CORPUSCULAR HEMOGLOBIN CONC (BEAKER) (test ydpl=583) 34.5 GM/DL 32.0-36.0 RED CELL DISTRIBUTION WIDTH (BEAKER) (test paob=832) 13.1 % 12.0-15.0 PLATELET COUNT (BEAKER) (test fsox=198) 300 K/CU MM 150-430 MEAN PLATELET VOLUME (BEAKER) (test qwbz=861) 8.1 fL 6.5-10.5 NEUTROPHILS RELATIVE PERCENT (BEAKER) (test bixb=721) 63 % LYMPHOCYTES RELATIVE PERCENT (BEAKER) (test iipw=480) 29 % MONOCYTES RELATIVE PERCENT (BEAKER) (test naoe=823) 3 % EOSINOPHILS RELATIVE PERCENT (BEAKER) (test kttf=474) 3 % BASOPHILS RELATIVE PERCENT (BEAKER) (test fwjl=658) 2 % NEUTROPHILS ABSOLUTE COUNT (BEAKER) (test tybk=281) 4.40 K/ L 1.80-8.00 LYMPHOCYTES ABSOLUTE COUNT (BEAKER) (test xyoq=663) 2.00 K/ L 1.48-4.50 MONOCYTES ABSOLUTE COUNT (BEAKER) (test fwdf=103) 0.20 K/ L 0.00-1.30 EOSINOPHILS ABSOLUTE COUNT (BEAKER) (test kilh=125) 0.20 K/ L 0.00-0.50 BASOPHILS ABSOLUTE COUNT (BEAKER) (test kaim=474) 0.10 K/ L 0.00-0.20 URINALYSIS [id number] 00:36:00* Test Item Value Reference Range Comments RBC UA-MANUAL (BEAKER) (test lnue=4397) >100 /HPF WBC UA-MANUAL (BEAKER) (test uvwz=6583) <5 /HPF SQUAMOUS EPITHELIAL MANUAL (BEAKER) (test zbps=1639) 5-10 /HPF URINALYSIS WITH MICROSCOPIC IF [id number] 00:35:00* Test Item Value Reference Range Comments COLOR (BEAKER) (test ifky=513) Yellow CLARITY (BEAKER) (test zlog=321) Clear SPECIFIC GRAVITY UA (BEAKER) (test dzry=034) 1.021 1.001-1.035 PH UA (BEAKER) (test ojpv=061) 5.5 5.0-8.0 PROTEIN UA (BEAKER) (test gxjc=553) Negative Negative GLUCOSE UA (BEAKER) (test ooot=524) Negative Negative KETONES UA (BEAKER) (test vbfj=559) Negative Negative BILIRUBIN UA (BEAKER) (test opds=262) Negative Negative BLOOD UA (BEAKER) (test bkcs=583) Large Negative NITRITE UA (BEAKER) (test sihq=872) Negative Negative LEUKOCYTE ESTERASE UA (BEAKER) (test ycrb=932) Negative Negative UROBILINOGEN UA (BEAKER) (test zqiq=951) 0.2 mg/dL 0.2-1.0 SOURCE(BEAKER) (test ifvl=6349) Comprehensive Metabolic [id number] 02:26:00* Test Item Value Reference Range Comments Sodium (test code=NA) 133 mmol/L 135-145 Potassium (test code=K) 3.9 mmol/L 3.5-5.1 Chloride (test code=CL) 97 mmol/L 98-105 Carbon Dioxide (test code=CO2) 25 mmol/L 22-29 Glucose (test code=GLU) 101 mg/dL 70-115 Blood Urea Nitrogen (test code=BUN) 14 mg/dL 6-20 Creatinine (test code=CREAT) 0.8 mg/dL 0.5-0.9 Calcium (test code=CA) 9.1 mg/dL 8.3-10.5 Prot Total (test code=TP) 6.6 g/dL 6.4-8.3 Albumin (test code=ALB) 3.7 g/dL 3.5-5.2 A/G Ratio (test code=AGRATIO) 1.3 Ratio Globulin (test code=GLOB) 2.9 2.9-3.1 Bili Total (test code=TBIL) 0.3 mg/dL 0.1-0.9 Alk Phos (test code=APHOS) 128 U/L 35-104 AST (test code=AST) 20 U/L 1-32 ALT (test code=ALT) 23 U/L 1-33 BUN/Creatinine Ratio (test code=BCRATIO) 17.5 Anion Gap (test code=AGAP) 11 mmol/L 7-16 Estimated GFR (test code=GFR) >60 mL/min/1.73m2 eGFR (estimated Glomerular Filtration Rate) is an estimated value,calculated from the patient's serum creatinine using the MDRD equation.It is NOT the patient's actual GFR. The eGFR provides a more clinicallyuseful measure of kidney disease than serum creatinine alone.This calculation takes sex and race into account, if the informationis provided. If the race is not provided, and the patient isAfrican-Moldovan, multiply by 1.212. If sex is not provided, and thepatient is female, multiply by 0.742. Results for patients <18 years ofage have not been validated by the MDRD study and should be interpretedwith caution.eGFR Result Interpretation:eGFR > or=60 is in the Normal RangeeGFR < 60 may mean kidney diseaseeGFR < 15 may mean kidney failureRanges recommended by the National Kidney Foundat ion,http://nkdep.nih.gov CBC with [id number] 01:49:00* Test Item Value Reference Range Comments WBC (test code=WBC) 8.2 K/cumm 4.4-10.5 RBC (test code=RBC) 4.19 M/cumm 3.75-5.20 Hemoglobin (test code=HGB) 12.0 gm/dL 12.2-14.8 Hematocrit (test code=HCT) 36.6 % 36.5-44.4 MCV (test code=MCV) 87.4 fL 80-100 MCH (test code=MCH) 28.6 pg 27.0-32.5 MCHC (test code=MCHC) 32.7 g/dL 32.0-37.5 RDW (test code=RDW) 13.4 % 11.5-14.5 Platelet Count (test code=PLTCT) 350 K/cumm 140-440 MPV (test code=MPV) 7.5 fL Diff Method (test code=DIFFM) Auto Neutrophil (test code=NEUT) 70.3 % 36-70 Lymphocyte (test code=LYMPH) 23.2 % 12-44 Monocyte (test code=MONO) 4.6 % 0-11 Eosinophil (test code=EOS) 1.3 % 0-7 Basophil (test code=BASO) 0.6 % 0-2 Neutro Abs (test code=ANEUT) 5.8 K/cumm 1.6-7.4 Lymph Abs (test code=ALYMPH) 1.9 K/cumm 0.5-4.6 Mobile Abs (test code=AMONO) 0.4 K/cumm 0.0-1.2 Eos Abs (test code=AEOS) 0.11 K/cumm 0.00-0.74 Baso Abs (test code=ABASO) 0.1 K/cumm 0.00-0.21 [id number] 23:00:00* Test Item Value Reference Range Comments PROCALCITONIN (BEAKER) (test ynle=3537) < ng/mL <0.05 SEPSIS RISK (ng/mL)Low: 0.05-0.50Intermediate: 0.51-2.00High: > =2.01COMPREHENSIVE METABOLIC [id number] 22:49:00* Test Item Value Reference Range Comments TOTAL PROTEIN (BEAKER) (test zxnr=547) 7.0 gm/dL 6.0-8.5 ALBUMIN (BEAKER) (test geux=0488) 3.5 g/dL 3.5-5.0 ALKALINE PHOSPHATASE (BEAKER) (test gsri=234) 115 U/L 30-115 BILIRUBIN TOTAL (BEAKER) (test uojz=007) 0.4 mg/dL 0.1-1.3 SODIUM (BEAKER) (test fvcx=864) 138 meq/L 135-148 POTASSIUM (BEAKER) (test jatu=290) 3.9 meq/L 3.5-5.5 CHLORIDE (BEAKER) (test axix=028) 104 meq/L 98-106 CO2 (BEAKER) (test iapg=070) 26 meq/L 20-31 BLOOD UREA NITROGEN (BEAKER) (test escn=819) 12 mg/dL 10-26 CREATININE (BEAKER) (test inox=790) 0.76 mg/dL 0.50-1.20 GLUCOSE RANDOM (BEAKER) (test cwwy=659) 93 mg/dL 70-110 CALCIUM (BEAKER) (test csyn=957) 9.3 mg/dL 8.5-10.5 AST (SGOT) (BEAKER) (test erya=380) 13 U/L 5-40 ALT (SGPT) (BEAKER) (test gedf=473) 13 U/L 6-50 EGFR (BEAKER) (test uyzz=9367) 101 mL/min/1.73 sq m ESTIMATED GFR IS NOT ACCURATE CREATININE CLEARANCE IN PREDICTING GLOMERULAR FILTRATION RATE. ESTIMATED GFR IS NOT APPLICABLE FOR DIALYSIS PATIENTS. CBC W/PLT COUNT & AUTO [id number] 22:35:00* Test Item Value Reference Range Comments WHITE BLOOD CELL COUNT (BEAKER) (test fmsy=352) 7.8 K/ L 4.0-10.0 RED BLOOD CELL COUNT (BEAKER) (test uiqp=185) 4.11 M/ L 4.00-5.00 HEMOGLOBIN (BEAKER) (test ofmc=975) 11.9 GM/DL 12.0-15.0 HEMATOCRIT (BEAKER) (test qnji=437) 36.8 % 36.0-45.0 MEAN CORPUSCULAR VOLUME (BEAKER) (test xmgr=423) 89.4 fL 82.0-99.0 MEAN CORPUSCULAR HEMOGLOBIN (BEAKER) (test raqr=517) 29.1 pg 27.0-33.0 MEAN CORPUSCULAR HEMOGLOBIN CONC (BEAKER) (test gqwd=317) 32.5 GM/DL 32.0-36.0 RED CELL DISTRIBUTION WIDTH (BEAKER) (test ewmv=123) 13.5 % 12.0-15.0 PLATELET COUNT (BEAKER) (test yhqv=085) 290 K/CU MM 150-430 MEAN PLATELET VOLUME (BEAKER) (test xlkh=173) 8.3 fL 6.5-10.5 NUCLEATED RED BLOOD CELLS (BEAKER) (test bkhb=508) 0 /100 WBC 0-0 NEUTROPHILS RELATIVE PERCENT (BEAKER) (test glvu=413) 70 % LYMPHOCYTES RELATIVE PERCENT (BEAKER) (test mkmn=863) 23 % MONOCYTES RELATIVE PERCENT (BEAKER) (test ayyh=198) 6 % EOSINOPHILS RELATIVE PERCENT (BEAKER) (test kdiw=516) 1 % BASOPHILS RELATIVE PERCENT (BEAKER) (test phbz=965) 0 % NEUTROPHILS ABSOLUTE COUNT (BEAKER) (test urjh=377) 5.40 K/ L 1.80-8.00 LYMPHOCYTES ABSOLUTE COUNT (BEAKER) (test ubmx=120) 1.80 K/ L 1.48-4.50 MONOCYTES ABSOLUTE COUNT (BEAKER) (test rbqp=935) 0.40 K/ L 0.00-1.30 EOSINOPHILS ABSOLUTE COUNT (BEAKER) (test iyyn=599) 0.10 K/ L 0.00-0.50 BASOPHILS ABSOLUTE COUNT (BEAKER) (test zwyd=157) 0.00 K/ L 0.00-0.20 SCREEN, [id number] 20:36:00* Test Item Value Reference Range Comments TEST URINE (BEAKER) (test serx=469) Negative URINALYSIS W/ [id number] 20:15:00* Test Item Value Reference Range Comments COLOR (BEAKER) (test nfnc=481) Yellow CLARITY (BEAKER) (test gayp=712) Clear SPECIFIC GRAVITY UA (BEAKER) (test vnss=779) 1.024 1.001-1.035 PH UA (BEAKER) (test bnpg=267) 5.0 5.0-8.0 PROTEIN UA (BEAKER) (test eirj=597) Negative Negative GLUCOSE UA (BEAKER) (test ahzt=144) Negative Negative KETONES UA (BEAKER) (test eywa=583) Negative Negative BILIRUBIN UA (BEAKER) (test nayp=583) Negative Negative BLOOD UA (BEAKER) (test ujbq=166) Negative Negative NITRITE UA (BEAKER) (test cruz=689) Negative Negative LEUKOCYTE ESTERASE UA (BEAKER) (test zpgm=437) Negative Negative UROBILINOGEN UA (BEAKER) (test loxm=453) 2.0 mg/dL 0.2-1.0 RBC UA (BEAKER) (test admq=035) < /HPF WBC UA (BEAKER) (test abpn=411) 1 /HPF MUCUS (BEAKER) (test mool=6858) Rare SQUAMOUS EPITHELIAL (BEAKER) (test uhjp=673) < /HPF SOURCE(BEAKER) (test lecl=8196) - CT ABD PELVIS W/O [id number] 00:34:00 Name: LILIAN DEL ROSARIO [facility] : 1975 Age/S: 41 / F [address] Unit #: [id number] Loc: [place] [address] Phys: Chicho Barnes MD Acct: [id number] Dis Date: Status: UNK PHONE #: [phone] Exam Date: 08/27/201617 FAX #: Reason: LLQ abd pain EXAMS: CPT: [id number] CT ABD PELVIS W/O CONT 43238 CT ABDOMEN AND PELVIS WITHOUT CONTRAST After hours services performed at 0016 hours. LOCATION: R16 INDICATION: Left lower quadrant abdominal pain. COMPARISON: None. TECHNIQUE: Volumetric CT acquisition of the abdomen and pelvis without contrast. Axial images were reconstructed. One or more of the following radiation dose reduction techniques was used: automated exposure control, adjustment of the mA and/or kV according to patient size, and/or utilization of iterative reconstruction technique. FINDINGS: The lung bases are clear. Visualized portions of the heart are normal. The gallbladder is absent. The liver, pancreas, spleen, and adrenal glands are normal. The kidneys, ureters, and bladder are normal. No renal or ureteral calculus is visualized. The uterus is absent. No ovarian abnormality is visualized. The small bowel, appendix, and colon are normal. There is no lymphadenopathy, free air or fluid, or focal osseous abnormality in the abdomen or pelvis. IMPRESSION: No a cute disease in the abdomen or pelvis. No evidence of urolithiasis. at 0034 Repor genaro and signed by: Dedrick Del Valle M.D. PAGE 1 Signed Report (CONTINUED) Name: LILIAN DEL ROSARIO [facility] : 1975 Age/S: 41 / F [address] [facility] Unit #: [id number] Loc: [place] [facility] [place] [address] Phys: Chicho Barnes MD Acct: [id number] Dis Date: Status: U NK PHONE #: [phone] Exam Date: 08/08 FAX #: Reason: LLQ abd pain EXAMS: CPT: [id number] CT ABD PELVIS W/O CONT 7 4176 <Continued> CC: Chicho Barnes MD Technologist:Jabier Moncada RT(R); Kelvin Yeung, CTDI: DLP: Trnscb Date/Time: 08/27/2016 (0034) [email or web address] Orig Print D/T: S: 08/27/2016 (0037) PAGE 2 Signed Report - CT ABD PELVIS W/O [id number] 00:34:00 Name: LILIAN DEL ROSARIO : 1975 Age/S: 41 / F [address] Unit #: [id number] Loc: [place] [address] Phys: Chicho Barnes MD Acct: [id number] Dis Date: Status: UNK PHONE #: [phone] Exam Date: 08/27/2016 0018 FAX #: Reason: LLQ abd pain EXAMS: CPT: [id number] CT ABD PELVIS W/O CONT 52988 CT ABDOMEN AND PELVIS WITHOUT CONTRAST After hours services performed at 0016 hours. LOCATION: R16 INDICATION: Left lower quadrant abdominal pain. COMPARISON: None. TECHNIQUE: Volumetric CT acquisition of the abdomen and pelvis without contrast. Axial images were reconstructed. One or more of the following radiation dose reduction techniques was used: automated exposure control, adjustment of the mA and/or kV according to patient size, and/or utilization of iterative reconstruction technique. FINDINGS: The lung bases are clear. Visualized portions of the heart are normal. The gallbladder is absent. The liver, pancreas, spleen, and adrenal glands are normal. The kidneys, ureters, and bladder are normal. No renal or ureteral calculus is visualized. The uterus is absent. No ovarian abnormality is visualized. The small bowel, appendix, and colon are normal. There is no lymphadenopathy, free air or fluid, or focal osseous abnormality in the abdomen or pelvis. IMPRESSION: No a cute disease in the abdomen or pelvis. No evidence of urolithiasis. at 0034 Repor genaro and signed by: Dedrick Del Valle M.D. PAGE 1 Signed Report (CONTINUED) Name: LILIAN DEL ROSARIO : 1975 Age/S: 41 / F [address] Unit #: [id number] Loc: [place] [address] Phys: Chicho Barnes MD Acct: [id number] Dis Date: Status: U PHONE #: [phone] Exam Date: 08/08 FAX #: Reason: LLQ abd pain EXAMS: CPT: [id number] CT ABD PELVIS W/O CONT 7 4176 <Continued> CC: Chicho Barnes MD Technologist:Jabier Moncada, RT(R); Kelvin Yeung, CTDI: DLP: Trnscb Date/Time: 08/27/2016 (003) [email or web address] Orig Print D/T: S: 08/27/2016 (003) PAGE 2 Signed Report - CT ABD PELVIS W/O [id number] 00:34:00 Name: ILLIAN DEL ROSARIO : 1975 Age/S: 41 / F [address] Unit #: [id number] Loc: [place] [address] Phys: Chicho Barnes MD Acct: [id number] Dis Date: Status: UNK PHONE #: [phone] Exam Date: 08/27/201617 FAX #: Reason: LLQ abd pain EXAMS: CPT: [id number] CT ABD PELVIS W/O CONT [address]67 CT ABDOMEN AND PELVIS WITHOUT CONTRAST After hours services performed at 0016 hours. LOCATION: R16 INDICATION: Left lower quadrant abdominal pain. COMPARISON: None. TECHNIQUE: Volumetric CT acquisition of the abdomen and pelvis without contrast. Axial images were reconstructed. One or more of the following radiation dose reduction techniques was used: automated exposure control, adjustment of the mA and/or kV according to patient size, and/or utilization of iterative reconstruction technique. FINDINGS: The lung bases are clear. Visualized portions of the heart are normal. The gallbladder is absent. The liver, pancreas, spleen, and adrenal glands are normal. The kidneys, ureters, and bladder are normal. No renal or ureteral calculus is visualized. The uterus is absent. No ovarian abnormality is visualized. The small bowel, appendix, and colon are normal. There is no lymphadenopathy, free air or fluid, or focal osseous abnormality in the abdomen or pelvis. IMPRESSION: No a cute disease in the abdomen or pelvis. No evidence of urolithiasis. at 0034 Repor genaro and signed by: Dedrick Del Valle M.D. PAGE 1 Signed Report (CONTINUED) Name: LILIAN DEL ROSARIO [place] : 1975 Age/S: 41 / F [address] Unit #: [id number] Loc: [place] [address] Phys: Chicho Barnes MD Acct: [id number] Dis Date: Status: U NK PHONE #: [phone] Exam Date: 08/08 FAX #: Reason: LLQ abd pain EXAMS: CPT: [id number] CT ABD PELVIS W/O CONT 7 4176 <Continued> CC: Chicho Barnes MD Technologist:Jabier Moncada, RT(R); Kelvin Yeung, CTDI: DLP: Trnscb Date/Time: 08/27/2016 (003) [email or web address] Orig Print D/T: S: 08/27/2016 (0037) PAGE 2 Signed Report LIPASE 2016-08-08 22:22:00* Test Item Value Reference Range Comments LIPASE (BEAKER) (test phdq=443) 27 U/L 8-78 COMPREHENSIVE METABOLIC [id number] 22:22:00* Test Item Value Reference Range Comments TOTAL PROTEIN (BEAKER) (test memy=242) 7.7 gm/dL 6.0-8.5 ALBUMIN (BEAKER) (test arlu=5973) 3.9 g/dL 3.5-5.0 ALKALINE PHOSPHATASE (BEAKER) (test vcpt=398) 127 U/L 30-115 BILIRUBIN TOTAL (BEAKER) (test bprx=752) 0.4 mg/dL 0.1-1.3 SODIUM (BEAKER) (test swhy=683) 139 meq/L 135-148 POTASSIUM (BEAKER) (test yjhu=480) 3.9 meq/L 3.5-5.5 CHLORIDE (BEAKER) (test iffm=884) 102 meq/L 98-106 CO2 (BEAKER) (test lbgf=393) 25 meq/L 20-31 BLOOD UREA NITROGEN (BEAKER) (test deil=292) 13 mg/dL 10-26 CREATININE (BEAKER) (test cnbk=768) 0.84 mg/dL 0.50-1.20 GLUCOSE RANDOM (BEAKER) (test pejr=466) 94 mg/dL 70-110 CALCIUM (BEAKER) (test rsnj=648) 9.2 mg/dL 8.5-10.5 AST (SGOT) (BEAKER) (test unzs=850) 13 U/L 5-40 ALT (SGPT) (BEAKER) (test ibut=777) 10 U/L 6-50 EGFR (BEAKER) (test sdfd=2551) 91 mL/min/1.73 sq m ESTIMATED GFR IS NOT ACCURATE CREATININE CLEARANCE IN PREDICTING GLOMERULAR FILTRATION RATE. ESTIMATED GFR IS NOT APPLICABLE FOR DIALYSIS PATIENTS. CBC W/PLT COUNT & AUTO [id number] 21:56:00* Test Item Value Reference Range Comments WHITE BLOOD CELL COUNT (BEAKER) (test rxhd=214) 9.9 K/ L 4.0-10.0 RED BLOOD CELL COUNT (BEAKER) (test bskm=316) 4.58 M/ L 4.00-5.00 HEMOGLOBIN (BEAKER) (test caab=519) 13.5 GM/DL 12.0-15.0 HEMATOCRIT (BEAKER) (test ycom=837) 40.8 % 36.0-45.0 MEAN CORPUSCULAR VOLUME (BEAKER) (test rfsn=906) 89.1 fL 82.0-99.0 MEAN CORPUSCULAR HEMOGLOBIN (BEAKER) (test xxhg=474) 29.5 pg 27.0-33.0 MEAN CORPUSCULAR HEMOGLOBIN CONC (BEAKER) (test dhko=448) 33.1 GM/DL 32.0-36.0 RED CELL DISTRIBUTION WIDTH (BEAKER) (test pylh=890) 13.7 % 12.0-15.0 PLATELET COUNT (BEAKER) (test gyty=319) 316 K/CU MM 150-430 MEAN PLATELET VOLUME (BEAKER) (test qgjg=254) 7.9 fL 6.5-10.5 NUCLEATED RED BLOOD CELLS (BEAKER) (test uyep=036) 0 /100 WBC 0-0 NEUTROPHILS RELATIVE PERCENT (BEAKER) (test hmpv=317) 68 % LYMPHOCYTES RELATIVE PERCENT (BEAKER) (test aklc=910) 26 % MONOCYTES RELATIVE PERCENT (BEAKER) (test kdpn=783) 4 % EOSINOPHILS RELATIVE PERCENT (BEAKER) (test jwxq=705) 1 % BASOPHILS RELATIVE PERCENT (BEAKER) (test hzyp=183) 1 % NEUTROPHILS ABSOLUTE COUNT (BEAKER) (test lvbl=927) 6.70 K/ L 1.80-8.00 LYMPHOCYTES ABSOLUTE COUNT (BEAKER) (test pkpf=441) 2.50 K/ L 1.48-4.50 MONOCYTES ABSOLUTE COUNT (BEAKER) (test pfve=630) 0.40 K/ L 0.00-1.30 EOSINOPHILS ABSOLUTE COUNT (BEAKER) (test zxdh=647) 0.10 K/ L 0.00-0.50 BASOPHILS ABSOLUTE COUNT (BEAKER) (test vqcv=291) 0.10 K/ L 0.00-0.20 URINALYSIS W/ [id number] 21:02:00* Test Item Value Reference Range Comments COLOR (BEAKER) (test rdmb=687) Yellow CLARITY (BEAKER) (test wcnc=500) Hazy SPECIFIC GRAVITY UA (BEAKER) (test mghk=060) 1.026 1.001-1.035 PH UA (BEAKER) (test ebqw=307) 5.0 5.0-8.0 PROTEIN UA (BEAKER) (test nfbd=561) 30 mg/dL Negative GLUCOSE UA (BEAKER) (test imlo=300) Negative Negative KETONES UA (BEAKER) (test hyoe=249) Negative Negative BILIRUBIN UA (BEAKER) (test diam=928) Negative Negative BLOOD UA (BEAKER) (test xxcy=531) Large Negative NITRITE UA (BEAKER) (test eamb=887) Negative Negative LEUKOCYTE ESTERASE UA (BEAKER) (test vppk=125) Negative Negative UROBILINOGEN UA (BEAKER) (test oovj=230) 2.0 mg/dL 0.2-1.0 RBC UA (BEAKER) (test mqea=730) 1266 /HPF WBC UA (BEAKER) (test qdcy=572) 0 /HPF BACTERIA (BEAKER) (test yizj=153) Occasional MUCUS (BEAKER) (test nllg=2408) Few SQUAMOUS EPITHELIAL (BEAKER) (test cscu=782) 6 /HPF SOURCE(BEAKER) (test dayx=5031) - CT ABD PELVIS W/O [id number] 07:50:00 [facility]: [facility] Name: LILIAN BOO [facility] : 5 Age/S: 40/F [address] Unit: [id number] Loc: [place], [place]: [place] [address] Acct: [id number] Dis Date: Status: UNK PHONE #: [phone] Exam Date: 08/01/2016 0125 FAX #: [phone] Reason: R flank EXAMS: CPT CODE: [id number] CT ABD PELVIS W/O CONT [address]220 CT ABDOMEN AND PELVIS WITHOUT IV C ONTRAST HISTORY: Right flank pain. COMPARISON: CT a bdomen and pelvis 02/22/16. TECHNIQUE: Axial CT images of the abdo men and pelvis were obtained with coronal and/or sagittal reformatted view s. Automated exposure control, iterative reconstruction technique, and/or adjustment of mA and/or kV according to patient's size was utilized for r adiation dose reduction. IV CONTRAST: None. PO CONTRAST: No ne. Lack of IV contrast limits evaluation of the parenchyma and vasc ulature. FINDINGS: The visualized lung bases are kesha ar. Heart size is normal. The gallbladder has been removed. The unenhanced liver, spleen, pancreas and adrenal glands are unremarkable. B oth kidneys are similar in size and shape without evidence of hydronephros is or nephrolithiasis. Urinary bladder is contracted. The u terus has been removed. Probable 2.3 cm left ovarian cyst. No free air, free fluid or evidence of a bowel obstruction. Stomach is co llapsed. Small hiatal hernia. The appendix is normal. No bowel wall thi ckening. The aorta is normal in caliber. No abdominal or pelvic a denopathy. The bones are unremarkable. IMPRESSION: No evidence of nephrolithiasis or obstructive uropathy. Normal appendix. Partial hysterectomy. 2.3 cm left ovarian cyst PAGE 1 Signed Report (CONTINUED) FAX: Nahid Murillo [place]: St: [facility] ----- Name: LILIAN DEL ROSARIO [facility] : 1975 Age/S: 40/F [address]: [id number] Loc: [place], [place]: [place] [address] Acct: [id number] Dis Date: Status: [facility] PHON E #: [phone] Exam Date: 08/01/2016 012 FAX #: Reason: R flank EXAM S: CPT CODE: [id number] CT ABD PELVIS W/O CONT 65460 <Continued> at 0750 Reported and signed by: Kacey Zuniga M.D. CC: Nahid Qureshi DO Technologist: MT Burgos Dt/Tm: 08/01/2016 (0750) [email or web address] Orig Print D/T: S: 08/01/2016 (0754 21.93 1209.08 PAGE 2 Signed Report - CT ABD PELVIS W/O [id number] 07:50:00 FAX: Nahid Murillo [place]: EM St: [facility] Name: FRANKI LARSENLILIAN [facility] : 5 Age/S: 40/F [address] Unit: [id number] Loc: [place], [place]: [place] [address] Acct: [id number] Dis Date: Status: UNK PHONE #: [phone] Exam Date: 08/01/2016 0125 FAX #: [phone] Reason: R flank EXAMS: CPT CODE: [id number] CT ABD PELVIS W/O CONT 99026 CT ABDOMEN AND PELVIS WITHOUT IV C ONTRAST HISTORY: Right flank pain. COMPARISON: CT a bdomen and pelvis 02/22/16. TECHNIQUE: Axial CT images of the abdo men and pelvis were obtained with coronal and/or sagittal reformatted view s. Automated exposure control, iterative reconstruction technique, and/or adjustment of mA and/or kV according to patient's size was utilized for r adiation dose reduction. IV CONTRAST: None. PO CONTRAST: No ne. Lack of IV contrast limits evaluation of the parenchyma and vasc ulature. FINDINGS: The visualized lung bases are kesha ar. Heart size is normal. The gallbladder has been removed. The unenhanced liver, spleen, pancreas and adrenal glands are unremarkable. B oth kidneys are similar in size and shape without evidence of hydronephros is or nephrolithiasis. Urinary bladder is contracted. The u terus has been removed. Probable 2.3 cm left ovarian cyst. No free air, free fluid or evidence of a bowel obstruction. Stomach is co llapsed. Small hiatal hernia. The appendix is normal. No bowel wall thi ckening. The aorta is normal in caliber. No abdominal or pelvic a denopathy. The bones are unremarkable. IMPRESSION: No evidence of nephrolithiasis or obstructive uropathy. Normal appendix. Partial hysterectomy. 2.3 cm left ovarian cyst PAGE 1 Signed Report (CONTINUED) FAX: Nahid Murillo [place]: EM St: [facility] ----- Name: LILIAN DEL ROSARIO [facility] : 1975 Age/S: 40/F [address] Unit: [id number] Loc: [place], [place]: [place] [address] Acct: [id number] Dis Date: Status: UNK PHON E #: [phone] Exam Date: 08/01/2016 0125 FAX #: Reason: R flank EXAM S: CPT CODE: [id number] CT ABD PELVIS W/O CONT 55376 <Continued> at 0750 Reported and signed by: Kacey Zuniga M.D. CC: Nahid Qureshi DO Technologist: MT Burgos Dt/Tm: 08/01/2016 (0750) [email or web address] Orig Print D/T: S: 08/01/2016 (0754 21.93 1209.08 PAGE 2 Signed Report - CT ABD PELVIS W/[id number] 02:54:00 Name: LILIAN DEL ROSARIO [facility] : 1975 Age/S: 40 / F [address] [facility] Unit #: [id number] Loc: [place] [address] Phys: Yasmin Moreira Acct: [id number] Dis Date: Status: UNK PHONE #: [phone] Exam Date: 02/27/2016 0235 FAX #: [phone] Reason: Left Flank Pain, Hematuria EXAMS: CPT CODE: [id number] CT ABD PELVIS W/CONT 38683 HISTORY: Flank pain TECHNIQUE: Axial tomograms through the abdomen and pelvis were obtained after intravenous contrast FINDINGS: The visualized lung bases are clear. The liver, spleen, pancreas, bilateral adrenals, and bilateral kidneys demonstrate no significant abnormalities. Cholecystectomy clips are present. No abdominal fluid collection or adenopathy is demonstrated. The appendix is unremarkable. Cystic collection in the left iliac region is again noted similar to prior study dated 12/10/2015. IMPRESSION: 1. Stable examination. No acute inflammatory process. No other acute abnormality identified. at 0254 Reported and signed by: Tommie Trent MD CC: Yasmin Moreira; Cong Yost DO Technologist:JABIER MONTES CT CTDI: DLP: Trnscb Date/Time: 02/27/2016 (253) [email or web address] Orig Print D/T: S: 02/27/2016 (256) PAGE 1 Signed Report - CT ABD PELVIS W/[id number] 02:54:00 Name: LILIAN DEL ROSARIO [facility] : 1975 Age/S: 40 / F [address] Unit #: [id number] Loc: [place] [address] Phys: Yasmin Moreira Acct: [id number] Dis Date: Status: UNK PHONE #: [phone] Exam Date: 02/27/2016234 FAX #: [phone] Reason: Left Flank Pain, Hematuria EXAMS: CPT CODE: [id number] CT ABD PELVIS W/CONT 06250 HISTORY: Flank pain TECHNIQUE: Axial tomograms through the abdomen and pelvis were obtained after intravenous contrast FINDINGS: The visualized lung bases are clear. The liver, spleen, pancreas, bilateral adrenals, and bilateral kidneys demonstrate no significant abnormalities. Cholecystectomy clips are present. No abdominal fluid collection or adenopathy is demonstrated. The appendix is unremarkable. Cystic collection in the left iliac region is again noted similar to prior study dated 12/10/2015. IMPRESSION: 1. Stable examination. No acute inflammatory process. No other acute abnormality identified. at 0254 Reported and signed by: Tommie Trent MD CC: Yasmin Moreira; [facility] Technologist:JABIER MONTES CT CTDI: DLP: Trnscb Date/Time: 02/27/2016 (253) [email or web address] Orig Print D/T: S: 02/27/2016 (256) PAGE 1 Signed Report - CT ABD PELVIS W/[id number] 02:54:00 Name: LILIAN DEL ROSARIO [facility] : 1975 Age/S: 40 / F [address] Unit #: [id number] Loc: [place] [address] Phys: Yasmin Moreira Acct: [id number] Dis Date: Status: UNK PHONE #: [phone] Exam Date: 02/27/2016234 FAX #: [phone] Reason: Left Flank Pain, Hematuria EXAMS: CPT CODE: [id number] CT ABD PELVIS W/CONT 79165 HISTORY: Flank pain TECHNIQUE: Axial tomograms through the abdomen and pelvis were obtained after intravenous contrast FINDINGS: The visualized lung bases are clear. The liver, spleen, pancreas, bilateral adrenals, and bilateral kidneys demonstrate no significant abnormalities. Cholecystectomy clips are present. No abdominal fluid collection or adenopathy is demonstrated. The appendix is unremarkable. Cystic collection in the left iliac region is again noted similar to prior study dated 12/10/2015. IMPRESSION: 1. Stable examination. No acute inflammatory process. No other acute abnormality identified. at 0254 Reported and signed by: Tommie Trent MD CC: Yasmin Moreira; Cong Yost DO Technologist:JABIER COLLADO CTDI: DLP: Trnscb Date/Time: 02/27/2016 (025) [email or web address] Orig Print D/T: S: 02/27/2016 (0257) PAGE 1 Signed Report - CT ABD PELVIS W/O [id number] 20:41:00 [place]: St: DEP Name: FRANKI MASONLILIAN [facility] : 5 Age/S: 40/F [address] Unit: [id number] Loc: [place] [address] Phys: Lynda Warren NP Acct: [id number] Dis Date: Status: [facility] PHONE #: [phone] Exam Date: 02/22/20162039 FAX #: [phone] Reason: flank pain EXAMS: CPT CODE: [id number] CT ABD PELVIS W/O CONT 19393 TIME OF STUDY: 02/22/2016 7:58 PM REASON FOR EXAM: flank pain COMPARISON: None. TECHNIQUE: Helical non- contrast enhanced images were obtained through the abdomen and pelvis. Sagittal and coronal reformats were obtained and reviewed. FINDINGS: CT Abdomen: The included lung bases are clear. The gallbladder is surgically absent with clips in the gallbladder fossa. The liver, pancreas, kidneys, adrenal g lands and spleen all have normal appearance. There is no mesenteric or re troperitoneal adenopathy. The bowel loops are nondilated. A normal appen blanca is not visualized. However, there is no inflammation in the right low er quadrant. There is no free fluid or free air. The osseous structures are age-appropriate. CT Pelvis: The ureters and bladder are grossly normal. There is no free air, free fluid, loculated collection or adenopathy in the pelvis. The osseous and soft tissue structures are age appropriate. IMPRESSION: 1. No acute abnorm alities in the abdomen or pelvis. No obstructive ureteral calculi. at 2040 Reported and signed by: Yifan Yu MD CC: Technologist: Deedee Michael RT (R); Alfred Foster RT(R)(CT) Trnscrd Dt/Tm: 02/22/2016 (2040) [email or web address] Orig Print D/T: S: 02/22/2016 (2044 PAGE 1 Signed Report - CT ABD PELVIS W/O [id number] 20:41:00 [place]: St: DEP Name: LILIAN BOO [facility] : 5 Age/S: 40/F [address] Unit: [id number] Loc: [place] [address] Phys: Lynda Warren NP Acct: [id number] Dis Date: Status: DEP ER PHONE #: [phone] Exam Date: 02/22/20162039 FAX #: [phone] Reason: flank pain EXAMS: CPT CODE: [id number] CT ABD PELVIS W/O CONT 25133 TIME OF STUDY: 02/22/2016 7:58 PM REASON FOR EXAM: flank pain COMPARISON: None. TECHNIQUE: Helical non- contrast enhanced images were obtained through the abdomen and pelvis. Sagittal and coronal reformats were obtained and reviewed. FINDINGS: CT Abdomen: The included lung bases are clear. The gallbladder is surgically absent with clips in the gallbladder fossa. The liver, pancreas, kidneys, adrenal g lands and spleen all have normal appearance. There is no mesenteric or re troperitoneal adenopathy. The bowel loops are nondilated. A normal appen blanca is not visualized. However, there is no inflammation in the right low er quadrant. There is no free fluid or free air. The osseous structures are age-appropriate. CT Pelvis: The ureters and bladder are grossly normal. There is no free air, free fluid, loculated collection or adenopathy in the pelvis. The osseous and soft tissue structures are age appropriate. IMPRESSION: 1. No acute abnorm alities in the abdomen or pelvis. No obstructive ureteral calculi. at 204 Reported and signed by: Yifan Yu MD CC: Technologist: Deedee Michael RT (R); Alfred Foster RT(R)(CT) Trnscrd Dt/Tm: 02/22/2016 (2040) [email or web address] Orig Print D/T: S: 02/22/2016 (2044 PAGE 1 Signed Report - CT ABD PELVIS W/O [id number] 22:11:00 Name: LILIAN DEL ROSARIO [facility] : 1975 Age/S: 40 / F [address] [facility] Unit #: [id number] Loc: [place] [address] Phys: Chirag Cantu MD Acct: [id number] Dis Date: Status: UNK PHONE #: [phone] Exam Date: 12/10/20152157 FAX #: [phone] Reason: left flank pain; Hx kidney stone pain EXAMS: CPT CODE: [id number] CT ABD PELVIS W/O CONT [address] CT OF THE ABDOMEN AND PELVIS WITHOUT CONTRAST HISTORY: Left flank pain, history of stones TECHNIQUE:5 millimeters noncontrast enhanced axial images of the abdomen and pelvis were performed without PO ingestion of radio-opaque contrast material. The images were reviewed in soft tissue, lung and bone windows. Multiplanar reformats were obtained. COMPARISON: October 17, 2015 FINDINGS: Abdomen findings: Liver: No significant abnormality. Gallbladder: Surgically absent Pancreas: No significant abnormality. Spleen: No significant abnormality. Kidneys: No significant abnormality. Adrenals: No significant abnormality. Lung Windows: No significant abnormality. Pelvis findings: Bladder: Contracted, otherwise unremarkable. Bowel: No significant abnormality. Appendix: No significant abnormality. Uterus: Appears surgically absent. Adnexal regions: No significant abnormality. Bone Windows: No significant abnormality. IMPRESSION: 1. No evidence of nephrolithiasis or obstructive uropathy. at 2211 Reported and signed by: KALIN GLASS MD CC: Alison Joseph BUILDING DRAFTER; Chirag Cantu MD Technologist:RT JENNIFER CTDI: DLP: Trnscb Date/Time: 12/10/2015 (2210) [email or web address] Orig Print D/T: S: 12/10/2015 (8557) PAGE 1 Signed Report - CT ABD PELVIS W/O [id number] 22:11:00 Name: LILIAN DEL ROSARIO [facility] : 1975 Age/S: 40 / F [address] [facility] Unit #: [id number] Loc: [place] [address] Phys: Chirag Cantu MD Acct: [id number] Di s Date: Status: UNK PHONE #: Exam Date: 12/10/20152157 FAX #: Reason: left flank pain; Hx kidney stone pain EXAMS: CPT CODE: [id number] CT ABD PELVIS W/O CONT 76692 CT OF THE ABDOMEN AND PEL VIS WITHOUT CONTRAST HISTORY: Left flank pain, history of stones TECHNIQUE:5 millimeters noncontrast enhanced axial images of the abdomen and pelvis were performed without PO ingestion of radio-opaque contrast material. The images were reviewed in soft tissue, lung and bone windows. Multiplanar reformats were obtained. COMPARISON: October 17, 2015 FINDINGS: Abdomen findings: Liver: No sig nificant abnormality. Gallbladder: Surgically absent Pancreas: No si gnificant abnormality. Spleen: No significant abnormality. Kidneys: No significant abnormality. Adrenals: No significant abnormality. Ina ng Windows: No significant abnormality. Pelvis findings: Radhames dder: Contracted, otherwise unremarkable. Bowel: No significant abnormalit y. Appendix: No significant abnormality. Uterus: Appear s surgically absent. Adnexal regions: No significant abnormality. Bone Windows: No significant abnormality. IMPRESSION: 1. No evidence of nephrolithiasis or obstructive uropathy. at 2211 Reported and signed by: KALIN GLASS MD CC: Alison Joseph BUILDING DRAFTER; Chirag Cantu MD Technologist:RT JNENIFER CTDI: DLP: Trnscb Date/Time: 12/10/2015 (2210) [email or web address].[email or web address] Orig Print D/T: S: 12/10/2015 (8162) PAGE 1 Signed Report - CT ABD PELVIS W/O [id number] 22:11:00 Name: LILIAN DEL ROSARIO [facility] : 1975 Age/S: 40 / F [address] [facility] Unit #: [id number] Loc: [place] [address] Phys: Chirag Cantu MD Acct: [id number] Dis Date: Status: UNK PHONE #: [phone] Exam Date: 12/10/20152157 FAX #: [phone] Reason: left flank pain; Hx kidney stone pain EXAMS: CPT CODE: [id number] CT ABD PELVIS W/O CONT [address] CT OF THE ABDOMEN AND PELVIS WITHOUT CONTRAST HISTORY: Left flank pain, history of stones TECHNIQUE:5 millimeters noncontrast enhanced axial images of the abdomen and pelvis were performed without PO ingestion of radio-opaque contrast material. The images were reviewed in soft tissue, lung and bone windows. Multiplanar reformats were obtained. COMPARISON: October 17, 2015 FINDINGS: Abdomen findings: Liver: No significant abnormality. Gallbladder: Surgically absent Pancreas: No significant abnormality. Spleen: No significant abnormality. Kidneys: No significant abnormality. Adrenals: No significant abnormality. Lung Windows: No significant abnormality. Pelvis findings: Bladder: Contracted, otherwise unremarkable. Bowel: No significant abnormality. Appendix: No significant abnormality. Uterus: Appears surgically absent. Adnexal regions: No significant abnormality. Bone Windows: No significant abnormality. IMPRESSION: 1. No evidence of nephrolithiasis or obstructive uropathy. at 2211 Reported and signed by: KALIN GLASS MD CC: Alison Joseph BUILDING DRAFTER; Chirag Cantu MD Technologist:RT JENNIFER CTDI: DLP: Trnscb Date/Time: 12/10/2015 (2210) [email or web address].[email or web address].[email or web address] Orig Print D/T: S: 12/10/2015 (9012) PAGE 1 Signed Report - CT ABD PELVIS W/[id number] 01:30:00 Name: LILIAN DEL ROSARIO [facility] : 1975 Age/S: 40 / F [address] [address] Unit #: [id number] Loc: [place] [address] Phys: Jacqueline Telles DO Acct: [id number] Dis Date: Status: UNK PHONE #: Exam Date: 10/17/2015 0119 FAX #: Reason: leftr flank pain, hx of pyelonephritis and lori EXAMS: CPT: [id number] CT ABD PELVIS W/CONT 56692 AFTER HOURS SERVICE ON: 1:[address] Scan of the Abdomen and Pelvis With Contrast Location Code M12 History: leftr flank pain, hx of py elonephritis and renal stone Technique: Axial and reconstructed c oronal scans were performed on a helical scanner post IV contrast. Findings: Gallbladder is surgically absent. There is a small hiatal hernia. No abnormal low or splenic enhancement is seen. The re are no peripancreatic inflammatory changes. There is mild fullness in the right renal collecting system and ureter possibly from a recently passed calculus. No ureteral calculi or bladder calculi are seen. There is a calcification the pelvis above the UVJ consistent with a phlebolith. Bladder is unremarkable. There is no hydronephrosis of left kidney. T here is no CT evidence of pyelonephritis. Uterus is absent. There is no adnexal mass or free fluid. There is no bowel wall thickening or inflammatory changes. Small bowel loops and appendix are unremarkable. Impression: 1. Mild fullness in the right renal collecting system and ureter possibly from a recently passed calcu lilliam. No ureteral or bladder calculi are seen. 2. Cholecystecto my. 3. Normal appendix and bowel. Electronically Si gned by Ronna Stark on 10/17/2015 at 0130 Reported and signed by: Marichuy Stark M.D. CC: Jacqueline Telles DO Technologi st:RT Rocio(R) CTDI: DLP: 1423.95Trnscb Date/Time: (129) [email or web address] Orig Print D/T: S: 10/17/2015 ( 0134) PAGE 1 Signed Report - CT ABD PELVIS W/[id number] 01:30:00 Name: LILIAN DEL ROSARIO [place] : 1975 Age/S: 40 / F [address] [address] Unit #: [id number] Loc: [place] [address] Phys: Jacqueline Telles DO Acct: [id number] Dis Date: Status: UNK PHONE #: [phone] Exam Date: 10/17/2015 0119 FAX #: Reason: leftr flank pain, hx of pyelonephritis and lori EXAMS: CPT: [id number] CT ABD PELVIS W/CONT 38997 AFTER HOURS SERVICE ON: 10/17/2015 1:[address] Scan of the Abdomen and Pelvis With Contrast Location Code M12 History: leftr flank pain, hx of pyelonephritis and renal stone Technique: Axial and reconstructed coronal scans were performed on a helical scanner post IV contrast. Findings: Gallbladder is surgically absent. There is a small hiatal hernia. No abnormal low or splenic enhancement is seen. There are no peripancreatic inflammatory changes. There is mild fullness in the right renal collecting system and ureter possibly from a recently passed calculus. No ureteral calculi or bladder calculi are seen. There is a calcification the pelvis above the UVJ consistent with a phlebolith. Bladder is unremarkable. There is no hydronephrosis of left kidney. T here is no CT evidence of pyelonephritis. Uterus is absent. There is no adnexal mass or free fluid. There is no bowel wall thickening or inflammatory changes. Small bowel loops and appendix are unremarkable. Impression: 1. Mild fullness in the right renal collecting system and ureter possibly from a recently passed calcu lilliam. No ureteral or bladder calculi are seen. 2. Cholecystecto my. 3. Normal appendix and bowel. Electronically Si gned by Ronna Stark on 10/17/2015 at 0130 Reported and signed by: Marichuy Stark M.D. CC: Jacqueline Telles DO Technologi st:RT Rocio(R) CTDI: DLP: 1423.95Trnscb Date/Time: (129) [email or web address] Orig Print D/T: S: 10/17/2015 ( 013) PAGE 1 Signed Report - CT ABD PELVIS W/[id number] 01:30:00 Name: LILIAN DEL ROSARIO [place] : 1975 Age/S: 40 / F [address] [address] Unit #: [id number] Loc: [place] [address] Phys: Jacqueline Telles DO Acct: [id number] Dis Date: Status: UNK PHONE #: [phone] Exam Date: 10/17/2015 011 FAX #: Reason: leftr flank pain, hx of pyelonephritis and lori EXAMS: CPT: [id number] CT ABD PELVIS W/CONT 80061 AFTER HOURS SERVICE ON: 10/17/2015 1:[address] Scan of the Abdomen and Pelvis With Contrast Location Code M12 History: leftr flank pain, hx of pyelonephritis and renal stone Technique: Axial and reconstructed coronal scans were performed on a helical scanner post IV contrast. Findings: Gallbladder is surgically absent. There is a small hiatal hernia. No abnormal low or splenic enhancement is seen. There are no peripancreatic inflammatory changes. There is mild fullness in the right renal collecting system and ureter possibly from a recently passed calculus. No ureteral calculi or bladder calculi are seen. There is a calcification the pelvis above the UVJ consistent with a phlebolith. Bladder is unremarkable. There is no hydronephrosis of left kidney. T here is no CT evidence of pyelonephritis. Uterus is absent. There is no adnexal mass or free fluid. There is no bowel wall thickening or inflammatory changes. Small bowel loops and appendix are unremarkable. Impression: 1. Mild fullness in the right renal collecting system and ureter possibly from a recently passed calcu lililam. No ureteral or bladder calculi are seen. 2. Cholecystecto my. 3. Normal appendix and bowel. Electronically Si gned by Ronna tSark on 10/17/2015 at 0130 Reported and signed by: Marichuy Stark M.D. CC: Jacqueline Telles DO Technologi st:Jabier Moncada, RT(R) CTDI: DLP: 1423.95Trnscb Date/Time: (129) [email or web address] Orig Print D/T: S: 10/17/2015 ( 133) PAGE [address] Abdomen [address]vis W [facility] Pt Name: LILIAN DEL ROSARIO [employer] Phys: [place] [address] : 1975 Age: 43 SEX:F [phone] Exam Date: 03/14/19 Status: DEP ER Acct: [id number] Loc: [facility] Pt Unit #: [id number] Report #: [id number] CC: Mela Rivers MD CAT SCAN REPORT Order # Category/Exam [id number] CT/CT Abdomen Pelvis W Con ([id number]): . Results [facility] PRELIMINARY REPORT/[facility]/EMERGENCY AFTER HOURS PROCEDURE: PROCEDURE INFORMATION: Exam: CT Abdomen And Pelvis With Contrast Exam date and time: 03/14/2019 3:41 AM Clinical history: 43 years old, female; Abdominal pain; Prior surgery; Patient HX: Er 4. , F43 with pmh of uterine cancer presented to the ED with a C/O left pelvic pain onset yesterday. PT reports the pain is similar to kidney stone pain. PT denies fever. PT reports gallbladder removal surgery, colonoscopy and surgery. PT reports her colonoscopy is normal. PT reports she was diagnosed with a 5.4 cm left ovarian cyst last week. PT reports vomiting onset earlier today and diarrhea onset 2 hours ago. PT reports HX of kidney disease with frequent kidney stones; Additional info: Llq pelvic pain, nausea, vomiting, diarrhea TECHNIQUE: Imaging protocol: Computed tomography of the abdomen and pelvis with intravenous contrast. COMPARISON: [facility] 03/14/2019 3:09 AM FINDINGS: Liver: Normal. No mass. Gallbladder and bile ducts: Biliary ductal dilatation is probably secondary to cholecystectomy, however, recomend correlation to cholectatic parameters. Pancreas: Normal. No ductal dilation. Spleen: Normal. No splenomegaly. Adrenals: Normal. No mass. Kidneys and ureters: Normal. No hydronephrosis. Stomach and bowel: Small to moderate hiata l hernia. No obstruction. No mucosal thickening. Appendix: No evidence of appe ndicitis. Intraperitoneal space: No free air. No significant fluid collection. Vasculature: No abdominal aortic aneurysm. Lymph nodes: No enlarged lymph n odes. Bladder: Empty. Reproductive: There has been a hysterectomy. Bones/j oints: No acute fracture. Soft tissues: Unremarkable. IMPRESSION: No a cute findings. Thank you for allowing us to participate in the care of you r patient. Dictated and Authenticated by: Diane Zuniga MD 03/14 4:23 AM Central Time ([facility]) FINAL REPORT ABDOM EN CT WITH CONTRAST PELVIC CT WITH CONTRAST: HISTORY: Uterine cance r. Pelvic pain, onset yesterday. COMPARISON: 01/12/19. FINDING S: This report is in agreement with the preliminary report by [facility]. No acute a bnormality in the abdomen or pelvis. POS: [facility] Reported By: Destiney Knapp MD Electronically Signed Date/Time: 03/14/19 0952 Technologist: MOLLY Dictated Date/Time: 03/14/19 0745 Transcribed Date/Time: 03/14/19 0[facility] Name: LILIAN DEL ROSARIO [employer] Phys: [place] [address] : 1975 Age: 43 SEX:F [phone] Exam Date: 03/14/19 Status: DEP ER Acct: [id number] Loc: [facility] Pt Unit #: [id number] Report #: [id number] CC: Mela Rivers MD ULTRASOUND REPORT Order # Category/Exam [id number] ULT/US Pelvic Transvag ([id number]): . Results [facility] PRELIMINARY REPORT/[facility]/EMERGENCY AFTER HOURS PROCEDURE: PROCEDURE INFORMATION: Exam: US Pelvis Complete, Transabdominal Exam date and time: 03/14/2019 3:09 AM Clinical history: 43 years old, female; Other: N/v/d; Pelvic pain and other: Llq; Prior surgery; Surgery date: 6+ months; Surgery type: Partial hysterectomy due to uterine CA, both ovaries remain; Patient HX: HX ovarian cysts; Additional info: Llq pelvic pain, nausea, vomiting, diarrhea TECHNIQUE: Imaging protocol: Real-time transabdominal pelvic ultrasound with image documentation. Complete exam. COMPARISON: No relevant prior studies available. FINDINGS: Uterus/cervix: Uterus has been surgically removed. Right adnexa: Ovary is not visualized. Left adnexa: Ovary is not visualized. Free fluid: None. Bladder: Normal. IMPRESSION: Hysterectomy. Ovaries not seen. Thank you for allowing us to participate in the care of your patient. Dictated and Authenticated by: Diane Zuniga MD 03/14/2019 3:57 AM Central Time ([facility]) FINAL REPORT TRANSABDOMINAL AND ENDOVAGINAL PELVIC ULTRASOUND: HISTORY: Left lower quadrant pain, nausea, vomiting, and diarrhea. Partial hysterectomy due to uterine cancer. FINDINGS: This report is in agreement with the preliminary report by [facility]. No acute pelvic abnormality. Neither ovary is appreciated. No free fluid or masses in the pel vis. POS: [facility] Reported By: Destiney Redding MD Electronically Signed Date/Time: 03/14/19 0953 Technologist: SULEIMAN Dictated Date/Time: 0749 Transcribed Date/Time: 03/14/19 4367
--- OUTSIDE RECORDS SUMMARY | 2019-08-12 01:42 | XMS REPORT | Summary of Care ---
Author Author [facility] Address [address] [place] [address] Phone Unavailable Care Team Providers Care Parking Station Attendant Name Role Phone DIANNA SAINZ, BURT Unavailable Unavailable PORSCHE CHICAS DO Unavailable Unavailable Functional Status Name Dates Details Functional status health issues are not documented Status: Name Dates Details Cognitive status health issues are not documented Status: Problems Name Dates Details Adjustment disorder with mixed anxiety and depressed mood (309.28, F43.23) Status: Active Medications Name Dates Details Medications not documented Allergies and Adverse Reactions Name Dates Details Allergy history not documented Status: Procedures Procedure Dates Details Procedures not documented Immunization Name Dates Details Immunizations not documented Social History Name Dates Details - Status: Name Dates Details Current every day smoker Vital Signs Date Test Result Details No Known Vitals to report Results Date Description Value Details Results not documented Plan of Care Name Dates Details Planned Observations Planned Goals not documented Instructions Name Dates Details Instructions not documented Encounters Appointment; TANIA DILLON LCSW Encounter Diagnosis: Problem not documented On: 04-Jul-2018 9:00
--- OUTSIDE RECORDS SUMMARY | 2019-08-12 01:42 | XMS REPORT | Summary of Care ---
Author Author [facility] Address [address] [place] [address] Phone Unavailable Care Team Providers Care Dressmaker Or Tailor Name Role Phone DIANNA SAINZ, BURT Unavailable [...]
--- OUTSIDE RECORDS SUMMARY | 2019-08-12 01:42 | XMS REPORT | Summary of Care ---
Author Author [facility] Address [address] [place] [address] Phone Unavailable Care Team Providers Care Non Destructive Evaluation Technician Name Role Phone DIANNA SAINZ, BURT Unavailable [...]
[2019-08-12] MEDS ORDERED: MORPHINE SULFATE 2 MG/ML SYR 1ML IV STA (01:53)
[2019-08-12] MEDS ORDERED: ONDANSETRON HCL INJ 2MG/ML 2ML 2 MG/ML VIAL IV STA (01:53)
[2019-08-12] MEDS ORDERED: PROMETHAZINE HCL (IM) 25 MG/ML VIAL IM ONE (02:15)
[2019-08-12 02:18] LABS: BASOPHILS # (AUTO) 0.1 (0.0-0.1); BASOPHILS % 0.7 % (0.0-1.0); EOSINOPHILS # (AUTO) 0.3 (0.0-0.4); EOSINOPHILS % 2.5 % (0.0-6.0); HEMOGLOBIN 14.3 g/dL (12.0-16.0); LYMPHOCYTES # (AUTO) 2.7 (1.0-3.2); LYMPHOCYTES % 26.4 % (18.0-39.1); MEAN CORPUSCULAR HEMOGLOBIN 30.2 pg (28-32); MEAN CORPUSCULAR HGB CONC 32.5 g/dL (31-35); MONOCYTES # (AUTO) 0.5 (0.2-0.8); MONOCYTES % 4.6 % (4.4-11.3); NEUTROPHILS # (AUTO) 6.6 (2.1-6.9); NEUTROPHILS % 65.3 % (38.7-80.0); PLATELET COUNT 312 x10e3/uL (140-360); RED BLOOD COUNT 4.73 x10e6/uL (3.6-5.1); RED CELL DISTRIBUTION WIDTH 13.2 % (11.7-14.4)
[2019-08-12 02:32] LABS: ALANINE AMINOTRANSFERASE 19 IU/L (0-55); ALBUMIN 3.5 g/dL (3.5-5.0); ALBUMIN/GLOBULIN RATIO 0.8 (0.8-2.0); ALKALINE PHOSPHATASE 155 IU/L (40-150); BLOOD UREA NITROGEN 13 mg/dL (7-26); BUN/CREATININE RATIO 16 (6-25); CALCIUM 9.3 mg/dL (8.4-10.2); CARBON DIOXIDE 25 mmol/L (22-29); CHLORIDE 107 mmol/L (98-107); CREATININE, SERUM 0.82 mg/dL (0.57-1.11); EST GLOMERULAR FILTRATION RATE > 60 ML/MIN (60-); GLUCOSE 102 mg/dL (74-118); SODIUM 140 mmol/L (136-145)
[2019-08-12 02:34] LABS: CLARITY,URINE CLOUDY (CLEAR); COLOR,URINE AMBER (YELLOW); LEUKOCYTE ESTERASE ,URINE NEGATIVE (NEGATIVE); NITRITE,URINE NEGATIVE (NEGATIVE)
[2019-08-12 02:35] LABS: BACTERIA,URINE MODERATE /HPF; BILIRUBIN,URINE SMALL (NEGATIVE); EPITHELIAL CELLS,URINE MANY /LPF; KETONES,URINE NEGATIVE (NEGATIVE); PROTEIN,URINE DIPSTICK NEGATIVE (NEGATIVE); RBC,URINE >50 /HPF (0-5); URINE UROBILINOGEN 1 mg/dL (0.2 - 1)
[2019-08-12] MEDS ORDERED: IOPAMIDOL 370 MG/ML 200 ML INFUS..BTL INJ ONE (03:02)
[2019-08-12] MEDS ORDERED: SODIUM CHLORIDE 0.9% 50ML 50 ML ONE (03:02)
--- NOTE | 2019-08-12 03:36 | Diagnostic Imaging Report ---
CT Abdomen And Pelvis with Intravenous Contrast INDICATION: History of renal stones, right lower quadrant pain ^rlq pain ^20190812 ^0310 ^Y TECHNIQUE: Thin collimation axial images obtained from the diaphragm to the level of the pubic symphysis following the uneventful administration of 100 cc of low osmolar, nonionic intravenous contrast. Dose reduction techniques used: Automated exposure control, adjustment of the mAs and/or kVp according to patient size, standardized low-dose protocol, and/or iterative reconstruction technique. RADIATION DOSE: Total DLP: 1379.39 mGy*cm Estimated effective dose: (DLP x 0.015 x size factor) mSv CTDIvol has been reviewed. It is below the limits set by the Radiation Protocol Committee (RPC). COMPARISON: None. ABDOMEN FINDINGS: Lung Bases: Small hiatal hernia. Lung bases are clear. Liver: The right lobe measures 22 cm in length. No evidence for mass. Gallbladder: Absent. No biliary ductal dilatation. Pancreas: Diffuse fatty atrophy without mass or ductal dilatation. Spleen: Normal in size. No evidence of mass. Adrenal Glands: No evidence for mass. Kidneys: Right: Normal enhancement. No soft tissue mass. No hydronephrosis. Left: Normal enhancement. No soft tissue mass. No hydronephrosis. Lymph Nodes: No lymphadenopathy. Aorta: Normal PELVIS FINDINGS: Bowel: Stomach: Normal. Small Bowel: Normal in caliber with normal wall thickness. Large Bowel: Normal in caliber with normal wall thickness. Appendix: Present and measures 12 mm. It is devoid of air. No mural hyperemia or periappendiceal inflammation. Bladder: Underdistended but otherwise normal. The uterus is absent. No adnexal mass Peritoneum/retroperitoneum: No free fluid or fluid collection. Bones: Unremarkable for age. Soft tissues: Unremarkable. IMPRESSION: 1. Mildly distended appendix without evidence of inflammation or other findings to suggest acute appendicitis. Please correlate with clinical exam findings. 2. Status post hysterectomy and cholecystectomy. 3. Hepatomegaly. Steatosis cannot be excluded due to the timing of the contrast bolus. 4. No evidence of bowel obstruction. Signed by: Dr. Manas Van MD on 08/12/2019 3:32 AM
== END 2019-08-12 03:54 | disposition home or self-care (01) ==
LOC: ER 01:36
DX: R10.31 Right lower quadrant pain (principal); R11.2 Nausea with vomiting, unspecified; R19.7 Diarrhea, unspecified; N30.91 Cystitis, unspecified with hematuria; N18.9 Chronic kidney disease, unspecified
CPT/HCPCS: 36415; 74177; 80053; 81001; 85025; 99283; J2270; J2550; Q9967

== ENCOUNTER 2021-04-05 19:54 | Emergency (ER) | payer OTHER ==
[~2021-04-05] VITALS: Ht 180.3 cm; Wt 162.4 kg
[2021-04-05] MEDS ORDERED: DOXYCYCLINE HY100 MG PO (20:54)
[2021-04-05] MEDS ORDERED: CIPRO500 MG PO (20:55)
[2021-04-05] MEDS ORDERED: ELIQUIS5 MG PO (20:56)
== END 2021-04-05 21:12 | disposition home or self-care (01) ==
LOC: FSED 20:10
DX: L02.213 Cutaneous abscess of chest wall (principal); Z79.01 Long term (current) use of anticoagulants; N18.9 Chronic kidney disease, unspecified; Z85.42 Personal history of malignant neoplasm of other parts of uterus; Z86.711 Personal history of pulmonary embolism; Z87.442 Personal history of urinary calculi
CPT/HCPCS: 99282

== ENCOUNTER 2021-04-08 22:50 | Emergency (ER) | payer OTHER ==
[~2021-04-08] VITALS: Ht 180.3 cm; Wt 162.4 kg
[~2021-04-08 22:50] MED LIST: CIPRO500 MG PO; DOXYCYCLINE HY100 MG PO; ELIQUIS5 MG PO
[2021-04-08] MEDS ORDERED: PROMETHAZINE 25MG/ NS 50ML (IV) IV ONE (23:30)
[2021-04-08] MEDS ORDERED: SODIUM CHLORIDE 0.9% 1000ML 1,000 ML IV ONE (23:30)
[2021-04-08 23:32] LABS: BASOPHILS # (AUTO) 0.1 (0.0-0.1); BASOPHILS % 0.8 % (0.0-1.0); EOSINOPHILS # (AUTO) 0.2 (0.0-0.4); EOSINOPHILS % 1.8 % (0.0-6.0); HEMATOCRIT 42.3 % (34.2-44.1); HEMOGLOBIN 13.5 g/dL (12.0-16.0); LYMPHOCYTES # (AUTO) 2.6 (1.0-3.2); LYMPHOCYTES % 27.6 % (18.0-39.1); MEAN CORPUSCULAR HEMOGLOBIN 29.4 pg (28-32); MEAN CORPUSCULAR HGB CONC 31.9 g/dL (31-35); MEAN CORPUSCULAR VOLUME 92.2 fL (81-99); MONOCYTES # (AUTO) 0.5 (0.2-0.8); MONOCYTES % 4.7 % (4.4-11.3); NEUTROPHILS # (AUTO) 6.2 (2.1-6.9); NEUTROPHILS % 64.5 % (38.7-80.0); PLATELET COUNT 368 x10e3/uL (140-360); RED BLOOD COUNT 4.59 x10e6/uL (3.6-5.1); RED CELL DISTRIBUTION WIDTH 13.6 % (11.7-14.4)
[2021-04-08 23:49] LABS: ALBUMIN 3.4 g/dL (3.5-5.0); ALBUMIN/GLOBULIN RATIO 0.8 (0.8-2.0); ANION GAP 12.7 mmol/L (8-16); CALCIUM 8.9 mg/dL (8.4-10.2); CREATININE, SERUM 0.83 mg/dL (0.57-1.11); POTASSIUM 3.7 mmol/L (3.5-5.1)
[2021-04-09 00:06] LABS: CLARITY,URINE CLOUDY (CLEAR); COLOR,URINE AMBER (YELLOW); KETONES,URINE NEGATIVE (NEGATIVE); LEUKOCYTE ESTERASE ,URINE NEGATIVE (NEGATIVE); NITRITE,URINE NEGATIVE (NEGATIVE); PROTEIN,URINE DIPSTICK 1+ (NEGATIVE); URINE UROBILINOGEN 0.2 mg/dL (0.2 - 1)
[2021-04-09 00:09] LABS: AMORPHOUS SEDIMENT,URINE FEW (FEW); BACTERIA,URINE FEW /HPF; EPITHELIAL CELLS,URINE RARE /LPF; RBC,URINE >50 /HPF (0-5); WBC,URINE (MAN) 0-5 /HPF (0-5)
[2021-04-09] MEDS ORDERED: Morphine 4mg Syringe 4 MG/ML INJ IV ONE (00:15)
[2021-04-09 01:31] VITALS: BP 100/71
[2021-04-09] MEDS ORDERED: HYDROCODON-ACE1 EAC9 PEG (01:35)
== END 2021-04-09 01:57 | disposition home or self-care (01) ==
LOC: ER 23:23
DX: R31.9 Hematuria, unspecified (principal); M54.50 Low back pain, unspecified; R11.2 Nausea with vomiting, unspecified; Z85.42 Personal history of malignant neoplasm of other parts of uterus
CPT/HCPCS: 36415; 74176; 80053; 81001; 85025; 99284; J2270; J2550; J7030

== ENCOUNTER 2021-06-24 01:19 | Emergency (ER) | payer OTHER ==
[~2021-06-24] VITALS: Ht 180.3 cm; Wt 165.1 kg
[~2021-06-24 01:19] MED LIST changes: +HYDROCODON-ACE1 EAC9 PEG
[2021-06-24] MEDS ORDERED: Morphine 4mg Syringe 4 MG/ML INJ IV ONE ×2 (02:15→04:15)
[2021-06-24] MEDS ORDERED: PROMETHAZINE 12.5MG/ NACL 0.9% 12.5 MG/50 ML BAG IV ONE (02:15)
[2021-06-24] MEDS ORDERED: PROMETHAZINE HCL (IM) 25 MG/ML VIAL IM ONE (02:26)
[2021-06-24] MEDS ORDERED: Morphine 4mg Syringe 4 MG/ML INJ ONE ×2 (02:27→04:27)
[2021-06-24] MEDS ORDERED: PROMETHAZINE 25MG/ NS 50ML (IV) IV ONE (03:15)
[2021-06-24] MEDS ORDERED: DICYCLOMINE HCL10 MG PO (04:01)
[2021-06-24 04:25] VITALS: BP 136/82
== END 2021-06-24 04:25 | disposition home or self-care (01) ==
LOC: FSED 02:03
DX: R10.9 Unspecified abdominal pain (principal); R50.9 Fever, unspecified; N18.9 Chronic kidney disease, unspecified; Z85.42 Personal history of malignant neoplasm of other parts of uterus
CPT/HCPCS: 74176; 80048; 81003; 81025; 85025; 96374; 96376; 99284; J2270; J2550